=== PATIENT | male | born 1950 | race Caucasian/White ===

== ENCOUNTER 2017-01-21 14:45 | Emergency (ER) | payer MEDICARE, BC ==
[~2017-01-21] VITALS: Wt 81.0 kg
[~2017-01-21 14:45] MED LIST: ASPI81TA3 PO; ATOR80TA75 PO; CARV25TA79 PO; CINA60TA PO; CLON0.2T5 PO; DOCU-144 PO; DOCU-159 PO; DOXA1TAB PO; EZET10TA3 PO; FURO40TA4 PO; HYDR-3672 PO; INSU100C SC; LANT3I SC; LEVO125T75 PO; LISI-526 PO; METO5TAB2 PO; NEPH PO; NIFE90TA21 PO; PANT40TA3 PO; SEVE800T7 PO; TAMS0.4C2 PO; ZINC220T PO
--- NOTE | 2017-01-21 15:26 | ERD ---
ER Documentation Chief Complaint Date/Time DATE: 01/21/17 Chief Complaint Left shoulder pain HPI The patient is a 66-year-old male with a history of hypertension, diabetes mellitus, end stage renal disease on hemodialysis (Tuesdays, , Saturdays) who presents to the Emergency Department with complaint of left shoulder pain for the past week. The patient believes he may have strained or "twisted" his shoulder while lifting something heavy last week. He now notes an aching pain localized to the left shoulder joint, particularly the deltoid region and lateral arm, that is worsened with overhead activity. He notes that the pain most often occurs when lying on the left shoulder, and at night. He denies any numbness, paresthesias or weakness of the distal extremity. Denies any restricted range of motion. Denies recent erythema, warmth, or swelling to the joint or upper extremity. He rates his current pain as 7/10, but notes that he has not taken any medication for pain relief since early this morning. Denies chest pain, palpitations, shortness of breath, diaphoresis, back pain, fevers, sweats, chills, or any other complaints at this time. The patient does note, however, that he has experienced similar pains to this in the past, but the pain usually self-resolves within one week. As it has been a full week since his symptoms began, he decided to present to the ED for further evaluation. Denies any recent falls or trauma to the extremity. ROS All systems reviewed and are negative except as per history of present illness. Medications Home Meds Active Scripts Tramadol HCl (Tramadol HCl) 50 Mg Tablet, 50 MG PO Q6 Y for PAIN, #12 TAB Prov:JOHN SLOAN PA-C 01/21/17 Reported Medications Insulin Glargine* (Lantus*) 100 Unit/Ml Soln, 1 UNIT SC DAILY, #1 VIAL 01/15/16 Docusate Sodium* (Colace*) 100 Mg Capsule, 100 MG PO BID, #60 CAP 01/15/16 Aspirin* (Aspirin* Chew) 81 Mg Tab.chew, 81 MG PO DAILY, TAB.CHEW 01/15/16 Levothyroxine Sodium* (Levothyroxine Sodium*) 125 Mcg Tablet, 125 MCG PO BEFORE BREAKFAST, #30 TAB 08/19/15 Insulin Lispro (Humalog) 100 U/Ml Cartridge, 10 UNITS SC WITH BREAKFAST, EA 08/12/15 Zinc Sulfate* (Zinc Sulfate*) 220 Mg Tablet, 220 MG PO DAILY, TAB 08/12/15 Sevelamer Carbonate* (Renvela*) 800 Mg Tablet, 3200 MG PO WITH MEALS, TAB 08/12/15 Docusate Sodium* (Docusate Sodium*) 100 Mg Capsule, 100 MG PO DAILY, #30 CAP 08/12/15 Tamsulosin Hcl* (Tamsulosin Hcl*) 0.4 Mg Cap.er.24h, 0.4 MG PO HS, CAP 08/12/15 Multivit/Ca Carb/B Cmplx/Fa* (Kimmie-Tirso*) 1 Tab Tab, 1 TAB PO DAILY, TAB 08/12/15 Cinacalcet* (Sensipar*) 60 Mg Tablet, 60 MG PO DAILY, TAB 08/12/15 Nifedipine* (Adalat CC*) 90 Mg Tablet.sa, 90 MG PO QHS, #30 TAB.SA 08/12/15 Doxazosin Mesylate* (Doxazosin Mesylate*) 1 Mg Tablet, 1 MG PO HS, TAB 08/12/15 Ezetimibe* (Zetia*) 10 Mg Tablet, 10 MG PO HS, TAB 08/12/15 Atorvastatin* (Atorvastatin*) 80 Mg Tablet, 80 MG PO QHS, #30 TAB 08/12/15 Lisinopril* (Zestril*) 40 Mg Tablet, 40 MG PO BID, #30 TAB 08/12/15 Hydralazine Hcl* (Hydralazine Hcl*) 50 Mg Tablet, 50 MG PO BID, #90 TAB 08/12/15 Furosemide* (Furosemide*) 40 Mg Tablet, 40 MG PO BID, TAB 08/12/15 Carvedilol* (Carvedilol*) 25 Mg Tablet, 25 MG PO BID, TAB 08/12/15 Clonidine Hcl* (Clonidine Hcl*) 0.2 Mg Tablet, 0.2 MG PO BID, TAB 08/12/15 Metoclopramide Hcl (Reglan) 5 Mg Tab, 5 MG PO AC MEALS AND BEDTIME 01/18/13 Pantoprazole* (Protonix*) 40 Mg Tablet.dr, 40 MG PO DAILY 01/16/13 Allergies Allergies: Coded Allergies: Soap (Verified Allergy, Intermediate, LOCAL RASH, 08/12/15) povidone-iodine (Verified Allergy, Intermediate, LOCAL RASH, 08/12/15) PMhx/Soc History of Surgery: Yes (LEFT AV GRAFT, ERCP, 2 X PCI) Anesthesia Reaction: No Hx Neurological Disorder: No Hx Respiratory Disorders: No Hx Cardiac Disorders: Yes (HTN) Hx Psychiatric Problems: No Hx Miscellaneous Medical Probl: Yes (DM, DIALYSIS) Hx Alcohol Use: No Hx Substance Use: No Hx Tobacco Use: No Smoking Status: Never smoker Physical Exam Vitals Vital Signs Date Time Temp Pulse Resp B/P Pulse Ox O2 Delivery O2 Flow Rate FiO2 01/21/17 14:46 98.6 64 20 172/75 96 Physical Exam Const: Well-developed male in no acute distress. Head: Normocephalic. Atraumatic Eyes: Normal Conjunctiva ENT: Normal External Ears, Nose and Mouth. Neck: Supple. No midline cervical tenderness. Mild tenderness to palpation over the left trapezius muscle and near the AC joint. No crepitus. No step offs. Resp: Clear to auscultation bilaterally Cardio: Regular rate and rhythm Abd: Soft, non tender, non distended. Skin: No petechiae or rashes. No erythema, warmth, swelling. No skip or target lesions. No crepitus. Ext: Inspection of the left shoulder reveals no deformity and fairly developed musculature. Superficial abrasions (2) to posterior left shoulder. No sagging of the shoulder. No obvious deformity. Palpation of the shoulder reveals mild tenderness upon palpation of the bicipital groove and over the left deltoid region. Active range of motion shows moderate pain with range of motion that appears to be worse with extension and internal rotation against resistance. Passive range of motion shows mild pain. Positive Neer sign. Positive Hawkin's Dwayne test. Negative drop arm test. Examination of the biceps reveals no pain with resisted flexion or pronation. Negative Yergason sign. Negative anterior apprehension test. Negative sulcus sign. Axillary, radial, median and ulnar nerve distribution grossly intact, both motor and sensory. Normal skin perfusion. No joint effusion. Full range of motion of the upper and lower extremities. No focal swelling or erythema. No clubbing, cyanosis or edema. Dialysis fistula with positive thrill and bruit to left upper extremity. Compartments are soft. No crepitus. Neur: Awake and alert. Motor and sensation grossly intact. Psych: Cooperative. Results 24 hrs Current Medications Medications (Trade) Dose Ordered Sig/Binta Route PRN Reason Start Time Stop Time Status Last Admin Dose Admin Acetaminophen (Tylenol Tab) 650 mg ONCE ONCE PO 01/21/17 15:30 01/21/17 15:31 DC 01/21/17 15:56 Procedures/MDM DIAGNOSTIC TESTS AND INTERPRETATION: PROCEDURE: Left shoulder 3 views CLINICAL INDICATION: Left shoulder pain. TECHNIQUE: AP internal and external rotation and transscapular Y views of the left shoulder were obtained COMPARISON: None available FINDINGS: Osseous structures are intact. No destructive bony lesions are observed. Moderate narrowing of the glenohumeral joint is seen. Osteophytosis is noted along the inferior margins of the humeral head and glenoid. Small bone island is seen in the humeral head. Soft tissues are unremarkable. IMPRESSION: Moderate degenerative change of the glenohumeral joint. If further characterization is needed CT or MRI could be helpful. If there is high clinical suspicion for traumatic injury, further evaluation with CT should be considered. .Yovany Solis MD, MD Date Time Electronically viewed and signed by .Yovany Solis MD, MD on 01/21/2017 16:20 EKG Review and interpretation by: Dr. Gaitan EKG Interpretation: Normal sinus rhythm. 61 bpm. Prolonged QTc 509 ms. Normal axis. Nonspecific ST/T changes. T wave inversion II, III, avF, V5, V6. SLING APPLICATION: INDICATION: Left shoulder pain/impingment/internal derangement of the left shoulder. LOCATION: Left upper extremity, shoulder. NEUROVASCULAR EXAM: The patients extremity was neurovascularly intact prior to and status post renato wrap placement. MEDICAL DECISION MAKING: This is a 66-year-old male presenting to the emergency department with left shoulder pain for one week, that he believes may be secondary to lifting a heavy open. The patient had tenderness to palpation over the left deltoid region and bicipital groove, with a positive Neer sign and Hawkin's Dwayne tests. Otherwise, negative lift off test and drop arm test. The patient's vital signs were stable, and he showed no evidence of toxicity. The differential diagnosis includes, but is not limited to, contusion , sprain, rotator cuff injury, strain, humeral fracture, clavicle fracture, scapular fracture, acromion fracture, shoulder separation, shoulder dislocation , arthritis, necrotizing fasciitis, necrotizing myositis, pneumothorax, biceps tendinitis, subacromial bursitis, adhesive capsulitis, AC separation, rheumatoid arthritis, septic arthritis, avascular necrosis, polymyalgia rheumatica, thoracic outlet syndrome, brachial plexus neuropathy, neoplastic disease. There are no imaging findings to suggest fracture, dislocation or subluxation. Patient is breathing normally on room air with no shortness of breath, no tachypnea and a normal O2 saturation. I do not suspect pneumothorax. No pain out of proportion to examination, no fevers, no constitutional symptoms, no crepitus, no skip lesions or rash, no erythema or restricted range of motion to suggest necrotizing fasciitis/myositis, avascular necrosis, septic arthritis. Range of motion appears to be intact, though with a positive Neer and Saucedo-Dwayne sign, indicating possible impingement. However, patient will need further outpatient evaluation and follow up with possible MRI for confirmation. Distal extremity is neurovascularly intact. No evidence of neurovascular compromise. After rest and administration of Tylenol , the patient reports no new complaints and mildly decreased pain. Upon my review and interpretation of the patient's presentation and overall ER course, I believe that the patient's symptoms are most consistent with shoulder pain, internal derangement of the left shoulder and likely impingement syndrome. His symptoms may be due to an underlying rotator cuff injury, however he will need further work up and evaluation for confirmation of such a diagnosis. The patient is in stable condition and therefore can be discharged home with a prescription for Tramadol (if needed), and strict return precautions for signs of deteriorating or worsening condition. The importance of icing, elevating, resting and working on range of motion was discussed with the patient. His upper extremity was placed in a sling, for further comfort, at this time in the emergency department. The patient is instructed to follow up with his primary care provider within 1-2 days for reevaluation and further management or return to the ER sooner for any worsening symptoms. I shared all diagnostic imaging studies with the patient at length and in great detail and the patient verbally understands and agrees with the plan for further observation and care as an outpatient. At the time of discharge, all questions were answered. Departure Diagnosis: Primary Impression: Left shoulder pain Chronicity: acute Qualified Code: M25.512 - Acute pain of left shoulder Condition: Stable Patient Instructions: Shoulder Impingement Syndrome, Shoulder Pain (Uncertain Cause), What Is Impingement Syndrome? Additional Instructions: Follow up with your primary medical provider in 1-2 days for reevaluation and further management. If your symptoms persist, please discuss obtaining an outpatient MRI with your primary medical provider. Return to the ED sooner for any new or worsening symptoms. JOHN SLOAN PA-C Jan 21, 2017 15:26
[2017-01-21] MEDS ORDERED: ACETAMINOPHEN 325 MG TAB PO ONE (15:30)
--- NOTE | 2017-01-21 16:21 | RADRPT ---
PROCEDURE: Left shoulder 3 views CLINICAL INDICATION: Left shoulder pain. TECHNIQUE: AP internal and external rotation and transscapular Y views of the left shoulder were o btained COMPARISON: None available FINDINGS: Osseous structures are intact. No destructive bony lesions are observed. Moderate narrowing of the glenohumeral joint is seen. Osteophytosis is noted along the inferior margins of the humeral head and glenoid. Small bone island is seen in the humeral head. Soft tissues are unremarkable. IMPRESSION: Moderate degenerative change of the glenohumeral joint. If further characterization is needed CT or MRI could be helpful. If there is high clinical suspicion for traumatic injury, further evaluation with CT should be consi dered. RPTAT: AA .Yovany Solis MD, MD Date Time Electronically viewed and signed by .Yovany Solis MD, on 01/21/2017 16:20 .P/
[2017-01-21] MEDS ORDERED: TRAM50TA2 PO (16:22)
== END 2017-01-21 16:30 | disposition home or self-care (01) ==
LOC: FTE 14:45
DX: M25.512 Pain in left shoulder (principal); I12.0 Hypertensive chronic kidney disease with stage 5 chronic kidney disease or end stage renal disease; N18.6 End stage renal disease; E11.22 Type 2 diabetes mellitus with diabetic chronic kidney disease; Z79.4 Long term (current) use of insulin; Z79.82 Long term (current) use of aspirin; Z99.2 Dependence on renal dialysis
CPT/HCPCS: 73030; 93005

== ENCOUNTER 2017-01-28 22:31 | Inpatient (IN) | payer BC, MEDICARE ==
[~2017-01-28] VITALS: Ht 167.6 cm; Wt 83.4 kg
[~2017-01-28 22:31] MED LIST changes: +TRAM50TA2 PO
[2017-01-29] VITALS (23 sets, daily range): BP systolic 165–207; BP diastolic 63–90; PULSE 55–65; RESP 18–19; TEMP 98.4; Ht 167.6 cm; Wt 83.4 kg
--- NOTE | 2017-01-29 03:40 | RADRPT ---
PROCEDURE: XR Chest. CLINICAL INDICATION: Cough TECHNIQUE: Single frontal view of the chest was obtained COMPARISON: 01/15/2016 FINDINGS: There is hypoinflation of the lungs and bibasilar atelectasis/infiltrates and small right pleural ef fusion appearing since previous study. Enlargement of the cardiac silhouette is again seen. Calcifi cation in thoracic aorta. ECG leads are projected over the chest. Right lateral old rib fractures a gain seen. IMPRESSION: Enlargement of cardiac silhouette again seen. Hypoinflation of the lungs and bibasilar atelectasis/ infiltrates and small right pleural effusion appearing since previous study. Appearance of an appro ximate 1.7 cm rounded density projected over the right lower lung not seen on the previous study. A lung nodule is not excluded and follow-up is recommended. Please see above. RPTAT: HJES .Obey Patricia MD, Date Time Electronically viewed and signed by .Obey Patricia MD, on 01/29/2017 03:39 .S/
[2017-01-29 03:49] LABS: ADD SCAN DIFF NO
[2017-01-29 04:03] LABS: ABNORMAL IP MESSAGE 1; BASOPHILS % 0.4 % (0.0-2.0); EOSINOPHILS # 0.4 10^3/ul (0.0-0.5); HEMATOCRIT 31.7 % (42.0-52.0); HEMOGLOBIN 10.1 g/dl (14.0-18.0); LYMPHOCYTES # 0.8 10^3/ul (0.8-2.9); LYMPHOCYTES % 15.3 % (15.0-51.0); MEAN CORPUSCULAR HEMOGLOBIN 31.2 pg (29.0-33.0); MEAN CORPUSCULAR HGB CONC 31.9 g/dl (32.0-37.0); MEAN CORPUSCULAR VOLUME 97.8 fl (82.0-101.0); MEAN PLATELET VOLUME 11.1 fl (7.4-10.4); MONOCYTE # 0.5 10^3/ul (0.3-0.9); MONOCYTES % 9.9 % (0.0-11.0); NEUTROPHIL # 3.3 10^3/ul (1.6-7.5); NEUTROPHILS % 66.2 % (39.0-77.0); RED BLOOD COUNT 3.24 10^6/ul (4.70-6.10); RED CELL DISTRIBUTION WIDTH 18.2 % (11.5-14.5)
[2017-01-29 04:11] LABS: ALBUMIN 4.5 g/dl (3.3-4.9); ALBUMIN/GLOBULIN RATIO 1.55; CALCIUM 11.1 mg/dl (8.4-10.2); CREATININE 11.18 mg/dl (0.61-1.24); POTASSIUM 4.8 mmol/L (3.5-5.1); TOTAL PROTEIN 7.4 g/dl (6.1-8.1)
[2017-01-29 04:19] LABS: INR 1.18; PROTIME 15.1 Sec (12.2-14.2); PT RATIO 1.2
[2017-01-29 04:21] LABS: PARTIAL THROMBOPLASTIN TIME 49.2 Sec (25.0-35.0); TROPONIN-I 0.041 ng/ml (0.00-0.12)
[2017-01-29 04:37] LABS: PLATELET COUNT 44 10^3/UL (140-415); PLATELET ESTIMATE PLT APPEAR
[2017-01-29] MEDS ORDERED: ONDANSETRON 4 MG INJ IV PRN ×2 (05:30→10:30)
[2017-01-29] MEDS ORDERED: ASPIRIN 81 MG TAB PO ONE (05:30)
[2017-01-29] MEDS ORDERED: ACETAMINOPHEN 325 MG TAB PO PRN (05:30)
[2017-01-29] MEDS ORDERED: hydrALAzine 20 MG INJ IV ONE (06:00)
--- NOTE | 2017-01-29 06:39 | ERA ---
ER Documentation Chief Complaint Date/Time DATE: 01/29/17 TIME: 06:17 Chief Complaint vomit today, emesis x 5. Denies abd pain. +SOB +CP HPI 66-year-old male with a history of hypertension, diabetes, ESRD on hemodialysis presenting with multiple episodes of vomiting today. Emesis was nonbloody and nonbilious. He denies any associated abdominal pain but does endorse some chest pain and shortness of breath that have been worsening over the past few days. He denies any fevers, chills, cough, diarrhea or constipation. His last dialysis was yesterday. He knows his blood pressure was high today so he took a clonidine prior to coming to the ER. ROS All systems reviewed and are negative except as per history of present illness. Medications Home Meds Active Scripts Tramadol HCl (Tramadol HCl) 50 Mg Tablet, 50 MG PO Q6 Y for PAIN, #12 TAB Prov:JOHN SLOAN PA-C 01/21/17 Reported Medications Docusate Sodium* (Colace*) 100 Mg Capsule, 100 MG PO BID, #60 CAP 01/15/16 Aspirin* (Aspirin* Chew) 81 Mg Tab.chew, 81 MG PO DAILY, TAB.CHEW 01/15/16 Levothyroxine Sodium* (Levothyroxine Sodium*) 125 Mcg Tablet, 125 MCG PO BEFORE BREAKFAST, #30 TAB 08/19/15 Insulin Lispro (Humalog) 100 U/Ml Cartridge, 0 SC WITH BREAKFAST, EA SLIDING SCALE 08/12/15 Zinc Sulfate* (Zinc Sulfate*) 220 Mg Tablet, 220 MG PO DAILY, TAB 08/12/15 Sevelamer Carbonate* (Renvela*) 800 Mg Tablet, 3200 MG PO WITH MEALS, TAB 08/12/15 Docusate Sodium* (Docusate Sodium*) 100 Mg Capsule, 100 MG PO DAILY, #30 CAP 08/12/15 Tamsulosin Hcl* (Tamsulosin Hcl*) 0.4 Mg Cap.er.24h, 0.4 MG PO HS, CAP 08/12/15 Multivit/Ca Carb/B Cmplx/Fa* (Kimmie-Tirso*) 1 Tab Tab, 1 TAB PO DAILY, TAB 08/12/15 Cinacalcet* (Sensipar*) 60 Mg Tablet, 60 MG PO DAILY, TAB 08/12/15 Nifedipine* (Adalat CC*) 90 Mg Tablet.sa, 90 MG PO QHS, #30 TAB.SA 08/12/15 Doxazosin Mesylate* (Doxazosin Mesylate*) 1 Mg Tablet, 1 MG PO HS, TAB 08/12/15 Atorvastatin* (Atorvastatin*) 80 Mg Tablet, 80 MG PO QHS, #30 TAB 08/12/15 Lisinopril* (Zestril*) 40 Mg Tablet, 40 MG PO BID, #30 TAB 08/12/15 Hydralazine Hcl* (Hydralazine Hcl*) 50 Mg Tablet, 50 MG PO BID, #90 TAB 08/12/15 Carvedilol* (Carvedilol*) 25 Mg Tablet, 25 MG PO BID, TAB 08/12/15 Clonidine Hcl* (Clonidine Hcl*) 0.2 Mg Tablet, 0.2 MG PO BID, TAB 08/12/15 Metoclopramide Hcl (Reglan) 5 Mg Tab, 5 MG PO AC MEALS AND BEDTIME 01/18/13 Pantoprazole* (Protonix*) 40 Mg Tablet.dr, 40 MG PO DAILY 01/16/13 Discontinued Reported Medications Insulin Glargine* (Lantus*) 100 Unit/Ml Soln, 1 UNIT SC DAILY, #1 VIAL 01/15/16 Ezetimibe* (Zetia*) 10 Mg Tablet, 10 MG PO HS, TAB 08/12/15 Furosemide* (Furosemide*) 40 Mg Tablet, 40 MG PO BID, TAB 08/12/15 Allergies Allergies: Coded Allergies: Soap (Verified Allergy, Intermediate, LOCAL RASH, 08/12/15) povidone-iodine (Verified Allergy, Intermediate, LOCAL RASH, 08/12/15) PMhx/Soc History of Surgery: Yes (LEFT AV GRAFT, ERCP, 2 X PCI) Anesthesia Reaction: No Hx Neurological Disorder: No Hx Respiratory Disorders: No Hx Cardiac Disorders: Yes (HTN) Hx Psychiatric Problems: No Hx Miscellaneous Medical Probl: Yes (DM, DIALYSIS) Hx Alcohol Use: No Hx Substance Use: No Hx Tobacco Use: No Smoking Status: Unknown if ever smoked FmHx Family History: No diabetes Physical Exam Vitals Vital Signs Date Time Temp Pulse Resp B/P Pulse Ox O2 Delivery O2 Flow Rate FiO2 01/29/17 04:30 57 19 186/69 96 Nasal Cannula 2.0 7/6/17 04:00 Nasal Cannula 2 01/29/17 02:45 60 20 187/74 94 Room Air 01/28/17 22:55 98.3 65 18 200/84 97 Physical Exam Const: Well-appearing, no apparent distress Head: Atraumatic Eyes: Normal Conjunctiva ENT: Dry oral mucosa Neck: Full range of motion..~ No meningismus. Resp: Clear to auscultation bilaterally Cardio: Regular rate and rhythm, no murmurs Abd: Soft, non tender, non distended. Normal bowel sounds Skin: No petechiae or rashes Back: No midline or flank tenderness Ext: No cyanosis, or edema Neur: Awake and alert Psych: Normal Mood and Affect Result Diagram: 01/29/1731601/29/17316 Results 24 hrs Laboratory Tests Test 01/29/17 03:17 White Blood Count 5.010^3/ul Red Blood Count 3.2410^6/ul Hemoglobin 10.1g/dl Hematocrit 31.7% Mean Corpuscular Volume 97.8fl Mean Corpuscular Hemoglobin 31.2pg Mean Corpuscular Hemoglobin Concent 31.9g/dl Red Cell Distribution Width 18.2% Platelet Count 4410^3/UL Mean Platelet Volume 11.1fl Neutrophils % 66.2% Lymphocytes % 15.3% Monocytes % 9.9% Eosinophils % 8.0% Basophils % 0.4% Nucleated Red Blood Cells % 0.0/100WBC Neutrophils # 3.310^3/ul Lymphocytes # 0.810^3/ul Monocytes # 0.510^3/ul Eosinophils # 0.410^3/ul Basophils # 0.010^3/ul Nucleated Red Blood Cells # 0.010^3/ul Platelet Estimate PLT APPEAR Prothrombin Time 15.1Sec Prothrombin Time Ratio 1.2 INR International Normalized Ratio 1.18 Activated Partial Thromboplast Time 49.2Sec Sodium Level 138mmol/L Potassium Level 4.8mmol/L Chloride Level 90mmol/L Carbon Dioxide Level 29mmol/L Anion Gap 24 Blood Urea Nitrogen 75mg/dl Creatinine 11.18mg/dl Glucose Level 201mg/dl Calcium Level 11.1mg/dl Total Bilirubin 0.0mg/dl Direct Bilirubin 0.00mg/dl Indirect Bilirubin 0.0mg/dl Aspartate Amino Transf (AST/SGOT) 32IU/L Alanine Aminotransferase (ALT/SGPT) 37IU/L Alkaline Phosphatase 233IU/L Troponin I 0.041ng/ml Total Protein 7.4g/dl Albumin 4.5g/dl Globulin 2.90g/dl Albumin/Globulin Ratio 1.55 Lipase 99U/L Current Medications Medications (Trade) Dose Ordered Sig/Binta Route PRN Reason Start Time Stop Time Status Last Admin Dose Admin Aspirin (Aspirin) 162 mg ONCE ONCE PO 01/29/17 05:30 01/29/17 05:31 DC 01/29/17 05:21 Ondansetron HCl (Zofran Inj) 4 mg ER BRIDGE PRN IV NAUSEA AND/OR VOMITING 01/29/17 05:30 01/30/17 05:29 Acetaminophen (Tylenol Tab) 650 mg ER BRIDGE PRN PO MILD PAIN/FEVER 01/29/17 05:30 01/30/17 05:29 Hydralazine HCl (Apresoline) 10 mg ONCE ONCE IV 01/29/17 06:00 01/29/17 06:01 DC 01/29/17 05:47 Procedures/MDM EKG #1: Rate/Rhythm: Normal sinus rhythm QRS, ST, T-waves: ST depressions with T-wave inversions in inferolateral leads, QTC 492 Impression: Possible inferior lateral ischemia EKG #2: Rate/Rhythm: Normal sinus rhythm QRS, ST, T-waves: Persistent ST depressions with T-wave inversions in inferolateral leads Impression: Possible inferior lateral ischemia I compared these EKGs to the patient's prior EKG, and these are new changes. Chest x-ray: IMPRESSION: Enlargement of cardiac silhouette again seen. Hypoinflation of the lungs and bibasilar atelectasis/infiltrates and small right pleural effusion appearing since previous study. Appearance of an approximate 1.7 cm rounded density projected over the right lower lung not seen on the previous study. A lung nodule is not excluded and follow-up is recommended. Please see above. Labs CBC: Anemia, thrombocytopenia CMP: There is evidence of chronic kidney disease Troponin within normal limits MDM Aspirin was given. Patient did not want antiemetics as he took them prior to arrival. EKG showed signs of ischemia. Troponin was within normal limits. I do not suspect acute surgical abdomen or serious infection. Patient's symptoms are atypical but are concerning for cardiac cause, especially given his EKG changes, and will require inpatient workup and continuous monitoring. Further w /u for ischemia, arrhythmia, PE or dissection will be deferred to the inpatient team. While the patient was awaiting a telemetry bed, he stated that he did not want to stay. I explained to the patient why I wanted to admit him again. I told him that he may be having problems with his heart. He understands but he would like to leave. Patient has decision-making capacity based on my assessment. He signed an AMA form and was encouraged to return if any of his symptoms worsened. His primary care doctor was notified. Accepting Care Team: Current data and ongoing care discussed. Time: Time of admission Primary Provider: GERA NAVARRO Consulting: none Outstanding Data: none Departure Diagnosis: Primary Impression: Acute vomiting Additional Impression: Chest pain Qualified Code: R07.2 - Precordial pain Condition: Fair ANNABEL ALY MD Jan 29, 2017 06:39
[2017-01-29] MEDS ORDERED: NITROGLYCERIN (SL) 0.4 MG TAB SL PRN (09:00)
[2017-01-29] MEDS ORDERED: traMADol 50 MG TAB PO PRN (09:00)
[2017-01-29] MEDS ORDERED: DOCUSATE SODIUM 100 MG CAP PO SCH (09:30)
[2017-01-29] MEDS ORDERED: GLUCAGON 1 MG INJ IM PRN (09:30)
[2017-01-29] MEDS ORDERED: GLUCOSE GEL 15 GRAM TUBE BUCCAL PRN (09:30)
[2017-01-29] MEDS ORDERED: ZINC SULFATE 220 MG CAP PO SCH (09:30)
[2017-01-29] MEDS ORDERED: DEXTROSE 50% 50 ML SYRINGE IV PRN ×2 (09:30)
[2017-01-29] MEDS ORDERED: GLUCOSE GEL 15 GRAM TUBE PO PRN ×2 (09:30)
[2017-01-29] MEDS: MULTIVIT/CA CARB/B CMPLX/FA TAB PO SCH (09:37)
[2017-01-29] MEDS: DOCUSATE SODIUM 100 MG CAP PO SCH ×2 (09:37→20:31)
[2017-01-29] MEDS: ASPIRIN 81 MG TAB PO SCH (09:37)
[2017-01-29] MEDS: LISINOPRIL 20 MG TAB PO SCH ×2 (09:42→20:32)
[2017-01-29] MEDS: PANTOPRAZOLE (EC) 40 MG TAB PO SCH (09:43)
[2017-01-29] MEDS: LEVOTHYROXINE 125 MCG TAB PO SCH (10:45)
[2017-01-29] MEDS: CINACALCET 30 MG TAB PO SCH (10:45)
[2017-01-29] MEDS ORDERED: INSULIN ASPART [NOVOLOG] 3 ML PEN SC SCH (11:50)
[2017-01-29] MEDS: SEVELAMER CARBONATE 0.8 GM PKT PO SCH ×2 (11:58→17:33)
[2017-01-29] MEDS: METOCLOPRAMIDE 5 MG TAB PO SCH ×3 (12:00→22:25)
[2017-01-29] MEDS: INSULIN ASPART [NOVOLOG] 3 ML PEN SC SCH ×5 (12:57→21:00)
--- NOTE | 2017-01-29 13:23 | CONS ---
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 These include retinopathy nephropathy peripheral neuropathy and vascular disease. In addition to this he has a type I diabetic is somewhat insulin sensitive and prone to low sugar reactions. Please note he is does not have many low sugar reactions but he has an overwhelming fear of them. Because of this he has avoided tight control. Will try and work with him to get his sugars best we can under the present circumstances. These note he was a no-show in my office for October 08 and October 29 of this year. His last visit was July 09, 2016. (2) Hyperlipidemia Status: Chronic Comment: His home regimen for statin as well as atorvastatin 160 mg a day with Zetia 10 mg a day. We have issues of polypharmacy with this gentleman and his regimen needs to be fine-tuned while we have him. Qualifiers: Qualified Code: E78.00 - Pure hypercholesterolemia (3) Chest pain Status: Acute Comment: As per Dr. Navarro cardiology. Qualifiers: Qualified Code: R07.2 - Precordial pain (4) Tertiary hyperparathyroidism Status: Chronic Comment: He is presently on Sensipar for this. I am rechecking an ionized calcium is a serum calcium was 11.1. Please note the last date I had from his dialysis center had a calcium that was much lower than that. However this is more than 6 months old information (5) Choledocholithiasis Status: Acute Comment: This may need to be addressed in the near future as I suspect many of the symptoms that he is attributing to insulin and sugar issues are actually gallbladder issues. (6) BPH (benign prostatic hyperplasia) Status: Chronic Comment: The combination of tamsulosin with doxazosin in the setting is less effective. I am going to discontinue his tamsulosin. Qualifiers: Qualified Code: N40.0 - Benign prostatic hyperplasia without lower urinary tract symptoms, unspecified morphology (7) Hypertension Status: Chronic Comment: He is on full dose REBEKAH inhibitor along with blockade beta-blockade and nifedipine. The alpha blockade should be pushed up in the nifedipine should be decreased if possible. Qualifiers: Qualified Code: I10 - Essential hypertension Consultation Date/Type/Reason Admit Date/Time Jan 29, 2017 at 05:30 Date of Consultation: Jan 29, 2017 Type of Consultation: Endocrinology Reason for Consultation Diabetes mellitus type 1 with complications; end-stage renal disease on CHD twice weekly; hypertension; BPH; hyperlipidemia; hypothyroidism; polypharmacy Referring Provider: GERA NAVARRO MD Hx of Present Illness 66-year-old gentleman with a history of diabetes mellitus type 1 since the age of 4; he has complications of end-stage renal disease on hemodialysis; retinopathy; peripheral neuropathy;. In addition he has vascular disease including cardiovascular disease. He is admitted for gallbladder disease. Please note that this is been a known diagnosis for at least 13 months Constitutional: no complaints (Denies fevers chills or sweats) Eyes: no complaints (Last visit with Dr. Foster 6 weeks ago) ENT: no complaints Respiratory: shortness of breath Cardiovascular: other (Left arm pain that is positional and aggravated with motion.) Gastrointestinal: no complaints Genitourinary: other (And uric renal failure) Musculoskeletal: other (Left arm pain) Endocrine: other (Patient reports he gets a sensation of hunger which she attributes to low sugar reactions roughly 4 PM daily. He reports when he checks his sugars at that time before he is eaten sugars are in the 300 range. He eats anyway and is concerned that the long-acting insulin is not working well for him.) Past Medical History Diabetes mellitus type 1; end-stage renal disease on CHD twice weekly; diabetic retinopathy; diabetic peripheral neuropathy; hyperlipidemia; hypertension; BPH; history of renal stone; cholelithiasis; organic heart disease systolic CHF; diastolic dysfunction; hypothyroidism; umbilical hernia; diverticulosis coli; peripheral vascular disease; anemia. His home medication list is concerning for polypharmacy. Medical History: congestive heart failure, diabetes, gallstones, high cholesterol, hypertension, hypothyroid Past Surgical History Status post placement of dialysis catheter Family History Significant Family History: heart disease, diabetes, hypertension Social History Alcohol Use: none Smoking Status: Never smoker Drug Use: none Other Social History Born in [facility] and [facility]. He is (his is [employer] employee) lives with his and 2 children. Exam/Review of Systems Vital Signs Vitals Vital Signs Date Time Temp Pulse Resp B/P Pulse Ox O2 Delivery O2 Flow Rate FiO2 01/29/17 12:04 56 01/29/17 11:28 98.2 18 179/79 92 01/29/17 09:00 Room Air 2.0 Nasal Cannula Exam Constitutional: alert, oriented Neck: non-tender, supple Respiratory: clear to auscultation, normal air movement Cardiovascular: nl pulses, regular rate and rhythm Results Result Diagram: 01/29/177 01/29/17316 Results 24 hrs Laboratory Tests Test 01/29/17 03:17 01/29/17 09:00 01/29/17 10:44 01/29/17 12:54 White Blood Count 5.0 # Red Blood Count 3.24 L Hemoglobin 10.1 L Hematocrit 31.7 L Mean Corpuscular Volume 97.8 Mean Corpuscular Hemoglobin 31.2 Mean Corpuscular Hemoglobin Concent 31.9 L Red Cell Distribution Width 18.2 H Platelet Count 44 L Mean Platelet Volume 11.1 #H Neutrophils % 66.2 Lymphocytes % 15.3 Monocytes % 9.9 Eosinophils % 8.0 H Basophils % 0.4 Nucleated Red Blood Cells % 0.0 Neutrophils # 3.3 Lymphocytes # 0.8 Monocytes # 0.5 Eosinophils # 0.4 Basophils # 0.0 Nucleated Red Blood Cells # 0.0 Platelet Estimate PLT APPEAR Prothrombin Time 15.1 H Prothrombin Time Ratio 1.2 INR International Normalized Ratio 1.18 Activated Partial Thromboplast Time 49.2 H Sodium Level 138 Potassium Level 4.8 Chloride Level 90 L Carbon Dioxide Level 29 Anion Gap 24 H Blood Urea Nitrogen 75 H Creatinine 11.18 H Glucose Level 201 Calcium Level 11.1 H Total Bilirubin 0.0 L Direct Bilirubin 0.00 Indirect Bilirubin 0.0 Aspartate Amino Transf (AST/SGOT) 32 Alanine Aminotransferase (ALT/SGPT) 37 Alkaline Phosphatase 233 H Troponin I 0.041 Total Protein 7.4 Albumin 4.5 Globulin 2.90 Albumin/Globulin Ratio 1.55 Lipase 99 Thyroid Stimulating Hormone (TSH) 5.530 H Bedside Glucose 245 H 257 H 260 H Medications Medications Current Medications Aspirin (Aspirin) 81 mg DAILY PO Last administered on 01/29/17 09:37; Admin Dose 81 MG; Start 01/29/17 at 09:00 Atorvastatin Calcium (Lipitor) 80 mg QHS PO ; Start 01/29/17 at 21:00 Carvedilol (Coreg) 25 mg BID PO Last administered on 01/29/17 09:43; Admin Dose 25 MG; Start 01/29/17 at 09:30 Cinacalcet (Sensipar) 60 mg DAILY PO Last administered on 01/29/17 10:45; Admin Dose 60 MG; Start 01/29/17 at 10:30 Clonidine (Catapres) 0.2 mg BID PO Last administered on 01/29/17 09:42; Admin Dose 0.2 MG; Start 01/29/17 at 09:00 Docusate Sodium (Colace) 100 mg BID PO Last administered on 01/29/17 09:37; Admin Dose 100 MG; Start 01/29/17 at 09:30 Doxazosin Mesylate (Cardura) 1 mg HS PO ; Start 01/29/17 at 21:00 Hydralazine HCl (Apresoline) 50 mg BID PO Last administered on 01/29/17 09:41; Admin Dose 50 MG; Start 01/29/17 at 09:30 Lisinopril (Zestril) 40 mg BID PO Last administered on 01/29/17 09:42; Admin Dose 40 MG; Start 01/29/17 at 09:30 Multivit/Ca Carb/ B Cmplx/FA/Prenat (Kimmie-Tirso) 1 tab DAILY PO Last administered on 01/29/17 09:37; Admin Dose 1 TAB; Start 01/29/17 at 09:30 Nifedipine (Procardia Xl) 90 mg QHS PO ; Start 01/29/17 at 21:00 Pantoprazole (Protonix Tab) 40 mg DAILY@06 PO Last administered on 01/29/17 09: 43; Admin Dose 40 MG; Start 01/29/17 at 09:30 Tamsulosin HCl (Flomax) 0.4 mg HS PO ; Start 01/29/17 at 21:00 Tramadol HCl (Ultram) 50 mg Q6H PRN PO PAIN; Start 01/29/17 at 09:00 Nitroglycerin (Nitroglycerin (Sl Tab) 0.4 Mg) 1 tab Q5M PRN SL ANGINA; Start at 09:00 Clonidine (Catapres) 0.1 mg Q4H PRN NGT sbp >170 dbp>110; Start 01/29/17 at 09: 00 Miscellaneous Information 1 ea NOTE XX ; Start 01/29/17 at 09:30 Glucose (Glutose) 15 gm Q15M PRN PO DECREASED GLUCOSE; Start 01/29/17 at 09:30 Glucose (Glutose) 22.5 gm Q15M PRN PO DECREASED GLUCOSE; Start 01/29/17 at 09:30 Dextrose (D50w Syringe) 25 ml Q15M PRN IV DECREASED GLUCOSE; Start 01/29/17 at 09:30 Dextrose (D50w Syringe) 50 ml Q15M PRN IV DECREASED GLUCOSE; Start 01/29/17 at 09:30 Glucagon (Glucagen) 1 mg Q15M PRN IM DECREASED GLUCOSE; Start 01/29/17 at 09:30 Glucose (Glutose) 15 gm Q15M PRN BUCCAL DECREASED GLUCOSE; Start 01/29/17 at 09: 30 Ondansetron HCl (Zofran Inj) 4 mg Q4H PRN IV NAUSEA AND/OR VOMITING; Start 01/29 at 10:30 Insulin Glargine (Lantus) 12 unit DAILY@20 SC ; Start 01/29/17 at 20:00 Diagnostic Test (Pha) (Accu-Chek) 1 02 XX ; Start 01/30/17 at 02:00 LAWANDA KING MD Jan 29, 2017 13:16
[2017-01-29] MEDS: ACCU-CHEK XX SCH ×2 (13:50→23:30)
[2017-01-29] MEDS ORDERED: INSULIN GLARGINE [LANtus] 3 ML PEN SC SCH (20:00)
--- NOTE | 2017-01-29 20:27 | CONS ---
Date/Time of Note Date/Time of Note DATE: 01/29/17 TIME: 20:15 Assessment/Plan Assessment/Plan Chief Complaint/Hosp Course Impression: 1. End-stage renal disease on maintenance hemodialysis. He has end-stage renal disease due to diabetic nephropathy. The patient dialyzes Thursday and today , being , is due for dialysis . 2. Hypertension 3. Type 1 diabetes mellitus on insulin 4. Cardiomyopathy with ejection fraction of 35% Plan: 1. Will order hemodialysis treatment for today. 2. Resume routine medications 3. I will follow the patient along with you Problems: Consultation Date/Type/Reason Admit Date/Time Jan 29, 2017 at 05:30 Date of Consultation: Jan 29, 2017 Type of Consultation: Renal Reason for Consultation End Stage Renal Disease Referring Provider: GERA NAVARRO MD Hx of Present Illness I was asked to see this 66-year-old man because of end-stage renal disease. This patient is well known to me. He is on maintenance hemodialysis Thursday and is due for dialysis today. The patient was admitted through the emergency room today because of chest pain. The chest pain resolved and the patient is feeling well at this time. The patient has a history of type 1 diabetes mellitus and has diabetic nephropathy, neuropathy, retinopathy and vascular disease. Constitutional: no complaints Eyes: no complaints ENT: no complaints Respiratory: shortness of breath Cardiovascular: chest pain, other Gastrointestinal: no complaints Genitourinary: other Musculoskeletal: other Endocrine: other Past Medical History Medical History: congestive heart failure, diabetes, gallstones, high cholesterol, hypertension, hypothyroid Past Surgical History Past Surgical Hx: other Family History Significant Family History: no pertinent family hx Social History Alcohol Use: none Smoking Status: Never smoker Drug Use: none Exam/Review of Systems Vital Signs Vitals Vital Signs Date Time Temp Pulse Resp B/P Pulse Ox O2 Delivery O2 Flow Rate FiO2 01/29/17 18:22 165/70 01/29/17 17:20 60 18 01/29/17 15:21 98.7 97 01/29/17 09:00 Room Air 2.0 Nasal Cannula Exam Constitutional: alert, oriented, well developed Eyes: EOMI, nl conjunctiva ENMT: mucosa pink and moist Neck: non-tender, supple Respiratory: clear to auscultation, normal air movement Cardiovascular: edema, regular rate and rhythm Gastrointestinal: non-tender, soft Extremities: edema Results Result Diagram: 01/29/17 0317 01/29/17 0317 Results 24 hrs Laboratory Tests Test 01/29/17 03:17 01/29/17 09:00 01/29/17 10:44 01/29/17 12:54 White Blood Count 5.0 # Red Blood Count 3.24 L Hemoglobin 10.1 L Hematocrit 31.7 L Mean Corpuscular Volume 97.8 Mean Corpuscular Hemoglobin 31.2 Mean Corpuscular Hemoglobin Concent 31.9 L Red Cell Distribution Width 18.2 H Platelet Count 44 L Mean Platelet Volume 11.1 #H Neutrophils % 66.2 Lymphocytes % 15.3 Monocytes % 9.9 Eosinophils % 8.0 H Basophils % 0.4 Nucleated Red Blood Cells % 0.0 Neutrophils # 3.3 Lymphocytes # 0.8 Monocytes # 0.5 Eosinophils # 0.4 Basophils # 0.0 Nucleated Red Blood Cells # 0.0 Platelet Estimate PLT APPEAR Prothrombin Time 15.1 H Prothrombin Time Ratio 1.2 INR International Normalized Ratio 1.18 Activated Partial Thromboplast Time 49.2 H Sodium Level 138 Potassium Level 4.8 Chloride Level 90 L Carbon Dioxide Level 29 Anion Gap 24 H Blood Urea Nitrogen 75 H Creatinine 11.18 H Glucose Level 201 Calcium Level 11.1 H Total Bilirubin 0.0 L Direct Bilirubin 0.00 Indirect Bilirubin 0.0 Aspartate Amino Transf (AST/SGOT) 32 Alanine Aminotransferase (ALT/SGPT) 37 Alkaline Phosphatase 233 H Troponin I 0.041 Total Protein 7.4 Albumin 4.5 Globulin 2.90 Albumin/Globulin Ratio 1.55 Lipase 99 Thyroid Stimulating Hormone (TSH) 5.530 H Bedside Glucose 245 H 257 H 260 H Test 01/29/17 14:00 01/29/17 16:46 01/29/17 19:25 Ionized Calcium (Measured) 1.4 Troponin I 0.016 Bedside Glucose 129 60 L Medications Medications Current Medications Aspirin (Aspirin) 81 mg DAILY PO Last administered on 01/29/17 09:37; Admin Dose 81 MG; Start 01/29/17 at 09:00 Atorvastatin Calcium (Lipitor) 80 mg QHS PO ; Start 01/29/17 at 21:00 Carvedilol (Coreg) 25 mg BID PO Last administered on 01/29/17 09:43; Admin Dose 25 MG; Start 01/29/17 at 09:30 Cinacalcet (Sensipar) 60 mg DAILY PO Last administered on 01/29/17 10:45; Admin Dose 60 MG; Start 01/29/17 at 10:30 Clonidine (Catapres) 0.2 mg BID PO Last administered on 01/29/17 09:42; Admin Dose 0.2 MG; Start 01/29/17 at 09:00 Docusate Sodium (Colace) 100 mg BID PO Last administered on 01/29/17 09:37; Admin Dose 100 MG; Start 01/29/17 at 09:30 Lisinopril (Zestril) 40 mg BID PO Last administered on 01/29/17 09:42; Admin Dose 40 MG; Start 01/29/17 at 09:30 Multivit/Ca Carb/ B Cmplx/FA/Prenat (Kimmie-Tirso) 1 tab DAILY PO Last administered on 01/29/17 09:37; Admin Dose 1 TAB; Start 01/29/17 at 09:30 Nifedipine (Procardia Xl) 90 mg QHS PO ; Start 01/29/17 at 21:00 Pantoprazole (Protonix Tab) 40 mg DAILY@06 PO Last administered on 01/29/17 09: 43; Admin Dose 40 MG; Start 01/29/17 at 09:30 Tramadol HCl (Ultram) 50 mg Q6H PRN PO PAIN; Start 01/29/17 at 09:00 Nitroglycerin (Nitroglycerin (Sl Tab) 0.4 Mg) 1 tab Q5M PRN SL ANGINA; Start at 09:00 Clonidine (Catapres) 0.1 mg Q4H PRN NGT sbp >170 dbp>110; Start 01/29/17 at 09: 00 Miscellaneous Information 1 ea NOTE XX ; Start 01/29/17 at 09:30 Glucose (Glutose) 15 gm Q15M PRN PO DECREASED GLUCOSE; Start 01/29/17 at 09:30 Glucose (Glutose) 22.5 gm Q15M PRN PO DECREASED GLUCOSE; Start 01/29/17 at 09:30 Dextrose (D50w Syringe) 25 ml Q15M PRN IV DECREASED GLUCOSE Last administered on 01/29/17 19:36; Admin Dose 25 ML; Start 01/29/17 at 09:30 Dextrose (D50w Syringe) 50 ml Q15M PRN IV DECREASED GLUCOSE; Start 01/29/17 at 09:30 Glucagon (Glucagen) 1 mg Q15M PRN IM DECREASED GLUCOSE; Start 01/29/17 at 09:30 Glucose (Glutose) 15 gm Q15M PRN BUCCAL DECREASED GLUCOSE; Start 01/29/17 at 09: 30 Ondansetron HCl (Zofran Inj) 4 mg Q4H PRN IV NAUSEA AND/OR VOMITING; Start 01/29 at 10:30 Insulin Glargine (Lantus) 12 unit DAILY@20 SC ; Start 01/29/17 at 20:00 Diagnostic Test (Pha) (Accu-Chek) 1 ea 02 XX ; Start 01/30/17 at 02:00 Doxazosin Mesylate (Cardura) 4 mg HS PO ; Start 01/29/17 at 21:00 Hydralazine HCl (Apresoline) 100 mg BID PO ; Start 01/29/17 at 21:00 PAULY VILA MD Jan 29, 2017 20:26
[2017-01-29] MEDS: ATORVASTATIN 80 MG TAB PO SCH (20:34)
[2017-01-29] MEDS ORDERED: TAMSULOSIN (SR) 0.4 MG CAP PO SCH (21:00)
[2017-01-29] MEDS ORDERED: DOXAZOSIN 4 MG TAB PO SCH (21:00)
[2017-01-29] MEDS ORDERED: NIFEdipine (XL) 90 MG TAB PO SCH (21:00)
[2017-01-29] MEDS ORDERED: DOXAZOSIN 1 MG TAB PO SCH (21:00)
--- NOTE | 2017-01-29 21:31 | RADRPT ---
PROCEDURE: Nuclear medicine hepatobiliary scan CLINICAL INDICATION: History of biliary stent, nausea and vomiting rule out biliary obstruction TECHNIQUE: 8 Millicuries of technetium 99 mebrofenin was injected intravenously. Anterior images o f the abdomen were obtained up to 15 minutes post injection at which time the patient had low blood sugar and refused to continue with the examination and anterior, posterior, left anterior oblique, r ight posterior oblique and bilateral lateral images were performed 90 minutes post injection. COMPARISON: Report of ERCP of 01/15/2016 FINDINGS: There is prompt uptake of the radiopharmaceutical by the liver and excretion into bile ducts. Activ ity is seen in the gallbladder by 90 minutes postinjection consistent with patency of the cystic funmilayo t. Activity is seen in bowel by 90 minutes postinjection consistent with patency of the common bile duct. IMPRESSION: No evidence of biliary obstruction seen. Patent cystic and common bile ducts. Please see above. RPTAT: HJES .Obey Patricia MD, MD Date Time Electronically viewed and signed by .Obey Patricia MD, MD on 01/29/2017 21:31 .S/
--- NOTE | 2017-01-29 23:54 | CONS ---
Date/Time of Note Date/Time of Note DATE: 01/29/17 TIME: 23:31 Assessment/Plan Assessment/Plan Chief Complaint/Hosp Course Impression: - Acute on chronic systolic heart failure- progressive dyspnea and orthopnea, fluid mgmt per renal with iHD - NICM- unclear etiology. no obstructive cad on [facility] - HTN- uncontrolled - ? chest pain- pt denies, no sig trop leak. - CAD- mild to mod CAD, no sig trop elevation. cont statin/asa Recommendations: - obtain echo - fluid mgmt with iHD - cont carvedilol 25mg po bid - cont lisinopril - cont nifedipine/hydralazine - cont clonidine for bp control - cont statin/asa Problems: Consultation Date/Type/Reason Admit Date/Time Jan 29, 2017 at 05:30 Date of Consultation: Jan 29, 2017 Type of Consultation: Cardiology Reason for Consultation Dyspnea Referring Provider: GERA NAVARRO MD Hx of Present Illness Mr. Arvizu is a pleasant 66 y.o. man with a h/o of chronic systolic heart failure due to non-ischemic cardiomyopathy, DM2, ESRD on iHD, Hypertension, and non-obstructive CAD. Pt presented with n/v. He also reports progressive dyspnea x 1 week, worsening in last few days. states dyspnea occurs at rest and worse with laying down/sleeping. no edema. has been tolerating iHD sessions , bp running high he states. there was report of chest pain per chart, however pt currently denies any chest pain. states he did not have chest pain/pressure. also denies palpitations, dizziness, fainting. last LHC from 11/2014 with stable mild-mod CAD, no severe lesions. no recent echo available. last lvef 45%. Constitutional: no complaints Eyes: no complaints ENT: no complaints Respiratory: shortness of breath Cardiovascular: no complaints, other Gastrointestinal: no complaints Genitourinary: no complaints Musculoskeletal: no complaints Skin: no complaints Neurologic: no complaints Endocrine: other Psychological: no complaints Past Medical History ESRD on iHD Coronary atherosclerosis (414.00) (I25.10) Diabetes mellitus (250.00) (E11.9) Essential hypertension (401.9) (I10) Hyperlipidemia (272.4) (E78.5) Peripheral vascular disease (443.9) (I73.9) Acute on chronic systolic heartfailure NICM Past Surgical History L forearm fistula Family History Significant Family History: other (ather of [place] at age 65 and brother of [place] at age61) Social History Alcohol Use: none Smoking Status: Never smoker Drug Use: none Exam/Review of Systems Vital Signs Vitals Vital Signs Date Time Temp Pulse Resp B/P Pulse Ox O2 Delivery O2 Flow Rate FiO2 01/29/17 20:00 98.1 61 19 207/90 97 01/29/17 09:00 Room Air 2.0 Nasal Cannula Exam Constitutional: alert, oriented Psych: no complaints Head: normocephalic Eyes: nl conjunctiva, EOMI, PERRL ENMT: nl nasal mucosa & septum, mucosa pink and moist Neck: supple, non-tender, jvd Respiratory: other (crackles in bilateral base) Cardiovascular: other (RRR, nl s1s2, ii/vi systolic LLSB, no gr. ) Gastrointestinal: soft, other (slightly distended, no ttp) Musculoskeletal: nl extremities to inspection, L forearm fistula hooked up to dialyiss machine Extremities: normal pulses Neurological: ENGLISH [employer]JUN[employer]ACULTY II-XII intact Skin: nl turgor Results Result Diagram: 01/29/1731601/29/17316 Results 24 hrs Laboratory Tests Test 01/29/17 03:17 01/29/17 09:00 01/29/17 10:44 01/29/17 12:54 White Blood Count 5.0 # Red Blood Count 3.24 L Hemoglobin 10.1 L Hematocrit 31.7 L Mean Corpuscular Volume 97.8 Mean Corpuscular Hemoglobin 31.2 Mean Corpuscular Hemoglobin Concent 31.9 L Red Cell Distribution Width 18.2 H Platelet Count 44 L Mean Platelet Volume 11.1 #H Neutrophils % 66.2 Lymphocytes % 15.3 Monocytes % 9.9 Eosinophils % 8.0 H Basophils % 0.4 Nucleated Red Blood Cells % 0.0 Neutrophils # 3.3 Lymphocytes # 0.8 Monocytes # 0.5 Eosinophils # 0.4 Basophils # 0.0 Nucleated Red Blood Cells # 0.0 Platelet Estimate PLT APPEAR Prothrombin Time 15.1 H Prothrombin Time Ratio 1.2 INR International Normalized Ratio 1.18 Activated Partial Thromboplast Time 49.2 H Sodium Level 138 Potassium Level 4.8 Chloride Level 90 L Carbon Dioxide Level 29 Anion Gap 24 H Blood Urea Nitrogen 75 H Creatinine 11.18 H Glucose Level 201 Calcium Level 11.1 H Total Bilirubin 0.0 L Direct Bilirubin 0.00 Indirect Bilirubin 0.0 Aspartate Amino Transf (AST/SGOT) 32 Alanine Aminotransferase (ALT/SGPT) 37 Alkaline Phosphatase 233 H Troponin I 0.041 Total Protein 7.4 Albumin 4.5 Globulin 2.90 Albumin/Globulin Ratio 1.55 Lipase 99 Thyroid Stimulating Hormone (TSH) 5.530 H Bedside Glucose 245 H 257 H 260 H Test 01/29/17 14:00 01/29/17 16:46 01/29/17 19:25 01/29/17 19:52 Ionized Calcium (Measured) 1.4 Troponin I 0.016 Bedside Glucose 129 60 L 114 Test 01/29/17 20:08 01/29/17 20:36 Bedside Glucose 96 123 Medications Medications Current Medications Aspirin (Aspirin) 81 mg DAILY PO Last administered on 01/29/17 09:37; Admin Dose 81 MG; Start 01/29/17 at 09:00 Atorvastatin Calcium (Lipitor) 80 mg QHS PO Last administered on 01/29/17 20:34 ; Admin Dose 80 MG; Start 01/29/17 at 21:00 Carvedilol (Coreg) 25 mg BID PO Last administered on 01/29/17 20:34; Admin Dose 25 MG; Start 01/29/17 at 09:30 Cinacalcet (Sensipar) 60 mg DAILY PO Last administered on 01/29/17 10:45; Admin Dose 60 MG; Start 01/29/17 at 10:30 Clonidine (Catapres) 0.2 mg BID PO Last administered on 01/29/17 20:32; Admin Dose 0.2 MG; Start 01/29/17 at 09:00 Docusate Sodium (Colace) 100 mg BID PO Last administered on 01/29/17 20:31; Admin Dose 100 MG; Start 01/29/17 at 09:30 Lisinopril (Zestril) 40 mg BID PO Last administered on 01/29/17 20:32; Admin Dose 40 MG; Start 01/29/17 at 09:30 Multivit/Ca Carb/ B Cmplx/FA/Prenat (Kimmie-Tirso) 1 tab DAILY PO Last administered on 01/29/17 09:37; Admin Dose 1 TAB; Start 01/29/17 at 09:30 Nifedipine (Procardia Xl) 90 mg QHS PO Last administered on 01/29/17 22:25; Admin Dose 90 MG; Start 01/29/17 at 21:00 Pantoprazole (Protonix Tab) 40 mg DAILY@06 PO Last administered on 01/29/17 09: 43; Admin Dose 40 MG; Start 01/29/17 at 09:30 Tramadol HCl (Ultram) 50 mg Q6H PRN PO PAIN; Start 01/29/17 at 09:00 Nitroglycerin (Nitroglycerin (Sl Tab) 0.4 Mg) 1 tab Q5M PRN SL ANGINA; Start at 09:00 Clonidine (Catapres) 0.1 mg Q4H PRN NGT sbp >170 dbp>110; Start 01/29/17 at 09: 00 Miscellaneous Information 1 ea NOTE XX ; Start 01/29/17 at 09:30 Glucose (Glutose) 15 gm Q15M PRN PO DECREASED GLUCOSE; Start 01/29/17 at 09:30 Glucose (Glutose) 22.5 gm Q15M PRN PO DECREASED GLUCOSE; Start 01/29/17 at 09:30 Dextrose (D50w Syringe) 25 ml Q15M PRN IV DECREASED GLUCOSE Last administered on 01/29/17 19:36; Admin Dose 25 ML; Start 01/29/17 at 09:30 Dextrose (D50w Syringe) 50 ml Q15M PRN IV DECREASED GLUCOSE; Start 01/29/17 at 09:30 Glucagon (Glucagen) 1 mg Q15M PRN IM DECREASED GLUCOSE; Start 01/29/17 at 09:30 Glucose (Glutose) 15 gm Q15M PRN BUCCAL DECREASED GLUCOSE; Start 01/29/17 at 09: 30 Ondansetron HCl (Zofran Inj) 4 mg Q4H PRN IV NAUSEA AND/OR VOMITING; Start 01/29 at 10:30 Insulin Glargine (Lantus) 12 unit DAILY@20 SC ; Start 01/29/17 at 20:00 Diagnostic Test (Pha) (Accu-Chek) 1 ea 02 XX ; Start 01/30/17 at 02:00 Doxazosin Mesylate (Cardura) 4 mg HS PO Last administered on 01/29/17 20:31; Admin Dose 4 MG; Start 01/29/17 at 21:00 Hydralazine HCl (Apresoline) 100 mg BID PO Last administered on 01/29/17t 20:31 ; Admin Dose 100 MG; Start 01/29/17 at 21:00 Procedures Procedures EKG: NSR, lateral twi with LVH, unchanged cxr images reviewed: small bl effusions. JAMEY GUY Jan 29, 2017 23:42
[2017-01-30] VITALS (11 sets, daily range): BP systolic 124–174; BP diastolic 52–77; PULSE 52–58; RESP 17–20
[2017-01-30] MEDS ORDERED: ACCU-CHEK XX SCH ×4 (02:00)
[2017-01-30] MEDS: LEVOTHYROXINE 125 MCG TAB PO SCH (06:14)
[2017-01-30] MEDS: PANTOPRAZOLE (EC) 40 MG TAB PO SCH (06:14)
[2017-01-30 07:02] LABS: ADD SCAN DIFF NO
[2017-01-30 07:07] LABS: ABNORMAL IP MESSAGE 1; BASOPHILS % 0.2 % (0.0-2.0); EOSINOPHILS # 0.3 10^3/ul (0.0-0.5); EOSINOPHILS % 6.1 % (0.0-7.0); HEMATOCRIT 30.9 % (42.0-52.0); HEMOGLOBIN 9.8 g/dl (14.0-18.0); LYMPHOCYTES # 0.7 10^3/ul (0.8-2.9); LYMPHOCYTES % 13.8 % (15.0-51.0); MEAN CORPUSCULAR HGB CONC 31.7 g/dl (32.0-37.0); MEAN CORPUSCULAR VOLUME 97.8 fl (82.0-101.0); MEAN PLATELET VOLUME 12.4 fl (7.4-10.4); MONOCYTE # 0.5 10^3/ul (0.3-0.9); MONOCYTES % 9.8 % (0.0-11.0); NEUTROPHIL # 3.6 10^3/ul (1.6-7.5); NEUTROPHILS % 69.9 % (39.0-77.0); RED BLOOD COUNT 3.16 10^6/ul (4.70-6.10); RED CELL DISTRIBUTION WIDTH 18.3 % (11.5-14.5); WHITE BLOOD COUNT 5.1 10^3/ul (4.8-10.8)
[2017-01-30 07:09] LABS: PLATELET COUNT 60 10^3/UL (140-415)
[2017-01-30 07:20] LABS: ALBUMIN 4.1 g/dl (3.3-4.9); ALBUMIN/GLOBULIN RATIO 1.51; BILIRUBIN,INDIRECT 0.3 mg/dl (0-1.1); BILIRUBIN,TOTAL 0.3 mg/dl (0.2-1.3); CALCIUM 10.4 mg/dl (8.4-10.2); CREATININE 7.31 mg/dl (0.61-1.24); POTASSIUM 4.5 mmol/L (3.5-5.1); TOTAL PROTEIN 6.8 g/dl (6.1-8.1)
[2017-01-30 07:23] LABS: CHOL/HDL RATIO 2.6 RATIO
[2017-01-30] MEDS ORDERED: INSULIN GLARGINE [LANtus] 3 ML PEN SC ONE (07:30)
[2017-01-30 07:32] LABS: TROPONIN-I 0.067 ng/ml (0.00-0.12)
[2017-01-30 07:38] LABS: C-REACTIVE PROTEIN 1.4 mg/dl (0.0-0.9)
[2017-01-30] MEDS: INSULIN ASPART [NOVOLOG] 3 ML PEN SC SCH ×8 (07:55→21:00)
[2017-01-30] MEDS: MULTIVIT/CA CARB/B CMPLX/FA TAB PO SCH (08:19)
[2017-01-30] MEDS: ASPIRIN 81 MG TAB PO SCH (08:19)
[2017-01-30] MEDS: LISINOPRIL 20 MG TAB PO SCH ×2 (08:19→20:23)
[2017-01-30] MEDS: SEVELAMER CARBONATE 0.8 GM PKT PO SCH ×3 (08:19→17:35)
[2017-01-30] MEDS: CINACALCET 30 MG TAB PO SCH (08:19)
[2017-01-30] MEDS: METOCLOPRAMIDE 5 MG TAB PO SCH ×4 (08:20→21:50)
[2017-01-30] MEDS: DOCUSATE SODIUM 100 MG CAP PO SCH ×2 (08:20→20:22)
[2017-01-30] MEDS: ACCU-CHEK XX SCH ×3 (09:55→20:30)
--- NOTE | 2017-01-30 13:39 | CONS ---
Date/Time of Note Date/Time of Note DATE: 01/30/17 TIME: 13:37 Assessment/Plan Assessment/Plan Chief Complaint/Hosp Course Impression: 1. End-stage renal disease on maintenance hemodialysis. He has end-stage renal disease due to diabetic nephropathy. He had hemodialysis yesterday and is due for his routine hemodialysis tomorrow. 2. Hypertension, is better controlled today 3. Type 1 diabetes mellitus on insulin 4. Cardiomyopathy with ejection fraction of 35% Plan: 1. Will order hemodialysis treatment for tomorrow if he is still in the hospital. 2. Resume routine medications . I will start Epogen as his hemoglobin is less than 10. 3. I will follow the patient along with you Problems: Consultation Date/Type/Reason Admit Date/Time Jan 29, 2017 at 05:30 Initial Consult Date 01/29/17 Type of Consultation: renal Referring Provider: GERA NAVAROR MD 24 HR Interval Summary Free Text/Dictation He is feeling better today. He denies chest pain. Constitutional: improved, no complaints Exam/Review of Systems Vital Signs Vitals Vital Signs Date Time Temp Pulse Resp B/P Pulse Ox O2 Delivery O2 Flow Rate FiO2 01/30/17 12:07 52 01/30/17 11:09 98.1 17 124/60 97 01/29/17 09:00 Room Air 2.0 Nasal Cannula Intake and Output 01/29/17 01/29/17 01/30/17 15:00 23:00 07:00 Intake Total 900 ml Output Total 2900 ml Balance -2000 ml Exam Constitutional: alert, oriented, well developed Respiratory: clear to auscultation, normal air movement Cardiovascular: regular rate and rhythm Gastrointestinal: soft Musculoskeletal: nl extremities to inspection Results Result Diagram: 01/30/17 0631 01/30/17 0631 Results 24 hrs Laboratory Tests Test 01/29/17 14:00 01/29/17 16:46 01/29/17 19:25 01/29/17 19:52 Ionized Calcium (Measured) 1.4 Troponin I 0.016 Bedside Glucose 129 60 L 114 Test 01/29/17 20:08 01/29/17 20:36 01/29/17 23:16 01/30/17 01:33 Bedside Glucose 96 123 196 238 H Test 01/30/17 06:31 01/30/17 07:33 01/30/17 08:18 01/30/17 10:10 White Blood Count 5.1 Red Blood Count 3.16 L Hemoglobin 9.8 L Hematocrit 30.9 L Mean Corpuscular Volume 97.8 Mean Corpuscular Hemoglobin 31.0 Mean Corpuscular Hemoglobin Concent 31.7 L Red Cell Distribution Width 18.3 H Platelet Count 60 #L Mean Platelet Volume 12.4 H Neutrophils % 69.9 Lymphocytes % 13.8 L Monocytes % 9.8 Eosinophils % 6.1 Basophils % 0.2 Nucleated Red Blood Cells % 0.0 Neutrophils # 3.6 Lymphocytes # 0.7 L Monocytes # 0.5 Eosinophils # 0.3 Basophils # 0.0 Nucleated Red Blood Cells # 0.0 Sodium Level 137 Potassium Level 4.5 Chloride Level 89 L Carbon Dioxide Level 32 H Anion Gap 21 H Blood Urea Nitrogen 44 #H Creatinine 7.31 #H Glucose Level 218 Hemoglobin A1c 9.0 H Calcium Level 10.4 H Total Bilirubin 0.3 Direct Bilirubin 0.00 Indirect Bilirubin 0.3 Aspartate Amino Transf (AST/SGOT) 34 Alanine Aminotransferase (ALT/SGPT) 36 Alkaline Phosphatase 224 H Troponin I 0.067 C-Reactive Protein 1.4 H Total Protein 6.8 Albumin 4.1 Globulin 2.70 Albumin/Globulin Ratio 1.51 Triglycerides Level 87 Cholesterol Level 123 LDL Cholesterol, Calculated 59 HDL Cholesterol 47 Cholesterol/HDL Ratio 2.6 Bedside Glucose 229 H 222 H 212 Test 01/30/17 11:58 Bedside Glucose 161 Medications Medications Current Medications Aspirin (Aspirin) 81 mg DAILY PO Last administered on 01/30/17 08:19; Admin Dose 81 MG; Start 01/29/17 at 09:00 Atorvastatin Calcium (Lipitor) 80 mg QHS PO Last administered on 01/29/17 20:34 ; Admin Dose 80 MG; Start 01/29/17 at 21:00 Carvedilol (Coreg) 25 mg BID PO Last administered on 01/29/17 20:34; Admin Dose 25 MG; Start 01/29/17 at 09:30 Cinacalcet (Sensipar) 60 mg DAILY PO Last administered on 01/30/17 08:19; Admin Dose 60 MG; Start 01/29/17 at 10:30 Clonidine (Catapres) 0.2 mg BID PO Last administered on 01/30/17 08:20; Admin Dose 0.2 MG; Start 01/29/17 at 09:00 Docusate Sodium (Colace) 100 mg BID PO Last administered on 01/30/17 08:20; Admin Dose 100 MG; Start 01/29/17 at 09:30 Lisinopril (Zestril) 40 mg BID PO Last administered on 01/30/17 08:19; Admin Dose 40 MG; Start 01/29/17 at 09:30 Multivit/Ca Carb/ B Cmplx/FA/Prenat (Kimmie-Tirso) 1 tab DAILY PO Last administered on 01/30/17 08:19; Admin Dose 1 TAB; Start 01/29/17 at 09:30 Nifedipine (Procardia Xl) 90 mg QHS PO Last administered on 01/29/17 22:25; Admin Dose 90 MG; Start 01/29/17 at 21:00 Pantoprazole (Protonix Tab) 40 mg DAILY@06 PO Last administered on 01/30/17 06: 14; Admin Dose 40 MG; Start 01/29/17 at 09:30 Tramadol HCl (Ultram) 50 mg Q6H PRN PO PAIN; Start 01/29/17 at 09:00 Nitroglycerin (Nitroglycerin (Sl Tab) 0.4 Mg) 1 tab Q5M PRN SL ANGINA; Start at 09:00 Clonidine (Catapres) 0.1 mg Q4H PRN NGT sbp >170 dbp>110; Start 01/29/17 at 09: 00 Miscellaneous Information 1 ea NOTE XX ; Start 01/29/17 at 09:30 Glucose (Glutose) 15 gm Q15M PRN PO DECREASED GLUCOSE; Start 01/29/17 at 09:30 Glucose (Glutose) 22.5 gm Q15M PRN PO DECREASED GLUCOSE; Start 01/29/17 at 09:30 Dextrose (D50w Syringe) 25 ml Q15M PRN IV DECREASED GLUCOSE Last administered on 01/29/17 19:36; Admin Dose 25 ML; Start 01/29/17 at 09:30 Dextrose (D50w Syringe) 50 ml Q15M PRN IV DECREASED GLUCOSE; Start 01/29/17 at 09:30 Glucagon (Glucagen) 1 mg Q15M PRN IM DECREASED GLUCOSE; Start 7/6/17 at 09:30 Glucose (Glutose) 15 gm Q15M PRN BUCCAL DECREASED GLUCOSE; Start 01/29/17 at 09: 30 Ondansetron HCl (Zofran Inj) 4 mg Q4H PRN IV NAUSEA AND/OR VOMITING; Start 01/29 at 10:30 Insulin Glargine (Lantus) 12 unit DAILY@20 SC ; Start 01/29/17 at 20:00 Diagnostic Test (Pha) (Accu-Chek) 1 ea 02 XX ; Start 01/30/17 at 02:00 Doxazosin Mesylate (Cardura) 4 mg HS PO Last administered on 01/29/17 20:31; Admin Dose 4 MG; Start 01/29/17 at 21:00 Hydralazine HCl (Apresoline) 100 mg BID PO Last administered on 01/30/17 08:20 ; Admin Dose 100 MG; Start 01/29/17 at 21:00 PAULY VILA MD Jan 30, 2017 13:39
--- NOTE | 2017-01-30 16:54 | RADRPT ---
Echocardiogram Report Patient Name: SHERINE LAU Gender: Male Date: 1950 Study Date: 30-Jan-2017 Training And Development Specialist: Aneta Kumar [facility] Location: [id number] Ref. Physician: ERICKSON GUY Quality: Good Procedures: Transthoracic echocardiogram with complete 2D, M-Mode, and doppler examination. Indications: Cardiomyopathy. 2D/M Mode Doppler Measurement Value Normal Ranges Measurement Value Normal Ranges LVIDd 2D 5.8 3.5 - 5.6 cm AV Peak Palomo 1.6 m/sec LVIDs 2D 4.8 2.1 - 4.1 cm AV Peak PG 9.6 mmHg LVPWd 2D 1.4 0.6 - 1.1 cm AI Peak PG 45.1 mmHg IVSd 2D 1.4 0.6 - 1.1 cm AI Peak Palomo 3.4 m/sec AoR Diam 2D 2.6 2.0 - 3.7 cm AI PHT 514.6 msec EDV 2D 167.9 cm3 LVOT Peak Palomo 1.0 m/sec ESV 2D 108.6 cm3 LVOT Peak PG 4.4 mmHg LA Dimen 2D 4.5 2.3 - 4.0 cm MV E Peak Palomo 1.2 m/sec MV A Peak Palomo 0.5 m/sec MV E/A 2.6 MV Decel Time 255 msec MV Decel Robertson 5 MV E/A 2.6 TR Peak Palomo 2.3 m/sec TR Peak PG 21.1 mmHg RVSP 36.0 mmHg Findings Left Ventricle: Normal left ventricular cavity size. Moderate concentric left ventricular hypertrophy. Moderate global left ventricular systolic dysfunction. Ejection fraction is visually estimated at 3540 %. Tissue Doppler/Mitral Doppler indices are consistent with restrictive physiology with markedly elevated left atrial pressure (Stage IIIIV diastolic dysfunction). Right Ventricle: Normal right ventricular size. Normal right ventricular systolic function. Left Atrium: There is mild enlargement of left atrium. Right Atrium: The right atrium is normal in size. Mitral Valve: Mitral valve leaflets appear mildly thickened. Mild mitral annular calcification. Mild mitral valve regurgitation. Aortic Valve: No hemodynamically significant aortic stenosis by doppler. Aortic cusps appear mildly calcified. Trileaflet aortic valve. Trace to mild aortic valve regurgitation. Tricuspid Valve: Normal appearance of the tricuspid valve. Right ventricular systolic pressure is consistent with mild pulmonary hypertension. Estimated peak PA systolic pressure 36 mmHg. There is mild tricuspid regurgitation. Pulmonic Valve: There is mild pulmonic regurgitation. Pericardium: Normal pericardium with no significant pericardial effusion. Aorta: Normal aortic root. IVC: Dilated IVC without respiratory collapse consistent with elevated right atrial pressure. Conclusions Normal left ventricular cavity size. Moderate concentric left ventricular hypertrophy. Moderate global left ventricular systolic dysfunction. Ejection fraction is visually estimated at 35-40 %. Tissue Doppler/Mitral Doppler indices are consistent with restrictive physiology with markedly elevated left atrial pressure (Stage III-IV diastolic dysfunction). Normal right ventricular size. Normal right ventricular systolic function. There is mild enlargement of left atrium. No hemodynamically significant aortic stenosis by doppler. Aortic cusps appear mildly calcified. Trileaflet aortic valve. Trace to mild aortic valve regurgitation. Normal appearance of the tricuspid valve. Right ventricular systolic pressure is consistent with mild pulmonary hypertension. Estimated peak PA systolic pressure 36 mmHg. There is mild tricuspid regurgitation. Dilated IVC without respiratory collapse consistent with elevated right atrial pressure. No Vegetation, masses, or thrombi seen. Electronically Signed By: Erickson Guy 30-Jan-2017 16:52:53 -0700 Patient Name: SHERINE LAU Study Date: 30-Jan-2017 [id number]
--- NOTE | 2017-01-30 16:55 | RADRPT ---
Vent Rate: 57 bpm RR Interval: 0 msec [place] Interval: 190 msec QRS Duration: 108 msec QT Interval: 520 msec QTC Interval: 506 msec P-R-T [place]: 55 - 25 - 0 degrees Sinus bradycardia Marked ST abnormality, possible inferior subendocardial injury Prolonged QT Abnormal ECG Electronically Signed By: Erickson Huntley [id number]
[2017-01-30] MEDS ORDERED: EPOETIN 10000 UNITS/1 ML INJ (ESRD) SC SCH (17:00)
--- NOTE | 2017-01-30 17:13 | CONS ---
Date/Time of Note Date/Time of Note DATE: 01/30/17 TIME: 17:02 Assessment/Plan Assessment/Plan Chief Complaint/Hosp Course 66-year-old gentleman with a history of diabetes mellitus type 1 since the age of 4; he has complications of end-stage renal disease on hemodialysis; retinopathy; peripheral neuropathy;. In addition he has vascular disease including cardiovascular disease. He is admitted for gallbladder disease. Please note that this is been a known diagnosis for at least 13 months Problems: (1) Diabetes mellitus type 1 with complications Status: Chronic Comment: His blood sugar control is better in a controlled environment. Will adjust his regimen for this sliding scale i.e. the moderate will go down to mild. (2) End stage renal disease on dialysis Status: Acute Comment: As per Dr. Hinton. (3) Tertiary hyperparathyroidism Status: Chronic Comment: Noted and the patient is on cinacalcet (4) Choledocholithiasis Status: Acute Comment: I am still concerned this remains an active medical problem. Fortunately has a negative HIDA scan after the prior biliary stenting. He still needs ultrasound. (5) Hypertension Status: Chronic Comment: He has adequate blood pressure control. And then a push up on the dosage of the doxazosin and lower the dosage of nifedipine for fluid balance. Qualifiers: Hypertension type: essential hypertension Qualified Code: I10 - Essential hypertension Consultation Date/Type/Reason Admit Date/Time Jan 29, 2017 at 05:30 Initial Consult Date 01/29/17 Type of Consultation: Endocrinology Reason for Consultation Diabetes mellitus type 1 with complications of end-stage renal disease; retinopathy with decreased vision; patient also has cholelithiasis Referring Provider: GERA NAVARRO MD 24 HR Interval Summary Free Text/Dictation Patient reports that he is not having any further chest pain. Please note this was somewhat atypical history and the beginning Constitutional: no complaints Exam/Review of Systems Vital Signs Vitals Vital Signs Date Time Temp Pulse Resp B/P Pulse Ox O2 Delivery O2 Flow Rate FiO2 01/30/17 16:07 57 01/30/17 15:23 97.6 17 157/52 98 01/29/17 09:00 Room Air 2.0 Nasal Cannula Intake and Output 01/29/17 01/29/17 01/30/17 15:00 23:00 07:00 Intake Total 900 ml Output Total 2900 ml Balance -2000 ml Exam Constitutional: alert, oriented Neck: non-tender, supple Respiratory: clear to auscultation, normal air movement Results Result Diagram: 01/30/17 0631 01/30/17 0631 Results 24 hrs Laboratory Tests Test 01/29/17 19:25 01/29/17 19:52 01/29/17 20:08 01/29/17 20:36 Bedside Glucose 60 L 114 96 123 Test 01/29/17 23:16 01/30/17 01:33 01/30/17 06:31 01/30/17 07:33 Bedside Glucose 196 238 H 229 H White Blood Count 5.1 Red Blood Count 3.16 L Hemoglobin 9.8 L Hematocrit 30.9 L Mean Corpuscular Volume 97.8 Mean Corpuscular Hemoglobin 31.0 Mean Corpuscular Hemoglobin Concent 31.7 L Red Cell Distribution Width 18.3 H Platelet Count 60 #L Mean Platelet Volume 12.4 H Neutrophils % 69.9 Lymphocytes % 13.8 L Monocytes % 9.8 Eosinophils % 6.1 Basophils % 0.2 Nucleated Red Blood Cells % 0.0 Neutrophils # 3.6 Lymphocytes # 0.7 L Monocytes # 0.5 Eosinophils # 0.3 Basophils # 0.0 Nucleated Red Blood Cells # 0.0 Sodium Level 137 Potassium Level 4.5 Chloride Level 89 L Carbon Dioxide Level 32 H Anion Gap 21 H Blood Urea Nitrogen 44 #H Creatinine 7.31 #H Glucose Level 218 Hemoglobin A1c 9.0 H Calcium Level 10.4 H Total Bilirubin 0.3 Direct Bilirubin 0.00 Indirect Bilirubin 0.3 Aspartate Amino Transf (AST/SGOT) 34 Alanine Aminotransferase (ALT/SGPT) 36 Alkaline Phosphatase 224 H Troponin I 0.067 C-Reactive Protein 1.4 H Total Protein 6.8 Albumin 4.1 Globulin 2.70 Albumin/Globulin Ratio 1.51 Triglycerides Level 87 Cholesterol Level 123 LDL Cholesterol, Calculated 59 HDL Cholesterol 47 Cholesterol/HDL Ratio 2.6 Test 01/30/17 08:18 01/30/17 10:10 01/30/17 11:58 01/30/17 14:31 Bedside Glucose 222 H 212 161 133 Medications Medications Current Medications Aspirin (Aspirin) 81 mg DAILY PO Last administered on 01/30/17t 08:19; Admin Dose 81 MG; Start 01/29/17 at 09:00 Atorvastatin Calcium (Lipitor) 80 mg QHS PO Last administered on 01/29/17 20:34 ; Admin Dose 80 MG; Start 01/29/17 at 21:00 Carvedilol (Coreg) 25 mg BID PO Last administered on 01/29/17 20:34; Admin Dose 25 MG; Start 01/29/17 at 09:30 Cinacalcet (Sensipar) 60 mg DAILY PO Last administered on 01/30/17 08:19; Admin Dose 60 MG; Start 01/29/17 at 10:30 Clonidine (Catapres) 0.2 mg BID PO Last administered on 01/30/17 08:20; Admin Dose 0.2 MG; Start 01/29/17 at 09:00 Docusate Sodium (Colace) 100 mg BID PO Last administered on 01/30/17 08:20; Admin Dose 100 MG; Start 01/29/17 at 09:30 Lisinopril (Zestril) 40 mg BID PO Last administered on 01/30/17 08:19; Admin Dose 40 MG; Start 01/29/17 at 09:30 Multivit/Ca Carb/ B Cmplx/FA/Prenat (Kimmie-Tirso) 1 tab DAILY PO Last administered on 01/30/17 08:19; Admin Dose 1 TAB; Start 01/29/17 at 09:30 Nifedipine (Procardia Xl) 90 mg QHS PO Last administered on 01/29/17 22:25; Admin Dose 90 MG; Start 01/29/17 at 21:00 Pantoprazole (Protonix Tab) 40 mg DAILY@06 PO Last administered on 01/30/17 06: 14; Admin Dose 40 MG; Start 01/29/17 at 09:30 Tramadol HCl (Ultram) 50 mg Q6H PRN PO PAIN; Start 01/29/17 at 09:00 Nitroglycerin (Nitroglycerin (Sl Tab) 0.4 Mg) 1 tab Q5M PRN SL ANGINA; Start at 09:00 Clonidine (Catapres) 0.1 mg Q4H PRN NGT sbp >170 dbp>110; Start 01/29/17 at 09: 00 Miscellaneous Information 1 ea NOTE XX ; Start 01/29/17 at 09:30 Glucose (Glutose) 15 gm Q15M PRN PO DECREASED GLUCOSE; Start 01/29/17 at 09:30 Glucose (Glutose) 22.5 gm Q15M PRN PO DECREASED GLUCOSE; Start 01/29/17 at 09:30 Dextrose (D50w Syringe) 25 ml Q15M PRN IV DECREASED GLUCOSE Last administered on 01/29/17 19:36; Admin Dose 25 ML; Start 01/29/17 at 09:30 Dextrose (D50w Syringe) 50 ml Q15M PRN IV DECREASED GLUCOSE; Start 01/29/17 at 09:30 Glucagon (Glucagen) 1 mg Q15M PRN IM DECREASED GLUCOSE; Start 01/29/17 at 09:30 Glucose (Glutose) 15 gm Q15M PRN BUCCAL DECREASED GLUCOSE; Start 01/29/17 at 09: 30 Ondansetron HCl (Zofran Inj) 4 mg Q4H PRN IV NAUSEA AND/OR VOMITING; Start 01/29 at 10:30 Doxazosin Mesylate (Cardura) 4 mg HS PO Last administered on 01/29/17 20:31; Admin Dose 4 MG; Start 01/29/17 at 21:00 Hydralazine HCl (Apresoline) 100 mg BID PO Last administered on 01/30/17 08:20 ; Admin Dose 100 MG; Start 01/29/17 at 21:00 Epoetin Josué (Epogen (Esrd)) 10,000 units MoWeFr@17 SC ; Start 01/30/17 at 17:00 Insulin Glargine (Lantus) 12 unit DAILY@20 SC ; Start 01/30/17 at 20:00; Status UNV Miscellaneous Information (* Miscellaneous Pharmacy Order) HYPOGLYCEMIA PROTOCOL w... ONCE ONCE XX ; Start 01/30/17 at 17:00; Stop 01/30/17 at 17:01; Status UNV Miscellaneous Information (* Miscellaneous Pharmacy Order) Discontinue Glyburide , Glipizide,... ONCE ONCE XX ; Start 01/30/17 at 17:00; Stop 01/30/17 at 17:01; Status UNV Miscellaneous Information (* Miscellaneous Pharmacy Order) Discontinue all previ... ONCE ONCE XX ; Start 01/30/17 at 17:00; Stop 01/30/17 at 17:01; Status UNV Diagnostic Test (Pha) (Accu-Chek) 1 ea 02 XX ; Start 01/31/17 at 02:00; Status UNV LAWANDA KING MD Jan 30, 2017 17:13
[2017-01-30] MEDS ORDERED: INSULIN GLARGINE [LANtus] 3 ML PEN SC SCH (20:00)
[2017-01-30] MEDS: ATORVASTATIN 80 MG TAB PO SCH (20:22)
[2017-01-30] MEDS ORDERED: NIFEdipine (XL) 60 MG TAB PO SCH (21:00)
[2017-01-30] MEDS ORDERED: DOXAZOSIN 4 MG TAB PO SCH (21:00)
[2017-01-31] VITALS (18 sets, daily range): BP systolic 137–172; BP diastolic 63–84; PULSE 52–70; RESP 17–18
[2017-01-31] MEDS ORDERED: ACCU-CHEK XX SCH (02:00)
[2017-01-31] MEDS: PANTOPRAZOLE (EC) 40 MG TAB PO SCH (06:00)
[2017-01-31] MEDS: LEVOTHYROXINE 125 MCG TAB PO SCH (06:05)
[2017-01-31 06:08] LABS: ADD SCAN DIFF NO
[2017-01-31 06:17] LABS: ABNORMAL IP MESSAGE 1; BASOPHILS % 0.2 % (0.0-2.0); EOSINOPHILS # 0.4 10^3/ul (0.0-0.5); EOSINOPHILS % 7.8 % (0.0-7.0); HEMATOCRIT 31.5 % (42.0-52.0); HEMOGLOBIN 10.3 g/dl (14.0-18.0); LYMPHOCYTES # 0.6 10^3/ul (0.8-2.9); LYMPHOCYTES % 13.6 % (15.0-51.0); MEAN CORPUSCULAR HEMOGLOBIN 31.9 pg (29.0-33.0); MEAN CORPUSCULAR HGB CONC 32.7 g/dl (32.0-37.0); MEAN CORPUSCULAR VOLUME 97.5 fl (82.0-101.0); MEAN PLATELET VOLUME 12.5 fl (7.4-10.4); MONOCYTE # 0.6 10^3/ul (0.3-0.9); MONOCYTES % 11.7 % (0.0-11.0); NEUTROPHIL # 3.1 10^3/ul (1.6-7.5); NEUTROPHILS % 66.5 % (39.0-77.0); RED BLOOD COUNT 3.23 10^6/ul (4.70-6.10); RED CELL DISTRIBUTION WIDTH 17.9 % (11.5-14.5); WHITE BLOOD COUNT 4.7 10^3/ul (4.8-10.8)
[2017-01-31 06:42] LABS: PLATELET COUNT 68 10^3/UL (140-415)
[2017-01-31 06:43] LABS: CALCIUM 9.9 mg/dl (8.4-10.2); CREATININE 9.45 mg/dl (0.61-1.24); MAGNESIUM 2.3 mg/dl (1.7-2.5); POTASSIUM 4.9 mmol/L (3.5-5.1)
[2017-01-31] MEDS: INSULIN ASPART [NOVOLOG] 3 ML PEN SC SCH ×6 (07:55→17:52)
--- NOTE | 2017-01-31 08:25 | CONS ---
Date/Time of Note Date/Time of Note DATE: 01/31/17 TIME: 08:24 Assessment/Plan Assessment/Plan Chief Complaint/Hosp Course 66-year-old gentleman with a history of diabetes mellitus type 1 since the age of 4; he has complications of end-stage renal disease on hemodialysis; retinopathy; peripheral neuropathy;. In addition he has vascular disease including cardiovascular disease. He is admitted for gallbladder disease. Please note that this is been a known diagnosis for at least 13 months Problems: (1) Diabetes mellitus type 1 with complications Status: Chronic Comment: Patient remains stable his blood sugars are now in a controlled setting with a controlled regimen has good sugar control (2) End stage renal disease on dialysis Status: Acute Comment: As per nephrology continue on dialysis (3) Choledocholithiasis Status: Acute Comment: Ultrasound was completed just a few minutes ago results pending. Management as per Dr. Navarro Consultation Date/Type/Reason Admit Date/Time Jan 30, 2017 at 14:51 Initial Consult Date 01/29/17 Type of Consultation: Endocrinology Reason for Consultation Diabetes mellitus type 1 with complications Referring Provider: GERA NAVARRO MD 24 HR Interval Summary Free Text/Dictation Patient reports he is nervous about his sugar this morning however did not have hypoglycemia Constitutional: no complaints Detailed Summary Respiratory: no complaints Cardiovascular: no complaints Gastrointestinal: no complaints Exam/Review of Systems Vital Signs Vitals Vital Signs Date Time Temp Pulse Resp B/P Pulse Ox O2 Delivery O2 Flow Rate FiO2 01/31/17 08:17 56 01/31/17 06:49 98.4 18 137/63 98 01/29/17 09:00 Room Air 2.0 Nasal Cannula Intake and Output 01/30/17 01/30/17 01/31/17 15:00 23:00 07:00 Intake Total 890 ml 400 ml Balance 890 ml 400 ml Exam Constitutional: alert, oriented Respiratory: clear to auscultation, normal air movement Cardiovascular: nl pulses, regular rate and rhythm Results Result Diagram: 01/31/17 0554 01/31/17 0554 Results 24 hrs Laboratory Tests Test 01/30/17 10:10 01/30/17 11:58 01/30/17 14:31 01/30/17 17:31 Bedside Glucose 212 161 133 146 Test 01/30/17 19:57 01/31/17 05:54 01/31/17 06:49 Bedside Glucose 120 93 White Blood Count 4.7 L Red Blood Count 3.23 L Hemoglobin 10.3 L Hematocrit 31.5 L Mean Corpuscular Volume 97.5 Mean Corpuscular Hemoglobin 31.9 Mean Corpuscular Hemoglobin Concent 32.7 Red Cell Distribution Width 17.9 H Platelet Count 68 L Mean Platelet Volume 12.5 H Neutrophils % 66.5 Lymphocytes % 13.6 L Monocytes % 11.7 H Eosinophils % 7.8 H Basophils % 0.2 Nucleated Red Blood Cells % 0.0 Neutrophils # 3.1 Lymphocytes # 0.6 L Monocytes # 0.6 Eosinophils # 0.4 Basophils # 0.0 Nucleated Red Blood Cells # 0.0 Sodium Level 134 L Potassium Level 4.9 Chloride Level 91 L Carbon Dioxide Level 32 H Anion Gap 16 Blood Urea Nitrogen 59 H Creatinine 9.45 #H Glucose Level 101 # Calcium Level 9.9 Magnesium Level 2.3 Medications Medications Current Medications Aspirin (Aspirin) 81 mg DAILY PO Last administered on 01/30/17 08:19; Admin Dose 81 MG; Start 01/29/17 at 09:00 Atorvastatin Calcium (Lipitor) 80 mg QHS PO Last administered on 01/30/17 20:22 ; Admin Dose 80 MG; Start 01/29/17 at 21:00 Carvedilol (Coreg) 25 mg BID PO Last administered on 01/29/17 20:34; Admin Dose 25 MG; Start 01/29/17 at 09:30 Cinacalcet (Sensipar) 60 mg DAILY PO Last administered on 01/30/17 08:19; Admin Dose 60 MG; Start 01/29/17 at 10:30 Clonidine (Catapres) 0.2 mg BID PO Last administered on 01/30/17 21:50; Admin Dose 0.2 MG; Start 01/29/17 at 09:00 Docusate Sodium (Colace) 100 mg BID PO Last administered on 01/30/17 20:22; Admin Dose 100 MG; Start 01/29/17 at 09:30 Lisinopril (Zestril) 40 mg BID PO Last administered on 01/30/17 20:23; Admin Dose 40 MG; Start 01/29/17 at 09:30 Multivit/Ca Carb/ B Cmplx/FA/Prenat (Kimmie-Tirso) 1 tab DAILY PO Last administered on 01/30/17 08:19; Admin Dose 1 TAB; Start 01/29/17 at 09:30 Pantoprazole (Protonix Tab) 40 mg DAILY@06 PO Last administered on 01/30/17 06: 14; Admin Dose 40 MG; Start 01/29/17 at 09:30 Tramadol HCl (Ultram) 50 mg Q6H PRN PO PAIN; Start 01/29/17 at 09:00 Nitroglycerin (Nitroglycerin (Sl Tab) 0.4 Mg) 1 tab Q5M PRN SL ANGINA; Start at 09:00 Clonidine (Catapres) 0.1 mg Q4H PRN NGT sbp >170 dbp>110; Start 01/29/17 at 09: 00 Miscellaneous Information 1 ea NOTE XX ; Start 01/29/17 at 09:30 Glucose (Glutose) 15 gm Q15M PRN PO DECREASED GLUCOSE; Start 01/29/17 at 09:30 Glucose (Glutose) 22.5 gm Q15M PRN PO DECREASED GLUCOSE; Start 01/29/17 at 09:30 Dextrose (D50w Syringe) 25 ml Q15M PRN IV DECREASED GLUCOSE Last administered on 01/29/17 19:36; Admin Dose 25 ML; Start 01/29/17 at 09:30 Dextrose (D50w Syringe) 50 ml Q15M PRN IV DECREASED GLUCOSE; Start 01/29/17 at 09:30 Glucagon (Glucagen) 1 mg Q15M PRN IM DECREASED GLUCOSE; Start 01/29/17 at 09:30 Glucose (Glutose) 15 gm Q15M PRN BUCCAL DECREASED GLUCOSE; Start 01/29/17 at 09: 30 Ondansetron HCl (Zofran Inj) 4 mg Q4H PRN IV NAUSEA AND/OR VOMITING; Start 01/29 at 10:30 Hydralazine HCl (Apresoline) 100 mg BID PO Last administered on 01/30/17 20:22 ; Admin Dose 100 MG; Start 01/29/17 at 21:00 Epoetin Josué (Epogen (Esrd)) 10,000 units MoWeFr@17 SC Last administered on 01/30 17:35; Admin Dose 10,000 UNITS; Start 01/30/17 at 17:00 Insulin Glargine (Lantus) 12 unit DAILY@20 SC Last administered on 01/30/17 20: 30; Admin Dose 12 UNIT; Start 01/30/17 at 20:00 Diagnostic Test (Pha) (Accu-Chek) 1 ea 02 XX ; Start 01/31/17 at 02:00 Doxazosin Mesylate (Cardura) 8 mg HS PO Last administered on 01/30/17 20:22; Admin Dose 8 MG; Start 01/30/17 at 21:00 Nifedipine (Procardia Xl) 60 mg QHS PO Last administered on 01/30/17 21:51; Admin Dose 60 MG; Start 01/30/17 at 21:00 LAWANDA KING MD Jan 31, 2017 08:25
[2017-01-31] MEDS: ASPIRIN 81 MG TAB PO SCH (09:00)
[2017-01-31] MEDS: LISINOPRIL 20 MG TAB PO SCH (09:00)
[2017-01-31] MEDS: METOCLOPRAMIDE 5 MG TAB PO SCH ×3 (09:27→16:48)
[2017-01-31] MEDS: CINACALCET 30 MG TAB PO SCH (09:27)
[2017-01-31] MEDS: DOCUSATE SODIUM 100 MG CAP PO SCH (09:28)
[2017-01-31] MEDS: MULTIVIT/CA CARB/B CMPLX/FA TAB PO SCH (09:28)
[2017-01-31] MEDS: SEVELAMER CARBONATE 0.8 GM PKT PO SCH ×3 (09:30→16:48)
[2017-01-31] MEDS: ACCU-CHEK XX SCH ×2 (09:55→14:17)
--- NOTE | 2017-01-31 10:53 | CONS ---
Date/Time of Note Date/Time of Note DATE: 01/31/17 TIME: 10:49 Assessment/Plan Assessment/Plan Additional Assessment/Plan ckd 5- resolved chest pain Anemia in ckd diabetes mellitus Per Dr. Navarro Consultation Date/Type/Reason Admit Date/Time Jan 30, 2017 at 14:51 Initial Consult Date 01/29/17 Type of Consultation: Renal Referring Provider: GERA NAVARRO MD 24 HR Interval Summary Free Text/Dictation No chest pain and no sob. 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 intact Results Result Diagram: 01/31/17 0554 01/31/17 0554 Results 24 hrs Laboratory Tests Test 01/30/17 11:58 01/30/17 14:31 01/30/17 17:31 01/30/17 19:57 Bedside Glucose 161 133 146 120 Test 01/31/17 05:54 01/31/17 06:49 01/31/17 08:17 White Blood Count 4.7 L Red Blood Count 3.23 L Hemoglobin 10.3 L Hematocrit 31.5 L Mean Corpuscular Volume 97.5 Mean Corpuscular Hemoglobin 31.9 Mean Corpuscular Hemoglobin Concent 32.7 Red Cell Distribution Width 17.9 H Platelet Count 68 L Mean Platelet Volume 12.5 H Neutrophils % 66.5 Lymphocytes % 13.6 L Monocytes % 11.7 H Eosinophils % 7.8 H Basophils % 0.2 Nucleated Red Blood Cells % 0.0 Neutrophils # 3.1 Lymphocytes # 0.6 L Monocytes # 0.6 Eosinophils # 0.4 Basophils # 0.0 Nucleated Red Blood Cells # 0.0 Sodium Level 134 L Potassium Level 4.9 Chloride Level 91 L Carbon Dioxide Level 32 H Anion Gap 16 Blood Urea Nitrogen 59 H Creatinine 9.45 #H Glucose Level 101 # Calcium Level 9.9 Magnesium Level 2.3 Bedside Glucose 93 98 Medications Medications Current Medications Aspirin (Aspirin) 81 mg DAILY PO Last administered on 01/30/17 08:19; Admin Dose 81 MG; Start 01/29/17 at 09:00 Atorvastatin Calcium (Lipitor) 80 mg QHS PO Last administered on 01/30/17 20:22 ; Admin Dose 80 MG; Start 01/29/17 at 21:00 Carvedilol (Coreg) 25 mg BID PO Last administered on 01/29/17 20:34; Admin Dose 25 MG; Start 01/29/17 at 09:30 Cinacalcet (Sensipar) 60 mg DAILY PO Last administered on 01/30/17 08:19; Admin Dose 60 MG; Start 01/29/17 at 10:30 Clonidine (Catapres) 0.2 mg BID PO Last administered on 01/30/17 21:50; Admin Dose 0.2 MG; Start 01/29/17 at 09:00 Docusate Sodium (Colace) 100 mg BID PO Last administered on 01/30/17 20:22; Admin Dose 100 MG; Start 01/29/17 at 09:30 Lisinopril (Zestril) 40 mg BID PO Last administered on 01/30/17 20:23; Admin Dose 40 MG; Start 01/29/17 at 09:30 Multivit/Ca Carb/ B Cmplx/FA/Prenat (Kimmie-Tirso) 1 tab DAILY PO Last administered on 01/30/17 08:19; Admin Dose 1 TAB; Start 01/29/17 at 09:30 Pantoprazole (Protonix Tab) 40 mg DAILY@06 PO Last administered on 01/30/17 06: 14; Admin Dose 40 MG; Start 01/29/17 at 09:30 Tramadol HCl (Ultram) 50 mg Q6H PRN PO PAIN; Start 01/29/17 at 09:00 Nitroglycerin (Nitroglycerin (Sl Tab) 0.4 Mg) 1 tab Q5M PRN SL ANGINA; Start at 09:00 Clonidine (Catapres) 0.1 mg Q4H PRN NGT sbp >170 dbp>110; Start 01/29/17 at 09: 00 Miscellaneous Information 1 ea NOTE XX ; Start 01/29/17 at 09:30 Glucose (Glutose) 15 gm Q15M PRN PO DECREASED GLUCOSE; Start 01/29/17 at 09:30 Glucose (Glutose) 22.5 gm Q15M PRN PO DECREASED GLUCOSE; Start 01/29/17 at 09:30 Dextrose (D50w Syringe) 25 ml Q15M PRN IV DECREASED GLUCOSE Last administered on 01/29/17 19:36; Admin Dose 25 ML; Start 01/29/17 at 09:30 Dextrose (D50w Syringe) 50 ml Q15M PRN IV DECREASED GLUCOSE; Start 01/29/17 at 09:30 Glucagon (Glucagen) 1 mg Q15M PRN IM DECREASED GLUCOSE; Start 01/29/17 at 09:30 Glucose (Glutose) 15 gm Q15M PRN BUCCAL DECREASED GLUCOSE; Start 01/29/17 at 09: 30 Ondansetron HCl (Zofran Inj) 4 mg Q4H PRN IV NAUSEA AND/OR VOMITING; Start 01/29 at 10:30 Hydralazine HCl (Apresoline) 100 mg BID PO Last administered on 01/30/17 20:22 ; Admin Dose 100 MG; Start 01/29/17 at 21:00 Epoetin Josué (Epogen (Esrd)) 10,000 units MoWeFr@17 SC Last administered on 01/30 17:35; Admin Dose 10,000 UNITS; Start 01/30/17 at 17:00 Insulin Glargine (Lantus) 12 unit DAILY@20 SC Last administered on 01/30/17 20: 30; Admin Dose 12 UNIT; Start 01/30/17 at 20:00 Diagnostic Test (Pha) (Accu-Chek) 1 ea 02 XX ; Start 01/31/17 at 02:00 Doxazosin Mesylate (Cardura) 8 mg HS PO Last administered on 01/30/17 20:22; Admin Dose 8 MG; Start 01/30/17 at 21:00 Nifedipine (Procardia Xl) 60 mg QHS PO Last administered on 01/30/17 21:51; Admin Dose 60 MG; Start 01/30/17 at 21:00 SHERIE REICH MD Jan 31, 2017 10:53
--- NOTE | 2017-01-31 11:43 | RADRPT ---
PROCEDURE: US Abdomen (right upper quadrant). CLINICAL INDICATION: Right upper quadrant abdomen pain. History of common bile duct stones and rosanna nt placement. TECHNIQUE: Multiple real-time longitudinal and transverse images of the right upper quadrant of th e abdomen were acquired utilizing a curved array transducer. Images were reviewed on a high-resoluti on PACS workstation. COMPARISON: None FINDINGS: The liver is normal in size and normal in echogenicity. Color Doppler and pulsed Doppler sonography demonstrate normal antegrade flow in the portal vein. There is a benign 2 cm cyst in the liver adjacent to the gallbladder. There is no other focal hepat ic lesion. There are no gallstones in the gallbladder. There is gallbladder wall thickening measuring 7 mm. T here is no fluid around the gallbladder. The bile ducts are normal with the common bile duct measuring 7.1 mm in diameter. The visualized portions of the pancreas are unremarkable with obscuration of the tail of the pancrea s. No free fluid is present in the abdomen. There is a moderate right pleural effusion. The right kidney measures 10.7 cm. There is normal echogenicity of the right kidney. There are mu ltiple small benign right renal cysts measuring up to 1.8 cm. Right renal echogenicity is increased consistent with medical renal disease. IMPRESSION: 1. Benign 2 cm liver cyst. 2. Gallbladder wall thickening measuring 7 mm. No gallstones in the gallbladder. This is nonspeci fic. Clinical correlation is advised. 3. Moderate right pleural effusion. 4. Probable medical renal disease. RPTAT: QQ .Ronnie Javier MD, MD Date Time Electronically viewed and signed by .Ronnie Javier MD, on 01/31/2017 11:43 .R/
--- NOTE | 2017-01-31 14:12 | PN ---
Date/Time of Note Date/Time of Note DATE: 01/31/17 TIME: 14:06 SUBJECTIVE: Patient feeling well had dialysis this morning denies any chest pains dyspnea palpitations and anxious to go home. Chart, medications and laboratory studies reviewed. ROS: Patient denied any fevers, chills, weight loss, nausea, vomiting, diarrhea, constipation, cough, hemoptysis, dysuria, hematuria, nocturia, any neurologic symptoms, headache, any chest pains, dyspnea, PND, orthopnea, leg edema, or palpitations. All other review of systems were normal. OBJECTIVE: Vital signs please see chart. HEENT; no JVD, no HJR, carotids 2 over 4+ without bruits. Chest: Clear to auscultation and percussion, no rales, wheezes or rhonchi. Somewhat decreased breath sounds in right lower lobe. Cardiac: S4, S1, S2 with normal physiologic splitting, 1/6 systolic ejection murmur, no rub click or diastolic murmur noted. Abdominal: Bowel sounds positive, soft nontender, no abdominal bruit noted, no hepatosplenomegaly. Extremities: No cyanosis, clubbing, or edema. Negative Homans sign or palpable cords. Shunt in left forearm. Pulses: 2/4 pulses diffusely no bruits noted. LABORATORY STUDIES; Hemoglobin 10.3, hematocrit 31.5, platelets 68,000, white count 4.7, normal electrolytes, BUN 59, creatinine 9.45, magnesium 2.3. Telemetry sinus rhythm 50s-70s no ectopy per monitor check. ASSESSMENT: 1. Known nonischemic cardiomyopathy ejection fraction 35-40%. 2. Acute on chronic systolic heart failure. 3. Chronic renal failure on dialysis. 4. Type 2 diabetes. 5. Hypertension. 6. Hyperlipidemia. 7. Hypothyroidism. 8. Chronic anemia on Epogen. 9. Thrombocytopenia chronic unclear etiology. Patient stable from a cardiac standpoint with nonischemic cardiomyopathy. Fluid status per nephrology consider lower dry weight. Continue nifedipine, Lipitor, Epogen, hydralazine, carvedilol, and aspirin. I will be available as needed for any further cardiac issues. Patient told to follow-up with his regular lens generating machine tender Dr. Rivera in 3-4 weeks. PLAN: 1. Patient stable from a cardiac standpoint for discharge. May need extra dialysis tomorrow. Consider lower dry weight. 2. Continue aspirin, nifedipine, Lipitor, hydralazine, carvedilol. 3. Follow up with his regular lens generating machine tender, Dr. Rivera, in 3-4 weeks. 4. I will be available as needed for any further cardiac issues with fluid management per nephrology. TREVOR EDWARDS MD Jan 31, 2017 14:12
== END 2017-01-31 18:12 | disposition home or self-care (01) | DRG 291 ==
LOC: E/R 22:31 → TEL 01-29 05:30 → OBSVTOIN 01-30 14:51
PROVIDERS: ADMIT Internal Medicine; ATTEND Internal Medicine
PROC: 5A1D60Z (ICD-10-PCS; principal; 2017-01-30)
DX: I13.2 Hypertensive heart and chronic kidney disease with heart failure and with stage 5 chronic kidney disease, or end stage renal disease (principal); N18.6 End stage renal disease; E10.21 Type 1 diabetes mellitus with diabetic nephropathy; D69.6 Thrombocytopenia, unspecified; I42.9 Cardiomyopathy, unspecified; E10.22 Type 1 diabetes mellitus with diabetic chronic kidney disease; I50.23 Acute on chronic systolic (congestive) heart failure; E10.65 Type 1 diabetes mellitus with hyperglycemia; E10.42 Type 1 diabetes mellitus with diabetic polyneuropathy; E10.319 Type 1 diabetes mellitus with unspecified diabetic retinopathy without macular edema; E78.5 Hyperlipidemia, unspecified; E21.2 Other hyperparathyroidism; N40.0 Benign prostatic hyperplasia without lower urinary tract symptoms; K80.70 Calculus of gallbladder and bile duct without cholecystitis without obstruction; E03.9 Hypothyroidism, unspecified; I25.10 Atherosclerotic heart disease of native coronary artery without angina pectoris; D63.1 Anemia in chronic kidney disease; R07.89 Other chest pain; Z79.82 Long term (current) use of aspirin; Z79.4 Long term (current) use of insulin; Z99.2 Dependence on renal dialysis
CPT/HCPCS: 36415; 71010; 76705; 78226; 80048; 80053; 80061; 82330; 82962; 83036; 83690; 83735; 84443; 84484; 85025; 85610; 85730; 86140; 90935; 93005; 93306; 96374; G0378; A9537; J0360; J1815; Q4081

== ENCOUNTER 2017-03-29 17:03 | Emergency (ER) | payer MEDICARE, BC ==
[~2017-03-29] VITALS: Ht 167.6 cm; Wt 79.0 kg
[~2017-03-29 17:03] MED LIST changes: -EZET10TA3 PO; -FURO40TA4 PO; -LANT3I SC
[2017-03-29 17:07] VITALS: Ht 167.6 cm; Wt 79.0 kg
[2017-03-29] MEDS ORDERED: INSU200I4 SQ (18:08)
[2017-03-29 18:14] LABS: ABNORMAL IP MESSAGE 1; HEMATOCRIT 33.3 % (42.0-52.0); HEMOGLOBIN 10.6 g/dl (14.0-18.0); MEAN CORPUSCULAR HEMOGLOBIN 30.7 pg (29.0-33.0); MEAN CORPUSCULAR HGB CONC 31.8 g/dl (32.0-37.0); MEAN CORPUSCULAR VOLUME 96.5 fl (82.0-101.0); MEAN PLATELET VOLUME 11.4 fl (7.4-10.4); PLATELET COUNT 92 10^3/UL (140-415); POSITIVE DIFF @See below; RED BLOOD COUNT 3.45 10^6/ul (4.70-6.10); RED CELL DISTRIBUTION WIDTH 16.5 % (11.5-14.5); WHITE BLOOD COUNT 5.9 10^3/ul (4.8-10.8)
--- NOTE | 2017-03-29 18:26 | RADRPT ---
PROCEDURE: XR Chest. CLINICAL INDICATION: Chest pain TECHNIQUE: AP view of the chest was performed. COMPARISON: January 29, 2017, January 15, 2016 FINDINGS: Mild cardiomegaly and vascular congestion are present. No signs of pleural fluid or pneumothorax are seen. The osseous structures and soft tissues are unremarkable. IMPRESSION: Mild cardiomegaly and vascular congestion. Overall, no interval change. RPTAT: QQ .Karla Astudillo MD, MD Date Time Electronically viewed and signed by .Karla Astudillo MD, on 03/29/2017 18:25 .F/
[2017-03-29 18:38] LABS: ALBUMIN 3.7 g/dl (3.3-4.9); ALBUMIN/GLOBULIN RATIO 1.02; CALCIUM 9.9 mg/dl (8.4-10.2); CREATININE 6.37 mg/dl (0.61-1.24); POTASSIUM 4.6 mmol/L (3.5-5.1); TOTAL PROTEIN 7.3 g/dl (6.1-8.1)
[2017-03-29 18:49] LABS: TROPONIN-I 0.094 ng/ml (0.00-0.12)
[2017-03-29] MEDS ORDERED: SOD CHLORIDE 0.9% 1,000 ML IV STA (18:58)
[2017-03-29] MEDS ORDERED: PANTOPRAZOLE IV 80 MG in SOD CHLORIDE 0.9% 100 ML IV STA (18:58)
[2017-03-29] MEDS ORDERED: PANTOPRAZOLE IV 80 MG in SOD CHLORIDE 0.9% 100 ML IVPB STA (18:58)
[2017-03-29 19:02] LABS: EOSINOPHILS # 0.9 10^3/ul (0.0-0.5); EOSINOPHILS % (M) 16 % (0.0-7.0); LYMPHOCYTES # 0.5 10^3/ul (0.8-2.9); MONOCYTE # 0.1 10^3/ul (0.3-0.9); MONOCYTES % (M) 2 % (0-11)
[2017-03-29] MEDS ORDERED: INSULIN REGULAR, HUMAN 100 UNIT/1 ML 3ML VIAL SC ONE (19:30)
--- NOTE | 2017-03-29 20:00 | ERD ---
ER Documentation Chief Complaint Date/Time DATE: 03/29/17 TIME: 19:57 Chief Complaint BLEEDING FROM LT ARM AV FISTULA , FEELING WEAK HPI This is a 66-year-old male who had dialysis done earlier today and he has had some slight oozing from his left AV shunt fistula since that time. The is put a pressure dressing on it with minimal relief but is definitely decreased. She also wants him checked out because he says he has been feeling a bit weak. The patient has gone to an extra dialysis treatment each week for the past couple of weeks to try to remove some more fluid from him because his legs are swelling and he has a history of congestive heart failure and volume overload. Is not having any chest pain he is able to walk without any shortness of breath and will amount time. He has no orthopnea. ROS All systems reviewed and are negative except as per history of present illness. Medications Home Meds Active Scripts Tramadol HCl (Tramadol HCl) 50 Mg Tablet, 50 MG PO Q6 Y for PAIN, #12 TAB Prov:JOHN SLOAN PA-C 01/21/17 Reported Medications Insulin Degludec (Tresiba Flextouch U-200) 200 Unit/1 Ml Insuln.pen, 12 UNIT SQ QHS 03/29/17 Docusate Sodium* (Colace*) 100 Mg Capsule, 100 MG PO BID, #60 CAP 01/15/16 Aspirin* (Aspirin* Chew) 81 Mg Tab.chew, 81 MG PO DAILY, TAB.CHEW 01/15/16 Levothyroxine Sodium* (Levothyroxine Sodium*) 125 Mcg Tablet, 125 MCG PO BEFORE BREAKFAST, #30 TAB 08/19/15 Insulin Lispro (Humalog) 100 U/Ml Cartridge, 0 SC WITH BREAKFAST, EA SLIDING SCALE 08/12/15 Zinc Sulfate* (Zinc Sulfate*) 220 Mg Tablet, 220 MG PO DAILY, TAB 08/12/15 Sevelamer Carbonate* (Renvela*) 800 Mg Tablet, 3200 MG PO WITH MEALS, TAB 08/12/15 Docusate Sodium* (Docusate Sodium*) 100 Mg Capsule, 100 MG PO DAILY, #30 CAP 08/12/15 Tamsulosin Hcl* (Tamsulosin Hcl*) 0.4 Mg Cap.er.24h, 0.4 MG PO HS, CAP 08/12/15 Multivit/Ca Carb/B Cmplx/Fa* (Kimmie-Tirso*) 1 Tab Tab, 1 TAB PO DAILY, TAB 08/12/15 Cinacalcet* (Sensipar*) 60 Mg Tablet, 60 MG PO DAILY, TAB 08/12/15 Nifedipine* (Adalat CC*) 90 Mg Tablet.sa, 90 MG PO QHS, #30 TAB.SA 08/12/15 Doxazosin Mesylate* (Doxazosin Mesylate*) 1 Mg Tablet, 1 MG PO HS, TAB 08/12/15 Atorvastatin* (Atorvastatin*) 80 Mg Tablet, 80 MG PO QHS, #30 TAB 08/12/15 Lisinopril* (Zestril*) 40 Mg Tablet, 40 MG PO BID, #30 TAB 08/12/15 Hydralazine Hcl* (Hydralazine Hcl*) 50 Mg Tablet, 50 MG PO BID, #90 TAB 08/12/15 Carvedilol* (Carvedilol*) 25 Mg Tablet, 25 MG PO BID, TAB 08/12/15 Clonidine Hcl* (Clonidine Hcl*) 0.2 Mg Tablet, 0.2 MG PO BID, TAB 08/12/15 Metoclopramide Hcl (Reglan) 5 Mg Tab, 5 MG PO AC MEALS AND BEDTIME 01/18/13 Pantoprazole* (Protonix*) 40 Mg Tablet.dr, 40 MG PO DAILY 01/16/13 Allergies Allergies: Coded Allergies: povidone-iodine (Verified Allergy, Intermediate, LOCAL RASH, 03/29/17) soap (Verified Allergy, Intermediate, LOCAL RASH, 03/29/17) PMhx/Soc Anesthesia Reaction: No Hx Neurological Disorder: Yes (neurophaty) Hx Respiratory Disorders: No Hx Cardiac Disorders: Yes (htn) Hx Psychiatric Problems: No Hx Miscellaneous Medical Probl: No Hx Alcohol Use: No Hx Substance Use: No Hx Tobacco Use: No Smoking Status: Never smoker FmHx Family History: No coronary disease Physical Exam Vitals Vital Signs Date Time Temp Pulse Resp B/P Pulse Ox O2 Delivery O2 Flow Rate FiO2 03/29/17 19:05 Nasal Cannula 2 03/29/17 17:42 98.1 61 18 155/62 94 Nasal Cannula 2.0 03/29/17 17:07 98.1 66 18 183/76 98 Physical Exam Const: Well-developed, well-nourished Head: Atraumatic, normocephalic Eyes: Normal Conjunctiva, PERRLA, EOMI, normal sclera, no nystagmus ENT: Normal External Ears, Nose and Mouth, moist mucus membranes. Neck: Full range of motion. No meningismus, no lymphadenopathy. Resp: Clear to auscultation bilaterally, no wheezing, rhonchi, rales Cardio: Regular rate and rhythm, no murmurs, S1 S2 present Abd: Soft, non tender x 4, non distended. Normal bowel sounds, no guarding or rebound, no pulsitile abdominal masses or bruits Skin: No petechiae or rashes, no ecchymosis , no maculopapular rash Back: No midline or flank tenderness Ext: No cyanosis, +3 bilateral leg edema, FROM x 4, normal inspection , neurovascularly intact x 4, the left forearm has some slight oozing at the AV shunt site Neur: Awake and alert, STR 5/5 x 4, sensation intact x 4, no focal findings, cerebellum intact Psych: Normal Mood and Affect Result Diagram: 03/29/17180703/29/171807 Results 24 hrs Laboratory Tests Test 03/29/17 18:08 White Blood Count 5.910^3/ul Red Blood Count 3.4510^6/ul Hemoglobin 10.6g/dl Hematocrit 33.3% Mean Corpuscular Volume 96.5fl Mean Corpuscular Hemoglobin 30.7pg Mean Corpuscular Hemoglobin Concent 31.8g/dl Red Cell Distribution Width 16.5% Platelet Count 9210^3/UL Mean Platelet Volume 11.4fl Neutrophils % % Segmented Neutrophils % (Manual) 74% Lymphocytes % % Lymphocytes % (Manual) 8% Monocytes % % Monocytes % (Manual) 2% Eosinophils % % Eosinophils % (Manual) 16% Basophils % % Nucleated Red Blood Cells % 0.0/100WBC Neutrophils # (Manual) 10^3/ul Absolute Lymphocytes (Manual) 0.410^3/ul Lymphocytes # 0.510^3/ul Monocytes # 0.110^3/ul Absolute Monocytes (Manual) 0.110^3/ul Eosinophils # 0.910^3/ul Basophils # 10^3/ul Nucleated Red Blood Cells # 10^3/ul Sodium Level 134mmol/L Potassium Level 4.6mmol/L Chloride Level 93mmol/L Carbon Dioxide Level 29mmol/L Anion Gap 17 Blood Urea Nitrogen 83mg/dl Creatinine 6.37mg/dl Glucose Level 425mg/dl Calcium Level 9.9mg/dl Total Bilirubin 0.0mg/dl Direct Bilirubin 0.00mg/dl Indirect Bilirubin 0.0mg/dl Aspartate Amino Transf (AST/SGOT) 31IU/L Alanine Aminotransferase (ALT/SGPT) 36IU/L Alkaline Phosphatase 261IU/L Troponin I 0.094ng/ml Total Protein 7.3g/dl Albumin 3.7g/dl Globulin 3.60g/dl Albumin/Globulin Ratio 1.02 Current Medications Medications (Trade) Dose Ordered Sig/Binta Route PRN Reason Start Time Stop Time Status Last Admin Dose Admin Sodium Chloride 1,000 ml @ 1,000 mls/hr Q1H STAT IV 03/29/17 18:58 03/29/17 19:57 Cancel Pantoprazole 80 mg/Sodium Chloride 100 ml @ 400 mls/hr ONCE STAT IVPB 03/29/17 18:58 03/29/17 19:12 Cancel Pantoprazole/ Sodium Chloride (Protonix Iv/NS) 100 ml @ 10 mls/hr ONCE STAT IV 03/29/17 18:58 03/30/17 04:57 Cancel Insulin Human Regular (Humulin R) 10 unit ONCE ONCE SC 03/29/17 19:30 03/29/17 19:31 DC 03/29/17 19:23 Procedures/MDM Patient was given insulin subcu for his hyperglycemia. He was given some Surgicel and bandages were to stop the bleeding. Chest x-ray shows some chronic volume overload which is stable according to the radiologist. He will continue to get for dialysis treatments a week to try to remove more fluid. He knows the signs and symptoms for which to return at the volume overload gets to severe PROCEDURE: XR Chest. CLINICAL INDICATION: Chest pain TECHNIQUE: AP view of the chest was performed. COMPARISON: January 29, 2017, January 15, 2016 FINDINGS: Mild cardiomegaly and vascular congestion are present. No signs of pleural fluid or pneumothorax are seen. The osseous structures and soft tissues are unremarkable. IMPRESSION: Mild cardiomegaly and vascular congestion. Overall, no interval change. RPTAT: QQ .Karla Astudillo MD, Date Time Electronically viewed and signed by .Karla Astudillo MD, on 03/29/2017 18:25 .F/ CC: RUBI ABRAHAM DO Departure Diagnosis: Primary Impression: CHF (congestive heart failure) Congestive heart failure type: unspecified congestive heart failure type Congestive heart failure chronicity: unspecified congestive heart failure chronicity Qualified Code: I50.9 - Congestive heart failure, unspecified congestive heart failure chronicity, unspecified congestive heart failure type Additional Impression: Problem with dialysis access Encounter type: initial encounter Qualified Code: T82.898A - Problem with dialysis access, initial encounter Condition: Stable Patient Instructions: Dialysis Shunt (Fistula) Bleeding RUBI ABRAHAM DO Mar 29, 2017 20:00
[2017-03-29 20:15] LABS: INR 1.15; PROTIME 14.7 Sec (12.2-14.2); PT RATIO 1.1
[2017-03-29 20:18] VITALS: BP 168/72; PULSE 59; RESP 17; TEMP 98.7
== END 2017-03-29 20:29 | disposition home or self-care (01) ==
LOC: E/R 17:03
DX: I50.9 Heart failure, unspecified (principal); I10 Essential (primary) hypertension; E11.9 Type 2 diabetes mellitus without complications; Y82.8 Other medical devices associated with adverse incidents; Z79.4 Long term (current) use of insulin; Z79.82 Long term (current) use of aspirin
CPT/HCPCS: 36415; 71010; 80053; 80306; 84484; 85025; 85610; 85730; 93005; 96372; 99285; J1815; C9113; J7030

== ENCOUNTER → 2017-04-17 | Outpatient (CLI) | payer MEDICARE, BC ==
[~2017-04-17] MED LIST changes: +INSU200I4 SQ
[2017-04-17 21:36] LABS: ABNORMAL IP MESSAGE 1; BASOPHILS % 0.5 % (0.0-2.0); EOSINOPHILS # 0.7 10^3/ul (0.0-0.5); EOSINOPHILS % 11.5 % (0.0-7.0); HEMATOCRIT 37.1 % (42.0-52.0); HEMOGLOBIN 11.6 g/dl (14.0-18.0); LYMPHOCYTES # 0.6 10^3/ul (0.8-2.9); MEAN CORPUSCULAR HEMOGLOBIN 30.5 pg (29.0-33.0); MEAN CORPUSCULAR HGB CONC 31.3 g/dl (32.0-37.0); MEAN CORPUSCULAR VOLUME 97.6 fl (82.0-101.0); MONOCYTE # 0.6 10^3/ul (0.3-0.9); MONOCYTES % 9.6 % (0.0-11.0); NEUTROPHIL # 4.1 10^3/ul (1.6-7.5); NEUTROPHILS % 68.2 % (39.0-77.0); PLATELET COUNT 81 10^3/UL (140-415); POSITIVE DIFF @See below; RED CELL DISTRIBUTION WIDTH 16.4 % (11.5-14.5)
[2017-04-17 21:49] LABS: INR 1.24; PROTIME 15.7 Sec (12.2-14.2); PT RATIO 1.2
[2017-04-17 21:50] LABS: PARTIAL THROMBOPLASTIN TIME 50.5 Sec (25.0-35.0)
[2017-04-17 22:05] LABS: CALCIUM 9.5 mg/dl (8.4-10.2); CREATININE 8.03 mg/dl (0.61-1.24); POTASSIUM 4.7 mmol/L (3.5-5.1)
== END | disposition home or self-care (01) ==
LOC: LAB 21:04
PROVIDERS: ATTEND Internal Medicine Interventional Cardiology
DX: I25.10 Atherosclerotic heart disease of native coronary artery without angina pectoris (principal)
CPT/HCPCS: 80048; 85025; 85610; 85730

== ENCOUNTER 2017-04-22 06:00 | Day surgery (SDC) | payer MEDICARE, BC ==
[~2017-04-22 06:00] MED LIST changes: +DIAZEPAM 5 MG TAB PO ONE; +SOD CHLORIDE 0.9% 1,000 ML IV SCH
[2017-04-22 07:14] VITALS: BP 150/68; PULSE 62; RESP 16
[2017-04-22] MEDS ORDERED: LIDOCAINE 1% (MDV) 20 ML INJ ONE (07:28)
[2017-04-22] MEDS ORDERED: IODIXANOL LOCM 100 ML BTL ONE (07:28)
[2017-04-22] MEDS ORDERED: FENTAnyl 50 MCG/ML VIAL ONE (07:28)
[2017-04-22] MEDS ORDERED: HEPARIN 1000 UNITS/ML 10 ML INJ ONE (07:28)
[2017-04-22] MEDS ORDERED: MIDAZOLAM 1 MG/ML 2 ML INJ ONE (07:29)
[2017-04-22] MEDS ORDERED: NITROGLYCERIN (IC) 100 MCG/ML INJ ONE (07:29)
[2017-04-22] MEDS ORDERED: VERAPAMIL 5 MG INJ ONE (07:29)
[2017-04-22 07:37] LABS: ABNORMAL IP MESSAGE 1; HEMATOCRIT 33.4 % (42.0-52.0); HEMOGLOBIN 10.4 g/dl (14.0-18.0); MEAN CORPUSCULAR HEMOGLOBIN 29.8 pg (29.0-33.0); MEAN CORPUSCULAR HGB CONC 31.1 g/dl (32.0-37.0); MEAN CORPUSCULAR VOLUME 95.7 fl (82.0-101.0); MEAN PLATELET VOLUME 12.4 fl (7.4-10.4); RED BLOOD COUNT 3.49 10^6/ul (4.70-6.10); RED CELL DISTRIBUTION WIDTH 17.1 % (11.5-14.5); WHITE BLOOD COUNT 5.3 10^3/ul (4.8-10.8)
[2017-04-22 07:40] LABS: INR 1.32; PROTIME 16.5 Sec (12.2-14.2); PT RATIO 1.3
[2017-04-22 07:46] LABS: ALBUMIN 3.6 g/dl (3.3-4.9); ALBUMIN/GLOBULIN RATIO 1.02; BILIRUBIN,INDIRECT 0.2 mg/dl (0-1.1); BILIRUBIN,TOTAL 0.2 mg/dl (0.2-1.3); TOTAL PROTEIN 7.1 g/dl (6.1-8.1)
[2017-04-22 07:51] LABS: CALCIUM 9.9 mg/dl (8.4-10.2); CREATININE 7.12 mg/dl (0.61-1.24); POTASSIUM 4.4 mmol/L (3.5-5.1)
[2017-04-22 07:58] LABS: PARTIAL THROMBOPLASTIN TIME 48.3 Sec (25.0-35.0)
[2017-04-22 08:23] LABS: BASOPHILS % 0.6 % (0.0-2.0); EOSINOPHILS % 7.2 % (0.0-7.0); LYMPHOCYTES % 12.9 % (15.0-51.0); MONOCYTES % 11.4 % (0.0-11.0); NEUTROPHILS % 67.7 % (39.0-77.0)
[2017-04-22 08:24] LABS: PLATELET COUNT 38 10^3/UL (140-415)
[2017-04-22 08:25] LABS: HOLD TRANSMISSIONS 1
[2017-04-22 08:45] VITALS: BP 162/75; PULSE 61; RESP 18
== END 2017-04-22 09:55 | disposition home or self-care (01) ==
LOC: SDS 06:00
PROVIDERS: ATTEND Internal Medicine Interventional Cardiology
DX: I42.9 Cardiomyopathy, unspecified (principal); Z53.8 Procedure and treatment not carried out for other reasons; I25.10 Atherosclerotic heart disease of native coronary artery without angina pectoris; E78.5 Hyperlipidemia, unspecified; I73.9 Peripheral vascular disease, unspecified; I12.9 Hypertensive chronic kidney disease with stage 1 through stage 4 chronic kidney disease, or unspecified chronic kidney disease; N18.9 Chronic kidney disease, unspecified; Z79.82 Long term (current) use of aspirin
CPT/HCPCS: 80053; 82962; 85025; 85610; 85730; J1644; J2250; J3010; Q9967

== ENCOUNTER 2017-05-10 20:12 | Emergency (ER) | payer BC, MEDICARE | END 2017-05-10 20:20 | disposition left against medical advice (07) | LOC: E/R 20:12 | DX: Z53.21 Procedure and treatment not carried out due to patient leaving prior to being seen by health care provider (principal) ==

== ENCOUNTER → 2017-05-10 | Outpatient (CLI) | payer MEDICARE, BC ==
[~2017-05-10] MED LIST changes: -DIAZEPAM 5 MG TAB PO ONE; -SOD CHLORIDE 0.9% 1,000 ML IV SCH
[2017-05-10 21:09] LABS: ABNORMAL IP MESSAGE 1; HEMATOCRIT 35.1 % (42.0-52.0); HEMOGLOBIN 10.9 g/dl (14.0-18.0); MEAN CORPUSCULAR HEMOGLOBIN 30.2 pg (29.0-33.0); MEAN CORPUSCULAR HGB CONC 31.1 g/dl (32.0-37.0); MEAN CORPUSCULAR VOLUME 97.2 fl (82.0-101.0); MEAN PLATELET VOLUME 12.1 fl (7.4-10.4); PLATELET COUNT 47 10^3/UL (140-415); POSITIVE DIFF @See below; RED BLOOD COUNT 3.61 10^6/ul (4.70-6.10); WHITE BLOOD COUNT 4.4 10^3/ul (4.8-10.8)
[2017-05-10 21:26] LABS: CALCIUM 9.7 mg/dl (8.4-10.2); CREATININE 6.45 mg/dl (0.61-1.24); POTASSIUM 4.1 mmol/L (3.5-5.1)
[2017-05-10 21:57] LABS: ANISOCYTOSIS 1+ (0-0); BASOPHILS % (M) 2 % (0-2); EOSINOPHILS % (M) 12 % (0-7); MONOCYTES % (M) 13 % (0-11); POIKILOCYTOSIS 2+ (0-0); REACTIVE LYMPHOCYTES% (M) 2 % (0-0)
== END | disposition home or self-care (01) ==
LOC: LAB 20:33
DX: D69.6 Thrombocytopenia, unspecified (principal); N18.9 Chronic kidney disease, unspecified
CPT/HCPCS: 80048; 85025

== ENCOUNTER 2017-06-06 17:44 | Inpatient (IN) | payer MEDICARE, BC ==
[~2017-06-06] VITALS: Ht 172.7 cm; Wt 86.6 kg
[2017-06-06 17:49] VITALS: Ht 172.7 cm; Wt 86.6 kg
[2017-06-06 18:30] VITALS: TEMP 97.6
[2017-06-06 18:59] LABS: ABNORMAL IP MESSAGE 1; BASOPHILS % 0.4 % (0.0-2.0); EOSINOPHILS # 0.5 10^3/ul (0.0-0.5); EOSINOPHILS % 10.3 % (0.0-7.0); HEMATOCRIT 40.1 % (42.0-52.0); LYMPHOCYTES # 0.6 10^3/ul (0.8-2.9); LYMPHOCYTES % 12.9 % (15.0-51.0); MEAN CORPUSCULAR HEMOGLOBIN 29.1 pg (29.0-33.0); MEAN CORPUSCULAR HGB CONC 29.9 g/dl (32.0-37.0); MEAN CORPUSCULAR VOLUME 97.1 fl (82.0-101.0); MEAN PLATELET VOLUME 12.5 fl (7.4-10.4); MONOCYTE # 0.7 10^3/ul (0.3-0.9); MONOCYTES % 15.1 % (0.0-11.0); NEUTROPHIL # 2.8 10^3/ul (1.6-7.5); NEUTROPHILS % 61.1 % (39.0-77.0); PLATELET COUNT 64 10^3/UL (140-415); POSITIVE DIFF @See below; RED BLOOD COUNT 4.13 10^6/ul (4.70-6.10); RED CELL DISTRIBUTION WIDTH 18.7 % (11.5-14.5); WHITE BLOOD COUNT 4.6 10^3/ul (4.8-10.8)
--- NOTE | 2017-06-06 19:12 | RADRPT ---
PROCEDURE: XR Chest. CLINICAL INDICATION: Shortness of breath. TECHNIQUE: Single frontal view. COMPARISON: 03/29/2017. FINDINGS: There is moderate air space disease in the right mid and lower lung zones consistent with atelectasi s or pneumonia. The lungs are otherwise clear. The heart is enlarged. There is calcification in the aorta consistent with atherosclerosis. There is a moderate right pleural effusion and small left pleural effusion. There is no pneumothorax. IMPRESSION: 1. Right mid and lower lung zone atelectasis or pneumonia. 2. Cardiomegaly and atherosclerosis. 3. Moderate right pleural effusion and small left pleural effusion. 4. Otherwise unremarkable chest radiograph. RPTAT: QQ .Ronnie Javier MD, MD Date Time Electronically viewed and signed by .Ronnie Javier MD, MD on 06/06/2017 19:12 .R/
[2017-06-06 19:18] LABS: ALBUMIN 3.9 g/dl (3.3-4.9); ALBUMIN/GLOBULIN RATIO 1.02; BILIRUBIN,INDIRECT 0.2 mg/dl (0-1.1); BILIRUBIN,TOTAL 0.2 mg/dl (0.2-1.3); CALCIUM 10.1 mg/dl (8.4-10.2); CREATININE 7.85 mg/dl (0.61-1.24); POTASSIUM 4.3 mmol/L (3.5-5.1); TOTAL PROTEIN 7.7 g/dl (6.1-8.1)
[2017-06-06 19:33] LABS: TROPONIN-I 0.236 ng/ml (0.00-0.12)
--- NOTE | 2017-06-06 19:41 | RADRPT ---
PROCEDURE: Noncontrast CT Head. CLINICAL INDICATION: Pain. TECHNIQUE: Noncontrast CT of the head was obtained. The administered radiation dose was CTDI vol = 43 mGy, DLP = 720 mGy-cm. One or more of the following dose reduction techniques were used: automate d exposure control, adjustment of the mA and/or kV according to patient size and/or use of iterative reconstruction technique. COMPARISON: No pertinent prior examinations were submitted for comparison. FINDINGS: The ventricles and cortical sulci are mildly enlarged. There is mild decreased attenuation within t he periventricular and subcortical white matter compatible with chronic microvascular changes. There is no acute intracranial hemorrhage or extra-axial fluid collection. There is no mass effect . No midline shift is identified. There is no loss of price-white differentiation to suggest acute in farction. The orbits are within normal limits. The paranasal sinuses are well aerated. No destructive osseous lesion is identified. IMPRESSION: No acute findings. Mild diffuse parenchymal volume loss and chronic microvascular changes. RPTAT: HIKT .Rizwan Price MD, Date Time Electronically viewed and signed by .Rizwan Price MD, on 06/06/2017 19:41 .T/
[2017-06-06] MEDS ORDERED: ASPIRIN 81 MG TAB PO ONE (20:00)
--- NOTE | 2017-06-06 20:18 | ERD ---
ER Documentation Chief Complaint Chief Complaint Seizure activity at dialysis (witnessed) patient was not dialyzed. HPI 66-year-old man brought in by after having a tonic-clonic seizure activity and postictal agitation while at hemodialysis center. EMS initially transported him to [facility] in a postictal state the patient did not want to stay and so his drove him to [facility] emergency department for further evaluation. Patient only received about 10-15 minutes of hemodialysis today. states this is the third syncopal episode he has had during or after hemodialysis, and both prior episodes were associated with postictal agitation and confusion. He has no history of seizure activity and has had no recent CT scans of the brain. He had no loss of bowel or bladder control, no complaints of chest pain or shortness of breath, no vomiting or diarrhea ROS All systems reviewed and are negative except as per history of present illness. Medications Home Meds Active Scripts Tramadol HCl (Tramadol HCl) 50 Mg Tablet, 50 MG PO Q6 Y for PAIN, #12 TAB Prov:JOHN SLOAN PA-C 01/21/17 Reported Medications Insulin Degludec (Tresiba Flextouch U-200) 200 Unit/1 Ml Insuln.pen, 12 UNIT SQ QHS 03/29/17 Docusate Sodium* (Colace*) 100 Mg Capsule, 100 MG PO BID, #60 CAP 01/15/16 Aspirin* (Aspirin* Chew) 81 Mg Tab.chew, 81 MG PO DAILY, TAB.CHEW 01/15/16 Levothyroxine Sodium* (Levothyroxine Sodium*) 125 Mcg Tablet, 125 MCG PO BEFORE BREAKFAST, #30 TAB 08/19/15 Insulin Lispro (Humalog) 100 U/Ml Cartridge, 0 SC WITH BREAKFAST, EA SLIDING SCALE 08/12/15 Zinc Sulfate* (Zinc Sulfate*) 220 Mg Tablet, 220 MG PO DAILY, TAB 08/12/15 Sevelamer Carbonate* (Renvela*) 800 Mg Tablet, 3200 MG PO WITH MEALS, TAB 08/12/15 Docusate Sodium* (Docusate Sodium*) 100 Mg Capsule, 100 MG PO DAILY, #30 CAP 08/12/15 Tamsulosin Hcl* (Tamsulosin Hcl*) 0.4 Mg Cap.er.24h, 0.4 MG PO HS, CAP 08/12/15 Multivit/Ca Carb/B Cmplx/Fa* (Kimmie-Tirso*) 1 Tab Tab, 1 TAB PO DAILY, TAB 08/12/15 Cinacalcet* (Sensipar*) 60 Mg Tablet, 60 MG PO DAILY, TAB 08/12/15 Nifedipine* (Adalat CC*) 90 Mg Tablet.sa, 90 MG PO QHS, #30 TAB.SA 08/12/15 Doxazosin Mesylate* (Doxazosin Mesylate*) 1 Mg Tablet, 1 MG PO HS, TAB 08/12/15 Atorvastatin* (Atorvastatin*) 80 Mg Tablet, 80 MG PO QHS, #30 TAB 08/12/15 Lisinopril* (Zestril*) 40 Mg Tablet, 40 MG PO BID, #30 TAB 08/12/15 Hydralazine Hcl* (Hydralazine Hcl*) 50 Mg Tablet, 50 MG PO BID, #90 TAB 08/12/15 Carvedilol* (Carvedilol*) 25 Mg Tablet, 25 MG PO BID, TAB 08/12/15 Clonidine Hcl* (Clonidine Hcl*) 0.2 Mg Tablet, 0.2 MG PO BID, TAB 08/12/15 Metoclopramide Hcl (Reglan) 5 Mg Tab, 5 MG PO AC MEALS AND BEDTIME 01/18/13 Pantoprazole* (Protonix*) 40 Mg Tablet.dr, 40 MG PO DAILY 01/16/13 Allergies Allergies: Coded Allergies: povidone-iodine (Verified Allergy, Intermediate, LOCAL RASH, 03/29/17) soap (Verified Allergy, Intermediate, LOCAL RASH, 03/29/17) PMhx/Soc Type I diabetes mellitus, hypertension, hypothyroidism, BPH, end-stage kidney disease hemodialysis Thursday, , Saturdays, CAD, gastritis History of Surgery: Yes (RIGHT ARM SURGERY, LEFT ARM FISTULA) Anesthesia Reaction: No Hx Neurological Disorder: No Hx Respiratory Disorders: No Hx Cardiac Disorders: Yes (HTN, HLD) Hx Psychiatric Problems: No Hx Miscellaneous Medical Probl: Yes (RENAL FAILURE, DM) Hx Alcohol Use: No Hx Substance Use: No Hx Tobacco Use: No Smoking Status: Never smoker FmHx Family History: diabetes Physical Exam Vitals Vital Signs Date Time Temp Pulse Resp B/P Pulse Ox O2 Delivery O2 Flow Rate FiO2 06/06/17 18:30 97.6 61 20 153/72 100 Room Air 06/06/17 17:49 96.4 60 20 132/65 96 Physical Exam GENERAL: Well-developed, well-nourished, well-hydrated, in no apparent distress , looks nontoxic in appearance HEENT: Moist mucous membranes, pink conjunctiva, no cervical spine tenderness or step-off deformities, no goiter, no jaundice or icterus, extraocular movements intact without pain. No submandibular induration, and no pharyngeal erythema NEURO: Alert and oriented 3, cranial nerves II through XII intact bilaterally, pupils equal round reactive to light, no focal deficits or facial asymmetry, sensation intact distally Strength 5/5 in upper and lower extremities bilaterally CARDIAC: Regular rate and rhythm, no murmurs rubs or gallops LUNGS: Clear bilaterally no wheezing crackles or stridor ABDOMEN: Soft nontender, no guarding, no rigidity, no rebound, no psoas sign no obturator sign. Normoactive bowel sounds SKIN: Warm and dry to touch, no abrasions, contusions, or hematomas, no lacerations, no ecchymosis, no target lesions, and without ulcers EXTREMITIES: No clubbing cyanosis or edema, calves are bilaterally symmetrical, no Homans sign, no popliteal cord sign. Distal pulses equal and bilateral PSYCH: Normal affect without agitation or irritability Result Diagram: 06/06/17184306/06/17 184 Results 24 hrs Laboratory Tests Test 06/06/17 18:42 06/06/17 18:44 Bedside Glucose 175mg/dL White Blood Count 4.610^3/ul Red Blood Count 4.1310^6/ul Hemoglobin 12.0g/dl Hematocrit 40.1% Mean Corpuscular Volume 97.1fl Mean Corpuscular Hemoglobin 29.1pg Mean Corpuscular Hemoglobin Concent 29.9g/dl Red Cell Distribution Width 18.7% Platelet Count 6410^3/UL Mean Platelet Volume 12.5fl Neutrophils % 61.1% Lymphocytes % 12.9% Monocytes % 15.1% Eosinophils % 10.3% Basophils % 0.4% Nucleated Red Blood Cells % 0.0/100WBC Neutrophils # 2.810^3/ul Lymphocytes # 0.610^3/ul Monocytes # 0.710^3/ul Eosinophils # 0.510^3/ul Basophils # 0.010^3/ul Nucleated Red Blood Cells # 0.010^3/ul Sodium Level 145mmol/L Potassium Level 4.3mmol/L Chloride Level 98mmol/L Carbon Dioxide Level 31mmol/L Anion Gap 20 Blood Urea Nitrogen 66mg/dl Creatinine 7.85mg/dl Glucose Level 179mg/dl Calcium Level 10.1mg/dl Total Bilirubin 0.2mg/dl Direct Bilirubin 0.00mg/dl Indirect Bilirubin 0.2mg/dl Aspartate Amino Transf (AST/SGOT) 51IU/L Alanine Aminotransferase (ALT/SGPT) 56IU/L Alkaline Phosphatase 471IU/L Troponin I 0.236ng/ml Total Protein 7.7g/dl Albumin 3.9g/dl Globulin 3.80g/dl Albumin/Globulin Ratio 1.02 Lipase 56U/L Current Medications Medications (Trade) Dose Ordered Sig/Binta Route PRN Reason Start Time Stop Time Status Last Admin Dose Admin Aspirin (Aspirin) 324 mg ONCE ONCE PO 06/06/17 20:00 06/06/17 20:02 DC Procedures/MDM IV line was established patient was placed on rn cardiac rhythm strip revealed a sinus rhythm at about 60 bpm with upright P and T waves. Patient was afebrile EKG performed, read by me revealed a sinus bradycardia 60 bpm, normal axis, right ventricular conduction delay with incarceration of 110 ms, no concerning ST elevations or depressions noted. Prolonged QT syndrome near 500 ms. One view chest x-ray performed, read by me there is cardiomegaly and atelectatic changes bilaterally, elevation of the right hemidiaphragm, no acute infiltrates, no pneumothorax. CBC revealed thrombocytopenia 64,000, electrolytes revealed renal failure although potassium normal at 4.3, liver function tests normal, troponin positive at 0.24. Patient is without complaints of chest pain. CT scan of the brain was performed that was negative for acute bleed mass or shift. I administered aspirin 324 mg p.o. for cardioprotective measures. Patient experienced tonic-clonic seizure activity today followed by postictal episode, I suspect new onset seizure although other etiologies will be worked up during this admission. I treated the patient here with Keppra 500 mg IV 1. Patient admitted to his primary care physician Dr. Gastelum and I spoke to his bead flipper Dr. Schmitt to arrange for hemodialysis this evening. Departure Diagnosis: Primary Impression: End stage renal disease on dialysis Additional Impressions: Hypertension Hypertension type: essential hypertension Qualified Code: I10 - Essential hypertension Seizure disorder Non-STEMI (non-ST elevated myocardial infarction) Diabetes mellitus type 1 with complications Condition: Serious NICHOLE GUZMAN MD Jun 06, 2017 20:17
[2017-06-06] MEDS ORDERED: LEVETIRACETAM 500 MG (PMX) 100 ML IVPB ONE (20:30)
[2017-06-06 21:02] VITALS: PULSE 60
[2017-06-06 21:31] VITALS: BP 145/75; RESP 18
[2017-06-06] MEDS ORDERED: GLUCOSE GEL 15 GRAM TUBE PO PRN ×2 (22:30)
[2017-06-06] MEDS ORDERED: GLUCAGON 1 MG INJ IM PRN (22:30)
[2017-06-06] MEDS ORDERED: DEXTROSE 50% 50 ML SYRINGE IV PRN (22:30)
[2017-06-06] MEDS ORDERED: GLUCOSE GEL 15 GRAM TUBE BUCCAL PRN (22:30)
[2017-06-06 23:40] VITALS: BP 141/71; PULSE 61
[2017-06-06 23:55] VITALS: BP 135/63; PULSE 62
[2017-06-07] VITALS (27 sets, daily range): BP systolic 128–176; BP diastolic 60–82; PULSE 58–69; RESP 16–20
[2017-06-07] MEDS: ACCU-CHEK XX SCH (02:00)
[2017-06-07] MEDS ORDERED: ACCU-CHEK XX SCH (02:00)
[2017-06-07] MEDS ORDERED: ZOLPIDEM 5 MG TAB PO PRN (03:36)
[2017-06-07] MEDS: hydrOXYzine HCL 10 MG TAB PO PRN (03:57)
[2017-06-07 06:31] LABS: ABNORMAL IP MESSAGE 1; BASOPHILS % 0.4 % (0.0-2.0); EOSINOPHILS # 0.5 10^3/ul (0.0-0.5); HEMATOCRIT 35.8 % (42.0-52.0); HEMOGLOBIN 11.4 g/dl (14.0-18.0); LYMPHOCYTES # 0.7 10^3/ul (0.8-2.9); MEAN CORPUSCULAR HEMOGLOBIN 30.6 pg (29.0-33.0); MEAN CORPUSCULAR HGB CONC 31.8 g/dl (32.0-37.0); MEAN PLATELET VOLUME 12.2 fl (7.4-10.4); MONOCYTE # 0.5 10^3/ul (0.3-0.9); MONOCYTES % 10.4 % (0.0-11.0); NEUTROPHIL # 3.1 10^3/ul (1.6-7.5); PLATELET COUNT 48 10^3/UL (140-415); POSITIVE DIFF @See below; RED BLOOD COUNT 3.73 10^6/ul (4.70-6.10); RED CELL DISTRIBUTION WIDTH 18.4 % (11.5-14.5); WHITE BLOOD COUNT 4.7 10^3/ul (4.8-10.8)
[2017-06-07] MEDS: PANTOPRAZOLE (EC) 40 MG TAB PO SCH (06:41)
[2017-06-07 07:30] LABS: ALBUMIN 3.4 g/dl (3.3-4.9); ALBUMIN/GLOBULIN RATIO 0.97; BILIRUBIN,INDIRECT 0.2 mg/dl (0-1.1); BILIRUBIN,TOTAL 0.2 mg/dl (0.2-1.3); CREATININE 6.57 mg/dl (0.61-1.24); MAGNESIUM 2.1 mg/dl (1.7-2.5); TOTAL PROTEIN 6.9 g/dl (6.1-8.1)
[2017-06-07] MEDS ORDERED: LEVETIRACETAM 500 MG TAB PO SCH (09:00)
[2017-06-07] MEDS: NIFEdipine (XL) 60 MG TAB PO SCH (09:00)
[2017-06-07] MEDS ORDERED: CINACALCET 30 MG TAB PO SCH (09:00)
[2017-06-07] MEDS: LISINOPRIL 20 MG TAB PO SCH (09:00)
[2017-06-07] MEDS: ASPIRIN (EC) 81 MG TAB PO SCH (09:18)
[2017-06-07] MEDS: INSULIN ASPART [NOVOLOG] 3 ML PEN SC SCH ×4 (09:25→20:49)
--- NOTE | 2017-06-07 16:52 | CONS ---
DATE OF ADMISSION: 06/06/2017 DATE OF CONSULTATION: 06/07/2017 TYPE OF CONSULTATION: Neurology. Thank you, Dr. Navarro, for your kind referral for evaluation of seizures. HISTORY OF PRESENT ILLNESS: The patient is a 66-year-old gentleman with extensive past medical hist ory of end-stage renal disease, diabetes, hypertension, dyslipidemia, hypothyroidism, gastritis, arcenio ign prostatic hypertrophy, who presented from dialysis after a witnessed seizure. The patient had 2 episodes of "fainting" at dialysis unit about a month ago and 1 week ago, followed by severe confus ion and agitation. A similar episode was prior to admission this time, but it was accompanied or pr eceded by a witnessed seizure. ALLERGIES: TO IODINE. FAMILY HISTORY: Diabetes. SOCIAL HISTORY: No alcohol, tobacco, drug use. PHYSICAL EXAMINATION GENERAL: Not in acute distress, lying in bed. HEENT: Normocephalic, atraumatic head. NECK: No carotid bruits. No thyromegaly. LUNGS: Clear to auscultation bilaterally. CARDIAC: Normal cardiac rhythm and sounds. ABDOMEN: Soft. EXTREMITIES: No cyanosis, clubbing, or edema. Patient has an AV shunt in the left upper extremity. NEUROLOGIC: He is awake, alert, and oriented x2 with fluent speech. Cranial nerve examination show s intact visual franks to visual threat. Pupils reactive from 3 to 2 mm bilaterally. Extraocular m ovements intact without nystagmus. Symmetrical face. Preserved facial strength and sensation. Ton amol is in midline. Palate elevates symmetrically. Motor strength examination seems to be preserved in all extremities. Normal bulk, tone, and strength. Sensory examination grossly intact to light touch and pain. Diminished vibration in toes. Deep tendon reflexes 1+ upper extremities, absent in lower extremities. Downgoing toes bilaterally. Coordination preserved on [id number]-[id number] testing . No dysmetria or tremor. Gait was not assessed. Patient had CAT scan of the head in the emergency department, was read as no acute abnormality, diff use volume loss. and white matter disease. Chest x-ray: Atelectasis, cardiomegaly, pleural effusion. LABORATORY DATA: WBC 4.7, hemoglobin 11, hematocrit 35, platelets 48, BUN 53, creatinine 6.6, alkal ine phosphatase 440; rest of comprehensive metabolic panel within normal limits. Troponins were fabio vated at 0.23 on admission. CURRENT MEDICATIONS HERE: The patient was started on Keppra 500 mg twice daily. Also, he is on: 1. Procardia. 2. Lisinopril 3. Sensipar. 4. Coreg. 5. Aspirin. 6. Lantus 7. Cardura. 8. Lipitor. 9. Atarax. 10. Ambien. He received 500 mg of Keppra in the emergency room yesterday night. IMPRESSION: Seizure disorder. The patient was started on Keppra. Usually, 500 mg of Keppra per da y is sufficient with additional 500 mg after hemodialysis. We will obtain EEG and MRI of the brain. Continue current treatment. Thank you very much for this interesting consultation. According to patient's , he also has car diac problems with low ejection fraction and suggested to have a pacemaker, though patient did not w ant to do this. Thank you very much for this interesting consultation. Dictated By: SUYAPA ESTEVES MD YV/SEBASTIEN Conf#: [id number] DID#: [id number] CC: GERA NAVARRO MD;*EndCC*
--- NOTE | 2017-06-07 18:05 | CONS ---
DATE OF ADMISSION: 06/06/2017 DATE OF CONSULTATION: REASON FOR CONSULTATION: End-stage renal disease. Thank you, Dr. Navarro, for asking me to participate in the medical management of this patient. HISTORY OF PRESENT ILLNESS: This 66-year-old patient who is well known to me, was in his usual stat e of health until approximately 1 month ago when he had a syncopal episode while having his hemodial ysis treatment. This history was taken from his as the patient is a poor historian. The patie nt apparently became combative and agitated after having this syncopal episode. The says that he did not have any noticed seizure activity at the time. The patient at the time was taken to [facility] in [place]. He had a workup done which included an echocardiogram. The patient was told that this ejection fraction was 25%. The patient was bradycardic down to a rat e of 30 and was told that he needed a pacemaker. The patient refused a pacemaker. The patient was eventually discharged. Then, 1 week ago, the patient, while on dialysis, had another syncopal episo de. He became agitated and combative after this episode. Again, no witnessed seizure activity. [facility] patient was not hospitalized after that episode. Then, yesterday, the patient was having hemodial ysis and about 15 to 20 minutes into his run, he had a witnessed tonic-clonic seizure. He was again combative and agitated. He was taken to [facility] where he was seen in [facility] emergency room; however, he refused to be admitted and his drove him here to [facility] emergency room where he was seen and eventually admitted. The patient had a 2-hour hem odialysis treatment last night and again this morning. He had no episodes of altered mental status or seizure activity during those 2 treatments. The patient is now awake but a little lethargic and does not give much of a history. The patient has been on dialysis treatment for at least 8 years. He has diabetes mellitus and end-stage renal disease due to the diabetes. PAST MEDICAL HISTORY: Has the followin. Type 1 diabetes mellitus. 2. Diabetic nephropathy. 3. Diabetic neuropathy. 4. Diabetic retinopathy. 5. Vascular disease. 6. Congestive heart failure. 7. Gallstones. 8. Hyperlipidemia. 9. Hypertension. 10. Hypothyroidism. 11. Cardiomyopathy with ejection fraction of now 25%. PAST SURGICAL HISTORY: AV shunt left arm status post cardiac catheterization, status post ERCP, and sphincterotomy with removal of stones and stenting. CURRENT MEDICATIONS: Include the followin. Tamsulosin 0.4 mg a day. 2. Atorvastatin 80 mg a day. 3. Carvedilol 25 mg twice a day. 4. Clonidine 0.2 mg twice a day. 5. Doxazosin 1 mg at bedtime. 6. Hydralazine 50 mg twice a day. 7. Lisinopril 40 mg twice a day. 8. Nifedipine 90 mg a day. 9. Aspirin 81 mg a day. 10. Tramadol 50 mg a day. 11. Renvela 3200 mg with meals. 12. Zinc sulfate 220 mg a day. 13. Docusate sodium 100 mg twice a day. 14. Metoclopramide 5 mg with meals and at bedtime. 15. Pantoprazole 40 mg a day. 16. Cinacalcet 60 mg daily. 17. Insulin Tresiba 12 units at bedtime. 18. Lispro subQ with breakfast. 19. Levothyroxine 125 mcg a day. 20. Multivitamins 1 tablet daily. PHYSICAL EXAMINATION: GENERAL: At this time reveals a well-developed man who is lethargic, but does arouse to verbal stim tracey and follows simple commands. VITAL SIGNS: Temperature 98.2, pulse of 62, respirations 20, blood pressure 137/60, O2 saturation 9 6% on room air. HEENT: Head normocephalic. Eyes: Extraocular muscles intact. NOSE AND MOUTH: Normal. NECK: Supple. No neck vein distention. LUNGS: Clear to auscultation. HEART: Regular rhythm. No murmurs, gallops, or rubs. ABDOMEN: Soft, nontender, no masses or megaly. EXTREMITIES: 2+ extremities, +1 bilateral ankle edema. Left arm AV fistula. NEUROLOGIC: No obvious focal neurologic deficits. IMPRESSION: 1. End-stage renal disease on maintenance hemodialysis. 2. New onset seizures and syncopal episodes that have occurred while on dialysis. I am suspicious that possibly one of his medications is contributing to his problems. I would consider discontinuin g tamsulosin and doxazosin as they can cause syncope. 3. Ischemic cardiomyopathy with reduced ejection fraction. 4. History of bradycardia. PLAN: 1. The patient has had hemodialysis, two treatments since admission, one last night and one this mo rning. I think he is now up to date on his dialysis treatments. His next dialysis is due in 2 days , which I will order. 2. Neurologic workup is in progress. 3. I recommend discontinuing tamsulosin and doxazosin. 4. I will follow the patient along with you. I would also recommend ordering of orthostatic blood pressures as patient with diabetes can develop autonomic neuropathy and postural hypotension. Dictated By: PAULY VILA MD ND/NTS Conf#: [id number] DID#: [id number] CC: GERA NAVARRO MD;*End*
--- NOTE | 2017-06-07 18:09 | HP ---
DATE OF ADMISSION: 06/06/2017 CHIEF COMPLAINT AND HISTORY OF PRESENT ILLNESS: The patient is a 66-year-old gentleman brought in b y his to the emergency room after he had developed some tonic-clonic activity with some postict al agitation at the hemodialysis center and was transferred to [facility] Emergency Room, and the patient did not want to be admitted and the patient's brought him over to [facility] Room after I discussed with her and the patient was evaluated and was admitted to the [facility] floor. Apparently, this is his third syncopal episode during or after dialysis. The patient d enies any prior history of seizures. No history of recent head trauma. No history of any focal wea kness or numbness. The patient was admitted on 04/22/2017 for coronary angiogram which was canceled because of severe thrombocytopenia. The patient was advised to follow up with a verification specialist, and the patient has not been followed up as recommended. The patient has had a prior coronary angiogram in 02/2015 which showed a dilated cardiomyopathy with nonobstructive coronary artery disease. REVIEW OF SYSTEMS: HEAD: No history of headaches. No prior history of seizures. No history of head trauma. EYES: No history of blurry vision or glaucoma. ENT: No history of sinusitis, tonsillitis or hoarseness. CHEST: No history of cough. No history of bronchial asthma. No history of hemoptysis or TB. HEART: The patient does have intermittent shortness of breath with minimal exertion. Denies any ch est pain. GASTROINTESTINAL: Denies any abdominal discomfort. No history of peptic ulcer disease. Previous u ltrasound in January showed thickening of the gallbladder. No gallstones were noted. GENITOURINARY: No dysuria or hematuria. The patient does have diabetes mellitus type 1 with end-or latonya damage, including nephropathy, retinopathy and neuropathy, and he has chronic kidney disease on maintenance hemodialysis and a history of hypertension. MEDICATIONS: Include: 1. Tresiba 12 units subcutaneous at bedtime. 2. Docusate sodium 100 mg b.i.d. 3. Aspirin 81 mg daily. 4. Levothyroxine 125 mcg p.o. daily. 5. Humalog sliding scale. 6. Tamsulosin 0.4 mg q.24. 7. Nifedipine 90 mg at bedtime. 8. Doxazosin 1 mg at bedtime. 9. Pantoprazole 40 mg p.o. daily. 10. Carvedilol 25 mg b.i.d. PHYSICAL EXAMINATION: GENERAL: The patient is an average-built male who is presently in no acute distress, lethargic (the patient was given hydroxyzine last night for itching). VITAL SIGNS: Blood pressure 137/60, respiratory 20 per minute, temperature 98.2. HEENT: Head normocephalic. Mild pallor without cyanosis or icterus. Tongue is moist. NECK: Supple. No thyromegaly, bruits or lymphadenopathy. CHEST: Clinically clear. HEART: S1, S2. No murmurs, rubs or gallops. ABDOMEN: Soft, nontender, no hepatosplenomegaly. EXTREMITIES: Trace edema. Homans' is negative. NEUROLOGIC: No definite localizing or lateralizing signs. RECTAL: Deferred at the patient's request. LABORATORY DATA: Initial WBC count 4.6, hematocrit 40.1. BUN 66, creatinine 7.85, glucose 179. Tr oponin 0.236. IMPRESSION: 1. Near syncope with dialysis, with possible generalized seizure disorder. 2. Chronic kidney disease, end-stage, on hemodialysis. 3. Diabetes mellitus type 1 with end-organ damage, including nephropathy, neuropathy and retinopath y. 4. Hypertension. 5. Benign prostatic hypertrophy, on alpha blockers. 6. Coronary artery disease with severely compromised left ventricular function, ejection fraction 2 5. No evidence of congestive heart failure. 7. Thrombocytopenia. PLAN: Will discontinue the alpha blockers and also Sensipar which can aggravate seizure activity. Will request hematology consultation with Dr. Alcocer and cardiology consultation, Dr. Huntley. Ne phrology consultation will be requested with Dr. Hinton and will follow recommendations. Endocr ine consultation will be requested with Dr. Cheung as well. Case discussed with the patient's a t the bedside. Dictated By: GERA NAVARRO MD SR/NTS Conf#: [id number] DID#: [id number] CC: GERA NAVARRO MD;*EndCC*
--- NOTE | 2017-06-07 18:12 | HP ---
DATE OF ADMISSION: 06/06/2017 ADDENDUM The patient also had increased troponin of 0.236 on admission. A repeat troponin level will be obta ined along with EKG, following up with cardiology consultation with Dr. Huntley. Dictated By: GERA NAVARRO MD SR/NTS Conf#: [id number] DID#: [id number] CC: GERA NAVARRO MD; LATOYA REYES MD;*End*
--- NOTE | 2017-06-07 18:15 | RADRPT ---
PROCEDURE: MRI Brain without contrast. CLINICAL INDICATION: Seizure. TECHNIQUE: An MRI of the brain was performed utilizing the following sequences: Sagittal and axial T1 weighted, axial T2 weighted, axial diffusion weighted with ADC mapping, coronal GRE, coronal T1 FSPGR, coronal and axial FLAIR. COMPARISON: Brain CT 06/06/2017. FINDINGS: No diffusion weighted abnormalities are seen to suggest the presence of acute ischemia or recent inf arct. No hypointense signal abnormalities are seen on the GRE images to suggest the presence of blo od degradation products. There is no evidence of intracranial hemorrhage, mass effect, or midline s hift. No extra-axial fluid collections are seen. The ventricles and sulci are mildly enlarged indica tive of volume loss. Bilateral hippocampi are symmetric in size and signal intensity with associate d mild volume loss. There are mild scattered foci of T2 FLAIR hyperintensity in the periventricular, deep, and subcortic al white matter, which are nonspecific in etiology but likely reflect chronic small vessel ischemic changes. Small T2 hyperintense foci are noted in bilateral lentiform nuclei and thalami and left c audate head which likely represent dilated perivascular spaces versus old lacunar infarcts. Small old infarcts are noted in the superior right cerebellum and left ryan. No abnormal intracranial vascular flow void is noted. The visualized paranasal sinuses demonstrate m ild scattered mucosal thickening. IMPRESSION: 1. No acute intracranial hemorrhage, infarction or mass. 2. Mild chronic small vessel ischemic changes. 3. Small old lacunar infarcts versus dilated perivascular spaces in bilateral lentiform nuclei and thalami and left caudate head. 4. Small old infarcts in the superior right cerebellum and left ryan. 5. Mild generalized cerebral volume loss. RPTAT: QQ .Christiana Judd MD, MD Date Time Electronically viewed and signed by .Christiana Judd MD, MD on 06/07/2017 18:14 .N/
[2017-06-07] MEDS: ATORVASTATIN 80 MG TAB PO SCH (20:44)
[2017-06-07] MEDS ORDERED: INSULIN GLARGINE [LANtus] 3 ML PEN SC SCH (21:00)
[2017-06-07] MEDS ORDERED: DOXAZOSIN 4 MG TAB PO SCH (21:00)
[2017-06-07] MEDS ORDERED: INSULIN ASPART [NOVOLOG] 3 ML PEN SC ONE (21:30)
[2017-06-08] VITALS (11 sets, daily range): BP systolic 119–154; BP diastolic 45–70; PULSE 51–62; RESP 18–20
[2017-06-08] MEDS: hydrOXYzine HCL 10 MG TAB PO PRN (00:46)
[2017-06-08] MEDS: ACCU-CHEK XX SCH (02:01)
[2017-06-08] MEDS: PANTOPRAZOLE (EC) 40 MG TAB PO SCH (05:47)
[2017-06-08 07:02] LABS: ABNORMAL IP MESSAGE 1; BASOPHILS % 0.2 % (0.0-2.0); EOSINOPHILS # 0.6 10^3/ul (0.0-0.5); EOSINOPHILS % 12.8 % (0.0-7.0); HEMOGLOBIN 11.3 g/dl (14.0-18.0); LYMPHOCYTES # 0.7 10^3/ul (0.8-2.9); MEAN CORPUSCULAR HEMOGLOBIN 30.4 pg (29.0-33.0); MEAN CORPUSCULAR HGB CONC 31.4 g/dl (32.0-37.0); MEAN CORPUSCULAR VOLUME 96.8 fl (82.0-101.0); MEAN PLATELET VOLUME 11.7 fl (7.4-10.4); MONOCYTE # 0.6 10^3/ul (0.3-0.9); MONOCYTES % 12.4 % (0.0-11.0); NEUTROPHIL # 2.6 10^3/ul (1.6-7.5); NEUTROPHILS % 58.4 % (39.0-77.0); PLATELET COUNT 51 10^3/UL (140-415); POSITIVE DIFF @See below; RED BLOOD COUNT 3.72 10^6/ul (4.70-6.10); RED CELL DISTRIBUTION WIDTH 18.6 % (11.5-14.5); WHITE BLOOD COUNT 4.4 10^3/ul (4.8-10.8)
[2017-06-08 07:27] LABS: CALCIUM 10.1 mg/dl (8.4-10.2); CREATININE 6.78 mg/dl (0.61-1.24); POTASSIUM 4.3 mmol/L (3.5-5.1)
[2017-06-08] MEDS: INSULIN ASPART [NOVOLOG] 3 ML PEN SC SCH ×6 (07:55→21:00)
[2017-06-08] MEDS: ASPIRIN (EC) 81 MG TAB PO SCH ×2 (08:29→09:29)
[2017-06-08] MEDS: NIFEdipine (XL) 60 MG TAB PO SCH ×3 (08:29→09:28)
[2017-06-08] MEDS: LISINOPRIL 20 MG TAB PO SCH ×2 (08:29→09:29)
--- NOTE | 2017-06-08 08:47 | CONS ---
Date/Time of Note Date/Time of Note DATE: 06/08/17 TIME: 08:42 Assessment/Plan Assessment/Plan Chief Complaint/Hosp Course 1. End-stage renal disease on maintenance hemodialysis Thursday. I will order hemodialysis for tomorrow 2. Recent onset of seizure disorder, Cinacalcet was discontinued as one of the potential side effects of this drug is seizures 3. Hypertension 4. Diabetes mellitus 5. Cardiomyopathy 6. Anemia of chronic kidney disease. Problems: Consultation Date/Type/Reason Admit Date/Time Jun 06, 2017 at 19:25 Initial Consult Date Type of Consultation: Nephrology 24 HR Interval Summary Free Text/Dictation The patient is awake and alert today. There is no mention of any seizure activity. He complains of constipation. Exam/Review of Systems Vital Signs Vitals Vital Signs Date Time Temp Pulse Resp B/P Pulse Ox O2 Delivery O2 Flow Rate FiO2 06/08/17 08:33 52 06/08/17 07:49 98.1 18 126/65 95 06/07/17 08:00 Nasal Cannula 2.0 Intake and Output 06/07/17 06/07/17 06/08/17 15:00 23:00 07:00 Intake Total 500 ml 600 ml 500 ml Output Total 3000 ml Balance -2500 ml 600 ml 500 ml Exam Constitutional: alert, oriented, well developed Respiratory: clear to auscultation, normal air movement Cardiovascular: edema, nl pulses, regular rate and rhythm Gastrointestinal: non-tender, soft Extremities: edema Results Result Diagram: 06/08/17 0639 06/08/17 0639 Results 24 hrs Laboratory Tests Test 06/07/17 12:07 06/07/17 20:43 06/07/17 21:44 06/07/17 23:36 Bedside Glucose 223 H 484 *H 481 *H 258 H Test 06/08/17 01:34 06/08/17 06:39 06/08/17 08:17 Bedside Glucose 89 94 White Blood Count 4.4 L Red Blood Count 3.72 L Hemoglobin 11.3 L Hematocrit 36.0 L Mean Corpuscular Volume 96.8 Mean Corpuscular Hemoglobin 30.4 Mean Corpuscular Hemoglobin Concent 31.4 L Red Cell Distribution Width 18.6 H Platelet Count 51 L Mean Platelet Volume 11.7 H Neutrophils % 58.4 Lymphocytes % 16.0 Monocytes % 12.4 H Eosinophils % 12.8 H Basophils % 0.2 Nucleated Red Blood Cells % 0.0 Neutrophils # 2.6 Lymphocytes # 0.7 L Monocytes # 0.6 Eosinophils # 0.6 H Basophils # 0.0 Nucleated Red Blood Cells # 0.0 Sodium Level 141 Potassium Level 4.3 Chloride Level 100 Carbon Dioxide Level 29 Anion Gap 16 Blood Urea Nitrogen 49 H Creatinine 6.78 H Glucose Level 167 Calcium Level 10.1 Medications Medications Current Medications Atorvastatin Calcium (Lipitor) 80 mg HS PO Last administered on 06/07/17 20: 44; Admin Dose 80 MG; Start 06/07/17 at 21:00 Aspirin (Halfprin) 81 mg DAILY PO Last administered on 06/07/17 09:18; Admin Dose 81 MG; Start 06/07/17 at 09:00 Carvedilol (Coreg) 25 mg BID PO Last administered on 06/07/17 20:45; Admin Dose 25 MG; Start 06/07/17 at 09:00 Lisinopril (Zestril) 40 mg DAILY PO ; Start 06/07/17 at 09:00 Nifedipine (Procardia Xl) 60 mg DAILY PO ; Start 06/07/17 at 09:00 Pantoprazole (Protonix Tab) 40 mg DAILY@06 PO Last administered on 06/08/17 05:47; Admin Dose 40 MG; Start 06/07/17 at 06:00 Diagnostic Test (Pha) (Accu-Chek) 1 ea 02 XX Last administered on 06/08/17 02 :01; Admin Dose 1 EA; Start 06/07/17 at 02:00 Miscellaneous Information 1 ea NOTE XX ; Start 06/06/17 at 22:30 Glucose (Glutose) 15 gm Q15M PRN PO DECREASED GLUCOSE; Start 06/06/17 at 22:30 Glucose (Glutose) 22.5 gm Q15M PRN PO DECREASED GLUCOSE; Start 06/06/17 at 22: 30 Dextrose (D50w Syringe) 25 ml Q15M PRN IV DECREASED GLUCOSE; Start 06/06/17 at 22:30 Dextrose (D50w Syringe) 50 ml Q15M PRN IV DECREASED GLUCOSE; Start 06/06/17 at 22:30 Glucagon (Glucagen) 1 mg Q15M PRN IM DECREASED GLUCOSE; Start 11/11/17 at 22: 30 Glucose (Glutose) 15 gm Q15M PRN BUCCAL DECREASED GLUCOSE; Start 06/06/17 at 22:30 Hydroxyzine HCl (Atarax) 10 mg Q4 PRN PO ITCHING Last administered on 00:46; Admin Dose 10 MG; Start 06/07/17 at 03:36 Zolpidem Tartrate (Ambien) 5 mg HS PRN PO INSOMNIA; Start 06/07/17 at 03:36 Clonidine (Catapres) 0.1 mg Q4H PRN PO elevated BP Last administered on 06:41; Admin Dose 0.1 MG; Start 06/07/17 at 04:00 Levetiracetam (Keppra) 500 mg DAILY PO ; Start 06/08/17 at 09:00 Insulin Glargine (Lantus) 20 unit HS SC ; Start 06/08/17 at 21:00 PAULY VILA MD Jun 08, 2017 08:47
[2017-06-08] MEDS ORDERED: BISACODYL 10 MG SUPP PR PRN (09:00)
[2017-06-08] MEDS ORDERED: BISACODYL (EC) 5 MG TAB PO PRN (09:00)
[2017-06-08] MEDS: LEVETIRACETAM 500 MG TAB PO SCH (09:11)
[2017-06-08] MEDS: DOCUSATE SODIUM 100 MG CAP PO SCH ×2 (09:12→21:38)
--- NOTE | 2017-06-08 13:00 | CONS ---
Date/Time of Note Date/Time of Note DATE: 06/08/17 TIME: 12:47 Assessment/Plan Assessment/Plan Chief Complaint/Hosp Course - NSTEMI- low level trop leak, flat. unclear type and could be elevated if true seizures with + cardiomyopathy/ESRD. however given syncope, cardiomyopathy recommend LHC for further evaluation. pt does have h/o thromboytopenia which is chronic. recommend radial access if possible for improved control of bleeding site. - Chronic systolic heart failure fluid mgmt per renal with iHD - NICM- unclear etiology. no obstructive cad on LHC - HTN- controlled - Seizures- per neurology Recommendations: - obtain echo - fluid mgmt with iHD - cont carvedilol 25mg po bid - cont lisinopril - cont nifedipine - cont clonidine for bp control - cont statin/asa - recommend LHC with possible PCI, will need to d/w family as well. keep NPO at MI Problems: Consultation Date/Type/Reason Admit Date/Time Jun 06, 2017 at 19:25 Date of Consultation: Jun 08, 2017 Type of Consultation: Cardiology Reason for Consultation NSTEMI Referring Provider: GERA NAVARRO MD Hx of Present Illness Mr. Arvizu is a pleasant 66 y.o. man with a h/o of chronic systolic heart failure due to non-ischemic cardiomyopathy, Diabetes, ESRD on iHD, Hypertension , and non-obstructive CAD on previous cath 2014, thrombocytopenia. Pt had recent drop in LVEF as outpt to 25% per Dr. Rivera, he was referred for LHC in 03/2017, but had new drop in plt count and risk of bleeding felt to be too high for procedure. Pt now admitted to [facility] after seizure episode during dialysis. Pt is poor historian, per records/primary pt with syncope, tonic-clonic activity with some postictal agitation at hemodialysis center and was transferred to [facility], and the patient did not want to be admitted and the patient's brought him over to [facility] Room, pt with recurrent syncopal episode during or after dialysis. He denies any chest pain prior, during, after event. Pt with chronic chapman with 1 hallway, laying down. chronic ble edema. states also constipated which is new. no diaphoresis, n/v, palpitations with syncope/seizure events. Constitutional: no complaints Eyes: no complaints ENT: no complaints Respiratory: shortness of breath Cardiovascular: no complaints, other Gastrointestinal: + constipation Genitourinary: no complaints Musculoskeletal: no complaints Skin: no complaints Neurologic: + seizures Endocrine: other Psychological: no complaints Past Medical History Past Medical History ESRD on iHD Coronary atherosclerosis (414.00) (I25.10) Diabetes mellitus (250.00) (E11.9) Essential hypertension (401.9) (I10) Hyperlipidemia (272.4) (E78.5) Peripheral vascular disease (443.9) (I73.9) chronic systolic heartf ailure NICM Thrombocytopenia Past Surgical History L forearm fistula Family History Significant Family History: other (ather of [place] at age 65 and brother of [place] at age61) Social History Alcohol Use: none Smoking Status: Never smoker Drug Use: none Social History Smoking Status: Never smoker Exam/Review of Systems Vital Signs Vitals Vital Signs Date Time Temp Pulse Resp B/P Pulse Ox O2 Delivery O2 Flow Rate FiO2 06/08/17 12:13 52 06/08/17 11:43 97.4 18 125/60 100 06/07/17 08:00 Nasal Cannula 2.0 Intake and Output 06/07/17 06/07/17 06/08/17 15:00 23:00 07:00 Intake Total 500 ml 600 ml 500 ml Output Total 3000 ml Balance -2500 ml 600 ml 500 ml Exam Constitutional: alert, oriented Psych: no complaints Head: normocephalic Eyes: nl conjunctiva, EOMI, PERRL ENMT: nl nasal mucosa & septum, mucosa pink and moist Neck: supple, non-tender, jvd Respiratory: clear Cardiovascular: other (RRR, nl s1s2, ii/vi systolic LLSB, + s3 Gastrointestinal: soft, other (slightly distended, no ttp) Musculoskeletal: nl extremities to inspection, L forearm fistula hooked up to dialyiss machine Extremities: normal pulses Neurological: SEO ASSISTANT II-XII intact Skin: nl turgor Results Result Diagram: 06/08/17 0639 06/08/17 0639 Results 24 hrs Laboratory Tests Test 06/07/17 20:43 06/07/17 21:44 06/07/17 23:36 06/08/17 01:34 Bedside Glucose 484 *H 481 *H 258 H 89 Test 06/08/17 06:39 06/08/17 08:17 06/08/17 12:06 White Blood Count 4.4 L Red Blood Count 3.72 L Hemoglobin 11.3 L Hematocrit 36.0 L Mean Corpuscular Volume 96.8 Mean Corpuscular Hemoglobin 30.4 Mean Corpuscular Hemoglobin Concent 31.4 L Red Cell Distribution Width 18.6 H Platelet Count 51 L Mean Platelet Volume 11.7 H Neutrophils % 58.4 Lymphocytes % 16.0 Monocytes % 12.4 H Eosinophils % 12.8 H Basophils % 0.2 Nucleated Red Blood Cells % 0.0 Neutrophils # 2.6 Lymphocytes # 0.7 L Monocytes # 0.6 Eosinophils # 0.6 H Basophils # 0.0 Nucleated Red Blood Cells # 0.0 Sodium Level 141 Potassium Level 4.3 Chloride Level 100 Carbon Dioxide Level 29 Anion Gap 16 Blood Urea Nitrogen 49 H Creatinine 6.78 H Glucose Level 167 Calcium Level 10.1 Bedside Glucose 94 123 Medications Medications Current Medications Atorvastatin Calcium (Lipitor) 80 mg HS PO Last administered on 06/07/17 20: 44; Admin Dose 80 MG; Start 06/07/17 at 21:00 Aspirin (Halfprin) 81 mg DAILY PO Last administered on 06/08/17 09:29; Admin Dose 81 MG; Start 06/07/17 at 09:00 Carvedilol (Coreg) 25 mg BID PO Last administered on 06/08/17 09:29; Admin Dose 25 MG; Start 06/07/17 at 09:00 Lisinopril (Zestril) 40 mg DAILY PO Last administered on 06/08/17 09:29; Admin Dose 40 MG; Start 06/07/17 at 09:00 Nifedipine (Procardia Xl) 60 mg DAILY PO ; Start 06/07/17 at 09:00 Pantoprazole (Protonix Tab) 40 mg DAILY@06 PO Last administered on 06/08/17 05:47; Admin Dose 40 MG; Start 06/07/17 at 06:00 Diagnostic Test (Pha) (Accu-Chek) 1 ea 02 XX Last administered on 06/08/17 02 :01; Admin Dose 1 EA; Start 06/07/17 at 02:00 Miscellaneous Information 1 ea NOTE XX ; Start 06/06/17 at 22:30 Glucose (Glutose) 15 gm Q15M PRN PO DECREASED GLUCOSE; Start 06/06/17 at 22:30 Glucose (Glutose) 22.5 gm Q15M PRN PO DECREASED GLUCOSE; Start 06/06/17 at 22: 30 Dextrose (D50w Syringe) 25 ml Q15M PRN IV DECREASED GLUCOSE; Start 06/06/17 at 22:30 Dextrose (D50w Syringe) 50 ml Q15M PRN IV DECREASED GLUCOSE; Start 06/06/17 at 22:30 Glucagon (Glucagen) 1 mg Q15M PRN IM DECREASED GLUCOSE; Start 06/06/17 at 22: 30 Glucose (Glutose) 15 gm Q15M PRN BUCCAL DECREASED GLUCOSE; Start 06/06/17 at 22:30 Hydroxyzine HCl (Atarax) 10 mg Q4 PRN PO ITCHING Last administered on 00:46; Admin Dose 10 MG; Start 06/07/17 at 03:36 Zolpidem Tartrate (Ambien) 5 mg HS PRN PO INSOMNIA; Start 06/07/17 at 03:36 Clonidine (Catapres) 0.1 mg Q4H PRN PO elevated BP Last administered on 06:41; Admin Dose 0.1 MG; Start 06/07/17 at 04:00 Levetiracetam (Keppra) 500 mg DAILY PO Last administered on 06/08/17 09:11; Admin Dose 500 MG; Start 06/08/17 at 09:00 Insulin Glargine (Lantus) 20 unit HS SC ; Start 06/08/17 at 21:00 Docusate Sodium (Colace) 100 mg BID PO Last administered on 06/08/17 09:12; Admin Dose 100 MG; Start 06/08/17 at 09:00 Bisacodyl (Dulcolax) 10 mg DAILY PRN PO CONSTIPATION; Start 06/08/17 at 09:00 Bisacodyl (Dulcolax Supp) 10 mg DAILY PRN [place] CONSTIPATION; Start 06/08/17 at 09:00 Procedures Procedures CXR report reviewed 1. Right mid and lower lung zone atelectasis or pneumonia. 2. Cardiomegaly and atherosclerosis. 3. Moderate right pleural effusion and small left pleural effusion. 4. Otherwise unremarkable chest radiograph. MRI brain report- old lacunar infarcts EKG images reviewed: sinus [place] hr 55 bpm, in/laterl st depression, downslping iwth twi, these are unchanged from previous ekg JAMEY GUY. Jun 08, 2017 12:57
[2017-06-08 15:22] LABS: PARTIAL THROMBOPLASTIN TIME 46.8 Sec (25.0-35.0)
[2017-06-08 16:04] LABS: INR 1.25; PROTIME 15.8 Sec (12.2-14.2); PT RATIO 1.2
--- NOTE | 2017-06-08 17:07 | RADRPT ---
Echocardiogram Report Patient Name: SHERINE LAU Gender: Male Date: 1950 Study Date: 08-Jun-2017 Acute Care Physician: Aneta Kumar [facility] Location: [id number] Ref. Physician: ERICKSON GUY Quality: Good Procedures: Transthoracic echocardiogram with complete 2D, M-Mode, and doppler examination. Indications: NSTEMI. 2D/M Mode Doppler Measurement Value Normal Ranges Measurement Value Normal Ranges LVIDd 2D 6.0 3.5 - 5.6 cm AV Peak Palomo 0.9 m/sec LVIDs 2D 5.2 2.1 - 4.1 cm AV Peak PG 3.1 mmHg LVPWd 2D 1.3 0.6 - 1.1 cm LVOT Peak Palomo 0.7 m/sec IVSd 2D 1.1 0.6 - 1.1 cm LVOT Peak PG 2.1 mmHg AoR Diam 2D 2.8 2.0 - 3.7 cm MV E Peak Palomo 0.9 m/sec EDV 2D 178.0 cm3 MV A Peak Palomo 0.2 m/sec ESV 2D 139.1 cm3 MV E/A 4.1 LA Dimen 2D 4.6 2.3 - 4.0 cm MV Decel Time 178 msec MV Decel [place] 5 MV E/A 4.1 TR Peak Palomo 3.1 m/sec TR Peak PG 37.4 mmHg RVSP 52.0 mmHg Findings Left Ventricle: Mild concentric left ventricular hypertrophy. Mild enlargement of left ventricle cavity. Severe global left ventricular systolic dysfunction. Ejection fraction is visually estimated at 25 %. Tissue Doppler/Mitral Doppler indices are consistent with restrictive physiology with markedly elevated left atrial pressure (Stage IIIIV diastolic dysfunction). Right Ventricle: Normal right ventricular size. Moderate right ventricular systolic dysfunction. Left Atrium: There is mild enlargement of left atrium. Right Atrium: There is mild enlargement of right atrium. Mitral Valve: Mitral valve leaflets appear moderately thickened. Mild mitral annular calcification. Mild mitral valve regurgitation. Aortic Valve: No hemodynamically significant aortic stenosis by doppler. Aortic cusps appear mildly calcified. Trileaflet aortic valve. Trace aortic valve regurgitation. Tricuspid Valve: Normal appearance of the tricuspid valve. Right ventricular systolic pressure is consistent with moderate pulmonary hypertension. Estimated peak PA systolic pressure 52 mmHg. There is mild to moderate tricuspid regurgitation. Pulmonic Valve: Normal pulmonic valve appearance. There is mild pulmonic regurgitation. Pericardium: Normal pericardium with no significant pericardial effusion. Aorta: Normal aortic root. IVC: Dilated IVC without respiratory collapse consistent with elevated right atrial pressure. Conclusions 1.Mild concentric left ventricular hypertrophy. Mild enlargement of left ventricle cavity. Severe global left ventricular systolic dysfunction. Ejection fraction is visually estimated at 25 %. Tissue Doppler/Mitral Doppler indices are consistent with restrictive physiology with markedly elevated left atrial pressure (Stage III-IV diastolic dysfunction). 2.Normal right ventricular size. Moderate right ventricular systolic dysfunction. 3.There is mild enlargement of left atrium. 4.Mitral valve leaflets appear moderately thickened. Mild mitral annular calcification. Mild mitral valve regurgitation. 5.No hemodynamically significant aortic stenosis by doppler. Aortic cusps appear mildly calcified. Trileaflet aortic valve. Trace aortic valve regurgitation. 6.Normal appearance of the tricuspid valve. Right ventricular systolic pressure is consistent with moderate pulmonary hypertension. Estimated peak PA systolic pressure 52 mmHg. There is mild to moderate tricuspid regurgitation. 7.Normal pericardium with no significant pericardial effusion. 8.Dilated IVC without respiratory collapse consistent with elevated right atrial pressure. 9.No Vegetation, masses, or thrombi seen. Electronically Signed By: Erickson Guy 08-Jun-2017 17:06:54 -0800 Patient Name: SHERINE LAU Study Date: 08-Jun-2017 [id number]
--- NOTE | 2017-06-08 19:52 | CONS ---
DATE OF ADMISSION: 06/06/2017 DATE OF CONSULTATION: 06/08/2017 TYPE OF CONSULTATION: Hematology. PHYSICIAN REQUESTING CONSULTATION: Dr. Sunny Gastelum. REASON FOR CONSULTATION: Thrombocytopenia. Dear Dr. Gastelum: Thank you very much for asking me to see this very interesting and pleasant gentleman in hematologic consultation. As you know, Mr. Arvizu is a 66-year-old male with a history of type 1 diabetes ochoa litus. The patient states he was originally diagnosed at 6 years of age. As a result of the patient's diabetes, he suffers from diabetic retinopathy as well as diabetic neur opathy. He has chronic renal failure and has been on hemodialysis for at least 5 years. The patient admitted to [facility] at this time after having an episode following hemodialysis in which he apparently was witnessed to have some tonic and clonic movements consistent with a seizure. The patient, in the past, has had recent syncopal episodes following his hemodialy sis treatment. Apparently, this started approximately 1 month ago. There was no obvious seizure ac tivity at this time. The patient was originally taken to [facility] Emergency Room following this episode on but was then transported to [facility] for admission. On admission on 06/06, the patient's white count was 4600 with an absolute neutrophil count of 2800, an absolute lymphocyte count of 600. Red blood cells were 4.13 million; hemoglobin 12.0; hematocri t 40; MCV 97.1; MCH 29.1; MCHC 29.9; RDW 18.7; platelet count 64,000 and MPV was 12.5. Today, the p atient's white count was 4400; hemoglobin 11.3; hematocrit 36 and platelet count 51,000. Red cell i ndices and MPV were unchanged. During this hospitalization, the patient has had a pro time of 15.8 seconds, INR of 1.25, PTT was 46 .8 seconds and fibrinogen was 341. On admission, the patient's sodium was 145, BUN 66, creatinine 7 .83, calcium 10.1, total protein 7.7, albumin 3.9, globulin 3.80, total bilirubin 0.2, direct biliru bin 0, AST 51, ALT 56, alkaline phosphatase 471. The patient apparently has been noted to have thrombocytopenia in the past. He has not actually had any hemorrhagic complications, although he states that he has had some increased bleeding at the ti me of dialysis. He denies any other bleeding such as epistaxis or gingival bleeding. He denies ochoa lukas or hematochezia. Review of the patient's previous records at [facility] demonstrates that in , the patient had a platelet count of 200,000. In December of 2015, the patient was admitted to [facility] with evidence of biliary obstruction due to a biliary colic. The patient did undergo an ERCP and sphincterotomy. He has not had any recurrent biliary problems. At the time of that admission, the patient had a white count of 7100; hemoglobin 12.1; hematocrit 37.5 with an RDW of 19.4 and platelet count was 69,000. Since that hospitalization of 01/14, the patient has had multiple hospitalizations and each time his platelet count has been in the range of 50,000 to 60,000. The patient states that he otherwise has been feeling well except for some decrease in appetite. Th is has not been associated with nausea or vomiting. The patient states he did have some weight loss but more recently his appetite has improved. PAST MEDICAL HISTORY: Does include the history of type 1 diabetes mellitus as noted. He has had th e complications of diabetes including diabetic nephropathy, diabetic retinopathy as well as neuropat hy. The patient has had the previously mentioned impacted gallstone. He also has had hypertension, hyperlipidemia, hypothyroidism. The patient was also noted to have cardiomyopathy with left ventri cular ejection fraction of only 25%. PAST SURGICAL HISTORY: Prior surgeries include the above-mentioned ERCP and sphincterotomy. The aramis padgett has had a biliary stent placed. He has also had an AV fistula formed in the left arm for dial ysis. He has never required revision. He has also had a coronary angiography. MEDICATIONS: At this time have included: 1. Tamsulosin 0.4 mg per day. 2. Carvedilol 25 mg twice a day. 3. Doxazosin 1 mg at bedtime. 4. Hydralazine 50 mg twice a day. 5. Lisinopril 40 mg twice a day. 6. Nifedipine 90 mg daily. 7. Clonidine 0.2 mg twice a day. 8. Atorvastatin 80 mg daily. 9. Tramadol 50 mg every 8 hours p.r.n. 10. Metoclopramide 5 mg 4 times a day a.c. and hour of sleep. 11. Pantoprazole 40 mg a day. 12. Cinacalcet 60 mg daily (this has now been discontinued). 13. Insulin. 14. Levothyroxine 125 mcg per day. ALLERGIES: THE PATIENT STATES HE HAS NO KNOWN ALLERGIES. SOCIAL HISTORY: The patient is . He is presently disabled. 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 He enma es cigarettes or use of any tobacco products. Denies alcohol use. FAMILY HISTORY: Remarkable in that there is a very strong history of diabetes. PHYSICAL EXAMINATION GENERAL: At this time reveals a well-developed, well-nourished male who is in no acute distress. VITAL SIGNS: Temperature 97.4, pulse 54 per minute and regular, respirations 18, blood pressure 130 /66, pulse oximetry is 97% on room air. SKIN: There are some scattered ecchymoses. No petechiae. No rashes. There are some stasis change s in both pretibial areas with some excoriation. HEENT: Normocephalic. No evidence of trauma. The pupils are equal, round, reactive to light and a ccommodation, although the pupils are somewhat constricted. There is no scleral icterus. Oral muco sa is moist without lesions. Tongue is well papillated. There is no gingival hyperplasia, no hyper trophy of Waldeyer ring, no mucosal telangiectasias. NECK: Supple. There is some mild jugular venous distention. No carotid bruits. The thyroid is no t palpable. CHEST: Clear to auscultation and percussion. No rhonchi, wheezes, rales or rubs. NODES: No palpable lymphadenopathy in any lymph node bearing area. BREASTS: No gynecomastia. HEART: Sinus bradycardia. No S3, S4 or murmurs. No rubs. ABDOMEN: Soft. There are no masses or ascites. Bowel sounds are active. EXTREMITIES: Good range of motion. No clubbing or cyanosis. There is 1 to 2+ bilateral pretibial and pedal edema with no palpable cords or Homans' sign. There is an AV fistula in the left forearm with a palpable bruit. NEUROLOGIC: No focal neurologic abnormalities. No asterixis. DISCUSSION: This patient has thrombocytopenia which was first noted in 12/2015 when the patient was admitted with biliary colic. An earlier CBC is available from 08/2015 in which the patient had a p latelet count of 200,000. Since this 12/2015 determination of thrombocytopenia, the patient's platelet count has remained rela tively stable at approximately 50,000 to 60,000. He has not had any bleeding complications. It should be noted that the patient's mean platelet volume has also increased as compared to prior t o development of thrombocytopenia. This suggests a population of young platelets. This suggests pl atelet production with peripheral platelet destruction. At the same time the patient has developed thrombocytopenia, the remainder of his CBC has remained n ormal. The only other changes that have accompanied the thrombocytopenia is the fact that the patie nt's RDW has also increased significantly. Review of the peripheral smear demonstrates a moderate anisopoikilocytosis. There is a population o f oval macrocytes. There is no polychromasia. There are no fragmented red blood cells, but there a re crenated RBCs present. White blood cells appear normal. The only abnormality in white cell diff erential is the fact that lymphocytes appear somewhat decreased. There are no atypical or reactive lymphocytes seen. As noted, the patient does have some population of macrocytes but there are no hy persegmented polys noted. Platelets are moderately decreased with large platelet forms seen. As mentioned, this patient's thrombocytopenia suggests that there is peripheral destruction of plate lets. The patient does not have splenomegaly that can be detected on physical examination. At the same time, the patient's white count is not decreased. One would expect both mild thrombocytopenia and neutropenia if there was splenic sequestration. There is no evidence at this time of a consumptive coagulopathy such as DIC, TTP or hemolytic uremic syndrome. The most likely etiology for this patient's thrombocytopenia I believe is immune in origin. This co uld include an idiopathic immune thrombocytopenia. Other immune thrombocytopenias may be associated with underlying collagen vascular or other immunologic disorders such as chronic lymphocytic leukem ia or a lymphoma. It is unclear whether this patient is receiving heparin with his dialysis. The possibility of hepar in-induced thrombocytopenia should be explored as well. Of interest is the finding of the population of macrocytic red blood cells. Although there are no h ypersegmented polys, one must consider the possibility of a megaloblastic process developing includi ng a B12 or folic acid deficiency. At this time, I have taken the liberty of requesting several studies. These include an SERENITY as well as a serum protein electrophoresis and immunofixation as well as quantitative immunoglobulins. Will include a platelet antibody panel as well as heparin-induced platelet antibodies. Will also reques t a B12 and folic acid level. Although I feel it is unlikely that this patient's thrombocytopenia is on the basis of splenomegaly, I will also request an ultrasound of the abdomen to determine the exact spleen size. Once again, thank you very much for the opportunity of participating in the medical care of this erickson y interesting and pleasant patient. I will be happy to follow this patient with you and assist in h is hematologic evaluation and followup as necessary. Dictated By: BRYSON REZA MD SR/NTS Conf#: [id number] DID#: [id number] CC: SUNNY GASTELUM MD;*EndCC*
[2017-06-08] MEDS ORDERED: INSULIN GLARGINE [LANtus] 3 ML PEN SC SCH (21:00)
[2017-06-08] MEDS: INSULIN GLARGINE [LANtus] 3 ML PEN SC SCH (21:00)
[2017-06-08] MEDS: ATORVASTATIN 80 MG TAB PO SCH (21:38)
[2017-06-09] VITALS (34 sets, daily range): BP systolic 83–155; BP diastolic 40–78; PULSE 54–68; RESP 13–20
[2017-06-09] MEDS: ACCU-CHEK XX SCH (02:00)
--- NOTE | 2017-06-09 02:00 | SP ---
DATE OF PROCEDURE: PROCEDURE: Electroencephalogram. INDICATION: A 66-year-old with recent onset of seizures, currently on Keppra. DESCRIPTION OF PROCEDURE: Routine EEG was recorded digitally. Hrkcf-uh-cviye and vsvsu-kj-jrk lee ages were recorded and reviewed. All impedances were measured and recorded. Cap electrodes were pl aced in accordance with International 10-20 system of electrode placement. FINDINGS: Symmetrically distributed background activity of bdw-ss-yagkcn amplitude ranging in frequ ency in the awake state between 8 to 10 cycles per second. Eye opening attenuates the background. Photic stimulation produces no definite driving. When patient gets drowsy and falls asleep, backgro und rhythm gets less organized, partially replaced or intermixes with slower waves, 2 to 4 cycles pe r second. Occasional vertex waves were seen. No definite epileptiform transients were observed. N o signs of ongoing electrographic seizures or lateralized slowing. IMPRESSION: Essentially normal study. Please correlate clinically. Dictated By: SUYAPA COVINGTON/SEBASTIEN Conf#: [id number] DID#: [id number] CC: GERA NAVARRO MD;*EndCC*
--- NOTE | 2017-06-09 05:55 | PN ---
DATE: 06/08/2017 SUBJECTIVE: The patient overall feels well, has a poor appetite. Denies any chest pain or shortnes s of breath. Denies any cough. He has not had any seizures. Complains of constipation. PHYSICAL EXAMINATION GENERAL: The patient is awake, alert, in no acute distress. VITAL SIGNS: Temperature 97.4, blood pressure 125/60, O2 sats 100% on room air. I and O 1600 in a nd 500 mL out. HEENT: Mild pallor without cyanosis. JVD is not increased. CHEST: Decreased breath sounds at bases. HEART: S1, S2 heard with no definite gallops. ABDOMEN: Soft, nontender, no hepatosplenomegaly, 1+ edema of the lower extremities. Homans negativ e. LABORATORY DATA: WBC count 4.4, hematocrit 36, platelet count 51,000 today. Sodium 145, potassium 4.3, BUN 66, creatinine 7.85, glucose 179. Repeat troponin 0. WBC count 4.4, hematocrit 36, platel et count 51,000. Sodium 141, potassium 4.3, BUN 14, creatinine 6.78. Second troponin 0.226. The patient was hyperglycemic last night. Lantus dose was increased along with a dose of NovoLog. IMPRESSION: 1. Status post syncope, possible seizure disorder. 2. Increased troponin level, query of non-ST elevation NM. The patient asymptomatic. 3. End-stage renal failure on hemodialysis. 4. Diabetes mellitus type 1, labile with instant end organ damage including neuropathy, nephropathy , and retinopathy. 5. Hypertension. PLAN: Patient also has thrombocytopenia for which we will request Hematology consultation with Dr. Alcocer and Dr. Huntley from cardiology consultation recommendations greatly appreciated. We will also request Dr. Cheung for endocrinology standpoint. No further cardiac workup after hematologicall y stable as inpatient, continue neuro monitoring per await further neuro studies. Dictated By: GERA NAVARRO MD SR/NTS Conf#: [id number] DID#: [id number] CC: GERA NAVARRO MD;*EndCC*
--- NOTE | 2017-06-09 05:56 | PN ---
DATE: 06/08/2017 ADDENDUM As workup for thrombocytopenia, will initiate the workup with checking for SERENITY, fibrinogen levels, P T, PT, heparin-induced platelet antibodies, platelet antibodies and serum protein electrophoresis an d follow recommendations per Dr. Alcocer. Dictated By: GERA NAVARRO MD SR/NTS Conf#: [id number] DID#: [id number] CC: GERA NAVARRO MD;*EndCC*
[2017-06-09] MEDS: PANTOPRAZOLE (EC) 40 MG TAB PO SCH (06:00)
[2017-06-09 06:37] LABS: PROTEIN, TOTAL 6.3 g/dL (6.1-8.1)
[2017-06-09] MEDS ORDERED: HEPARIN 1000 UNITS/ML 10 ML INJ ONE (07:14)
[2017-06-09] MEDS ORDERED: LIDOCAINE 1% (MDV) 20 ML INJ ONE (07:14)
[2017-06-09] MEDS ORDERED: IODIXANOL LOCM 100 ML BTL ONE ×2 (07:14→07:16)
[2017-06-09] MEDS ORDERED: FENTAnyl 50 MCG/ML VIAL ONE (07:14)
[2017-06-09] MEDS ORDERED: NITROGLYCERIN (IC) 100 MCG/ML INJ ONE (07:14)
[2017-06-09] MEDS ORDERED: VERAPAMIL 5 MG INJ ONE (07:14)
[2017-06-09] MEDS ORDERED: MIDAZOLAM 1 MG/ML 2 ML INJ ONE (07:14)
[2017-06-09] MEDS ORDERED: HEPARIN 1000 UNITS/NS (A-LINE) 1,000 ML ONE (07:14)
[2017-06-09] MEDS: INSULIN ASPART [NOVOLOG] 3 ML PEN SC SCH ×9 (07:55→21:01)
--- NOTE | 2017-06-09 08:23 | OPR ---
Date/Time of Note Date/Time of Note DATE: 06/09/17 TIME: 08:05 Operative Report Preoperative Diagnosis 1. End-stage renal disease on intermittent hemodialysis. 2. Severe Dilated Cardiomyopathy 3. Coronary artery disease. 4. NSTEMI Postoperative Diagnosis 1. Obstructive CAD of Ostial LCx, mid LCx 2. Mild to moderate CAD of LAD, RCA 3. Moderately elevated LV filling pressures Surgeon see signature line All Terrain Vehicle Technician n/a Anesthesia Type: moderate sedation (odd job laborer nurse monitored the patients respiratory and hemodynamic status while I administred moderate sedation.) Estimated Blood Loss: 10 - 50 ml's Transfusion none Specimen none Grafts/Implants none Complications none Procedure Description DATE OF OPERATION: 06/09/2017 PROCEDURE PERFORMED: 1) Left heart catheterization. 2) Administration of moderate sedation. BOOM MASTER: Erickson Guy MD REFERRING PHYSICIANS: Ivonne Gastelum MD DESCRIPTION OF PROCEDURE: After informed consent was obtained, the patient was brought to the catheterization lab. Right radial Armaan's test was checked and confirmed to be suitable for procedure. Right wrist was prepped and draped in the usual sterile fashion and anesthetized with Xylocaine 1% solution. A 6-Divehi Terumo Slender sheath was then placed in the right radial artery without difficulty. A 5-Divehi TIG 4.0 diagnostic catheter was advanced over 0.035 inch J-tip guidewire to the ascending aorta. Intra-arterial nitroglycerin and verapamil were given as well as 2000 units of IV heparin. Selective angiography was then obtained using the 5-Divehi TIG 4.0 diagnostic catheter to selectively engage the left and right coronary arteries. TIG catheter was advanced over guidewire into the left ventricle without difficulty and pressures were obtained. Catheter was then removed and all wires removed. Procedure was concluded at this time. Hemostasis was obtained with a TR band with removal of the slender sheath. The patient tolerated the procedure well without complication. There were no specimens obtained. ESTIMATED BLOOD LOSS: Less than 20 mL. RESULTS: HEMODYNAMICS: 1. Left ventricular end diastolic pressure is 21 mmHg. There is no significant gradient on LV to AO pullback. CORONARY ANATOMY: 1. Left main: large artery, 4.5 to 5.0 mm. There is mild calcification throughout with proximal 20% stenosis. The distal LM tapers with eccentric 50% stenosis involving the ostial LCx. 2. LAD is an intermediate sized 2.5 to 3.0 mm vessel. There is mild 20% to 30 % stenosis in the proximal portion, which is calcified. There mild diffuse calicfic disease throughout the LAD from proximal to distal with calcification. It gives rise to small diagonal 1, intermediate size diagonal 2 which are without significant disease. 3. Left circumflex: A large codominant artery approximately 3.5 mm proximally. There is severe ostial LCx disease 99% with IDA 3 flow. There is a high OM1/Ramus artery which is small 2.0mm but long. The mid LCx has diffuse mild calcific disease, the distal portion of the mid LCx 99% with IDA 3 flow. The OM2 is a small long 2.0 mm vessel. THe distal LCx has a 90% lesion after the OM2 lesion with IDA 3 flow. The OM3 branch is an intermediated sized branch without significant disease. There is a large OM4 branch/left posterolateral branch without significant disease. This also has an inferior branch without significant disease. 3. Right coronary artery: Large sized codominant artery. Proximally is 3.0 mm in diameter. There is mild diffuse disease in the mid vessel of 40%. The distal RCA bifurcates into a small right posterolateral branch without significant disease. There is also a large sized right posterior descending artery which has a mid to distal 40% lesion. SUMMARY OF FINDINGS: 1. Severe obstructive CAD with eccentric LM lesion involving ostial LCx, mid/ distal LCx lesions which have progressed from previous angiogram 2. Mildly elevated LV filling pressures. 3. 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 Consideration for viability study to determine if viable myocardium in LCx distribution. 2. Discussion with family for high risk PCI given LM/LCx disease, severe LV systolic dysfunction, comorbidities The patient's family as well as referring physicians aware of above findings and agreement with treatment plan. ERICKSON GUY. Jun 09, 2017 08:21
[2017-06-09] MEDS ORDERED: AL HYDROX/MG HYDROX/SIMETH 30 ML CUP PO PRN (08:30)
[2017-06-09] MEDS ORDERED: ONDANSETRON 4 MG INJ IV PRN (08:30)
--- NOTE | 2017-06-09 08:50 | CONS ---
Date/Time of Note Date/Time of Note DATE: 06/09/17 TIME: 08:47 Assessment/Plan Assessment/Plan Chief Complaint/Hosp Course - NSTEMI- low level trop leak, flat. Severe cardiomyopathy global, has distal LM eccentric involving ostial LCx, LAD/RCA are without significant disease. - given high risk nature of intervention in this patient, recommend viability study as unclear if will benefit from revascularization enough to outweight risks. - will discuss with hematology as well given possible ITP and need for lifelong DAPT should he require LM/LCx stenting. also would need Impella supported PCI which requires large bore access and would increase his risk of bleeding - cont other medications for now. consider adding plavix if ok with hematology. Problems: Consultation Date/Type/Reason Admit Date/Time Jun 06, 2017 at 19:25 Initial Consult Date 06/08/17 Type of Consultation: Cardiology Referring Provider: GERA NAVARRO MD Exam/Review of Systems Vital Signs Vitals Vital Signs Date Time Temp Pulse Resp B/P Pulse Ox O2 Delivery O2 Flow Rate FiO2 06/09/17 08:37 54 15 109/45 100 Nasal Cannula 2.0 06/09/17 08:29 97.5 Intake and Output 06/08/17 06/08/17 06/09/17 15:00 23:00 07:00 Intake Total 800 ml 550 ml Balance 800 ml 550 ml Results Result Diagram: 06/08/17 0639 06/08/17 0639 Results 24 hrs Laboratory Tests Test 06/08/17 12:06 06/08/17 14:39 06/08/17 14:40 06/08/17 14:41 Bedside Glucose 123 Activated Partial Thromboplast Time 46.8 H Fibrinogen 341.0 Total Protein (PEP) 6.3 Albumin (PEP) Pending Wavgn-[id number]-Kqoomsbtd Pending Ldzmo-8-Tzuczhroq Pending Beta Globulins Pending Gamma Globulins Pending Protein Electrophoresis Interpret Pending Serum Immunofixation Pending Anti-Nuclear Antibody Screen Pending Heparin Platelet Ab Optical Density Pending Heparin-Induced Platelet Ab (Lexi) Pending Prothrombin Time 15.8 H Prothrombin Time Ratio 1.2 INR International Normalized Ratio 1.25 Test 06/08/17 16:50 06/08/17 21:37 06/09/17 01:40 06/09/17 07:23 Bedside Glucose 135 153 267 H 261 H Medications Medications Current Medications Atorvastatin Calcium (Lipitor) 80 mg HS PO Last administered on 06/08/17 21: 38; Admin Dose 80 MG; Start 06/07/17 at 21:00 Aspirin (Halfprin) 81 mg DAILY PO Last administered on 06/08/17 09:29; Admin Dose 81 MG; Start 06/07/17 at 09:00 Carvedilol (Coreg) 25 mg BID PO Last administered on 06/08/17 09:29; Admin Dose 25 MG; Start 06/07/17 at 09:00 Lisinopril (Zestril) 40 mg DAILY PO Last administered on 06/08/17 09:29; Admin Dose 40 MG; Start 06/07/17 at 09:00 Nifedipine (Procardia Xl) 60 mg DAILY PO ; Start 06/07/17 at 09:00 Pantoprazole (Protonix Tab) 40 mg DAILY@06 PO Last administered on 06/08/17 05:47; Admin Dose 40 MG; Start 06/07/17 at 06:00 Diagnostic Test (Pha) (Accu-Chek) 1 ea 02 XX Last administered on 06/08/17 02 :01; Admin Dose 1 EA; Start 06/07/17 at 02:00 Miscellaneous Information 1 ea NOTE XX ; Start 06/06/17 at 22:30 Glucose (Glutose) 15 gm Q15M PRN PO DECREASED GLUCOSE; Start 06/06/17 at 22:30 Glucose (Glutose) 22.5 gm Q15M PRN PO DECREASED GLUCOSE; Start 06/06/17 at 22: 30 Dextrose (D50w Syringe) 25 ml Q15M PRN IV DECREASED GLUCOSE; Start 06/06/17 at 22:30 Dextrose (D50w Syringe) 50 ml Q15M PRN IV DECREASED GLUCOSE; Start 06/06/17 at 22:30 Glucagon (Glucagen) 1 mg Q15M PRN IM DECREASED GLUCOSE; Start 06/06/17 at 22: 30 Glucose (Glutose) 15 gm Q15M PRN BUCCAL DECREASED GLUCOSE; Start 06/06/17 at 22:30 Hydroxyzine HCl (Atarax) 10 mg Q4 PRN PO ITCHING Last administered on 00:46; Admin Dose 10 MG; Start 06/07/17 at 03:36 Zolpidem Tartrate (Ambien) 5 mg HS PRN PO INSOMNIA; Start 06/07/17 at 03:36 Clonidine (Catapres) 0.1 mg Q4H PRN PO elevated BP Last administered on 06:41; Admin Dose 0.1 MG; Start 06/07/17 at 04:00 Levetiracetam (Keppra) 500 mg DAILY PO Last administered on 06/08/17 09:11; Admin Dose 500 MG; Start 06/08/17 at 09:00 Docusate Sodium (Colace) 100 mg BID PO Last administered on 06/08/17 21:38; Admin Dose 100 MG; Start 06/08/17 at 09:00 Bisacodyl (Dulcolax) 10 mg DAILY PRN PO CONSTIPATION; Start 06/08/17 at 09:00 Bisacodyl (Dulcolax Supp) 10 mg DAILY PRN MA CONSTIPATION; Start 06/08/17 at 09:00 Insulin Glargine (Lantus) 15 unit HS SC ; Start 06/08/17 at 21:00 Al Hydrox/Mg Hydrox/Simethicone (Mag-Al Plus) 30 ml Q4H PRN PO GASTROINTESTINAL UPSET; Start 06/09/17 at 08:30 Ondansetron HCl (Zofran Inj) 4 mg Q4H PRN IV NAUSEA AND/OR VOMITING; Start at 08:30 JAMEY GUY Jun 09, 2017 08:50
[2017-06-09] MEDS: NIFEdipine (XL) 60 MG TAB PO SCH (09:00)
[2017-06-09] MEDS: LISINOPRIL 20 MG TAB PO SCH (09:00)
[2017-06-09] MEDS: DOCUSATE SODIUM 100 MG CAP PO SCH ×2 (09:00→20:57)
[2017-06-09] MEDS: ASPIRIN (EC) 81 MG TAB PO SCH (09:00)
[2017-06-09] MEDS: LEVETIRACETAM 500 MG TAB PO SCH (09:00)
--- NOTE | 2017-06-09 12:20 | RADRPT ---
PROCEDURE: US Abdomen. CLINICAL INDICATION: Abdominal pain TECHNIQUE: Multiple real-time images were acquired of the patient's abdomen and retroperitoneum ut ilizing a high resolution transducer. COMPARISON: Ultrasound dated January 31, 2017 FINDINGS: The pancreas appears to within limits. The aorta and IVC are within normal limits. Hepatic morphology is within limits. There is a 2.0 x 1.5 cm cyst within the right lobe liver near t he gallbladder fossa. There is normal homogeneous echotexture of the liver. The liver measures 16.5 cm in length. There is normal hepatic pedal flow of the portal vein. The gallbladder is visualized. No evidence of gallstones. However there is nonspecific thickening of the gallbladder wall. The common bile duct is with normal limits measuring 3.7 mm. The right kidney measures 10.4 cm. The cortex is thickened and there is increased echotexture as wel l as indistinct cortical medullary junction. No evidence of obstruction hydronephrosis. The left kid reji measures 10.1 cm. The cortex is then and there is increase echotexture as well as indistinct cor tical medullary junction. No evidence of obstruction or hydronephrosis. Multiple bilateral renal cys ts are noted. The spleen is within normal limits measuring 11.2 cm. IMPRESSION: 1. Bilateral renal parenchymal disease with multiple cysts and indistinct cortical medullary junctio ns. No definitive evidence of hydronephrosis. 2. No evidence of gallstones. There is nonspecific thickening of the gallbladder wall. Acalculous ch olecystitis is not excluded. Correlate clinically. Consider follow-up HIDA scan, if clinically indic ated. 3. Small hepatic cyst, unchanged since prior exam. RPTAT: AAPP Physician Matthew Date Time Electronically viewed and signed by Physician Matthew on 06/09/2017 12:20 [facility]/
[2017-06-09 13:17] LABS: ANA SCREEN NEGATIVE (NEGATIVE)
--- NOTE | 2017-06-09 13:56 | CONS ---
Date/Time of Note Date/Time of Note DATE: 06/09/17 TIME: 13:53 Assessment/Plan Assessment/Plan Chief Complaint/Hosp Course 1. End-stage renal disease on maintenance hemodialysis Thursday. He has hemodialysis ordered for today. I have discussed his case with Dr. Navarro and Dr. Alfred. We decided to hold off on the cardiac nuclear scan for today and reorder for tomorrow. The patient can now have lunch and then have his hemodialysis treatment. The patient is asymptomatic at this time without any chest pain or shortness of breath. 2. Recent onset of seizure disorder, Cinacalcet was discontinued as one of the potential side effects of this drug is seizures . The patient has not had any seizures since his admission. 3. Hypertension 4. Diabetes mellitus 5. Cardiomyopathy 6. Anemia of chronic kidney disease. Problems: Consultation Date/Type/Reason Admit Date/Time Jun 06, 2017 at 19:25 Type of Consultation: nephrology Referring Provider: GERA NAVARRO MD 24 HR Interval Summary Free Text/Dictation Patient is now postop a cardiac catheterization and coronary angiogram. The coronary angiogram shows severe diffuse coronary artery disease. The patient has been n.p.o. all morning and into the afternoon. Constitutional: no complaints Exam/Review of Systems Vital Signs Vitals Vital Signs Date Time Temp Pulse Resp B/P Pulse Ox O2 Delivery O2 Flow Rate FiO2 06/09/17 12:20 57 06/09/17 11:51 97.9 18 103/59 94 06/09/17 09:47 Nasal Cannula 2.0 Intake and Output 06/08/17 06/08/17 06/09/17 15:00 23:00 07:00 Intake Total 800 ml 550 ml Balance 800 ml 550 ml Exam Constitutional: alert, oriented, well developed Neck: supple Respiratory: clear to auscultation, normal air movement Cardiovascular: edema, regular rate and rhythm Gastrointestinal: non-tender, soft Extremities: edema Results Result Diagram: 06/08/17 0639 06/08/17 0639 Results 24 hrs Laboratory Tests Test 06/08/17 14:39 06/08/17 14:40 06/08/17 14:41 06/08/17 16:50 Activated Partial Thromboplast Time 46.8 H Fibrinogen 341.0 Total Protein (PEP) 6.3 Albumin (PEP) Pending Iyvoh-[id number]-Biusqtzub Pending [id number] Pending Beta Globulins Pending Gamma Globulins Pending Protein Electrophoresis Interpret Pending Serum Immunofixation Pending Anti-Nuclear Antibody Screen NEGATIVE Heparin Platelet Ab Optical Density Pending Heparin-Induced Platelet Ab (Lexi) Pending Prothrombin Time 15.8 H Prothrombin Time Ratio 1.2 INR International Normalized Ratio 1.25 Bedside Glucose 135 Test 06/08/17 21:37 06/09/17 01:40 06/09/17 07:23 06/09/17 12:09 Bedside Glucose 153 267 H 261 H 237 H Medications Medications Current Medications Atorvastatin Calcium (Lipitor) 80 mg HS PO Last administered on 06/08/17 21: 38; Admin Dose 80 MG; Start 06/07/17 at 21:00 Aspirin (Halfprin) 81 mg DAILY PO Last administered on 06/08/17 09:29; Admin Dose 81 MG; Start 06/07/17 at 09:00 Carvedilol (Coreg) 25 mg BID PO Last administered on 06/08/17 09:29; Admin Dose 25 MG; Start 06/07/17 at 09:00 Lisinopril (Zestril) 40 mg DAILY PO Last administered on 06/08/17 09:29; Admin Dose 40 MG; Start 06/07/17 at 09:00 Nifedipine (Procardia Xl) 60 mg DAILY PO ; Start 06/07/17 at 09:00 Pantoprazole (Protonix Tab) 40 mg DAILY@06 PO Last administered on 06/08/17 05:47; Admin Dose 40 MG; Start 06/07/17 at 06:00 Diagnostic Test (Pha) (Accu-Chek) 1 ea 02 XX Last administered on 06/08/17 02 :01; Admin Dose 1 EA; Start 06/07/17 at 02:00 Miscellaneous Information 1 ea NOTE XX ; Start 06/06/17 at 22:30 Glucose (Glutose) 15 gm Q15M PRN PO DECREASED GLUCOSE; Start 06/06/17 at 22:30 Glucose (Glutose) 22.5 gm Q15M PRN PO DECREASED GLUCOSE; Start 06/06/17 at 22: 30 Dextrose (D50w Syringe) 25 ml Q15M PRN IV DECREASED GLUCOSE; Start 06/06/17 at 22:30 Dextrose (D50w Syringe) 50 ml Q15M PRN IV DECREASED GLUCOSE; Start 06/06/17 at 22:30 Glucagon (Glucagen) 1 mg Q15M PRN IM DECREASED GLUCOSE; Start 06/06/17 at 22: 30 Glucose (Glutose) 15 gm Q15M PRN BUCCAL DECREASED GLUCOSE; Start 06/06/17 at 22:30 Hydroxyzine HCl (Atarax) 10 mg Q4 PRN PO ITCHING Last administered on 00:46; Admin Dose 10 MG; Start 06/07/17 at 03:36 Zolpidem Tartrate (Ambien) 5 mg HS PRN PO INSOMNIA; Start 06/07/17 at 03:36 Clonidine (Catapres) 0.1 mg Q4H PRN PO elevated BP Last administered on 06:41; Admin Dose 0.1 MG; Start 06/07/17 at 04:00 Levetiracetam (Keppra) 500 mg DAILY PO Last administered on 06/08/17 09:11; Admin Dose 500 MG; Start 06/08/17 at 09:00 Docusate Sodium (Colace) 100 mg BID PO Last administered on 06/08/17 21:38; Admin Dose 100 MG; Start 06/08/17 at 09:00 Bisacodyl (Dulcolax) 10 mg DAILY PRN PO CONSTIPATION; Start 06/08/17 at 09:00 Bisacodyl (Dulcolax Supp) 10 mg DAILY PRN [place] CONSTIPATION; Start 06/08/17 at 09:00 Insulin Glargine (Lantus) 15 unit HS SC ; Start 06/08/17 at 21:00 Al Hydrox/Mg Hydrox/Simethicone (Mag-Al Plus) 30 ml Q4H PRN PO GASTROINTESTINAL UPSET; Start 06/09/17 at 08:30 Ondansetron HCl (Zofran Inj) 4 mg Q4H PRN IV NAUSEA AND/OR VOMITING; Start at 08:30 PAULY VILA MD Jun 09, 2017 13:56
[2017-06-09 14:58] LABS: ABNORMAL IP MESSAGE 1; BASOPHILS % 0.2 % (0.0-2.0); EOSINOPHILS # 0.7 10^3/ul (0.0-0.5); EOSINOPHILS % 13.8 % (0.0-7.0); HEMATOCRIT 39.2 % (42.0-52.0); HEMOGLOBIN 12.1 g/dl (14.0-18.0); LYMPHOCYTES # 0.6 10^3/ul (0.8-2.9); LYMPHOCYTES % 12.7 % (15.0-51.0); MEAN CORPUSCULAR HEMOGLOBIN 29.9 pg (29.0-33.0); MEAN CORPUSCULAR HGB CONC 30.9 g/dl (32.0-37.0); MEAN CORPUSCULAR VOLUME 96.8 fl (82.0-101.0); MONOCYTE # 0.4 10^3/ul (0.3-0.9); MONOCYTES % 8.3 % (0.0-11.0); NEUTROPHIL # 3.1 10^3/ul (1.6-7.5); NEUTROPHILS % 64.8 % (39.0-77.0); PLATELET COUNT 70 10^3/UL (140-415); POSITIVE DIFF @See below; RED BLOOD COUNT 4.05 10^6/ul (4.70-6.10); RED CELL DISTRIBUTION WIDTH 18.7 % (11.5-14.5); WHITE BLOOD COUNT 4.8 10^3/ul (4.8-10.8)
[2017-06-09 15:23] LABS: CALCIUM 10.5 mg/dl (8.4-10.2); CREATININE 8.86 mg/dl (0.61-1.24); POTASSIUM 4.6 mmol/L (3.5-5.1)
[2017-06-09 16:57] LABS: IMMUNOGLOBULIN A 490 mg/dl (70-400); IMMUNOGLOBULIN G 1541 mg/dl (700-1600); IMMUNOGLOBULIN M 109 mg/dl (40-230)
[2017-06-09 18:22] LABS: FOLATE > 20.0 ng/ml (2.8-20.0)
[2017-06-09] MEDS: ATORVASTATIN 80 MG TAB PO SCH (20:57)
[2017-06-09] MEDS: INSULIN GLARGINE [LANtus] 3 ML PEN SC SCH (21:00)
[2017-06-09 21:16] LABS: HEPARIN INDUCED PLATELET AB WEAK POSITIVE (NEGATIVE)
--- NOTE | 2017-06-09 21:43 | PN ---
DATE: 06/09/2017 SUBJECTIVE: The patient seems to be feeling well. He did undergo a coronary angiogram today which he tolerated well. There were no hemorrhagic complications. OBJECTIVE: GENERAL: The patient is a well-developed, well-nourished male in no acute distress. VITAL SIGNS: Temperature 98.3, pulse 65 per minute and regular, respirations 18, blood pressure 155 /72 and pulse oximetry is 97% on room air. SKIN: No ecchymosis, no petechiae or rashes. HEENT: No mucosal lesions. No scleral icterus. NECK: Supple, no jugular venous distention or thyroid enlargement. CHEST: Clear to auscultation and percussion. No rhonchi, wheezes, rales or rubs. NODES: No palpable adenopathy. HEART: Regular sinus rhythm, no S3, S4 or murmurs. No rubs. ABDOMEN: Soft, no masses, no ascites. EXTREMITIES: Good range of motion. No clubbing, no edema or cyanosis. No palpable cords or Homans ' sign. There is an AV fistula palpable in the left arm. There is a palpable thrill. Evidence of the recent coronary angiography in the right radial artery. NEUROLOGIC: No focal neurologic abnormalities. LABORATORY: White count 4800, hemoglobin 12.1, hematocrit 39.2 and platelet count 70,000 with an MP V of 13. The SERENITY is negative. Immunofixation is pending. Quantitative immunoglobulins are relativ charlie normal. B12 level is 972, and folic acid level is 20. Ultrasound of the abdomen has been performed which shows that the spleen is within normal limits, me asuring 11.2 cm. IMPRESSION: 1. Diabetes mellitus. 2. End-stage renal disease, on dialysis. 3. Thrombocytopenia, etiology is unknown. 4. Cardiomyopathy and coronary artery disease. DISCUSSION: This patient does have significant comorbidities including the presence of his cardiomy opathy as well as thrombocytopenia, diabetes, etc. It is unclear as to whether the patient is a can didate for any type of revascularization procedures. The patient's platelet count today is 70,000. I feel the patient can be started on antiplatelet age nt such as Plavix. Still attempting to determine the etiology for the patient's thrombocytopenia. The patient's MPV co ntinues to be elevated, suggesting a young platelet population and peripheral destruction of platele ts. Will follow with you and await results of antibody testing including heparin-induced thrombocytopeni a and other causes for thrombocytopenia. Dictated By: BRYSON REZA MD SR/NTS Conf#: [id number] DID#: [id number] CC: GERA NAVARRO MD;*EndCC*
--- NOTE | 2017-06-09 21:44 | RADRPT ---
Vent Rate: 55 bpm RR Interval: 0 msec UT Interval: 186 msec QRS Duration: 110 msec QT Interval: 524 msec QTC Interval: 501 msec P-R-T [place]: 62 - 74 - 0 degrees Sinus bradycardia Marked ST abnormality, possible inferior subendocardial injury Prolonged QT Abnormal ECG Electronically Signed By: Domenic Pritchard [id number]
--- NOTE | 2017-06-09 22:59 | CONS ---
Date/Time of Note Date/Time of Note DATE: 06/09/17 TIME: 22:57 Consult Date/Type/Reason Admit Date/Time Jun 06, 2017 at 19:25 Initial Consult Date 06/08/17 Type of Consultation: neurology Ordering Provider: GERA NAVARRO MD Subjective No seizures since admission, cardiac work-up under way Objective Vital Signs Date Time Temp Pulse Resp B/P Pulse Ox O2 Delivery O2 Flow Rate FiO2 06/09/17 20:11 65 06/09/17 19:50 98.3 19 155/72 97 06/09/17 09:47 Nasal Cannula 2.0 Intake and Output 06/08/17 06/08/17 06/09/17 15:00 23:00 07:00 Intake Total 800 ml 550 ml Balance 800 ml 550 ml Results/Medications Result Diagram: 06/09/17 1439 06/09/17 1442 Results 24 hrs Laboratory Tests Test 06/09/17 01:40 06/09/17 07:23 06/09/17 12:09 06/09/17 14:39 Bedside Glucose 267 H 261 H 237 H White Blood Count 4.8 Red Blood Count 4.05 L Hemoglobin 12.1 L Hematocrit 39.2 L Mean Corpuscular Volume 96.8 Mean Corpuscular Hemoglobin 29.9 Mean Corpuscular Hemoglobin Concent 30.9 L Red Cell Distribution Width 18.7 H Platelet Count 70 #L Mean Platelet Volume 13.0 H Neutrophils % 64.8 Lymphocytes % 12.7 L Monocytes % 8.3 Eosinophils % 13.8 H Basophils % 0.2 Nucleated Red Blood Cells % 0.0 Neutrophils # 3.1 Lymphocytes # 0.6 L Monocytes # 0.4 Eosinophils # 0.7 H Basophils # 0.0 Nucleated Red Blood Cells # 0.0 Test 06/09/17 14:41 06/09/17 14:42 06/09/17 17:26 06/09/17 20:42 Vitamin B12 Level 972 H Folate > 20.0 H Immunoglobulin A 490 H Immunoglobulin G 1541 Immunoglobulin M 109 Sodium Level 141 Potassium Level 4.6 Chloride Level 95 L Carbon Dioxide Level 29 Anion Gap 22 H Blood Urea Nitrogen 63 H Creatinine 8.86 #H Glucose Level 229 H Calcium Level 10.5 H Bedside Glucose 172 186 Medications Current Medications Atorvastatin Calcium (Lipitor) 80 mg HS PO Last administered on 06/09/17 20: 57; Admin Dose 80 MG; Start 06/07/17 at 21:00 Aspirin (Halfprin) 81 mg DAILY PO Last administered on 06/08/17 09:29; Admin Dose 81 MG; Start 06/07/17 at 09:00 Carvedilol (Coreg) 25 mg BID PO Last administered on 06/09/17 20:58; Admin Dose 25 MG; Start 06/07/17 at 09:00 Lisinopril (Zestril) 40 mg DAILY PO Last administered on 06/08/17 09:29; Admin Dose 40 MG; Start 06/07/17 at 09:00 Nifedipine (Procardia Xl) 60 mg DAILY PO ; Start 06/07/17 at 09:00 Pantoprazole (Protonix Tab) 40 mg DAILY@06 PO Last administered on 06/08/17 05:47; Admin Dose 40 MG; Start 06/07/17 at 06:00 Diagnostic Test (Pha) (Accu-Chek) 1 ea 02 XX Last administered on 06/08/17 02 :01; Admin Dose 1 EA; Start 06/07/17 at 02:00 Miscellaneous Information 1 ea NOTE XX ; Start 06/06/17 at 22:30 Glucose (Glutose) 15 gm Q15M PRN PO DECREASED GLUCOSE; Start 06/06/17 at 22:30 Glucose (Glutose) 22.5 gm Q15M PRN PO DECREASED GLUCOSE; Start 06/06/17 at 22: 30 Dextrose (D50w Syringe) 25 ml Q15M PRN IV DECREASED GLUCOSE; Start 06/06/17 at 22:30 Dextrose (D50w Syringe) 50 ml Q15M PRN IV DECREASED GLUCOSE; Start 06/06/17 at 22:30 Glucagon (Glucagen) 1 mg Q15M PRN IM DECREASED GLUCOSE; Start 06/06/17 at 22: 30 Glucose (Glutose) 15 gm Q15M PRN BUCCAL DECREASED GLUCOSE; Start 06/06/17 at 22:30 Hydroxyzine HCl (Atarax) 10 mg Q4 PRN PO ITCHING Last administered on 00:46; Admin Dose 10 MG; Start 06/07/17 at 03:36 Zolpidem Tartrate (Ambien) 5 mg HS PRN PO INSOMNIA; Start 06/07/17 at 03:36 Clonidine (Catapres) 0.1 mg Q4H PRN PO elevated BP Last administered on 06:41; Admin Dose 0.1 MG; Start 06/07/17 at 04:00 Levetiracetam (Keppra) 500 mg DAILY PO Last administered on 06/08/17 09:11; Admin Dose 500 MG; Start 06/08/17 at 09:00 Docusate Sodium (Colace) 100 mg BID PO Last administered on 06/09/17 20:57; Admin Dose 100 MG; Start 06/08/17 at 09:00 Bisacodyl (Dulcolax) 10 mg DAILY PRN PO CONSTIPATION; Start 06/08/17 at 09:00 Bisacodyl (Dulcolax Supp) 10 mg DAILY PRN [place] CONSTIPATION; Start 06/08/17 at 09:00 Insulin Glargine (Lantus) 15 unit HS SC Last administered on 06/09/17 21:00; Admin Dose 15 UNIT; Start 06/08/17 at 21:00 Al Hydrox/Mg Hydrox/Simethicone (Mag-Al Plus) 30 ml Q4H PRN PO GASTROINTESTINAL UPSET; Start 06/09/17 at 08:30 Ondansetron HCl (Zofran Inj) 4 mg Q4H PRN IV NAUSEA AND/OR VOMITING; Start at 08:30 Assessment/Plan Chief Complaint/Hosp Course NEUROLOGIC: He is awake, alert, and oriented x2 with fluent speech. Cranial nerve examination shows intact visual franks to visual threat. Pupils reactive from 3 to 2 mm bilaterally. Extraocular movements intact without nystagmus. Symmetrical face. Preserved facial strength and sensation. Tongue is in midline. Palate elevates symmetrically. Motor strength examination seems to be preserved in all extremities. Normal bulk, tone, and strength. Sensory examination grossly intact to light touch and pain. Diminished vibration in toes. Deep tendon reflexes 1+ upper extremities, absent in lower extremities. Downgoing toes bilaterally. Coordination preserved on dvumey-fl-vvrtbe testing. No dysmetria or tremor. Gait was not assessed. IMPRESSION: Seizure disorder. The patient was started on Keppra. Usually, 500 mg of Keppra per day is sufficient with additional 500 mg after hemodialysis. Continue current treatment. Problems: SUYAPA ESTEVES MD Jun 09, 2017 22:59
[2017-06-09 23:34] LABS: ALBUMIN 3.4 g/dL (3.8-4.8)
[2017-06-10] VITALS (12 sets, daily range): BP systolic 139–177; BP diastolic 67–84; PULSE 58–69; RESP 17–20
[2017-06-10] MEDS: ACCU-CHEK XX SCH (02:00)
[2017-06-10] MEDS: hydrOXYzine HCL 10 MG TAB PO PRN (02:11)
[2017-06-10 04:22] LABS: PROTEIN, TOTAL 7.2 g/dL (6.1-8.1)
[2017-06-10] MEDS: PANTOPRAZOLE (EC) 40 MG TAB PO SCH (06:00)
--- NOTE | 2017-06-10 06:35 | PN ---
DATE: 06/09/2017 SUBJECTIVE: The patient overall feels well. Denies any chest pain or shortness of breath. Status post coronary angiogram this morning which showed obstructive CAD of ostial circumflex and also mild to moderate disease of the LAD and RCA with moderately elevated LV ____ pressures. Dr. Ramsey's consultation and recommendations are greatly appreciated. Viability study has been ordered to see t he patient has viable myocardium in the left circumflex distribution. PHYSICAL EXAMINATION: GENERAL: Patient awake, alert. VITAL SIGNS: Temperature 97.9, blood pressure 103/59, respiratory rate 20 per minute. HEENT: Normocephalic. NECK: JVD is not increased. CHEST: Decreased breath sounds at bases. HEART: S1, S2 heard with no definite gallops. ABDOMEN: Soft, nontender, no hepatosplenomegaly. EXTREMITIES: 1+ edema. Homans sign is negative. NEUROLOGIC: No localizing or lateralizing signs. LABORATORY DATA: WBC count 4.4, hematocrit 36.0, platelet count 51,000 from yesterday, blood glucos e 267, 261, and 237 today. ____ level at 341, PTT 46.8. SERENITY screen is negative. Heparin dependent platelet antibodies and heparin-induced platelet antibody YAYA pending. Dr. Alcocer's hematology consultation greatly appreciated. IMPRESSION: 1. End-stage renal failure on hemodialysis maintenance. 2. Diabetes mellitus type 1, labile, with end-organ disease including retinopathy, neuropathy and n ephropathy. 3. Thrombocytopenia, workup in progress. 4. Low level troponin leak with severe cardiomyopathy, global, with obstructive coronary artery dis ease involving of the ostial left circumflex and mid circumflex and mild to moderate coronary artery disease of the left anterior descending and right coronary artery. PLAN: Viability study per Dr. Huntley. Await further workup of thrombocytopenia before considerin g adding Plavix. Continue with nephrology recommendations per Dr. Hinton and endocrinology raudel mmendations per Dr. Cheung. Dictated By: GERA NAVARRO MD SR/NTS Conf#: [id number] DID#: [id number]
[2017-06-10 07:05] LABS: ABNORMAL IP MESSAGE 1; BASOPHILS % 0.8 % (0.0-2.0); EOSINOPHILS # 0.7 10^3/ul (0.0-0.5); EOSINOPHILS % 13.1 % (0.0-7.0); HEMATOCRIT 37.6 % (42.0-52.0); HEMOGLOBIN 11.6 g/dl (14.0-18.0); LYMPHOCYTES # 0.6 10^3/ul (0.8-2.9); LYMPHOCYTES % 11.7 % (15.0-51.0); MEAN CORPUSCULAR HEMOGLOBIN 29.7 pg (29.0-33.0); MEAN CORPUSCULAR HGB CONC 30.9 g/dl (32.0-37.0); MEAN CORPUSCULAR VOLUME 96.4 fl (82.0-101.0); MEAN PLATELET VOLUME 12.9 fl (7.4-10.4); MONOCYTE # 0.6 10^3/ul (0.3-0.9); MONOCYTES % 11.1 % (0.0-11.0); NEUTROPHIL # 3.2 10^3/ul (1.6-7.5); NEUTROPHILS % 63.1 % (39.0-77.0); PLATELET COUNT 66 10^3/UL (140-415); POSITIVE DIFF @See below; RED CELL DISTRIBUTION WIDTH 18.6 % (11.5-14.5); WHITE BLOOD COUNT 5.1 10^3/ul (4.8-10.8)
[2017-06-10 07:18] LABS: CALCIUM 10.3 mg/dl (8.4-10.2); CREATININE 7.11 mg/dl (0.61-1.24); POTASSIUM 4.6 mmol/L (3.5-5.1)
[2017-06-10] MEDS: INSULIN ASPART [NOVOLOG] 3 ML PEN SC SCH ×7 (07:37→21:00)
[2017-06-10] MEDS: DEXTROSE 50% 50 ML SYRINGE IV PRN (07:42)
[2017-06-10] MEDS: ASPIRIN (EC) 81 MG TAB PO SCH (09:00)
[2017-06-10] MEDS: LEVETIRACETAM 500 MG TAB PO SCH (09:00)
[2017-06-10] MEDS: LISINOPRIL 20 MG TAB PO SCH (09:00)
[2017-06-10] MEDS: DOCUSATE SODIUM 100 MG CAP PO SCH ×2 (09:00→20:52)
[2017-06-10] MEDS: NIFEdipine (XL) 60 MG TAB PO SCH (09:00)
--- NOTE | 2017-06-10 09:02 | CONS ---
Date/Time of Note Date/Time of Note DATE: 06/10/17 TIME: 08:54 Assessment/Plan Assessment/Plan Chief Complaint/Hosp Course 1. End-stage renal disease on maintenance hemodialysis Thursday. He has hemodialysis ordered for tomorrow. I have discussed his case with Dr. Navarro and Dr. Alfred. The patient is going to have a cardiac nuclear stress test today. The patient is asymptomatic at this time without any chest pain or shortness of breath. 2. Recent onset of seizure disorder, Cinacalcet was discontinued as one of the potential side effects of this drug is seizures . The patient has not had any seizures since his admission. 3. Hypertension 4. Diabetes mellitus 5. Cardiomyopathy 6. Anemia of chronic kidney disease. 7. Coronary artery disease. The patient underwent a coronary angiogram yesterday and was found to have severe and diffuse coronary artery disease. The disease has progressed since his last coronary angiogram 2014. Problems: Consultation Date/Type/Reason Admit Date/Time Jun 06, 2017 at 19:25 Type of Consultation: Nephrology Referring Provider: GERA NAVARRO MD 24 HR Interval Summary Free Text/Dictation Patient is awake and alert this morning. He is awaiting a nuclear cardiac stress test. He denies chest pain. He has not had any recent seizures. Constitutional: improved, no complaints Exam/Review of Systems Vital Signs Vitals Vital Signs Date Time Temp Pulse Resp B/P Pulse Ox O2 Delivery O2 Flow Rate FiO2 06/10/17 08:44 58 06/10/17 07:58 97.4 17 162/75 95 06/09/17 09:47 Nasal Cannula 2.0 Intake and Output 06/09/17 06/09/17 06/10/17 15:00 23:00 07:00 Intake Total 50 ml 1140 ml 700 ml Output Total 3500 ml Balance 50 ml -2360 ml 700 ml Exam Constitutional: alert, oriented, well developed Respiratory: clear to auscultation, normal air movement Cardiovascular: regular rate and rhythm Gastrointestinal: soft Musculoskeletal: nl extremities to inspection Results Result Diagram: 06/10/17 0607 06/10/17 0607 Results 24 hrs Laboratory Tests Test 06/09/17 12:09 06/09/17 14:23 06/09/17 14:39 06/09/17 14:41 Bedside Glucose 237 H Total Protein (PEP) 7.2 Albumin (PEP) Pending Nizts-0-Mwnignsgs Pending Rmwtt-1-Qlferyarq Pending Beta Globulins Pending Gamma Globulins Pending Protein Electrophoresis Interpret Pending Serum Immunofixation Pending Anti-Nuclear Antibody Screen Pending Platelet IgG Antibody Pending Platelet IgA Antibody Pending Platelet IgM Antibody Pending Heparin Platelet Ab Optical Density Pending Heparin-Induced Platelet Ab (Lexi) Pending White Blood Count 4.8 Red Blood Count 4.05 L Hemoglobin 12.1 L Hematocrit 39.2 L Mean Corpuscular Volume 96.8 Mean Corpuscular Hemoglobin 29.9 Mean Corpuscular Hemoglobin Concent 30.9 L Red Cell Distribution Width 18.7 H Platelet Count 70 #L Mean Platelet Volume 13.0 H Neutrophils % 64.8 Lymphocytes % 12.7 L Monocytes % 8.3 Eosinophils % 13.8 H Basophils % 0.2 Nucleated Red Blood Cells % 0.0 Neutrophils # 3.1 Lymphocytes # 0.6 L Monocytes # 0.4 Eosinophils # 0.7 H Basophils # 0.0 Nucleated Red Blood Cells # 0.0 Vitamin B12 Level 972 H Folate > 20.0 H Immunoglobulin A 490 H Immunoglobulin G 1541 Immunoglobulin M 109 Test 06/09/17 14:42 06/09/17 17:26 06/09/17 20:42 06/10/17 01:11 Sodium Level 141 Potassium Level 4.6 Chloride Level 95 L Carbon Dioxide Level 29 Anion Gap 22 H Blood Urea Nitrogen 63 H Creatinine 8.86 #H Glucose Level 229 H Calcium Level 10.5 H Bedside Glucose 172 186 175 Test 06/10/17 06:07 06/10/17 07:35 06/10/17 08:07 White Blood Count 5.1 Red Blood Count 3.90 L Hemoglobin 11.6 L Hematocrit 37.6 L Mean Corpuscular Volume 96.4 Mean Corpuscular Hemoglobin 29.7 Mean Corpuscular Hemoglobin Concent 30.9 L Red Cell Distribution Width 18.6 H Platelet Count 66 L Mean Platelet Volume 12.9 H Neutrophils % 63.1 Lymphocytes % 11.7 L Monocytes % 11.1 H Eosinophils % 13.1 H Basophils % 0.8 Nucleated Red Blood Cells % 0.0 Neutrophils # 3.2 Lymphocytes # 0.6 L Monocytes # 0.6 Eosinophils # 0.7 H Basophils # 0.0 Nucleated Red Blood Cells # 0.0 Sodium Level 145 H Potassium Level 4.6 Chloride Level 104 Carbon Dioxide Level 27 Anion Gap 19 H Blood Urea Nitrogen 46 #H Creatinine 7.11 H Glucose Level 71 # Calcium Level 10.3 H Bedside Glucose 59 L 127 Medications Medications Current Medications Atorvastatin Calcium (Lipitor) 80 mg HS PO Last administered on 06/09/17 20: 57; Admin Dose 80 MG; Start 06/07/17 at 21:00 Aspirin (Halfprin) 81 mg DAILY PO Last administered on 06/08/17 09:29; Admin Dose 81 MG; Start 06/07/17 at 09:00 Carvedilol (Coreg) 25 mg BID PO Last administered on 06/09/17 20:58; Admin Dose 25 MG; Start 06/07/17 at 09:00 Lisinopril (Zestril) 40 mg DAILY PO Last administered on 06/08/17 09:29; Admin Dose 40 MG; Start 06/07/17 at 09:00 Nifedipine (Procardia Xl) 60 mg DAILY PO ; Start 06/07/17 at 09:00 Pantoprazole (Protonix Tab) 40 mg DAILY@06 PO Last administered on 06/08/17 05:47; Admin Dose 40 MG; Start 06/07/17 at 06:00 Diagnostic Test (Pha) (Accu-Chek) 1 ea 02 XX Last administered on 06/08/17 02 :01; Admin Dose 1 EA; Start 06/07/17 at 02:00 Miscellaneous Information 1 ea NOTE XX ; Start 06/06/17 at 22:30 Glucose (Glutose) 15 gm Q15M PRN PO DECREASED GLUCOSE; Start 06/06/17 at 22:30 Glucose (Glutose) 22.5 gm Q15M PRN PO DECREASED GLUCOSE; Start 06/06/17 at 22: 30 Dextrose (D50w Syringe) 25 ml Q15M PRN IV DECREASED GLUCOSE Last administered on 06/10/17 07:42; Admin Dose 25 ML; Start 06/06/17 at 22:30 Dextrose (D50w Syringe) 50 ml Q15M PRN IV DECREASED GLUCOSE; Start 06/06/17 at 22:30 Glucagon (Glucagen) 1 mg Q15M PRN IM DECREASED GLUCOSE; Start 06/06/17 at 22: 30 Glucose (Glutose) 15 gm Q15M PRN BUCCAL DECREASED GLUCOSE; Start 06/06/17 at 22:30 Hydroxyzine HCl (Atarax) 10 mg Q4 PRN PO ITCHING Last administered on 02:11; Admin Dose 10 MG; Start 06/07/17 at 03:36 Zolpidem Tartrate (Ambien) 5 mg HS PRN PO INSOMNIA; Start 06/07/17 at 03:36 Clonidine (Catapres) 0.1 mg Q4H PRN PO elevated BP Last administered on 06:41; Admin Dose 0.1 MG; Start 06/07/17 at 04:00 Levetiracetam (Keppra) 500 mg DAILY PO Last administered on 06/08/17 09:11; Admin Dose 500 MG; Start 06/08/17 at 09:00 Docusate Sodium (Colace) 100 mg BID PO Last administered on 06/09/17 20:57; Admin Dose 100 MG; Start 06/08/17 at 09:00 Bisacodyl (Dulcolax) 10 mg DAILY PRN PO CONSTIPATION; Start 06/08/17 at 09:00 Bisacodyl (Dulcolax Supp) 10 mg DAILY PRN IN CONSTIPATION; Start 06/08/17 at 09:00 Insulin Glargine (Lantus) 15 unit HS SC Last administered on 06/09/17 21:00; Admin Dose 15 UNIT; Start 06/08/17 at 21:00 Al Hydrox/Mg Hydrox/Simethicone (Mag-Al Plus) 30 ml Q4H PRN PO GASTROINTESTINAL UPSET; Start 06/09/17 at 08:30 Ondansetron HCl (Zofran Inj) 4 mg Q4H PRN IV NAUSEA AND/OR VOMITING; Start at 08:30 PAULY VILA MD Jun 10, 2017 09:02
--- NOTE | 2017-06-10 09:21 | CONS ---
Date/Time of Note Date/Time of Note DATE: 06/10/17 TIME: 09:15 Assessment/Plan Assessment/Plan Chief Complaint/Hosp Course - NSTEMI- low level trop leak, flat. Severe cardiomyopathy global, has distal LM eccentric involving ostial LCx, LAD/RCA are without significant disease. will need viability study and discussion with family re: high risk intervention. pt with elevated STS risk score, would not recommend cardiac surgery but will discuss options with family. - Chronic systolic heart failure fluid mgmt per renal with iHD - NICM- unclear etiology. no obstructive cad on [facility]. will need to consider icd placement given low lvef and syncope, however await discussion of revascularization options. in addition pt declined in past. - HTN- controlled - Syncope/seizures-neurology consulting - ESRD- on iHD, per nephrology - Thrombocytopenia- d/w Dr. Alcocer, peripheral destruction. 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 heparin ab pending. Recommendations: - cont statin/asa - cont carvedilol 25mg po bid - cont lisinopril - cont nifedipine - cont clonidine for bp control fluid mgmt with iHD - given high risk nature of intervention in this patient, recommend viability study as unclear if will benefit from revascularization enough to outweigh risks. - if decision is made for PCI, will likely need for lifelong DAPT as he will likely require LM/LCx stenting. also would need Impella supported PCI which requires large bore access and would increase his risk of bleeding. this would require transfer to a different institution, family is aware. - family meeting to be held today at 3:00pm, pt aware and in agreement. Problems: Consultation Date/Type/Reason Admit Date/Time Jun 06, 2017 at 19:25 Initial Consult Date 06/08/17 Type of Consultation: cardiology Referring Provider: GERA NAVARRO MD 24 HR Interval Summary Free Text/Dictation no acute events. pt denies any chest pain, sob currently. tolerated dialysis yesterday. no n/v, sweating. no bleeding from cath site. tele reviewed: no events Constitutional: other (itching) Detailed Summary ENT: no complaints Respiratory: no complaints Cardiovascular: no complaints Gastrointestinal: no complaints Exam/Review of Systems Vital Signs Vitals Vital Signs Date Time Temp Pulse Resp B/P Pulse Ox O2 Delivery O2 Flow Rate FiO2 06/10/17 08:44 58 06/10/17 07:58 97.4 17 162/75 95 11/14/17 09:47 Nasal Cannula 2.0 Intake and Output 06/09/17 06/09/17 06/10/17 15:00 23:00 07:00 Intake Total 50 ml 1140 ml 700 ml Output Total 3500 ml Balance 50 ml -2360 ml 700 ml Exam Constitutional: alert, oriented Psych: no complaints Head: normocephalic Eyes: nl conjunctiva, EOMI, PERRL ENMT: nl nasal mucosa & septum, mucosa pink and moist Neck: supple, non-tender, jvd Respiratory: clear Cardiovascular: other (RRR, nl s1s2, ii/vi systolic LLSB, + s3 Gastrointestinal: soft, other (slightly distended, no ttp) Musculoskeletal: nl extremities to inspection, L forearm fistula + thrill Extremities: normal pulses, no bleeding 2+ R radial pulse Neurological: [employer] II-XII intact Skin: nl turgor Results Result Diagram: 06/10/17 0607 06/10/17 0607 Results 24 hrs Laboratory Tests Test 06/09/17 12:09 06/09/17 14:23 06/09/17 14:39 06/09/17 14:41 Bedside Glucose 237 H Total Protein (PEP) 7.2 Albumin (PEP) Pending Tsvte-5-Rhnfezalk Pending Mzcae-6-Niffxnlhs Pending Beta Globulins Pending Gamma Globulins Pending Protein Electrophoresis Interpret Pending Serum Immunofixation Pending Anti-Nuclear Antibody Screen Pending Platelet IgG Antibody Pending Platelet IgA Antibody Pending Platelet IgM Antibody Pending Heparin Platelet Ab Optical Density Pending Heparin-Induced Platelet Ab (Lexi) Pending White Blood Count 4.8 Red Blood Count 4.05 L Hemoglobin 12.1 L Hematocrit 39.2 L Mean Corpuscular Volume 96.8 Mean Corpuscular Hemoglobin 29.9 Mean Corpuscular Hemoglobin Concent 30.9 L Red Cell Distribution Width 18.7 H Platelet Count 70 #L Mean Platelet Volume 13.0 H Neutrophils % 64.8 Lymphocytes % 12.7 L Monocytes % 8.3 Eosinophils % 13.8 H Basophils % 0.2 Nucleated Red Blood Cells % 0.0 Neutrophils # 3.1 Lymphocytes # 0.6 L Monocytes # 0.4 Eosinophils # 0.7 H Basophils # 0.0 Nucleated Red Blood Cells # 0.0 Vitamin B12 Level 972 H Folate > 20.0 H Immunoglobulin A 490 H Immunoglobulin G 1541 Immunoglobulin M 109 Test 06/09/17 14:42 06/09/17 17:26 06/09/17 20:42 06/10/17 01:11 Sodium Level 141 Potassium Level 4.6 Chloride Level 95 L Carbon Dioxide Level 29 Anion Gap 22 H Blood Urea Nitrogen 63 H Creatinine 8.86 #H Glucose Level 229 H Calcium Level 10.5 H Bedside Glucose 172 186 175 Test 06/10/17 06:07 06/10/17 07:35 06/10/17 08:07 White Blood Count 5.1 Red Blood Count 3.90 L Hemoglobin 11.6 L Hematocrit 37.6 L Mean Corpuscular Volume 96.4 Mean Corpuscular Hemoglobin 29.7 Mean Corpuscular Hemoglobin Concent 30.9 L Red Cell Distribution Width 18.6 H Platelet Count 66 L Mean Platelet Volume 12.9 H Neutrophils % 63.1 Lymphocytes % 11.7 L Monocytes % 11.1 H Eosinophils % 13.1 H Basophils % 0.8 Nucleated Red Blood Cells % 0.0 Neutrophils # 3.2 Lymphocytes # 0.6 L Monocytes # 0.6 Eosinophils # 0.7 H Basophils # 0.0 Nucleated Red Blood Cells # 0.0 Sodium Level 145 H Potassium Level 4.6 Chloride Level 104 Carbon Dioxide Level 27 Anion Gap 19 H Blood Urea Nitrogen 46 #H Creatinine 7.11 H Glucose Level 71 # Calcium Level 10.3 H Bedside Glucose 59 L 127 Medications Medications Current Medications Atorvastatin Calcium (Lipitor) 80 mg HS PO Last administered on 06/09/17 20: 57; Admin Dose 80 MG; Start 06/07/17 at 21:00 Aspirin (Halfprin) 81 mg DAILY PO Last administered on 06/08/17 09:29; Admin Dose 81 MG; Start 06/07/17 at 09:00 Carvedilol (Coreg) 25 mg BID PO Last administered on 06/09/17 20:58; Admin Dose 25 MG; Start 06/07/17 at 09:00 Lisinopril (Zestril) 40 mg DAILY PO Last administered on 06/08/17 09:29; Admin Dose 40 MG; Start 06/07/17 at 09:00 Nifedipine (Procardia Xl) 60 mg DAILY PO ; Start 06/07/17 at 09:00 Pantoprazole (Protonix Tab) 40 mg DAILY@06 PO Last administered on 06/08/17 05:47; Admin Dose 40 MG; Start 06/07/17 at 06:00 Diagnostic Test (Pha) (Accu-Chek) 1 ea 02 XX Last administered on 06/08/17 02 :01; Admin Dose 1 EA; Start 06/07/17 at 02:00 Miscellaneous Information 1 ea NOTE XX ; Start 06/06/17 at 22:30 Glucose (Glutose) 15 gm Q15M PRN PO DECREASED GLUCOSE; Start 06/06/17 at 22:30 Glucose (Glutose) 22.5 gm Q15M PRN PO DECREASED GLUCOSE; Start 06/06/17 at 22: 30 Dextrose (D50w Syringe) 25 ml Q15M PRN IV DECREASED GLUCOSE Last administered on 06/10/17 07:42; Admin Dose 25 ML; Start 06/06/17 at 22:30 Dextrose (D50w Syringe) 50 ml Q15M PRN IV DECREASED GLUCOSE; Start 06/06/17 at 22:30 Glucagon (Glucagen) 1 mg Q15M PRN IM DECREASED GLUCOSE; Start 06/06/17 at 22: 30 Glucose (Glutose) 15 gm Q15M PRN BUCCAL DECREASED GLUCOSE; Start 06/06/17 at 22:30 Hydroxyzine HCl (Atarax) 10 mg Q4 PRN PO ITCHING Last administered on 02:11; Admin Dose 10 MG; Start 06/07/17 at 03:36 Zolpidem Tartrate (Ambien) 5 mg HS PRN PO INSOMNIA; Start 06/07/17 at 03:36 Clonidine (Catapres) 0.1 mg Q4H PRN PO elevated BP Last administered on 06:41; Admin Dose 0.1 MG; Start 06/07/17 at 04:00 Levetiracetam (Keppra) 500 mg DAILY PO Last administered on 06/08/17 09:11; Admin Dose 500 MG; Start 06/08/17 at 09:00 Docusate Sodium (Colace) 100 mg BID PO Last administered on 06/09/17 20:57; Admin Dose 100 MG; Start 06/08/17 at 09:00 Bisacodyl (Dulcolax) 10 mg DAILY PRN PO CONSTIPATION; Start 06/08/17 at 09:00 Bisacodyl (Dulcolax Supp) 10 mg DAILY PRN [place] CONSTIPATION; Start 06/08/17 at 09:00 Insulin Glargine (Lantus) 15 unit HS SC Last administered on 06/09/17t 21:00; Admin Dose 15 UNIT; Start 06/08/17 at 21:00 Al Hydrox/Mg Hydrox/Simethicone (Mag-Al Plus) 30 ml Q4H PRN PO GASTROINTESTINAL UPSET; Start 06/09/17 at 08:30 Ondansetron HCl 4 mg 4 mg Q4H PRN IV NAUSEA AND/OR VOMITING; Start 06/09/17 at 08:30 Dextrose/Sodium Chloride (D5-1/2ns) 1,000 ml @ 50 mls/hr Q20H IV ; Start 06/10 at 09:30; Status UNV Procedures Procedures abd us reviewed in JAMEY Morrell Jun 10, 2017 09:21
[2017-06-10] MEDS: DEXTROSE 5%-0.45% NACL 1,000 ML IV SCH (10:26)
[2017-06-10 14:46] LABS: ANA SCREEN NEGATIVE (NEGATIVE)
--- NOTE | 2017-06-10 16:38 | PN ---
DATE: 06/10/2017 SUBJECTIVE: Mr. Arvizu feels well. He has no specific complaints at this time. There has been no unusual bruising or bleeding. OBJECTIVE: GENERAL: The patient is a well-developed, well-nourished male in no acute distress. VITAL SIGNS: Temperature 97.6, pulse 60 per minute and regular, respirations 18, blood pressure 177 /84 and pulse oximetry is 97%. SKIN: No ecchymosis, petechiae or rashes. HEENT: Normocephalic. No evidence of trauma. Pupils equal, round, react to light and accommodatio n. Sclerae are nonicteric. Oral mucosa is moist without lesions. NECK: Supple, no jugular venous distention or thyroid enlargement. CHEST: Clear to auscultation and percussion. No rhonchi, wheezes, rales or rubs. NODES: No palpable adenopathy. HEART: Regular sinus rhythm, no S3, S4 or murmurs. ABDOMEN: Soft, no masses, no ascites. EXTREMITIES: Good range of motion. No clubbing, no edema or cyanosis. No palpable cords or Homans ' sign. There is an AV fistula palpable in the left arm with a palpable thrill. NEUROLOGIC: No focal neurologic abnormalities. LABORATORY DATA: White count 5700, hemoglobin 11.6, hematocrit 37.6 and platelet count 66,000 with an MPV of 12.9. Sodium 145, potassium 4.6, BUN 46, creatinine 7.11. Platelet antibodies are still pending, but the heparin-induced antibody is weakly positive. The hep agata platelet optical density is weakly positive. ASSESSMENT: 1. Diabetes mellitus. 2. End-stage renal disease, on dialysis. 3. 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 4. Cardiomyopathy with coronary artery disease. PLAN: I have discussed the situation with the patient's business analyst project manager. I feel the patient can be tr eated with antiplatelet agents including aspirin and Plavix as the patient does have large platelets which are probably very hemostatically active. The question of the use of heparin has also been raised. I am not clear whether the findings are ac tually consistent with heparin-induced thrombocytopenia. Will obtain a serotonin release assay in o [facility] to determine if the patient actually does have heparin-induced thrombocytopenia. Dictated By: BRYSON REZA MD SR/NTS Conf#: [id number] DID#: [id number] CC: GERA NAVARRO MD;*[facility]*
--- NOTE | 2017-06-10 16:51 | PN ---
DATE: 06/10/2017 SUBJECTIVE: Patient denies any chest pain or palpitations. The patient also denies any nausea, vom iting. No diaphoresis. Had hemodialysis yesterday without any events. No seizure activity noted. PHYSICAL EXAMINATION GENERAL: The patient is awake, alert, no acute distress. VITAL SIGNS: Temperature 97.6, blood pressure 177/84, O2 sats 97%, heart rate 68 per minute, regula r. HEENT: Head normocephalic. Mild pallor without cyanosis. Tongue is moist. NECK: Supple. No thyromegaly, bruits or lymphadenopathy. LUNGS: Clinically clear. HEART: S1, S2 heard with no definite gallops. EXTREMITIES: Trace edema. Homans negative. LABORATORY DATA: WBC count 5.1, hematocrit 37.6, platelet count is 66,000. Sodium 140, potassium 4 .6, BUN of 46, creatinine 7.1, and calcium 10.3. Glucose this morning was 127 and 135. IMPRESSION: 1. Coronary artery disease with ischemic cardiomyopathy, viability study in progress. 2. Hypertension. 3. End-stage renal disease on hemodialysis. 4. Status post syncope, query seizures. 5. Thrombocytopenia. PLAN: We will await the results of the viability studies and follow recommendations per Dr. Munir markham and Dr. Hinton and Dr. Fam Stephens and Dr. Alcocer. The patient's diabetes mellitus i s well controlled at the present time. Dictated By: GERA NAVARRO MD, SR/SEBASTIEN Conf#: [id number] DID#: [id number]
--- NOTE | 2017-06-10 17:18 | RADRPT ---
PROCEDURE: Thallium myocardial viability study CLINICAL INDICATION: 66-year-old patient with coronary artery disease, cardiomyopathy, complaining of chest pain. TECHNIQUE: Following the intravenous injection of 4.1 mCi of thallium 201, resting myocardial perf usion images were obtained immediately and 4 hours post injection. COMPARISON: No prior studies. FINDINGS: Resting myocardial perfusion images obtained immediately post injection demonstrate a moderate size moderate to severe in degree perfusion defect in the inferior and inferolateral puentes. There is no evidence of redistribution of activity between the immediate and delayed 4 hours post in jection images. IMPRESSION: Thallium myocardial viability study demonstrating a moderate size perfusion defect involving the inf erior and inferolateral puentes, with no scintigraphic evidence to suggest the presence of viable myoc ardium. RPTAT: HH .Melody Goodson MD, Date Time Electronically viewed and signed by .Melody Goodson MD, on 06/10/2017 17:17 .L/
[2017-06-10] MEDS: ATORVASTATIN 80 MG TAB PO SCH (20:52)
[2017-06-10] MEDS: INSULIN GLARGINE [LANtus] 3 ML PEN SC SCH (20:59)
[2017-06-10] MEDS ORDERED: VITAMIN A & D 5 GM OINT PACKET TOP ONE (21:02)
[2017-06-10 23:32] LABS: ALBUMIN 3.7 g/dL (3.8-4.8)
[2017-06-11] VITALS (19 sets, daily range): BP systolic 119–160; BP diastolic 59–80; PULSE 56–71; RESP 16–20
[2017-06-11] MEDS: ACCU-CHEK XX SCH (01:26)
[2017-06-11] MEDS: DEXTROSE 5%-0.45% NACL 1,000 ML IV SCH (05:29)
[2017-06-11] MEDS: PANTOPRAZOLE (EC) 40 MG TAB PO SCH (05:29)
[2017-06-11 06:28] LABS: ABNORMAL IP MESSAGE 1; BASOPHILS % 0.4 % (0.0-2.0); EOSINOPHILS # 0.6 10^3/ul (0.0-0.5); EOSINOPHILS % 12.1 % (0.0-7.0); HEMATOCRIT 34.8 % (42.0-52.0); HEMOGLOBIN 11.1 g/dl (14.0-18.0); LYMPHOCYTES # 0.7 10^3/ul (0.8-2.9); LYMPHOCYTES % 15.5 % (15.0-51.0); MEAN CORPUSCULAR HEMOGLOBIN 30.5 pg (29.0-33.0); MEAN CORPUSCULAR HGB CONC 31.9 g/dl (32.0-37.0); MEAN CORPUSCULAR VOLUME 95.6 fl (82.0-101.0); MEAN PLATELET VOLUME 13.5 fl (7.4-10.4); MONOCYTE # 0.5 10^3/ul (0.3-0.9); NEUTROPHIL # 2.8 10^3/ul (1.6-7.5); NEUTROPHILS % 60.8 % (39.0-77.0); PLATELET COUNT 60 10^3/UL (140-415); POSITIVE DIFF @See below; RED BLOOD COUNT 3.64 10^6/ul (4.70-6.10); RED CELL DISTRIBUTION WIDTH 18.6 % (11.5-14.5); WHITE BLOOD COUNT 4.5 10^3/ul (4.8-10.8)
[2017-06-11] MEDS: INSULIN ASPART [NOVOLOG] 3 ML PEN SC SCH ×7 (06:37→21:27)
[2017-06-11 07:00] LABS: CALCIUM 10.6 mg/dl (8.4-10.2); CREATININE 8.59 mg/dl (0.61-1.24); POTASSIUM 5.1 mmol/L (3.5-5.1)
[2017-06-11] MEDS: DOCUSATE SODIUM 100 MG CAP PO SCH ×2 (08:26→21:19)
[2017-06-11] MEDS: LEVETIRACETAM 500 MG TAB PO SCH (08:26)
[2017-06-11] MEDS: NIFEdipine (XL) 60 MG TAB PO SCH (08:26)
[2017-06-11] MEDS: ASPIRIN (EC) 81 MG TAB PO SCH (08:27)
[2017-06-11] MEDS: LISINOPRIL 20 MG TAB PO SCH (08:30)
--- NOTE | 2017-06-11 09:06 | CONS ---
Date/Time of Note Date/Time of Note DATE: 06/11/17 TIME: 09:02 Assessment/Plan Assessment/Plan Chief Complaint/Hosp Course 1. End-stage renal disease on maintenance hemodialysis Thursday. He has hemodialysis ordered for today. I have discussed his case with Dr. Navarro and Dr. Alfred. The patient had a cardiac nuclear stress test yesterday and may need another test today.. The patient is asymptomatic at this time without any chest pain or shortness of breath. 2. Recent onset of seizure disorder, Cinacalcet was discontinued as one of the potential side effects of this drug is seizures . The patient has not had any seizures since his admission. 3. Hypertension 4. Diabetes mellitus 5. Cardiomyopathy 6. Anemia of chronic kidney disease. 7. Coronary artery disease. The patient underwent a coronary angiogram 2 days ago and was found to have severe and diffuse coronary artery disease. The disease has progressed since his last coronary angiogram 2014. A cardiac nuclear medicine study was done yesterday and showed lack of viability of an area of his heart. He may have another scan today. Problems: Consultation Date/Type/Reason Admit Date/Time Jun 06, 2017 at 19:25 Type of Consultation: cardiology Referring Provider: GERA NAVARRO MD 24 HR Interval Summary Free Text/Dictation He is awake and alert this morning. He has no new problems. He denies chest pain or any recent seizure activity. Constitutional: improved, no complaints Exam/Review of Systems Vital Signs Vitals Vital Signs Date Time Temp Pulse Resp B/P Pulse Ox O2 Delivery O2 Flow Rate FiO2 06/11/17 08:26 62 06/11/17 07:07 98.9 20 160/74 96 06/09/17 09:47 Nasal Cannula 2.0 Intake and Output 06/10/17 06/10/17 06/11/17 15:00 23:00 07:00 Intake Total 300 ml 520 ml Balance 300 ml 520 ml Exam Constitutional: alert, oriented Neck: non-tender, supple Respiratory: clear to auscultation, normal air movement Cardiovascular: edema, regular rate and rhythm Gastrointestinal: soft Extremities: edema Results Result Diagram: 06/11/17 0540 06/11/17 0540 Results 24 hrs Laboratory Tests Test 06/10/17 11:44 06/10/17 17:33 06/10/17 20:59 06/11/17 05:40 Bedside Glucose 135 180 280 H White Blood Count 4.5 L Red Blood Count 3.64 L Hemoglobin 11.1 L Hematocrit 34.8 L Mean Corpuscular Volume 95.6 Mean Corpuscular Hemoglobin 30.5 Mean Corpuscular Hemoglobin Concent 31.9 L Red Cell Distribution Width 18.6 H Platelet Count 60 L Mean Platelet Volume 13.5 H Neutrophils % 60.8 Lymphocytes % 15.5 Monocytes % 11.0 Eosinophils % 12.1 H Basophils % 0.4 Nucleated Red Blood Cells % 0.0 Neutrophils # 2.8 Lymphocytes # 0.7 L Monocytes # 0.5 Eosinophils # 0.6 H Basophils # 0.0 Nucleated Red Blood Cells # 0.0 Sodium Level 141 Potassium Level 5.1 Chloride Level 101 Carbon Dioxide Level 28 Anion Gap 17 H Blood Urea Nitrogen 66 H Creatinine 8.59 H Glucose Level 300 #H Calcium Level 10.6 H Test 06/11/17 06:30 06/11/17 08:39 Bedside Glucose 291 H 207 Medications Medications Current Medications Atorvastatin Calcium (Lipitor) 80 mg HS PO Last administered on 06/10/17 20: 52; Admin Dose 80 MG; Start 06/07/17 at 21:00 Aspirin (Halfprin) 81 mg DAILY PO Last administered on 06/11/17 08:27; Admin Dose 81 MG; Start 06/07/17 at 09:00 Carvedilol (Coreg) 25 mg BID PO Last administered on 06/11/17 08:26; Admin Dose 25 MG; Start 06/07/17 at 09:00 Lisinopril (Zestril) 40 mg DAILY PO Last administered on 06/08/17 09:29; Admin Dose 40 MG; Start 06/07/17 at 09:00 Nifedipine (Procardia Xl) 60 mg DAILY PO Last administered on 06/11/17 08:26 ; Admin Dose 60 MG; Start 06/07/17 at 09:00 Pantoprazole (Protonix Tab) 40 mg DAILY@06 PO Last administered on 06/08/17 05:47; Admin Dose 40 MG; Start 06/07/17 at 06:00 Diagnostic Test (Pha) (Accu-Chek) 1 ea 02 XX Last administered on 06/08/17 02 :01; Admin Dose 1 EA; Start 06/07/17 at 02:00 Miscellaneous Information 1 ea NOTE XX ; Start 06/06/17 at 22:30 Glucose (Glutose) 15 gm Q15M PRN PO DECREASED GLUCOSE; Start 06/06/17 at 22:30 Glucose (Glutose) 22.5 gm Q15M PRN PO DECREASED GLUCOSE; Start 06/06/17 at 22: 30 Dextrose (D50w Syringe) 25 ml Q15M PRN IV DECREASED GLUCOSE Last administered on 06/10/17 07:42; Admin Dose 25 ML; Start 06/06/17 at 22:30 Dextrose (D50w Syringe) 50 ml Q15M PRN IV DECREASED GLUCOSE; Start 06/06/17 at 22:30 Glucagon (Glucagen) 1 mg Q15M PRN IM DECREASED GLUCOSE; Start 06/06/17 at 22: 30 Glucose (Glutose) 15 gm Q15M PRN BUCCAL DECREASED GLUCOSE; Start 06/06/17 at 22:30 Hydroxyzine HCl (Atarax) 10 mg Q4 PRN PO ITCHING Last administered on 02:11; Admin Dose 10 MG; Start 06/07/17 at 03:36 Zolpidem Tartrate (Ambien) 5 mg HS PRN PO INSOMNIA; Start 06/07/17 at 03:36 Clonidine (Catapres) 0.1 mg Q4H PRN PO elevated BP Last administered on 06:41; Admin Dose 0.1 MG; Start 06/07/17 at 04:00 Levetiracetam (Keppra) 500 mg DAILY PO Last administered on 06/11/17 08:26; Admin Dose 500 MG; Start 06/08/17 at 09:00 Docusate Sodium (Colace) 100 mg BID PO Last administered on 06/11/17 08:26; Admin Dose 100 MG; Start 06/08/17 at 09:00 Bisacodyl (Dulcolax) 10 mg DAILY PRN PO CONSTIPATION; Start 06/08/17 at 09:00 Bisacodyl (Dulcolax Supp) 10 mg DAILY PRN [place] CONSTIPATION; Start 06/08/17 at 09:00 Insulin Glargine (Lantus) 15 unit HS SC Last administered on 06/09/17 21:00; Admin Dose 15 UNIT; Start 06/08/17 at 21:00 Al Hydrox/Mg Hydrox/Simethicone (Mag-Al Plus) 30 ml Q4H PRN PO GASTROINTESTINAL UPSET; Start 06/09/17 at 08:30 Ondansetron HCl 4 mg 4 mg Q4H PRN IV NAUSEA AND/OR VOMITING; Start 06/09/17 at 08:30 Dextrose/Sodium Chloride (D5-1/2ns) 1,000 ml @ 50 mls/hr Q20H IV Last administered on 06/11/17t 05:29; Admin Dose 50 MLS/HR; Start 06/10/17 at 09:30 PAULY VILA MD Jun 11, 2017 09:06
--- NOTE | 2017-06-11 13:27 | CONS ---
Date/Time of Note Date/Time of Note DATE: 06/11/17 TIME: 13:19 Assessment/Plan Assessment/Plan Chief Complaint/Hosp Course - NSTEMI- low level trop leak, flat. Severe cardiomyopathy global, has distal LM eccentric involving ostial LCx, LAD/RCA are without significant disease. family discussion held, they are aware of areas of non-viable and viable portions of LCx distribution. pt with elevated STS risk score 4.6% for mortality and 29% M+M this does not take into account low plt levels and bleeding risk, pt/family decline further evaluation of surgical intervention. - Chronic systolic heart failure fluid mgmt per renal with iHD - NICM- unclear etiology. no obstructive cad on [facility]. will need to consider icd placement given low lvef and syncope, however await discussion of revascularization options. in addition pt declined in past. - HTN- controlled - Syncope/seizures-neurology consulting - ESRD- on iHD, per nephrology - Thrombocytopenia- d/w Dr. Alcocer, peripheral destruction. 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 heparin ab weak positive, [place] pending Recommendations: - cont statin/asa - cont carvedilol 25mg po bid - cont lisinopril - cont nifedipine - cont clonidine for bp control - fluid mgmt with iHD - if decision is made for PCI, will likely need for lifelong DAPT as he will likely require LM/LCx stenting. also would need Impella supported PCI which requires large bore access and would increase his risk of bleeding. this would require transfer to a different institution, family is aware. Problems: Consultation Date/Type/Reason Admit Date/Time Jun 06, 2017 at 19:25 Initial Consult Date 06/08/17 Type of Consultation: cardiology Referring Provider: GERA NAVARRO MD 24 HR Interval Summary Free Text/Dictation extensive family discussion held between myself, felix, and patients immediate family with therapeutic case manager present as well. patients full cardiac history reviewed including current status and angiogram results. pt family aware of all risks benefits/alternatives for revascularization including percutaneous and surgical options including RI, stroke, , bleeding, vessel damage. patient is now aware of viability study results which showed inferior/inferolateral fixed defect, there is wall motion and viability of lateral and antlateral puentes which would benefit from revascularization. Pt states he will think it over with family in regards to pursuing high risk PCI. otherwise pt denies any current chest pain, dizziness, sob, palpitations. tele reviewed, no events. Detailed Summary Eyes: no complaints ENT: no complaints Respiratory: no complaints Cardiovascular: edema, No chest pain Gastrointestinal: no complaints Exam/Review of Systems Vital Signs Vitals Vital Signs Date Time Temp Pulse Resp B/P Pulse Ox O2 Delivery O2 Flow Rate FiO2 06/11/17 12:21 62 06/11/17 11:45 98.5 20 151/73 97 06/09/17 09:47 Nasal Cannula 2.0 Intake and Output 06/10/17 06/10/17 06/11/17 14:59 22:59 06:59 Intake Total 300 ml 520 ml Balance 300 ml 520 ml Exam Constitutional: alert, oriented Psych: no complaints Head: normocephalic Eyes: nl conjunctiva, EOMI, PERRL ENMT: nl nasal mucosa & septum, mucosa pink and moist Neck: supple, non-tender, jvd Respiratory: clear Cardiovascular: other (RRR, nl s1s2, ii/vi systolic LLSB, + s3 Gastrointestinal: soft, other (slightly distended, no ttp) Musculoskeletal: nl extremities to inspection, L forearm fistula + thrill Extremities: normal pulses, no bleeding 2+ R radial pulse Neurological: SENIOR ARCHITECT II-XII intact Skin: nl turgor Results Result Diagram: 06/11/17 0540 06/11/17 0540 Results 24 hrs Laboratory Tests Test 06/10/17 17:33 06/10/17 20:59 06/11/17 05:40 06/11/17 06:30 Bedside Glucose 180 280 H 291 H White Blood Count 4.5 L Red Blood Count 3.64 L Hemoglobin 11.1 L Hematocrit 34.8 L Mean Corpuscular Volume 95.6 Mean Corpuscular Hemoglobin 30.5 Mean Corpuscular Hemoglobin Concent 31.9 L Red Cell Distribution Width 18.6 H Platelet Count 60 L Mean Platelet Volume 13.5 H Neutrophils % 60.8 Lymphocytes % 15.5 Monocytes % 11.0 Eosinophils % 12.1 H Basophils % 0.4 Nucleated Red Blood Cells % 0.0 Neutrophils # 2.8 Lymphocytes # 0.7 L Monocytes # 0.5 Eosinophils # 0.6 H Basophils # 0.0 Nucleated Red Blood Cells # 0.0 Sodium Level 141 Potassium Level 5.1 Chloride Level 101 Carbon Dioxide Level 28 Anion Gap 17 H Blood Urea Nitrogen 66 H Creatinine 8.59 H Glucose Level 300 #H Calcium Level 10.6 H Test 06/11/17 08:39 06/11/17 11:26 Bedside Glucose 207 131 Medications Medications Current Medications Atorvastatin Calcium (Lipitor) 80 mg HS PO Last administered on 06/10/17 20: 52; Admin Dose 80 MG; Start 06/07/17 at 21:00 Aspirin (Halfprin) 81 mg DAILY PO Last administered on 06/11/17 08:27; Admin Dose 81 MG; Start 06/07/17 at 09:00 Carvedilol (Coreg) 25 mg BID PO Last administered on 06/11/17 08:26; Admin Dose 25 MG; Start 06/07/17 at 09:00 Lisinopril (Zestril) 40 mg DAILY PO Last administered on 06/08/17 09:29; Admin Dose 40 MG; Start 06/07/17 at 09:00 Nifedipine (Procardia Xl) 60 mg DAILY PO Last administered on 06/11/17 08:26 ; Admin Dose 60 MG; Start 06/07/17 at 09:00 Pantoprazole (Protonix Tab) 40 mg DAILY@06 PO Last administered on 06/08/17 05:47; Admin Dose 40 MG; Start 06/07/17 at 06:00 Diagnostic Test (Pha) (Accu-Chek) 1 ea 02 XX Last administered on 06/08/17 02 :01; Admin Dose 1 EA; Start 06/07/17 at 02:00 Miscellaneous Information 1 ea NOTE XX ; Start 06/06/17 at 22:30 Glucose (Glutose) 15 gm Q15M PRN PO DECREASED GLUCOSE; Start 06/06/17 at 22:30 Glucose (Glutose) 22.5 gm Q15M PRN PO DECREASED GLUCOSE; Start 06/06/17 at 22: 30 Dextrose (D50w Syringe) 25 ml Q15M PRN IV DECREASED GLUCOSE Last administered on 06/10/17 07:42; Admin Dose 25 ML; Start 06/06/17 at 22:30 Dextrose (D50w Syringe) 50 ml Q15M PRN IV DECREASED GLUCOSE; Start 06/06/17 at 22:30 Glucagon (Glucagen) 1 mg Q15M PRN IM DECREASED GLUCOSE; Start 06/06/17 at 22: 30 Glucose (Glutose) 15 gm Q15M PRN BUCCAL DECREASED GLUCOSE; Start 06/06/17 at 22:30 Hydroxyzine HCl (Atarax) 10 mg Q4 PRN PO ITCHING Last administered on 02:11; Admin Dose 10 MG; Start 06/07/17 at 03:36 Zolpidem Tartrate (Ambien) 5 mg HS PRN PO INSOMNIA; Start 06/07/17 at 03:36 Clonidine (Catapres) 0.1 mg Q4H PRN PO elevated BP Last administered on 06:41; Admin Dose 0.1 MG; Start 06/07/17 at 04:00 Levetiracetam (Keppra) 500 mg DAILY PO Last administered on 06/11/17 08:26; Admin Dose 500 MG; Start 06/08/17 at 09:00 Docusate Sodium (Colace) 100 mg BID PO Last administered on 06/11/17 08:26; Admin Dose 100 MG; Start 06/08/17 at 09:00 Bisacodyl (Dulcolax) 10 mg DAILY PRN PO CONSTIPATION; Start 06/08/17 at 09:00 Bisacodyl (Dulcolax Supp) 10 mg DAILY PRN OR CONSTIPATION; Start 06/08/17 at 09:00 Insulin Glargine (Lantus) 15 unit HS SC Last administered on 06/09/17 21:00; Admin Dose 15 UNIT; Start 06/08/17 at 21:00 Al Hydrox/Mg Hydrox/Simethicone (Mag-Al Plus) 30 ml Q4H PRN PO GASTROINTESTINAL UPSET; Start 06/09/17 at 08:30 Ondansetron HCl 4 mg 4 mg Q4H PRN IV NAUSEA AND/OR VOMITING; Start 06/09/17 at 08:30 Dextrose/Sodium Chloride (D5-1/2ns) 1,000 ml @ 50 mls/hr Q20H IV Last administered on 06/11/17 05:29; Admin Dose 50 MLS/HR; Start 06/10/17 at 09:30 Procedures Procedures nuclear scan reviewed PROCEDURE: Thallium myocardial viability study CLINICAL INDICATION: 66-year-old patient with coronary artery disease, cardiomyopathy, complaining of chest pain. TECHNIQUE: Following the intravenous injection of 4.1 mCi of thallium 201, resting myocardial perfusion images were obtained immediately and 4 hours post injection. COMPARISON: No prior studies. FINDINGS: Resting myocardial perfusion images obtained immediately post injection demonstrate a moderate size moderate to severe in degree perfusion defect in the inferior and inferolateral puentes. There is no evidence of redistribution of activity between the immediate and delayed 4 hours post injection images. IMPRESSION: Thallium myocardial viability study demonstrating a moderate size perfusion defect involving the inferior and inferolateral puentes, with no scintigraphic evidence to suggest the presence of viable myocardium. JAMEY GUY. Jun 11, 2017 13:27
--- NOTE | 2017-06-11 13:53 | PN ---
Date/Time of Note Date/Time of Note DATE: 06/11/17 TIME: 13:50 Assessment/Plan VTE Prophylaxis VTE Prophylaxis Intervention: other (aspirin) Lines/Catheters IV [facility] Type [facility]from [facility] Urinary Cath still in place: No Assessment/Plan Assessment/Plan Serotonin release assay is pending (Re: heparin associated antiplatelet antibodies?). Clinically he appear stable. No bleeding or bruising issues now. Continue current plans. Subjective 24 Hr Interval Summary Free Text/Dictation Pt denies chest pain or dyspnea Exam/Review of Systems Vital Signs Vitals Vital Signs Date Time Temp Pulse Resp B/P Pulse Ox O2 Delivery O2 Flow Rate FiO2 06/11/17 12:21 62 06/11/17 11:45 98.5 20 151/73 97 06/09/17 09:47 Nasal Cannula 2.0 Intake and Output 06/10/17 06/10/17 06/11/17 14:59 22:59 06:59 Intake Total 300 ml 520 ml Balance 300 ml 520 ml Exam Constitutional: alert, oriented Head: normocephalic Eyes: nl conjunctiva ENMT: nl external ears & nose Neck: supple Respiratory: clear to auscultation Cardiovascular: regular rate and rhythm Gastrointestinal: non-tender, soft Results Result Diagram: 06/11/17 0540 06/11/17 0540 Results 24 hrs Laboratory Tests Test 06/10/17 17:33 06/10/17 20:59 06/11/17 05:40 06/11/17 06:30 Bedside Glucose 180 280 H 291 H White Blood Count 4.5 L Red Blood Count 3.64 L Hemoglobin 11.1 L Hematocrit 34.8 L Mean Corpuscular Volume 95.6 Mean Corpuscular Hemoglobin 30.5 Mean Corpuscular Hemoglobin Concent 31.9 L Red Cell Distribution Width 18.6 H Platelet Count 60 L Mean Platelet Volume 13.5 H Neutrophils % 60.8 Lymphocytes % 15.5 Monocytes % 11.0 Eosinophils % 12.1 H Basophils % 0.4 Nucleated Red Blood Cells % 0.0 Neutrophils # 2.8 Lymphocytes # 0.7 L Monocytes # 0.5 Eosinophils # 0.6 H Basophils # 0.0 Nucleated Red Blood Cells # 0.0 Sodium Level 141 Potassium Level 5.1 Chloride Level 101 Carbon Dioxide Level 28 Anion Gap 17 H Blood Urea Nitrogen 66 H Creatinine 8.59 H Glucose Level 300 #H Calcium Level 10.6 H Test 06/11/17 08:39 06/11/17 11:26 Bedside Glucose 207 131 Medications Medications Current Medications Atorvastatin Calcium (Lipitor) 80 mg HS PO Last administered on 06/10/17 20: 52; Admin Dose 80 MG; Start 06/07/17 at 21:00 Aspirin (Halfprin) 81 mg DAILY PO Last administered on 06/11/17 08:27; Admin Dose 81 MG; Start 06/07/17 at 09:00 Carvedilol (Coreg) 25 mg BID PO Last administered on 06/11/17 08:26; Admin Dose 25 MG; Start 06/07/17 at 09:00 Lisinopril (Zestril) 40 mg DAILY PO Last administered on 06/08/17 09:29; Admin Dose 40 MG; Start 06/07/17 at 09:00 Nifedipine (Procardia Xl) 60 mg DAILY PO Last administered on 06/11/17 08:26 ; Admin Dose 60 MG; Start 06/07/17 at 09:00 Pantoprazole (Protonix Tab) 40 mg DAILY@06 PO Last administered on 06/08/17 05:47; Admin Dose 40 MG; Start 06/07/17 at 06:00 Diagnostic Test (Pha) (Accu-Chek) 1 ea 02 XX Last administered on 06/08/17 02 :01; Admin Dose 1 EA; Start 06/07/17 at 02:00 Miscellaneous Information 1 ea NOTE XX ; Start 06/06/17 at 22:30 Glucose (Glutose) 15 gm Q15M PRN PO DECREASED GLUCOSE; Start 06/06/17 at 22:30 Glucose (Glutose) 22.5 gm Q15M PRN PO DECREASED GLUCOSE; Start 06/06/17 at 22: 30 Dextrose (D50w Syringe) 25 ml Q15M PRN IV DECREASED GLUCOSE Last administered on 06/10/17 07:42; Admin Dose 25 ML; Start 06/06/17 at 22:30 Dextrose (D50w Syringe) 50 ml Q15M PRN IV DECREASED GLUCOSE; Start 06/06/17 at 22:30 Glucagon (Glucagen) 1 mg Q15M PRN IM DECREASED GLUCOSE; Start 06/06/17 at 22: 30 Glucose (Glutose) 15 gm Q15M PRN BUCCAL DECREASED GLUCOSE; Start 06/06/17 at 22:30 Hydroxyzine HCl (Atarax) 10 mg Q4 PRN PO ITCHING Last administered on 02:11; Admin Dose 10 MG; Start 06/07/17 at 03:36 Zolpidem Tartrate (Ambien) 5 mg HS PRN PO INSOMNIA; Start 06/07/17 at 03:36 Clonidine (Catapres) 0.1 mg Q4H PRN PO elevated BP Last administered on 06:41; Admin Dose 0.1 MG; Start 06/07/17 at 04:00 Levetiracetam (Keppra) 500 mg DAILY PO Last administered on 06/11/17 08:26; Admin Dose 500 MG; Start 06/08/17 at 09:00 Docusate Sodium (Colace) 100 mg BID PO Last administered on 06/11/17 08:26; Admin Dose 100 MG; Start 06/08/17 at 09:00 Bisacodyl (Dulcolax) 10 mg DAILY PRN PO CONSTIPATION; Start 06/08/17 at 09:00 Bisacodyl (Dulcolax Supp) 10 mg DAILY PRN [place] CONSTIPATION; Start 06/08/17 at 09:00 Insulin Glargine (Lantus) 15 unit HS SC Last administered on 06/09/17 21:00; Admin Dose 15 UNIT; Start 06/08/17 at 21:00 Al Hydrox/Mg Hydrox/Simethicone (Mag-Al Plus) 30 ml Q4H PRN PO GASTROINTESTINAL UPSET; Start 06/09/17 at 08:30 Ondansetron HCl 4 mg 4 mg Q4H PRN IV NAUSEA AND/OR VOMITING; Start 06/09/17 at 08:30 Dextrose/Sodium Chloride (D5-1/2ns) 1,000 ml @ 50 mls/hr Q20H IV Last administered on 06/11/17 05:29; Admin Dose 50 MLS/HR; Start 06/10/17 at 09:30 DAVID CONCEPCION MD Jun 11, 2017 13:53
[2017-06-11 14:13] LABS: HEPARIN INDUCED PLATELET AB WEAK POSITIVE (NEGATIVE)
--- NOTE | 2017-06-11 15:41 | RADRPT ---
PROCEDURE: US bilateral lower extremity arteries. CLINICAL INDICATION: Bilateral leg pain. Claudication that interferes significantly with the lor ent's lifestyle. TECHNIQUE: Multiple longitudinal and transverse images of the bilateral lower extremity arteries w ere obtained with price scale, pulsed Doppler, and color Doppler imaging. COMPARISON: No prior studies are available for comparison. FINDINGS: Right BASEBALL SEWER HAND:98 cm/sec PSFA:35 cm/sec MSFA:16 cm/sec DSFA:Occluded POP:47 cm/sec MARKET PRESIDENT:Minimal flow or occlusion. DPA:6 cm/sec Left BASEBALL SEWER HAND:78 cm/sec PSFA:32 cm/sec MSFA:27 cm/sec DSFA:Occluded POP:47 cm/sec MARKET PRESIDENT:Minimal flow or occlusion. DPA:39 cm/sec The right ankle-brachial index is 0.69 and the left ankle-brachial index is 0.84. On the right side, the distal superficial femoral artery is completely occluded with monophasic flow distal to the occlusion. The right posterior tibial artery is also probably occluded. On the left side, the distal superficial femoral artery is completely occluded with monophasic flow distal to the occlusion. The left posterior tibial artery may also be occluded. IMPRESSION: 1. Bilateral superficial femoral artery occlusion. 2. Minimal flow or occlusion bilaterally in the posterior tibial arteries. 3. Diminished ankle-brachial indices as indicated above. RPTAT: QQ .Ronnie Javier MD, Date Time Electronically viewed and signed by .Ronnie Javier MD, on 06/11/2017 15:40 .R/
[2017-06-11 20:03] LABS: PLATELET ANTIBODY - IGA POSITIVE (NEGATIVE); PLATELET ANTIBODY - IGG NEGATIVE (NEGATIVE); PLATELET ANTIBODY - IGM NEGATIVE (NEGATIVE)
[2017-06-11 20:03] LABS: PLATELET ANTIBODY - IGA POSITIVE (NEGATIVE); PLATELET ANTIBODY - IGG NEGATIVE (NEGATIVE); PLATELET ANTIBODY - IGM NEGATIVE (NEGATIVE)
[2017-06-11] MEDS: ATORVASTATIN 80 MG TAB PO SCH (21:18)
[2017-06-11] MEDS: INSULIN GLARGINE [LANtus] 3 ML PEN SC SCH (21:30)
[2017-06-12] VITALS (10 sets, daily range): BP systolic 120–159; BP diastolic 57–74; PULSE 57–71; RESP 16–18
[2017-06-12] MEDS: ACCU-CHEK XX SCH (01:51)
--- NOTE | 2017-06-12 06:00 | PN ---
DATE: 06/11/2017 SUBJECTIVE: The patient denies any chest pain or shortness of breath. PHYSICAL EXAMINATION: GENERAL: Patient awake, alert. VITAL SIGNS: Temperature 98.5, blood pressure 115/73, heart rate 60 per minute, regular, pulse ox 9 7% on room air. HEENT: Head normocephalic. Mild pallor without cyanosis. Tongue is moist. NECK: Supple. JVD is not increased. CHEST: Clinically clear, no wheezing or rhonchi. HEART: S1, S2 with no definite gallops. ABDOMEN: Soft, nontender, no hepatosplenomegaly. EXTREMITIES: 1+ edema. Homans negative. LABORATORY DATA: WBC count 4.5, hematocrit 34.8, platelet count 60,000. Sodium 141, potassium 5.1, BUN 66, creatinine 8.59, glucose 300, morning. IgG 1541, IgA 490, IgM 109. Heparin induced platel et antibodies, YAYA weakly positive. Dr. Alcocer's recommendations noted regarding antiplatelet agents as patient may have heparin-induce d thrombocytopenia. Serotonin release assay is pending to see if he does have heparin-induced throm bocytopenia. Abdominal ultrasound shows nonspecific thickening of the gallbladder wall. SPECT scan shows a moderate-sized perfusion defect involving the inferior and inferolateral puentes with no scin tigraphic evidence to suggest viable myocardium. IMPRESSION: 1. Coronary artery disease with ischemic cardiomyopathy. The patient a likely candidate for ponce ry artery bypass surgery. We will defer further management per Dr. Srivastava. Continue medical manag ement. 2. Hypertension. 3. Endstage renal disease on hemodialysis. 4. Diabetes mellitus type 1, labile. 5. Status post syncope, query seizures. 6. Thrombocytopenia, likely induced by heparin. PLAN: Continue nephrology recommendations per Dr. Hinton. We will discuss with Dr. Atif galindo further cardiac care. Dictated By: GERA NAVARRO MD SR/NTS Conf#: [id number] DID#: [id number]
[2017-06-12] MEDS: PANTOPRAZOLE (EC) 40 MG TAB PO SCH (06:04)
[2017-06-12 06:16] LABS: ABNORMAL IP MESSAGE 1; BASOPHILS % 0.7 % (0.0-2.0); EOSINOPHILS # 0.6 10^3/ul (0.0-0.5); EOSINOPHILS % 13.4 % (0.0-7.0); HEMATOCRIT 36.1 % (42.0-52.0); HEMOGLOBIN 11.6 g/dl (14.0-18.0); LYMPHOCYTES # 0.5 10^3/ul (0.8-2.9); LYMPHOCYTES % 11.4 % (15.0-51.0); MEAN CORPUSCULAR HEMOGLOBIN 30.5 pg (29.0-33.0); MEAN CORPUSCULAR HGB CONC 32.1 g/dl (32.0-37.0); MEAN PLATELET VOLUME 11.8 fl (7.4-10.4); MONOCYTE # 0.5 10^3/ul (0.3-0.9); MONOCYTES % 10.5 % (0.0-11.0); NEUTROPHIL # 2.9 10^3/ul (1.6-7.5); NEUTROPHILS % 63.8 % (39.0-77.0); PLATELET COUNT 52 10^3/UL (140-415); POSITIVE DIFF @See below; RED CELL DISTRIBUTION WIDTH 18.4 % (11.5-14.5); WHITE BLOOD COUNT 4.5 10^3/ul (4.8-10.8)
[2017-06-12 06:52] LABS: CALCIUM 10.8 mg/dl (8.4-10.2); CREATININE 7.22 mg/dl (0.61-1.24); POTASSIUM 4.4 mmol/L (3.5-5.1)
--- NOTE | 2017-06-12 07:46 | CONS ---
Date/Time of Note Date/Time of Note DATE: 06/12/17 TIME: 07:45 Assessment/Plan Assessment/Plan Chief Complaint/Hosp Course - NSTEMI- low level trop leak, flat. Severe cardiomyopathy global, has distal LM eccentric involving ostial LCx, LAD/RCA are without significant disease. family discussion held, they are aware of areas of non-viable and viable portions of LCx distribution. pt with elevated STS risk score 4.6% for mortality and 29% M+M this does not take into account low plt levels and bleeding risk, pt/family decline further evaluation of surgical intervention. - Chronic systolic heart failure fluid mgmt per renal with iHD - NICM- unclear etiology. no obstructive cad on [facility]. will need to consider icd placement given low lvef and syncope, however await discussion of revascularization options. in addition pt declined in past. - HTN- controlled - Syncope/seizures-neurology consulting - ESRD- on iHD, per nephrology - Thrombocytopenia- d/w Dr. Alcocer, peripheral destruction. 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 heparin ab weak positive, [place] pending Recommendations: - cont statin/asa - cont carvedilol 25mg po bid - cont lisinopril - cont nifedipine - cont clonidine for bp control - fluid mgmt with iHD - d/w patient who would like to pursue PCI, will confirm with family and arrange transfer for high risk PCI with Impella support (this is not available at [facility]). Problems: Consultation Date/Type/Reason Admit Date/Time Jun 06, 2017 at 19:25 Initial Consult Date 06/08/17 Type of Consultation: cardiology Referring Provider: GERA NAVARRO MD Exam/Review of Systems Vital Signs Vitals Vital Signs Date Time Temp Pulse Resp B/P Pulse Ox O2 Delivery O2 Flow Rate FiO2 06/12/17 04:00 57 06/12/17 03:16 98.4 16 148/65 95 06/09/17 09:47 Nasal Cannula 2.0 Intake and Output 06/11/17 06/11/17 06/12/17 15:00 23:00 07:00 Intake Total 850 ml 360 ml Output Total 3500 ml 0 ml Balance -2650 ml 360 ml Results Result Diagram: 06/12/17 0551 06/12/17 0551 Results 24 hrs Laboratory Tests Test 06/11/17 08:39 06/11/17 11:26 06/11/17 17:04 06/11/17 18:11 Bedside Glucose 207 131 206 165 Test 06/11/17 21:23 06/12/17 01:49 06/12/17 05:51 Bedside Glucose 278 H 164 White Blood Count 4.5 L Red Blood Count 3.80 L Hemoglobin 11.6 L Hematocrit 36.1 L Mean Corpuscular Volume 95.0 Mean Corpuscular Hemoglobin 30.5 Mean Corpuscular Hemoglobin Concent 32.1 Red Cell Distribution Width 18.4 H Platelet Count 52 L Mean Platelet Volume 11.8 H Neutrophils % 63.8 Lymphocytes % 11.4 L Monocytes % 10.5 Eosinophils % 13.4 H Basophils % 0.7 Nucleated Red Blood Cells % 0.0 Neutrophils # 2.9 Lymphocytes # 0.5 L Monocytes # 0.5 Eosinophils # 0.6 H Basophils # 0.0 Nucleated Red Blood Cells # 0.0 Sodium Level 143 Potassium Level 4.4 Chloride Level 100 Carbon Dioxide Level 27 Anion Gap 20 H Blood Urea Nitrogen 47 #H Creatinine 7.22 H Glucose Level 158 # Calcium Level 10.8 H Medications Medications Current Medications Atorvastatin Calcium (Lipitor) 80 mg HS PO Last administered on 06/11/17 21: 18; Admin Dose 80 MG; Start 06/07/17 at 21:00 Aspirin (Halfprin) 81 mg DAILY PO Last administered on 06/11/17 08:27; Admin Dose 81 MG; Start 06/07/17 at 09:00 Carvedilol (Coreg) 25 mg BID PO Last administered on 06/11/17 21:19; Admin Dose 25 MG; Start 06/07/17 at 09:00 Lisinopril (Zestril) 40 mg DAILY PO Last administered on 06/08/17 09:29; Admin Dose 40 MG; Start 06/07/17 at 09:00 Nifedipine (Procardia Xl) 60 mg DAILY PO Last administered on 06/11/17 08:26 ; Admin Dose 60 MG; Start 06/07/17 at 09:00 Pantoprazole (Protonix Tab) 40 mg DAILY@06 PO Last administered on 06/12/17 06:04; Admin Dose 40 MG; Start 06/07/17 at 06:00 Diagnostic Test (Pha) (Accu-Chek) 1 ea 02 XX Last administered on 06/12/17 01 :51; Admin Dose 1 EA; Start 06/07/17 at 02:00 Miscellaneous Information 1 ea NOTE XX ; Start 06/06/17 at 22:30 Glucose (Glutose) 15 gm Q15M PRN PO DECREASED GLUCOSE; Start 06/06/17 at 22:30 Glucose (Glutose) 22.5 gm Q15M PRN PO DECREASED GLUCOSE; Start 06/06/17 at 22: 30 Dextrose (D50w Syringe) 25 ml Q15M PRN IV DECREASED GLUCOSE Last administered on 06/10/17 07:42; Admin Dose 25 ML; Start 06/06/17 at 22:30 Dextrose (D50w Syringe) 50 ml Q15M PRN IV DECREASED GLUCOSE; Start 06/06/17 at 22:30 Glucagon (Glucagen) 1 mg Q15M PRN IM DECREASED GLUCOSE; Start 06/06/17 at 22: 30 Glucose (Glutose) 15 gm Q15M PRN BUCCAL DECREASED GLUCOSE; Start 06/06/17 at 22:30 Hydroxyzine HCl (Atarax) 10 mg Q4 PRN PO ITCHING Last administered on 02:11; Admin Dose 10 MG; Start 06/07/17 at 03:36 Zolpidem Tartrate (Ambien) 5 mg HS PRN PO INSOMNIA; Start 06/07/17 at 03:36 Clonidine (Catapres) 0.1 mg Q4H PRN PO elevated BP Last administered on 06:41; Admin Dose 0.1 MG; Start 06/07/17 at 04:00 Levetiracetam (Keppra) 500 mg DAILY PO Last administered on 06/11/17 08:26; Admin Dose 500 MG; Start 06/08/17 at 09:00 Docusate Sodium (Colace) 100 mg BID PO Last administered on 06/11/17 21:19; Admin Dose 100 MG; Start 06/08/17 at 09:00 Bisacodyl (Dulcolax) 10 mg DAILY PRN PO CONSTIPATION; Start 06/08/17 at 09:00 Bisacodyl (Dulcolax Supp) 10 mg DAILY PRN [place] CONSTIPATION; Start 06/08/17 at 09:00 Insulin Glargine (Lantus) 15 unit HS SC Last administered on 11/16/17at 21:30; Admin Dose 15 UNIT; Start 06/08/17 at 21:00 Al Hydrox/Mg Hydrox/Simethicone (Mag-Al Plus) 30 ml Q4H PRN PO GASTROINTESTINAL UPSET; Start 06/09/17 at 08:30 Ondansetron HCl (Zofran Inj) 4 mg Q4H PRN IV NAUSEA AND/OR VOMITING; Start at 08:30 JAMEY GUY Jun 12, 2017 07:46
[2017-06-12] MEDS: INSULIN ASPART [NOVOLOG] 3 ML PEN SC SCH ×6 (07:55→18:16)
[2017-06-12] MEDS: DOCUSATE SODIUM 100 MG CAP PO SCH (08:15)
[2017-06-12] MEDS: LEVETIRACETAM 500 MG TAB PO SCH (08:15)
[2017-06-12] MEDS: ASPIRIN (EC) 81 MG TAB PO SCH (08:16)
[2017-06-12] MEDS: NIFEdipine (XL) 60 MG TAB PO SCH (08:17)
[2017-06-12] MEDS: LISINOPRIL 20 MG TAB PO SCH (08:24)
--- NOTE | 2017-06-12 09:45 | CONS ---
Date/Time of Note Date/Time of Note DATE: 06/12/17 TIME: 09:39 Assessment/Plan Assessment/Plan Chief Complaint/Hosp Course 1. End-stage renal disease on maintenance hemodialysis Thursday. He has hemodialysis ordered for tomorrow. Patient says that he is going to be transferred to [facility] next week for a advanced PCI. 2. Recent onset of seizure disorder, Cinacalcet was discontinued as one of the potential side effects of this drug is seizures . The patient has not had any seizures since his admission. 3. Hypertension 4. Diabetes mellitus 5. Cardiomyopathy 6. Anemia of chronic kidney disease. 7. Coronary artery disease. The patient underwent a coronary angiogram and was found to have severe and diffuse coronary artery disease. The disease has progressed since his last coronary angiogram 2014. The patient has agreed to an advanced type of PCI which will need to be done at another hospital. Patient will be transferred next week. He will have a hemodialysis treatment here tomorrow. Problems: Consultation Date/Type/Reason Admit Date/Time Jun 06, 2017 at 19:25 Type of Consultation: nephrology Referring Provider: GERA NAVARRO MD 24 HR Interval Summary Free Text/Dictation Patient is awake and alert. He denies chest pain or shortness of breath. Constitutional: no complaints Exam/Review of Systems Vital Signs Vitals Vital Signs Date Time Temp Pulse Resp B/P Pulse Ox O2 Delivery O2 Flow Rate FiO2 06/12/17 08:00 57 06/12/17 07:57 98.0 18 149/69 98 06/09/17 09:47 Nasal Cannula 2.0 Intake and Output 06/11/17 06/11/17 06/12/17 15:00 23:00 07:00 Intake Total 850 ml 360 ml Output Total 3500 ml 0 ml Balance -2650 ml 360 ml Exam Constitutional: alert, oriented, well developed Respiratory: clear to auscultation, normal air movement Cardiovascular: edema, regular rate and rhythm Gastrointestinal: soft Extremities: edema Results Result Diagram: 06/12/17 0551 06/12/17 0551 Results 24 hrs Laboratory Tests Test 06/11/17 11:26 06/11/17 17:04 06/11/17 18:11 06/11/17 21:23 Bedside Glucose 131 206 165 278 H Test 06/12/17 01:49 06/12/17 05:51 06/12/17 08:13 Bedside Glucose 164 140 White Blood Count 4.5 L Red Blood Count 3.80 L Hemoglobin 11.6 L Hematocrit 36.1 L Mean Corpuscular Volume 95.0 Mean Corpuscular Hemoglobin 30.5 Mean Corpuscular Hemoglobin Concent 32.1 Red Cell Distribution Width 18.4 H Platelet Count 52 L Mean Platelet Volume 11.8 H Neutrophils % 63.8 Lymphocytes % 11.4 L Monocytes % 10.5 Eosinophils % 13.4 H Basophils % 0.7 Nucleated Red Blood Cells % 0.0 Neutrophils # 2.9 Lymphocytes # 0.5 L Monocytes # 0.5 Eosinophils # 0.6 H Basophils # 0.0 Nucleated Red Blood Cells # 0.0 Sodium Level 143 Potassium Level 4.4 Chloride Level 100 Carbon Dioxide Level 27 Anion Gap 20 H Blood Urea Nitrogen 47 #H Creatinine 7.22 H Glucose Level 158 # Calcium Level 10.8 H Medications Medications Current Medications Atorvastatin Calcium (Lipitor) 80 mg HS PO Last administered on 06/11/17 21: 18; Admin Dose 80 MG; Start 06/07/17 at 21:00 Aspirin (Halfprin) 81 mg DAILY PO Last administered on 06/12/17 08:16; Admin Dose 81 MG; Start 06/07/17 at 09:00 Carvedilol (Coreg) 25 mg BID PO Last administered on 06/11/17 21:19; Admin Dose 25 MG; Start 06/07/17 at 09:00 Lisinopril (Zestril) 40 mg DAILY PO Last administered on 06/08/17 09:29; Admin Dose 40 MG; Start 06/07/17 at 09:00 Nifedipine (Procardia Xl) 60 mg DAILY PO Last administered on 06/12/17 08:17 ; Admin Dose 60 MG; Start 06/07/17 at 09:00 Pantoprazole (Protonix Tab) 40 mg DAILY@06 PO Last administered on 06/12/17 06:04; Admin Dose 40 MG; Start 06/07/17 at 06:00 Diagnostic Test (Pha) (Accu-Chek) 1 ea 02 XX Last administered on 06/12/17 01 :51; Admin Dose 1 EA; Start 06/07/17 at 02:00 Miscellaneous Information 1 ea NOTE XX ; Start 06/06/17 at 22:30 Glucose (Glutose) 15 gm Q15M PRN PO DECREASED GLUCOSE; Start 06/06/17 at 22:30 Glucose (Glutose) 22.5 gm Q15M PRN PO DECREASED GLUCOSE; Start 06/06/17 at 22: 30 Dextrose (D50w Syringe) 25 ml Q15M PRN IV DECREASED GLUCOSE Last administered on 06/10/17 07:42; Admin Dose 25 ML; Start 06/06/17 at 22:30 Dextrose (D50w Syringe) 50 ml Q15M PRN IV DECREASED GLUCOSE; Start 06/06/17 at 22:30 Glucagon (Glucagen) 1 mg Q15M PRN IM DECREASED GLUCOSE; Start 06/06/17 at 22: 30 Glucose (Glutose) 15 gm Q15M PRN BUCCAL DECREASED GLUCOSE; Start 06/06/17 at 22:30 Hydroxyzine HCl (Atarax) 10 mg Q4 PRN PO ITCHING Last administered on 02:11; Admin Dose 10 MG; Start 06/07/17 at 03:36 Zolpidem Tartrate (Ambien) 5 mg HS PRN PO INSOMNIA; Start 06/07/17 at 03:36 Clonidine (Catapres) 0.1 mg Q4H PRN PO elevated BP Last administered on 06:41; Admin Dose 0.1 MG; Start 06/07/17 at 04:00 Levetiracetam (Keppra) 500 mg DAILY PO Last administered on 06/12/17 08:15; Admin Dose 500 MG; Start 06/08/17 at 09:00 Docusate Sodium (Colace) 100 mg BID PO Last administered on 06/12/17 08:15; Admin Dose 100 MG; Start 06/08/17 at 09:00 Bisacodyl (Dulcolax) 10 mg DAILY PRN PO CONSTIPATION; Start 06/08/17 at 09:00 Bisacodyl (Dulcolax Supp) 10 mg DAILY PRN HI CONSTIPATION; Start 06/08/17 at 09:00 Insulin Glargine (Lantus) 15 unit HS SC Last administered on 06/11/17 21:30; Admin Dose 15 UNIT; Start 06/08/17 at 21:00 Al Hydrox/Mg Hydrox/Simethicone (Mag-Al Plus) 30 ml Q4H PRN PO GASTROINTESTINAL UPSET; Start 06/09/17 at 08:30 Ondansetron HCl (Zofran Inj) 4 mg Q4H PRN IV NAUSEA AND/OR VOMITING; Start at 08:30 PAULY VILA MD Jun 12, 2017 09:45
[2017-06-12] MEDS: DEXTROSE 50% 50 ML SYRINGE IV PRN (11:54)
--- NOTE | 2017-06-12 14:57 | PN ---
DATE: 06/12/2017 SUBJECTIVE: The patient became hypoglycemic this morning. Blood sugar dropped to 46. Denies any c hest pain or shortness of breath. Patient had been recommended revascularization options and placem ent of ICD per Dr. Huntley. Has been recommended to transfer to [facility] for further tr eatment. PHYSICAL EXAMINATION: On physical exam, patient is awake, alert. VITAL SIGNS: Temperature 98.1, blood pressure 115/74, O2 saturation 96% on room air. HEENT: JVD is not increased. CHEST: Clinically clear. HEART: S1, S2 heard with no definite gallops. ABDOMEN: Soft, nontender, no hepatosplenomegaly. EXTREMITIES: Trace edema. Homans negative. LABORATORY DATA: WBC count 4.5, hematocrit 36.1, platelet count 52,000. Blood glucose 46 at 11:48. Presently stabilized at 118. Doppler lower extremity arterial bilateral superficial femoral arter y occlusion. Minimal occlusion bilaterally of the posterior tibial arteries, diminished ankle brach ial indices. IMPRESSION: 1. End-stage renal failure, on hemodialysis. 2. Obstructive coronary artery disease with ischemic cardiomyopathy for placement of an advanced PC I at [facility]. 3. Seizure disorder. 4. Hypertension. 5. Diabetes mellitus type 1, poorly controlled. PLAN: We will request endocrine followup with Dr. Cheung. Follow with further recommendations per Laura Hinton, and cardiac recommendations per Dr. Srivastava. Dictated By: GERA NAVARRO MD SR/NTS Conf#: [id number] DID#: [id number]
--- NOTE | 2017-06-12 15:09 | CONS ---
Date/Time of Note Date/Time of Note DATE: 06/12/17 TIME: 15:05 Assessment/Plan Assessment/Plan Problems: (1) Diabetes mellitus type 1 with complications Status: Chronic Comment: He is generally done relatively well with this always had some hypoglycemia here. I have advised the staff and the patient follow the orders. The pre-meal insulin is not exactly pre-meal and can actually be given during the meal or at the end of the meal. The dosage would be adjusted based on the amount of food he had taken in which is already in the details on the order. (2) End stage renal disease on dialysis Status: Acute Comment: As per Dr. Hinton. Continue hemodialysis he may not tolerate the treatment with Sensipar and we may need to use other modes of therapeutics here (3) Tertiary hyperparathyroidism Status: Chronic Comment: As above he is not tolerating the Sensipar possibly which might have caused the seizure activity. (4) Hypertension Status: Chronic Comment: Adequate control Qualifiers: Qualified Code: I10 - Essential hypertension (5) Non-STEMI (non-ST elevated myocardial infarction) Status: Acute Comment: Cardiac intervention as outlined by the our cardiology colleagues. Consultation Date/Type/Reason Admit Date/Time Jun 06, 2017 at 19:25 Date of Consultation: Jun 12, 2017 Type of Consultation: Endocrinology Reason for Consultation Diabetes mellitus type 1 with end-stage renal disease; peripheral vascular disease; possible cardiac vascular disease Referring Provider: GERA NAVARRO MD Hx of Present Illness [place] 66-year-old gentleman with a long history of diabetes mellitus type 1 complicated by end-stage renal disease on dialysis Thursday; retinopathy; peripheral vascular disease; and possible coronary disease; he was admitted after outpatient seizure activity. Please note he had recently been placed on cinacalcet also known as Sensipar. He did not appear to have significant hypocalcemia at the time of the seizure activity the best available information Constitutional: no complaints Eyes: no complaints ENT: no complaints Respiratory: no complaints Cardiovascular: edema, No chest pain Gastrointestinal: no complaints Endocrine: other (Hypoglycemic reactions as an inpatient) Past Medical History Medical History: coronary artery disease, diabetes, renal disease Past Surgical History Past Surgical Hx: noncontributory Family History Significant Family History: no pertinent family hx Social History Alcohol Use: none Smoking Status: Never smoker Drug Use: none Exam/Review of Systems Vital Signs Vitals Vital Signs Date Time Temp Pulse Resp B/P Pulse Ox O2 Delivery O2 Flow Rate FiO2 06/12/17 12:00 71 06/12/17 12:00 98.1 18 159/74 96 Room Air 06/09/17 09:47 2.0 Intake and Output 06/11/17 06/11/17 06/12/17 15:00 23:00 07:00 Intake Total 850 ml 360 ml Output Total 3500 ml 0 ml Balance -2650 ml 360 ml Exam Older gentleman lying in bed easily awakened Constitutional: alert, oriented Head: atraumatic, normocephalic Neck: non-tender, supple Respiratory: clear to auscultation, normal air movement Cardiovascular: nl pulses, regular rate and rhythm Results Result Diagram: 06/12/17 0551 06/12/17 0551 Results 24 hrs Laboratory Tests Test 06/11/17 17:04 06/11/17 18:11 06/11/17 21:23 06/12/17 01:49 Bedside Glucose 206 165 278 H 164 Test 06/12/17 05:51 06/12/17 08:13 06/12/17 11:48 06/12/17 12:00 White Blood Count 4.5 L Red Blood Count 3.80 L Hemoglobin 11.6 L Hematocrit 36.1 L Mean Corpuscular Volume 95.0 Mean Corpuscular Hemoglobin 30.5 Mean Corpuscular Hemoglobin Concent 32.1 Red Cell Distribution Width 18.4 H Platelet Count 52 L Mean Platelet Volume 11.8 H Neutrophils % 63.8 Lymphocytes % 11.4 L Monocytes % 10.5 Eosinophils % 13.4 H Basophils % 0.7 Nucleated Red Blood Cells % 0.0 Neutrophils # 2.9 Lymphocytes # 0.5 L Monocytes # 0.5 Eosinophils # 0.6 H Basophils # 0.0 Nucleated Red Blood Cells # 0.0 Sodium Level 143 Potassium Level 4.4 Chloride Level 100 Carbon Dioxide Level 27 Anion Gap 20 H Blood Urea Nitrogen 47 #H Creatinine 7.22 H Glucose Level 158 # Calcium Level 10.8 H Bedside Glucose 140 46 *L 136 Test 06/12/17 12:17 06/12/17 13:41 Bedside Glucose 137 118 Medications Medications Current Medications Atorvastatin Calcium (Lipitor) 80 mg HS PO Last administered on 06/11/17t 21: 18; Admin Dose 80 MG; Start 06/07/17 at 21:00 Aspirin (Halfprin) 81 mg DAILY PO Last administered on 06/12/17 08:16; Admin Dose 81 MG; Start 06/07/17 at 09:00 Carvedilol (Coreg) 25 mg BID PO Last administered on 06/11/17 21:19; Admin Dose 25 MG; Start 06/07/17 at 09:00 Lisinopril (Zestril) 40 mg DAILY PO Last administered on 06/08/17 09:29; Admin Dose 40 MG; Start 06/07/17 at 09:00 Nifedipine (Procardia Xl) 60 mg DAILY PO Last administered on 06/12/17 08:17 ; Admin Dose 60 MG; Start 06/07/17 at 09:00 Pantoprazole (Protonix Tab) 40 mg DAILY@06 PO Last administered on 06/12/17 06:04; Admin Dose 40 MG; Start 06/07/17 at 06:00 Diagnostic Test (Pha) (Accu-Chek) 1 ea 02 XX Last administered on 06/12/17 01 :51; Admin Dose 1 EA; Start 06/07/17 at 02:00 Miscellaneous Information 1 ea NOTE XX ; Start 06/06/17 at 22:30 Glucose (Glutose) 15 gm Q15M PRN PO DECREASED GLUCOSE; Start 06/06/17 at 22:30 Glucose (Glutose) 22.5 gm Q15M PRN PO DECREASED GLUCOSE; Start 06/06/17 at 22: 30 Dextrose (D50w Syringe) 25 ml Q15M PRN IV DECREASED GLUCOSE Last administered on 06/12/17 11:54; Admin Dose 25 ML; Start 06/06/17 at 22:30 Dextrose (D50w Syringe) 50 ml Q15M PRN IV DECREASED GLUCOSE; Start 06/06/17 at 22:30 Glucagon (Glucagen) 1 mg Q15M PRN IM DECREASED GLUCOSE; Start 06/06/17 at 22: 30 Glucose (Glutose) 15 gm Q15M PRN BUCCAL DECREASED GLUCOSE; Start 06/06/17 at 22:30 Hydroxyzine HCl (Atarax) 10 mg Q4 PRN PO ITCHING Last administered on 02:11; Admin Dose 10 MG; Start 06/07/17 at 03:36 Zolpidem Tartrate (Ambien) 5 mg HS PRN PO INSOMNIA; Start 06/07/17 at 03:36 Clonidine (Catapres) 0.1 mg Q4H PRN PO elevated BP Last administered on 06:41; Admin Dose 0.1 MG; Start 06/07/17 at 04:00 Levetiracetam (Keppra) 500 mg DAILY PO Last administered on 06/12/17 08:15; Admin Dose 500 MG; Start 06/08/17 at 09:00 Docusate Sodium (Colace) 100 mg BID PO Last administered on 06/12/17 08:15; Admin Dose 100 MG; Start 06/08/17 at 09:00 Bisacodyl (Dulcolax) 10 mg DAILY PRN PO CONSTIPATION; Start 06/08/17 at 09:00 Bisacodyl (Dulcolax Supp) 10 mg DAILY PRN OR CONSTIPATION; Start 06/08/17 at 09:00 Insulin Glargine (Lantus) 15 unit HS SC Last administered on 06/11/17 21:30; Admin Dose 15 UNIT; Start 06/08/17 at 21:00 Al Hydrox/Mg Hydrox/Simethicone (Mag-Al Plus) 30 ml Q4H PRN PO GASTROINTESTINAL UPSET; Start 06/09/17 at 08:30 Ondansetron HCl (Zofran Inj) 4 mg Q4H PRN IV NAUSEA AND/OR VOMITING; Start at 08:30 LAWANDA KING MD Jun 12, 2017 15:09
--- NOTE | 2017-06-12 15:12 | QN ---
Documentation Comment Pt is resting comfortably. Advance PCI procedure is planned for Thursday at [facility]. Dialysis to be done tomorrow. Note that serotonin release assay is still pending but antiplatelet antibody study was positive. This may be chronic ITP. The serotonin release assay will help us decide if this is a heparin associated antibody. DAVID CONCEPCION MD Jun 12, 2017 15:12
--- NOTE | 2017-06-12 16:36 | RADRPT ---
PROCEDURE: US Carotids. CLINICAL INDICATION: bruit , syncope TECHNIQUE: Multiple sonographic of the carotid bifurcation region and vertebral arteries were obta ined utilizing price scale, duplex and color-flow imaging. The images were reviewed on a PACS worksta tion. COMPARISON: No prior studies are available for comparison. FINDINGS: Evaluation of the right carotid bifurcation region reveals moderate calcific atherosclerotic disease . There is a 60% stenosis in the right carotid bulb region. Evaluation of the left carotid bifurcation region reveals moderate calcific atherosclerotic disease. There is a 44% stenosis in the left common carotid artery and bulb region. There is antegrade flow within the vertebral arteries bilaterally. RIGHT CAROTID MEASUREMENTS: Common Carotid Lfoljb31.3 (cm/sec) Internal Carotid Artery - ytkylwod63.9 (cm/sec) Internal Carotid Artery - mid37.4 (cm/sec) Internal Carotid Artery - .4 (cm/sec) Internal Carotid/Common Carotid0.6 LEFT CAROTID MEASUREMENTS: Common Carotid Jblucc44.6 (cm/sec) Internal Carotid Artery - jwrvuavu94.1 (cm/sec) Internal Carotid Artery - mid24.1 (cm/sec) Internal Carotid Artery - .5 (cm/sec) Internal Carotid/Common Carotid0.48 RPTAT: AA IMPRESSION: No evidence for hemodynamically significant stenosis in the bilateral internal carotid arteries - va lidated velocity measurements with angiographic measurements, velocity criteria are extrapolated fro m diameter data as defined by the Society of Radiologists in Ultrasound Consensus Conference Radiolo gy 2003; 229;340-346. This study does indirectly reference the measurement of the distal ICA diamet er as the denominator for stenosis measurement. Normal antegrade flow in the vertebral arteries bilaterally. Moderate calcific plaque bilaterally. 60% stenosis in the right carotid bulb region. Further evaluation with a CT angiogram is recommended. .Solis Quintero MD, MD Date Time Electronically viewed and signed by .Solis Quintero MD, MD on 06/12/2017 16:35 .S/
--- NOTE | 2017-06-13 04:56 | PN ---
DATE: 06/12/2017 ADDENDUM The patient also has evidence of peripheral arterial disease with bilateral superficial femoral peggy rial occlusion and occlusion of the posterior tibial arteries. We will also have a followup vascula r consultation. In addition, will also order carotid Doppler study to assess carotid stenosis. Dictated By: GERA NAVARRO MD SR/SEBASTIEN Conf#: [id number] DID#: [id number]
== END 2017-06-12 19:54 | disposition short-term general hospital (02) | DRG 280 ==
LOC: E/R 17:44 → TEL 19:25
PROVIDERS: ADMIT Internal Medicine; ATTEND Internal Medicine
PROC: 5A1D70Z Performance of Urinary Filtration, Intermittent, Less than 6 Hours Per Day (ICD-10-PCS; principal; 2017-06-06)
PROC: 4A023N7 Measurement of Cardiac Sampling and Pressure, Left Heart, Percutaneous Approach (ICD-10-PCS; 2017-06-09)
PROC: B211YZZ Fluoroscopy of Multiple Coronary Arteries using Other Contrast (ICD-10-PCS; 2017-06-09)
DX: I21.4 Non-ST elevation (NSTEMI) myocardial infarction (principal); N18.6 End stage renal disease; I13.2 Hypertensive heart and chronic kidney disease with heart failure and with stage 5 chronic kidney disease, or end stage renal disease; E10.21 Type 1 diabetes mellitus with diabetic nephropathy; D75.82 Heparin induced thrombocytopenia (HIT); I50.22 Chronic systolic (congestive) heart failure; E10.42 Type 1 diabetes mellitus with diabetic polyneuropathy; E10.22 Type 1 diabetes mellitus with diabetic chronic kidney disease; E10.65 Type 1 diabetes mellitus with hyperglycemia; G40.909 Epilepsy, unspecified, not intractable, without status epilepticus; E03.9 Hypothyroidism, unspecified; N40.0 Benign prostatic hyperplasia without lower urinary tract symptoms; I25.10 Atherosclerotic heart disease of native coronary artery without angina pectoris; K29.70 Gastritis, unspecified, without bleeding; E78.5 Hyperlipidemia, unspecified; E10.319 Type 1 diabetes mellitus with unspecified diabetic retinopathy without macular edema; D63.1 Anemia in chronic kidney disease; E21.2 Other hyperparathyroidism; T45.515A Adverse effect of anticoagulants, initial encounter; I25.5 Ischemic cardiomyopathy; Z99.2 Dependence on renal dialysis; Z79.4 Long term (current) use of insulin; Z79.02 Long term (current) use of antithrombotics/antiplatelets; Z79.82 Long term (current) use of aspirin; Y92.531 Health care provider office as the place of occurrence of the external cause
CPT/HCPCS: 36415; 70450; 70551; 71010; 76700; 78452; 80048; 80053; 82607; 82746; 82784; 82962; 83690; 83735; 84155; 84165; 84260; 84484; 85025; 85384; 85610; 85730; 86022; 86038; 86320; 87081; 90935; 93005; 93306; 93458; 93880; 93922; 95819; 96374; A9505; C1887; J1644; J1815; J1953; J2250; J3010; J7042; Q9967

== ENCOUNTER 2017-06-23 08:12 | Inpatient (IN) | payer MEDICARE, BC ==
[~2017-06-23] VITALS: Ht 167.6 cm; Wt 80.4 kg
[2017-06-23] VITALS (12 sets, daily range): BP systolic 124–167; BP diastolic 47–74; PULSE 62–69; RESP 20; Ht 167.6 cm; Wt 80.4 kg
[2017-06-23 09:17] LABS: BASOPHILS % 0.4 % (0.0-2.0); EOSINOPHILS # 0.5 10^3/ul (0.0-0.5); EOSINOPHILS % 6.6 % (0.0-7.0); HEMATOCRIT 32.5 % (42.0-52.0); HEMOGLOBIN 10.7 g/dl (14.0-18.0); LYMPHOCYTES # 0.6 10^3/ul (0.8-2.9); LYMPHOCYTES % 8.3 % (15.0-51.0); MEAN CORPUSCULAR HEMOGLOBIN 30.4 pg (29.0-33.0); MEAN CORPUSCULAR HGB CONC 32.9 g/dl (32.0-37.0); MEAN CORPUSCULAR VOLUME 92.3 fl (82.0-101.0); MEAN PLATELET VOLUME 10.7 fl (7.4-10.4); MONOCYTE # 0.7 10^3/ul (0.3-0.9); MONOCYTES % 8.6 % (0.0-11.0); NEUTROPHIL # 5.9 10^3/ul (1.6-7.5); PLATELET COUNT 179 10^3/UL (140-415); RED BLOOD COUNT 3.52 10^6/ul (4.70-6.10); RED CELL DISTRIBUTION WIDTH 17.3 % (11.5-14.5); WHITE BLOOD COUNT 7.8 10^3/ul (4.8-10.8)
[2017-06-23 09:35] LABS: CALCIUM 10.4 mg/dl (8.4-10.2); CREATININE 8.88 mg/dl (0.61-1.24); POTASSIUM 4.4 mmol/L (3.5-5.1)
--- NOTE | 2017-06-23 09:36 | RADRPT ---
AMENDMENT: 06/23/2017 9:38:08 AM Ana Willis M.d Addendum: A call report was made to Patient's ER Nurse, Elza, at 06/23/2017 9:37:43 AM following the completion of the examination by the undersigned. RPTAT: [facility] PROCEDURE: CT abdomen and pelvis without contrast. CLINICAL INDICATION: Right lower abdominal pain status post femoral percutaneous access. TECHNIQUE: CT scan of the abdomen and pelvis without contrast was performed on a RoboCV CT scanner utilizing axial imaging from the lung bases through the pubis symphysis. The patient was sc anned without intravenous contrast. Sagittal and coronal reformatted images were made. The CTDIvol is mGy and the DLP is 1045.15 mGycm. DICOM images are available. One of the following 3 dose reduction techniques were used during this CT examination: 1) Automated exposure control 2) Adjustment of the mA +/- kV according to patient size or 3) Use of iterative reconstruction technique COMPARISON: 08/12/2015 CT abdomen and pelvis and chest x-ray 06/06/2017. Prior ultrasound 06/09/20 17 FINDINGS: The lung bases are remarkable for right greater than left bibasilar atelectasis or consolidation and a moderate right and small left pleural effusion. Moderate cardiomegaly is present with a 6 mm tarik cardial effusion. Vascular calcifications are present of the aorta and the coronary arteries. The visualized liver demonstrates a punctate focus of air within the right and left hepatic biliary triads. Vascular calcifications extend into the right and left lobes of the liver. The gallbladder d emonstrates a thickened wall with debris present and mild pericholecystic fluid. No definite evidenc e for gallstones are visualized. No definite evidence for intrahepatic biliary ductal dilatation is noted. The common bile duct in the head of the pancreas measures 8 mm and is mildly dilated. The visualized spleen, stomach, pancreas, and bilateral adrenal glands are normal. The bilateral kidneys demonstrate numerous bilateral renal cortical cysts which are incompletely brock luated on this noncontrast CT. No evidence for hydroureteronephrosis or nephroureterolithiasis is pr esent. Extensive vascular calcifications are noted of the aorta and the mesenteric arteries as well as the bilateral renal arteries and their lobar or segmental branches. Nonpathologic sub centimeter retroperitoneal lymphadenopathy is noted. No evidence for aneurysmal di latation is present. Anasarca is present. Mild soft tissue infiltration is noted in the right femoral subcutaneous tissue s however no evidence for hematoma is present status post right femoral procedure. The visualized bowel is nonobstructive. Marked diverticulosis is present of the colon without eviden ce for acute diverticulitis or appendicitis. Contrast is noted within the colon. The visualized pelvis demonstrates incompletely distended urinary bladder with a mildly thickened wa lls. Moderate prostatic enlargement is noted. No evidence for ascites or pneumoperitoneum is present . The imaged osseous structures demonstrate generalized osteopenia. Degenerative changes are noted of the imaged spine healed fracture of the left posterior eighth rib is noted. IMPRESSION: 1. No evidence for retroperitoneal hematoma is a right femoral hematomas with mild anasarca and inf iltration of the soft tissues of the right groin 2. Right greater than left bibasilar consolidation or atelectasis and moderate right greater than le ft pleural effusions. 3. Moderate cardiomegaly and 6 mm pericardial effusion with extensive atherosclerotic vascular disea se. 4. Bilateral renal cortical cysts incompletely evaluated on this noncontrast CT. 5. Punctate foci of air within the right and left hepatic biliary trees and follow-up as clinically indicated as of uncertain clinical significance. 6. Appearance of acalculus cholecystitis and correlate with a HIDA Scan as previously recommended on prior ultrasound dated 06/09/2017 7. Marked diverticulosis without evidence for acute diverticulitis or appendicitis. 8. Degenerative changes of the imaged spine as described above RPTAT: HDC .Ana Willis MD, Date Time Electronically viewed and signed by .Ana Willis MD, MD on 06/23/2017 09:38 .C/
[2017-06-23 09:37] LABS: INR 1.16; PROTIME 14.9 Sec (12.2-14.2); PT RATIO 1.2
[2017-06-23 09:47] LABS: TROPONIN-I 2.02 ng/ml (0.00-0.12)
--- NOTE | 2017-06-23 09:48 | RADRPT ---
PROCEDURE: XR Chest. CLINICAL INDICATION: Chest pain. TECHNIQUE: Single frontal view. COMPARISON: 06/06/2017. FINDINGS: There is interstitial disease bilaterally consistent with mild pulmonary edema. Right pleural effusi on and right basilar atelectasis or improved. The heart is enlarged. There is calcification in the aorta consistent with atherosclerosis. There is no left pleural effusion. There is no pneumothorax. IMPRESSION: 1. Smaller right pleural effusion and improved appearance of the right lung. 2. Cardiomegaly and atherosclerosis. 3. Mild pulmonary edema. 4. Otherwise unremarkable chest radiograph. RPTAT: QQ .Ronnie Javier MD, MD Date Time Electronically viewed and signed by .Ronnie Javier MD, on 06/23/2017 09:48 .R/
--- NOTE | 2017-06-23 10:50 | ERD ---
ER Documentation Chief Complaint Chief Complaint HAD SURGERY LAST THURSDAY FOR CARDIAC STENT NOW HAVING URINE RETENTION HPI This is a 66-year-old male who presents to the emergency room for evaluation of generalized weakness, mild shortness of breath, and lower abdominal pain. This patient states that he was in the hospital last week where he had "a heart test ". He states that he was then transferred to [facility] [place] and had another test but he does not know what it was. He states that they went through an artery in the right lower extremity. He does not know the name of any of his physicians, denies any relieving factors for his symptoms and came to the ER for evaluation. ROS All systems reviewed and are negative except as per history of present illness. Medications Home Meds Active Scripts Tramadol HCl (Tramadol HCl) 50 Mg Tablet, 50 MG PO Q6 Y for PAIN, #12 TAB Prov:JOHN SLOAN PA-C 01/21/17 Reported Medications Insulin Degludec (Tresiba Flextouch U-200) 200 Unit/1 Ml Insuln.pen, 12 UNIT SQ QHS 03/29/17 Docusate Sodium* (Colace*) 100 Mg Capsule, 100 MG PO BID, #60 CAP 01/15/16 Aspirin* (Aspirin* Chew) 81 Mg Tab.chew, 81 MG PO DAILY, TAB.CHEW 01/15/16 Levothyroxine Sodium* (Levothyroxine Sodium*) 125 Mcg Tablet, 125 MCG PO BEFORE BREAKFAST, #30 TAB 08/19/15 Insulin Lispro (Humalog) 100 U/Ml Cartridge, 0 SC WITH BREAKFAST, EA SLIDING SCALE 08/12/15 Zinc Sulfate* (Zinc Sulfate*) 220 Mg Tablet, 220 MG PO DAILY, TAB 08/12/15 Sevelamer Carbonate* (Renvela*) 800 Mg Tablet, 3200 MG PO WITH MEALS, TAB 08/12/15 Docusate Sodium* (Docusate Sodium*) 100 Mg Capsule, 100 MG PO DAILY, #30 CAP 08/12/15 Tamsulosin Hcl* (Tamsulosin Hcl*) 0.4 Mg Cap.er.24h, 0.4 MG PO HS, CAP 08/12/15 Multivit/Ca Carb/B Cmplx/Fa* (Kimmie-Tirso*) 1 Tab Tab, 1 TAB PO DAILY, TAB 08/12/15 Cinacalcet* (Sensipar*) 60 Mg Tablet, 60 MG PO DAILY, TAB 08/12/15 Nifedipine* (Adalat CC*) 90 Mg Tablet.sa, 90 MG PO QHS, #30 TAB.SA 08/12/15 Doxazosin Mesylate* (Doxazosin Mesylate*) 1 Mg Tablet, 1 MG PO HS, TAB 08/12/15 Atorvastatin* (Atorvastatin*) 80 Mg Tablet, 80 MG PO QHS, #30 TAB 08/12/15 Lisinopril* (Zestril*) 40 Mg Tablet, 40 MG PO BID, #30 TAB 08/12/15 Hydralazine Hcl* (Hydralazine Hcl*) 50 Mg Tablet, 50 MG PO BID, #90 TAB 08/12/15 Carvedilol* (Carvedilol*) 25 Mg Tablet, 25 MG PO BID, TAB 08/12/15 Clonidine Hcl* (Clonidine Hcl*) 0.2 Mg Tablet, 0.2 MG PO BID, TAB 08/12/15 Metoclopramide Hcl (Reglan) 5 Mg Tab, 5 MG PO AC MEALS AND BEDTIME 01/18/13 Pantoprazole* (Protonix*) 40 Mg Tablet.dr, 40 MG PO DAILY 01/16/13 Allergies Allergies: Coded Allergies: povidone-iodine (Verified Allergy, Intermediate, LOCAL RASH, 03/29/17) soap (Verified Allergy, Intermediate, LOCAL RASH, 03/29/17) PMhx/Soc History of Surgery: Yes (fistula) Anesthesia Reaction: No Hx Neurological Disorder: Yes Hx Respiratory Disorders: No Hx Cardiac Disorders: Yes (HTN) Hx Psychiatric Problems: No Hx Miscellaneous Medical Probl: Yes (DM) Hx Alcohol Use: No Hx Substance Use: No Hx Tobacco Use: No Smoking Status: Never smoker Physical Exam Vitals Vital Signs Date Time Temp Pulse Resp B/P Pulse Ox O2 Delivery O2 Flow Rate FiO2 06/23/17 08:45 68 20 153/68 98 Room Air 06/23/17 08:14 97.5 88 16 145/65 100 Physical Exam INITIAL VITAL SIGNS: Reviewed by me GENERAL: The patient is well developed and appropriate for usual state of health in no apparent distress HEENT: Pupils equal, round, and reactive to light. EOMI. There is no scleral icterus. NECK: C-spine is soft and supple, there is no meningismus. There is no cervical lymphadenopathy. LUNGS: Clear to auscultation bilaterally. There are no rales, wheezes or rhonchi. HEART: Regular rate and rhythm, no murmurs, clicks, rubs or gallops. ABDOMEN: Soft, non-tender, non-distended. There are bowel sounds in all four quadrants. No rebound or guarding. EXTREMITIES: There is no peripheral cyanosis or edema. No focal swelling or erythema. NEUROLOGICAL: The patient moves all four extremities with 5/5 strength. Cranial nerves II - XII are intact. Normal gait. Alert and oriented SKIN: Ecchymosis noted over the right inguinal region, healing incision scar, dialysis catheter placed, there is no apparent rash or petechiae. HEME/LYMPHATIC: There is no evidence of excessive bruising or lymphedema. PSYCHIATRIC: The patient does not appear anxious or depressed. Result Diagram: 06/23/17 0851 06/23/17 0851 Results 24 hrs Laboratory Tests Test 06/23/17 08:51 White Blood Count 7.810^3/ul Red Blood Count 3.5210^6/ul Hemoglobin 10.7g/dl Hematocrit 32.5% Mean Corpuscular Volume 92.3fl Mean Corpuscular Hemoglobin 30.4pg Mean Corpuscular Hemoglobin Concent 32.9g/dl Red Cell Distribution Width 17.3% Platelet Count 90294^3/UL Mean Platelet Volume 10.7fl Neutrophils % 76.0% Lymphocytes % 8.3% Monocytes % 8.6% Eosinophils % 6.6% Basophils % 0.4% Nucleated Red Blood Cells % 0.0/100WBC Neutrophils # 5.910^3/ul Lymphocytes # 0.610^3/ul Monocytes # 0.710^3/ul Eosinophils # 0.510^3/ul Basophils # 0.010^3/ul Nucleated Red Blood Cells # 0.010^3/ul Prothrombin Time 14.9Sec Prothrombin Time Ratio 1.2 INR International Normalized Ratio 1.16 Activated Partial Thromboplast Time 50.0Sec Sodium Level 136mmol/L Potassium Level 4.4mmol/L Chloride Level 94mmol/L Carbon Dioxide Level 30mmol/L Anion Gap 16 Blood Urea Nitrogen 41mg/dl Creatinine 8.88mg/dl Glucose Level 324mg/dl Calcium Level 10.4mg/dl Troponin I 2.020ng/ml Current Medications Medications (Trade) Dose Ordered Sig/Binta Route PRN Reason Start Time Stop Time Status Last Admin Dose Admin Ondansetron HCl (Zofran Inj) 4 mg ER BRIDGE PRN IV NAUSEA AND/OR VOMITING 06/23/17 11:00 06/24/17 10:59 Acetaminophen (Tylenol Tab) 650 mg ER BRIDGE PRN PO MILD PAIN/FEVER 06/23/17 11:00 06/24/17 10:59 Procedures/MDM EKG: Rate/Rhythm: Sinus tachycardia QRS, ST, T-waves: [No changes consistent w/ acute ischemia] Impression: [No evidence of ischemia or arrhythmia] CT abdomen pelvis without: 1. No evidence for retroperitoneal hematoma is a right femoral hematomas with mild anasarca and infiltration of the soft tissues of the right groin 2. Right greater than left bibasilar consolidation or atelectasis and moderate right greater than left pleural effusions. 3. Moderate cardiomegaly and 6 mm pericardial effusion with extensive atherosclerotic vascular disease. 4. Bilateral renal cortical cysts incompletely evaluated on this noncontrast CT. 5. Punctate foci of air within the right and left hepatic biliary trees and follow-up as clinically indicated as of uncertain clinical significance. 6. Appearance of acalculus cholecystitis and correlate with a HIDA Scan as previously recommended on prior ultrasound dated 06/09/2017 7. Marked diverticulosis without evidence for acute diverticulitis or appendicitis. 8. Degenerative changes of the imaged spine as described above Chest X-ray 1V Interpreted by me: Soft Tissue: No acute abnormalities Bones: No acute abnormalities Mediastinum/Cardiac Silhouette/Lungs: [No acute abnormalities] This 66-year-old male presents to the ER for evaluation of multiple complaints. This patient appears to have undergone a intervention for arterial occlusion of the femoral artery. He also appears to have some possible cardiac catheterization. This patient has multiple risk factors including hypertension , CAD, CT of the abdomen and pelvis was obtained which does demonstrate a calculus cholecystitis. This patient has had this in the past, and a HIDA scan does not demonstrate any sign of obstruction from earlier this year. He has no pain in the right upper quadrant and does have some minor tenderness in the right lower quadrant with an area of ecchymosis. Given this patient's age, multiple risk factors, multiple complaints and elevation in his troponin this patient will be placed in for admission. I have contacted his primary care physician and have spoken to Dr. Up who is covering Dr. Gastelum. 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 Alfred who will evaluate this patient on the floor. Critical Care: Excluding all billable procedures Time: 35 minutes Treatments/Evaluations: Close monitoring and treatment of unstable vital signs, cardiorespiratory, and neurologic status, while maintaining tight balance of fluid, respiratory, and cardiac interventions. Departure Diagnosis: Primary Impression: Elevated troponin Additional Impressions: Hypertension End stage renal disease Condition: Fair JESS HODGES DO Jun 23, 2017 10:50
[2017-06-23] MEDS ORDERED: ACETAMINOPHEN 325 MG TAB PO PRN (11:00)
[2017-06-23] MEDS ORDERED: ONDANSETRON 4 MG INJ IV PRN (11:00)
[2017-06-23] MEDS ORDERED: ASPIRIN 81 MG TAB PO ONE (11:00)
[2017-06-23] MEDS ORDERED: NACL 0.9% 3 ML SYG IV SCH (14:30)
[2017-06-23] MEDS ORDERED: GLUCOSE GEL 15 GRAM TUBE BUCCAL PRN (14:30)
[2017-06-23] MEDS ORDERED: DEXTROSE 50% 50 ML SYRINGE IV PRN ×2 (14:30)
[2017-06-23] MEDS ORDERED: GLUCAGON 1 MG INJ IM PRN (14:30)
[2017-06-23] MEDS ORDERED: NITROGLYCERIN (SL) 0.4 MG TAB SL PRN (14:30)
[2017-06-23] MEDS ORDERED: GLUCOSE GEL 15 GRAM TUBE PO PRN ×2 (14:30)
[2017-06-23 15:33] LABS: TROPONIN-I 1.93 ng/ml (0.00-0.12)
[2017-06-23 15:34] LABS: CK-MB 4.96 ng/ml (0.0-2.4)
--- NOTE | 2017-06-23 15:44 | RADRPT ---
PROCEDURE: Ultrasound lower extremity arterial duplex CLINICAL INDICATION: Right groin pseudoaneurysm TECHNIQUE: Multiple sonographic images of the lower extremity arterial system was obtained utilizi ng price scale, duplex, and color flow imaging. Images reviewed on PACS workstation COMPARISON: FINDINGS: Directed ultrasound examination was performed of the right groin. The common femoral artery and supe rficial femoral artery are patent and demonstrate normal color flow and wave form. No pseudoaneurysm formation is seen. A 1.8 x 1.5 x 0.6 cm subcutaneous hematoma is noted likely related to recent cat heterization. IMPRESSION: 1. Directed ultrasound examination of the right groin demonstrates no evidence of pseudoaneurysm. 2. There is a small subcutaneous hematoma. 3. Normal color flow and wave form in the common femoral artery RPTAT: HH .Chaz Mistry MD, Date Time Electronically viewed and signed by .Chaz Mistry MD, on 06/23/2017 15:44 .W/
[2017-06-23] MEDS: INSULIN ASPART [NOVOLOG] 3 ML PEN SC SCH ×2 (17:22→21:00)
[2017-06-23] MEDS ORDERED: INSULIN ASPART [NOVOLOG] 3 ML PEN SC SCH (18:05)
[2017-06-23] MEDS: traMADol 50 MG TAB PO PRN (18:26)
[2017-06-23] MEDS: DOXAZOSIN 1 MG TAB PO SCH (21:00)
[2017-06-23] MEDS ORDERED: INSULIN DEGLUDEC 12 UNIT XX SCH (21:00)
[2017-06-23] MEDS ORDERED: TAMSULOSIN (SR) 0.4 MG CAP PO SCH (21:00)
[2017-06-23] MEDS: NIFEdipine (XL) 90 MG TAB PO SCH (21:00)
[2017-06-23 21:20] LABS: TROPONIN-I 1.95 ng/ml (0.00-0.12)
--- NOTE | 2017-06-23 21:20 | HP ---
DATE OF ADMISSION: 06/23/2017 CHIEF COMPLAINT: Pain in the left groin. HISTORY OF PRESENT ILLNESS: The patient is a 66-year-old male who complains of a 2-day history of pain in the left groin and discomfort in central pelvis. Patient is a relatively poor historian. Hx also obtained from daughter who is present. The patient recently had an angioplasty with stent done last week at a different facility. Went home last Thursday. Was doing well but 2 days ago developed pain in the right groin. Pain is worse with movement. No swelling, no redness. Pain is constant. The patient denies any chest pain, shortness of breath, fever, chills or night sweats. Discomfort in pelvis, like needs to urinate, some diarrhea with small amt of urination. Leg strength is normal. No change in swelling in the legs. The patient presented to the ER. Scan showed no evidence of a pseudoaneurysm, but labs did show evidence of elevated troponin. The patient is asymptomatic and was admitted for further management. PAST MEDICAL HISTORY: 1. Diabetes with neuropathy, retinopathy and nephropathy. 2. End-stage renal disease secondary to diabetes. 3. Hypertension. 4. Hypothyroidism. 5. Hyperlipidemia. 6. Dilated cardiomyopathy. 7. Coronary artery disease, history of non-STEMI, recent angioplasty with stent. 8. Seizure. 9. Congestive heart failure. 10. Gallstone. OPERATIONS: PTCA with stent, AV shunt, ERCP, sphincterotomy. MEDICATIONS: 1. Flomax 0.4 mg daily. 2. Atorvastatin 80 mg daily. 3. Carvedilol 25 mg b.i.d. 4. Clonidine 0.2 mg b.i.d. 5. Doxazosin 1 mg at bedtime. 6. Hydralazine 50 mg b.i.d. 7. Lisinopril 40 mg b.i.d. 8. Nifedipine 90 mg daily. 9. Aspirin 81 mg daily. 10. Tramadol 50 mg p.r.n. 11. Renvela 800 mg with meals. 12. Zinc daily. 13. Reglan with meals and at bedtime. 14. Pantoprazole 40 mg daily. 15. Sensipar 60 mg daily. 16. Lantus 10 units daily. 17. Lispo insulin sliding scale. 18. Synthroid 125 mcg daily. 19. Kimmie-Tirso 1 daily. 20. Keppra 500mg daily. ALLERGIES: IODINE. SOCIAL HISTORY: The patient denies tobacco or alcohol use. , former [employer] driver. FAMILY HISTORY: Noncontributory. REVIEW OF SYSTEMS: GENERAL: The patient denies any fever, chills, night sweats, change in appetite , weight changes. HEENT: The patient denies any headache, congestion, rhinorrhea, sore throat or other HEENT complaints. RESPIRATORY: The patient denies any cough, wheeze, shortness of breath or other respiratory complaints. CARDIOVASCULAR: The patient denies any chest pains, palpitations, dizziness or other cardiovascular symptoms. GASTROINTESTINAL: The patient reports some soft to watery stool but no abdominal pain. No nausea, vomiting, bright red blood per rectum, melena or other GI symptoms. GENITOURINARY: The patient sensation of need to urinate but little urine passed , denies any dysuria, frequency or other symptoms. NEUROLOGIC: The patient denies any numbness, tingling, weakness or other focal neurologic symptoms. PHYSICAL EXAMINATION: VITAL SIGNS: Temperature 97.9, pulse 69, blood pressure 167/74, pulse ox 96%. GENERAL APPEARANCE: The patient currently receiving dialysis. He is in no acute distress. He appears nontoxic. HEENT: Normocephalic, atraumatic. Sclerae anicteric. Oropharynx is clear. NECK: Supple, no adenopathy. LUNGS: Clear to auscultation. CARDIAC: Regular rate and rhythm. ABDOMEN: Bowel sounds are present. Abdomen is soft, nontender, nondistended. Ecchymosis in right groin extending to base of penis. EXTREMITIES: Bilateral pitting edema. NEUROLOGIC: The patient is alert and oriented x3 with no focal neurologic findings. DATA: White count 7.8, hemoglobin 10.7, hematocrit 32.5, platelets 179. Sodium 136, potassium 4.4, chloride 94, bicarb 30, BUN 45, creatinine 8.88, glucose 324, calcium 10.4. Troponin 2.02. INR 1.16. Ultrasound of the right groin: No pseudoaneurysm, small hematoma. Chest x-ray: Mild pulmonary edema, small right pleural effusion. IMPRESSION: 1. Elevated troponin. 2. Diabetes with neuropathy, retinopathy and nephropathy. 3. End-stage renal disease. 4. Hypertension. 5. Hyperlipidemia. 6. Coronary artery disease, recent percutaneous transluminal coronary angioplasty with stent. 7. Groin pain with hematoma 8. Diarrhea 9. Pelvic discomfort with urinary urgency PLAN: Admit to telemetry. Cardiology eval. Renal consult appreciated by Dr. Hinton. Continue dialysis as per renal. Stool for wbc. Urine studies. Continue medications. Monitor labs. Dictated By: KIMBERLI LOPEZ MD [place]/NTS Conf#: [id number] DID#: [id number] CC: KIMBERLI LOPEZ MD;*EndCC* MTDD
[2017-06-23 21:21] LABS: CK-MB 5.71 ng/ml (0.0-2.4)
[2017-06-23] MEDS: ATORVASTATIN 80 MG TAB PO SCH (21:38)
[2017-06-23] MEDS: LISINOPRIL 20 MG TAB PO SCH (21:41)
[2017-06-23] MEDS: TICAGRELOR 90 MG TABLET PO SCH (21:47)
--- NOTE | 2017-06-23 23:54 | CONS ---
DATE OF ADMISSION: 06/23/2017 DATE OF CONSULTATION: Thank you, Dr. Lopez, for asking me to participate in the medical management of this patient. REASON FOR CONSULTATION: End-stage renal disease. HISTORY OF PRESENT ILLNESS: This 66-year-old man was admitted through the emergency room after he p resented with several days of diarrhea and pelvic pain with a feeling that he had to urinate. The p atient does not make urine. He has end-stage renal disease and has not urinated in years. The lor ent did undergo a coronary angiogram with stent placement last week at [facility]. This wa s done on 06/17/2017. The patient was discharged from the hospital on 06/19/2017. The patient appa rently had some positive blood cultures for gram-positive cocci. He was given vancomycin and Bactri m. Over the last 3 days, he has had diarrhea with urinary frequency and urgency. The patient denie s chest pain or shortness of breath. The patient was placed on Bactrim at the time of discharge. T he patient was admitted here on 06/06/2017 and at that time was admitted because of seizures and syn cope. Apparently, the patient had several episodes of being unconscious while on dialysis. The pat iekimberly has been in end-stage renal disease for at least 8 years and has been on dialysis during that p eriod of time. He has a history of diabetes mellitus and end-stage renal disease due to diabetes me llitus. During the patient's last hospitalization, he underwent a cardiac workup and was found to h ave significant coronary artery disease. He was transferred to [facility] l week and underwent a coronary angioplasty, stent placement and an Impella device was used in the right groin. PAST MEDICAL HISTORY: Remarkable for: 1. Type 1 diabetes mellitus. 2. Diabetic nephropathy. 3. Diabetic neuropathy. 4. Diabetic retinopathy. 5. Peripheral vascular disease. 6. Congestive heart failure. 7. Gallstones. 8. Dyslipidemia. 9. Hypertension. 10. Hypothyroidism. 11. Cardiomyopathy with an ejection fraction of 25%. 12. History of seizure disorder, possibly due to cinacalcet which was discontinued at his last admi ssion. PAST SURGICAL HISTORY: AV shunt of left forearm, status post cardiac catheterization, status post [employer] and sphincterotomy with removal of stones and stenting. CURRENT MEDICATIONS: Include the followin. Tamsulosin 0.4 mg a day. 2. Atorvastatin 80 mg a day. 3. Carvedilol 25 mg twice a day. 4. Clonidine 0.2 mg twice a day. 5. Doxazosin 1 mg at bedtime. 6. Hydralazine 50 mg twice a day. 7. Lisinopril 40 mg a day. 8. Nifedipine 90 mg a day. 9. Aspirin 81 mg a day. 10. Tramadol 50 mg p.r.n. pain. 11. Renvela 3200 mg with meals. 12. Zinc sulfate 220 mg a day. 13. Doxazosin 100 mg twice a day. 14. Metoclopramide 5 mg with meals and at bedtime. 15. Pantoprazole 40 mg a day. 16. Insulin Tresiba 12 units at bedtime. 17. Lispro subcutaneous with breakfast. 18. Levothyroxine 125 a day. 19. Multivitamins 1 tablet daily. 20. Brilinta 90 mg twice a day. 21. Bactrim-DS 1 p.o. twice a day. 22. Keppra 500 mg a day. PHYSICAL EXAMINATION: GENERAL: At this time reveals a well-developed man in no apparent distress. VITAL SIGNS: Temperature 97.9, pulse of 68, respirations 20, blood pressure 167/74, O2 sat 96% on r oom air. HEAD: Normocephalic. EYES: Extraocular muscles intact. NOSE AND MOUTH: Normal. NECK: Supple. No neck vein distention. LUNGS: Clear to auscultation. HEART: Regular rhythm. No murmurs, gallops or rubs. ABDOMEN: Soft, nontender. He is slightly tender over the suprapubic area and feels the urge to uri manpreet when I press there. He does have some ecchymoses and a right groin hematoma. LOWER EXTREMITIES: Trace to +1 ankle edema. NEUROLOGIC: Grossly intact. No obvious neurologic deficits. IMPRESSION: 1. End-stage renal disease, on maintenance hemodialysis. 2. Coronary artery disease, status post recent angioplasty, stent placement, Impella device used. 3. Right groin hematoma and ecchymoses. I suspect that the hematoma is pressing on his bladder and giving him the sensation that he needs to urinate. 4. History of seizure disorder, on anticonvulsant medication. 5. Type 1 diabetes mellitus. 6. Multiple sequelae of diabetes mellitus. 7. Diarrhea, probably due to Bactrim. The medication has been discontinued and a stool for Clostri dium difficile toxin has been ordered. 8. Elevated troponin. PLAN: 1. Order hemodialysis for today. 2. Adjust the patient's medication. 3. Order Keppra 500 mg a day. 4. Cardiology consultation called. Dictated By: PAULY VILA MD ND/NTS Conf#: [id number] DID#: [id number] CC: KIMBERLI LOPEZ MD;*EndCC*
[2017-06-24] VITALS (13 sets, daily range): BP systolic 105–144; BP diastolic 51–65; PULSE 57–64; RESP 17–20
--- NOTE | 2017-06-24 00:01 | CONS ---
Date/Time of Note Date/Time of Note DATE: 06/23/17 TIME: 23:58 Assessment/Plan Assessment/Plan Chief Complaint/Hosp Course 1) abd pain - unclear etiology, negative ct scan. no current pain. reports diarrhea ? cdiff vs. abx related, also with urgency but does not make urine could still have a UTI - abx per primary team/nephrology - no e/o RP bleed or sig hematoma on imaging 2) NSTEMI- likely post procedure, slow decrease. no acute ekg changes - cont asa/ticagelor - cont statin - cont bb 3) Hematoma- small r sided from impella, cont to limit heavy lifting. - no pseudoaneurysm/rp bleed on imgaing Problems: Consultation Date/Type/Reason Admit Date/Time Jun 23, 2017 at 10:43 Past Surgical History Past Surgical Hx: noncontributory Social History Smoking Status: Never smoker Exam/Review of Systems Vital Signs Vitals Vital Signs Date Time Temp Pulse Resp B/P Pulse Ox O2 Delivery O2 Flow Rate FiO2 06/23/17 21:00 62 17 06/23/17 16:03 97.9 167/74 96 06/23/17 12:56 Room Air Results Result Diagram: 06/23/17 0851 06/23/17 0851 Results 24 hrs Laboratory Tests Test 06/23/17 08:51 06/23/17 14:38 06/23/17 15:45 06/23/17 17:11 White Blood Count 7.8 # Red Blood Count 3.52 L Hemoglobin 10.7 L Hematocrit 32.5 L Mean Corpuscular Volume 92.3 Mean Corpuscular Hemoglobin 30.4 Mean Corpuscular Hemoglobin Concent 32.9 Red Cell Distribution Width 17.3 H Platelet Count 179 # Mean Platelet Volume 10.7 H Neutrophils % 76.0 Lymphocytes % 8.3 L Monocytes % 8.6 Eosinophils % 6.6 Basophils % 0.4 Nucleated Red Blood Cells % 0.0 Neutrophils # 5.9 Lymphocytes # 0.6 L Monocytes # 0.7 Eosinophils # 0.5 Basophils # 0.0 Nucleated Red Blood Cells # 0.0 Prothrombin Time 14.9 H Prothrombin Time Ratio 1.2 INR International Normalized Ratio 1.16 Activated Partial Thromboplast Time 50.0 H Sodium Level 136 Potassium Level 4.4 Chloride Level 94 L Carbon Dioxide Level 30 Anion Gap 16 Blood Urea Nitrogen 41 H Creatinine 8.88 H Glucose Level 324 H Calcium Level 10.4 H Troponin I 2.020 *H 1.930 *H Creatine Kinase 81 Creatine Kinase Index 6.1 Creatinine Kinase MB (Mass) 4.96 H Bedside Glucose 328 H 342 H Test 06/23/17 20:38 06/23/17 21:37 Creatine Kinase 98 Creatine Kinase Index 5.8 Creatinine Kinase MB (Mass) 5.71 H Troponin I 1.950 *H Bedside Glucose 160 Medications Medications Current Medications Aspirin (Aspirin) 81 mg DAILY PO ; Start 06/24/17 at 09:00 Atorvastatin Calcium (Lipitor) 80 mg QHS PO Last administered on 06/23/17 21: 38; Admin Dose 80 MG; Start 06/23/17 at 21:00 Carvedilol (Coreg) 25 mg BID PO Last administered on 06/23/17 21:40; Admin Dose 25 MG; Start 06/23/17 at 21:00 Clonidine (Catapres) 0.2 mg BID PO ; Start 06/23/17 at 21:00 Doxazosin Mesylate (Cardura) 1 mg HS PO ; Start 06/23/17 at 21:00 Hydralazine HCl (Apresoline) 50 mg BID PO ; Start 06/23/17 at 21:00 Lisinopril (Zestril) 40 mg BID PO Last administered on 06/23/17 21:41; Admin Dose 40 MG; Start 06/23/17 at 21:00 Multivit/Ca Carb/ B Cmplx/FA/Prenat (Kimmie-Tirso) 1 tab DAILY PO ; Start at 09:00 Nifedipine (Procardia Xl) 90 mg QHS PO ; Start 06/23/17 at 21:00 Pantoprazole (Protonix Tab) 40 mg DAILY PO ; Start 06/24/17 at 09:00 Tramadol HCl (Ultram) 50 mg Q6 PRN PO PAIN Last administered on 06/23/17 18: 26; Admin Dose 50 MG; Start 06/23/17 at 14:00 Miscellaneous Information 12 unit QHS SQ ; Start 06/23/17 at 21:00; Status UNV Ticagrelor (Brilinta) 90 mg BID PO Last administered on 06/23/17 21:47; Admin Dose 90 MG; Start 06/23/17 at 21:00 Nitroglycerin (Nitroglycerin (Sl Tab) 0.4 Mg) 1 tab Q5M PRN SL CHEST PAIN; Start 06/23/17 at 14:30 Acetaminophen (Tylenol Tab) 650 mg Q6H PRN PO PAIN LEVEL 1-3 OR FEVER; Start 06/23/17 at 14:30 Miscellaneous Information 1 ea NOTE XX ; Start 06/23/17 at 14:30 Glucose (Glutose) 15 gm Q15M PRN PO DECREASED GLUCOSE; Start 06/23/17 at 14:30 Glucose (Glutose) 22.5 gm Q15M PRN PO DECREASED GLUCOSE; Start 06/23/17 at 14: 30 Dextrose (D50w Syringe) 25 ml Q15M PRN IV DECREASED GLUCOSE; Start 06/23/17 at 14:30 Dextrose (D50w Syringe) 50 ml Q15M PRN IV DECREASED GLUCOSE; Start 06/23/17 at 14:30 Glucagon (Glucagen) 1 mg Q15M PRN IM DECREASED GLUCOSE; Start 06/23/17 at 14: 30 Glucose (Glutose) 15 gm Q15M PRN BUCCAL DECREASED GLUCOSE; Start 06/23/17 at 14:30 Diagnostic Test (Pha) (Accu-Chek) 1 ea 02 XX ; Start 06/24/17 at 02:00 Levetiracetam (Keppra) 500 mg DAILY PO ; Start 06/24/17 at 09:00 JAMEY GUY Jun 24, 2017 00:01
[2017-06-24] MEDS: ACCU-CHEK XX SCH (02:00)
[2017-06-24] MEDS ORDERED: ACCU-CHEK XX SCH (02:00)
[2017-06-24] MEDS: LEVOTHYROXINE 125 MCG TAB PO SCH (06:28)
[2017-06-24 07:12] LABS: ABNORMAL IP MESSAGE 1; BASOPHILS % 0.2 % (0.0-2.0); EOSINOPHILS # 0.7 10^3/ul (0.0-0.5); EOSINOPHILS % 8.5 % (0.0-7.0); HEMATOCRIT 31.1 % (42.0-52.0); HEMOGLOBIN 10.2 g/dl (14.0-18.0); LYMPHOCYTES # 0.6 10^3/ul (0.8-2.9); LYMPHOCYTES % 7.3 % (15.0-51.0); MEAN CORPUSCULAR HEMOGLOBIN 30.6 pg (29.0-33.0); MEAN CORPUSCULAR HGB CONC 32.8 g/dl (32.0-37.0); MEAN CORPUSCULAR VOLUME 93.4 fl (82.0-101.0); MEAN PLATELET VOLUME 10.8 fl (7.4-10.4); MONOCYTE # 0.8 10^3/ul (0.3-0.9); MONOCYTES % 9.5 % (0.0-11.0); NEUTROPHILS % 74.1 % (39.0-77.0); PLATELET COUNT 164 10^3/UL (140-415); POSITIVE DIFF @See below; RED BLOOD COUNT 3.33 10^6/ul (4.70-6.10); RED CELL DISTRIBUTION WIDTH 17.5 % (11.5-14.5); WHITE BLOOD COUNT 8.1 10^3/ul (4.8-10.8)
[2017-06-24 07:35] LABS: ALBUMIN 2.9 g/dl (3.3-4.9); ALBUMIN/GLOBULIN RATIO 0.87; BILIRUBIN,INDIRECT 0.2 mg/dl (0-1.1); BILIRUBIN,TOTAL 0.2 mg/dl (0.2-1.3); CALCIUM 9.8 mg/dl (8.4-10.2); CREATININE 7.14 mg/dl (0.61-1.24); POTASSIUM 4.3 mmol/L (3.5-5.1); TOTAL PROTEIN 6.2 g/dl (6.1-8.1)
[2017-06-24] MEDS: [UNRECOGNIZED DRUG - REMARK] XX SCH ×3 (09:00→20:23)
[2017-06-24] MEDS: ASPIRIN 81 MG TAB PO SCH (09:29)
[2017-06-24] MEDS: MULTIVIT/CA CARB/B CMPLX/FA TAB PO SCH (09:29)
[2017-06-24] MEDS: PANTOPRAZOLE (EC) 40 MG TAB PO SCH (09:30)
[2017-06-24] MEDS: LISINOPRIL 20 MG TAB PO SCH ×2 (09:31→20:17)
[2017-06-24] MEDS: LEVETIRACETAM 500 MG TAB PO SCH (09:31)
[2017-06-24] MEDS: TICAGRELOR 90 MG TABLET PO SCH ×2 (09:36→20:18)
[2017-06-24] MEDS: INSULIN ASPART [NOVOLOG] 3 ML PEN SC SCH ×4 (09:36→20:21)
--- NOTE | 2017-06-24 10:00 | CONS ---
Date/Time of Note Date/Time of Note DATE: 06/24/17 TIME: 09:53 Assessment/Plan Assessment/Plan Chief Complaint/Hosp Course 1) abd pain - unclear etiology, negative ct scan. no current pain. reports diarrhea consider cdiff vs. abx related however no bm as inpt, also with urgency but does not make urine could still have a UTI? - no e/o RP bleed or sig hematoma on imaging. do not suspect abd pain/urgency is related to cardiac condition. - workup/tx per primary/nephrology 2) NSTEMI- likely post procedure in setting of ESRD on iHD, slow decrease. no acute ekg changes. pt without symptoms. did have thrombotic lesion at time of cath. cont DAPT - cont asa/ticagelor - cont statin - cont bb - obtain limited echo 3) Hematoma- small r sided from impella, cont to limit heavy lifting for additional week - no pseudoaneurysm/rp bleed on imaging 4) ESRD on iHD - per nephro 5) Chronic systolic heart failure euvolemic on exam, cont bb. acei. no on aldosterone mark given ESRD. 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 avoid heparin products. Problems: Consultation Date/Type/Reason Admit Date/Time Jun 23, 2017 at 10:43 Initial Consult Date 06/23/2017 Type of Consultation: Cardiology Reason for Consultation Elevated Troponin Referring Provider: PAULY VILA MD 24 HR Interval Summary Free Text/Dictation no acute events. pt reports cont urgency frequent but no UOP. no bm/diarrhea. no cp/sob. no pain at previous cath sites. pt tolerating po no n/v tele reviewed: nsr, no events Detailed Summary ENT: no complaints Respiratory: no complaints Cardiovascular: no complaints Gastrointestinal: other (urgency) Exam/Review of Systems Vital Signs Vitals Vital Signs Date Time Temp Pulse Resp B/P Pulse Ox O2 Delivery O2 Flow Rate FiO2 06/24/17 08:08 98.3 63 17 144/65 95 06/23/17 12:56 Room Air Intake and Output 06/23/17 06/23/17 06/24/17 14:59 22:59 06:59 Intake Total 740 ml 240 ml Output Total 4000 ml 150 ml Balance -3260 ml 90 ml Exam Constitutional: alert, oriented Psych: nl mood/affect, no complaints Head: normocephalic Eyes: nl conjunctiva ENMT: other (poor denititon) Neck: non-tender, supple, No jvd Respiratory: clear to auscultation, normal air movement Cardiovascular: nl pulses, regular rate and rhythm, systolic murmur, No S3, No S4, No bruits, No diastolic murmur, No edema Gastrointestinal: non-tender, soft Musculoskeletal: nl extremities to inspection, nl gait and stance Extremities: normal pulses, other (R groin small hematoma, no bruit, no ttp) Neurological: [employer] II-XII intact, nl mental status, nl speech Skin: nl turgor Results Result Diagram: 06/24/17 0653 06/24/17 0653 Results 24 hrs Laboratory Tests Test 06/23/17 14:38 06/23/17 15:45 06/23/17 17:11 06/23/17 20:38 Creatine Kinase 81 98 Creatine Kinase Index 6.1 5.8 Creatinine Kinase MB (Mass) 4.96 H 5.71 H Troponin I 1.930 *H 1.950 *H Bedside Glucose 328 H 342 H Test 06/23/17 21:37 06/24/17 06:53 06/24/17 08:45 Bedside Glucose 160 313 H White Blood Count 8.1 Red Blood Count 3.33 L Hemoglobin 10.2 L Hematocrit 31.1 L Mean Corpuscular Volume 93.4 Mean Corpuscular Hemoglobin 30.6 Mean Corpuscular Hemoglobin Concent 32.8 Red Cell Distribution Width 17.5 H Platelet Count 164 Mean Platelet Volume 10.8 H Neutrophils % 74.1 Lymphocytes % 7.3 L Monocytes % 9.5 Eosinophils % 8.5 H Basophils % 0.2 Nucleated Red Blood Cells % 0.0 Neutrophils # 6.0 Lymphocytes # 0.6 L Monocytes # 0.8 Eosinophils # 0.7 H Basophils # 0.0 Nucleated Red Blood Cells # 0.0 Sodium Level 137 Potassium Level 4.3 Chloride Level 95 L Carbon Dioxide Level 31 Anion Gap 15 Blood Urea Nitrogen 28 #H Creatinine 7.14 H Glucose Level 274 H Calcium Level 9.8 Total Bilirubin 0.2 Direct Bilirubin 0.00 Indirect Bilirubin 0.2 Aspartate Amino Transf (AST/SGOT) 35 Alanine Aminotransferase (ALT/SGPT) 42 Alkaline Phosphatase 363 H Total Protein 6.2 Albumin 2.9 L Globulin 3.30 H Albumin/Globulin Ratio 0.87 Medications Medications Current Medications Aspirin (Aspirin) 81 mg DAILY PO Last administered on 06/24/17 09:29; Admin Dose 81 MG; Start 06/24/17 at 09:00 Atorvastatin Calcium (Lipitor) 80 mg QHS PO Last administered on 06/23/17 21: 38; Admin Dose 80 MG; Start 06/23/17 at 21:00 Carvedilol (Coreg) 25 mg BID PO Last administered on 06/24/17 09:31; Admin Dose 25 MG; Start 06/23/17 at 21:00 Clonidine (Catapres) 0.2 mg BID PO Last administered on 06/24/17 09:30; Admin Dose 0.2 MG; Start 06/23/17 at 21:00 Doxazosin Mesylate (Cardura) 1 mg HS PO ; Start 06/23/17 at 21:00 Hydralazine HCl (Apresoline) 50 mg BID PO Last administered on 06/24/17 09:30 ; Admin Dose 50 MG; Start 06/23/17 at 21:00 Lisinopril (Zestril) 40 mg BID PO Last administered on 06/24/17 09:31; Admin Dose 40 MG; Start 06/23/17 at 21:00 Multivit/Ca Carb/ B Cmplx/FA/Prenat (Kimmie-Tirso) 1 tab DAILY PO Last administered on 06/24/17 09:29; Admin Dose 1 TAB; Start 06/24/17 at 09:00 Nifedipine (Procardia Xl) 90 mg QHS PO ; Start 06/23/17 at 21:00 Pantoprazole (Protonix Tab) 40 mg DAILY PO Last administered on 06/24/17 09: 30; Admin Dose 40 MG; Start 06/24/17 at 09:00 Tramadol HCl (Ultram) 50 mg Q6 PRN PO PAIN Last administered on 06/23/17 18: 26; Admin Dose 50 MG; Start 06/23/17 at 14:00 Miscellaneous Information 12 unit QHS XX ; Start 06/23/17 at 21:00; Status UNV Ticagrelor (Brilinta) 90 mg BID PO Last administered on 06/24/17 09:36; Admin Dose 90 MG; Start 06/23/17 at 21:00 Nitroglycerin (Nitroglycerin (Sl Tab) 0.4 Mg) 1 tab Q5M PRN SL CHEST PAIN; Start 06/23/17 at 14:30 Acetaminophen (Tylenol Tab) 650 mg Q6H PRN PO PAIN LEVEL 1-3 OR FEVER; Start 06/23/17 at 14:30 Miscellaneous Information 1 ea NOTE XX ; Start 06/23/17 at 14:30 Glucose (Glutose) 15 gm Q15M PRN PO DECREASED GLUCOSE; Start 06/23/17 at 14:30 Glucose (Glutose) 22.5 gm Q15M PRN PO DECREASED GLUCOSE; Start 06/23/17 at 14: 30 Dextrose (D50w Syringe) 25 ml Q15M PRN IV DECREASED GLUCOSE; Start 06/23/17 at 14:30 Dextrose (D50w Syringe) 50 ml Q15M PRN IV DECREASED GLUCOSE; Start 06/23/17 at 14:30 Glucagon (Glucagen) 1 mg Q15M PRN IM DECREASED GLUCOSE; Start 06/23/17 at 14: 30 Glucose (Glutose) 15 gm Q15M PRN BUCCAL DECREASED GLUCOSE; Start 06/23/17 at 14:30 Diagnostic Test (Pha) (Accu-Chek) 1 ea 02 XX ; Start 06/24/17 at 02:00 Levetiracetam (Keppra) 500 mg DAILY PO Last administered on 06/24/17t 09:31; Admin Dose 500 MG; Start 06/24/17 at 09:00 Insulin Glargine (Lantus) 10 unit DAILY@21 SC ; Start 06/24/17 at 21:00 Miscellaneous Information (*Order Clarification Bulletin) MEDICATION REQUIRES CLARIFICATION: Q8H XX ; Start 06/24/17 at 09:[address] abd and le arterial duplex reports reviewed in emr JAMEY GUY Jun 24, 2017 10:00
[2017-06-24] MEDS ORDERED: INSULIN GLARGINE [LANtus] 3 ML PEN SC SCH ×2 (12:00→21:00)
--- NOTE | 2017-06-24 18:48 | CONS ---
Date/Time of Note Date/Time of Note DATE: 06/24/17 TIME: 18:44 Assessment/Plan Assessment/Plan Chief Complaint/Hosp Course 1. End-stage renal disease on maintenance hemodialysis. Patient is regularly dialyzed Thursday and is due for dialysis tomorrow. 2 coronary artery disease. Status post recent coronary angiogram and stent placement at [facility]. 3. Type 2 diabetes mellitus 4. Hypertension 5. History of gallstones now with elevated alkaline phosphatase 6. Anemia of chronic kidney disease. 7. Recent history of new onset seizure disorder. Now on antiseizure medication. 8 sensation of urinary urgency possibly due to right groin hematoma. Problems: Consultation Date/Type/Reason Admit Date/Time Jun 23, 2017 at 10:43 Initial Consult Date Type of Consultation: Cardiology Referring Provider: PAULY VILA MD 24 HR Interval Summary Free Text/Dictation He is awake and alert this morning. He has no new complaints. He denies chest pain or shortness of breath. He does complain of some urinary urgency which she has had. Constitutional: no complaints Exam/Review of Systems Vital Signs Vitals Vital Signs Date Time Temp Pulse Resp B/P Pulse Ox O2 Delivery O2 Flow Rate FiO2 06/24/17 17:02 98.4 67 17 120/60 95 06/23/17 12:56 Room Air Intake and Output 06/23/17 06/23/17 06/24/17 15:00 23:00 07:00 Intake Total 740 ml 240 ml Output Total 4000 ml 150 ml Balance -3260 ml 90 ml Exam He has a right groin hematoma and ecchymoses from a prior cardiac catheterization last week. Constitutional: alert, frail, oriented Neck: non-tender, supple Respiratory: clear to auscultation Cardiovascular: edema, regular rate and rhythm Gastrointestinal: soft Extremities: edema Results Result Diagram: 06/24/17 0653 06/24/17 0653 Results 24 hrs Laboratory Tests Test 06/23/17 20:38 06/23/17 21:37 06/24/17 06:53 06/24/17 08:45 Creatine Kinase 98 Creatine Kinase Index 5.8 Creatinine Kinase MB (Mass) 5.71 H Troponin I 1.950 *H Bedside Glucose 160 313 H White Blood Count 8.1 Red Blood Count 3.33 L Hemoglobin 10.2 L Hematocrit 31.1 L Mean Corpuscular Volume 93.4 Mean Corpuscular Hemoglobin 30.6 Mean Corpuscular Hemoglobin Concent 32.8 Red Cell Distribution Width 17.5 H Platelet Count 164 Mean Platelet Volume 10.8 H Neutrophils % 74.1 Lymphocytes % 7.3 L Monocytes % 9.5 Eosinophils % 8.5 H Basophils % 0.2 Nucleated Red Blood Cells % 0.0 Neutrophils # 6.0 Lymphocytes # 0.6 L Monocytes # 0.8 Eosinophils # 0.7 H Basophils # 0.0 Nucleated Red Blood Cells # 0.0 Sodium Level 137 Potassium Level 4.3 Chloride Level 95 L Carbon Dioxide Level 31 Anion Gap 15 Blood Urea Nitrogen 28 #H Creatinine 7.14 H Glucose Level 274 H Calcium Level 9.8 Total Bilirubin 0.2 Direct Bilirubin 0.00 Indirect Bilirubin 0.2 Aspartate Amino Transf (AST/SGOT) 35 Alanine Aminotransferase (ALT/SGPT) 42 Alkaline Phosphatase 363 H Total Protein 6.2 Albumin 2.9 L Globulin 3.30 H Albumin/Globulin Ratio 0.87 Test 06/24/17 11:55 06/24/17 16:59 Bedside Glucose 251 H 104 Medications Medications Current Medications Aspirin (Aspirin) 81 mg DAILY PO Last administered on 06/24/17 09:29; Admin Dose 81 MG; Start 06/24/17 at 09:00 Atorvastatin Calcium (Lipitor) 80 mg QHS PO Last administered on 06/23/17 21: 38; Admin Dose 80 MG; Start 06/23/17 at 21:00 Carvedilol (Coreg) 25 mg BID PO Last administered on 06/24/17 09:31; Admin Dose 25 MG; Start 06/23/17 at 21:00 Clonidine (Catapres) 0.2 mg BID PO Last administered on 06/24/17 09:30; Admin Dose 0.2 MG; Start 06/23/17 at 21:00 Doxazosin Mesylate (Cardura) 1 mg HS PO ; Start 06/23/17 at 21:00 Hydralazine HCl (Apresoline) 50 mg BID PO Last administered on 06/24/17 09:30 ; Admin Dose 50 MG; Start 06/23/17 at 21:00 Lisinopril (Zestril) 40 mg BID PO Last administered on 06/24/17 09:31; Admin Dose 40 MG; Start 06/23/17 at 21:00 Multivit/Ca Carb/ B Cmplx/FA/Prenat (Kimmie-Tirso) 1 tab DAILY PO Last administered on 06/24/17 09:29; Admin Dose 1 TAB; Start 06/24/17 at 09:00 Nifedipine (Procardia Xl) 90 mg QHS PO ; Start 06/23/17 at 21:00 Pantoprazole (Protonix Tab) 40 mg DAILY PO Last administered on 06/24/17 09: 30; Admin Dose 40 MG; Start 06/24/17 at 09:00 Tramadol HCl (Ultram) 50 mg Q6 PRN PO PAIN Last administered on 06/23/17 18: 26; Admin Dose 50 MG; Start 06/23/17 at 14:00 Miscellaneous Information 12 unit QHS XX ; Start 06/23/17 at 21:00; Status UNV Ticagrelor (Brilinta) 90 mg BID PO Last administered on 06/24/17 09:36; Admin Dose 90 MG; Start 06/23/17 at 21:00 Nitroglycerin (Nitroglycerin (Sl Tab) 0.4 Mg) 1 tab Q5M PRN SL CHEST PAIN; Start 06/23/17 at 14:30 Acetaminophen (Tylenol Tab) 650 mg Q6H PRN PO PAIN LEVEL 1-3 OR FEVER; Start 06/23/17 at 14:30 Miscellaneous Information 1 ea NOTE XX ; Start 06/23/17 at 14:30 Glucose (Glutose) 15 gm Q15M PRN PO DECREASED GLUCOSE; Start 06/23/17 at 14:30 Glucose (Glutose) 22.5 gm Q15M PRN PO DECREASED GLUCOSE; Start 06/23/17 at 14: 30 Dextrose (D50w Syringe) 25 ml Q15M PRN IV DECREASED GLUCOSE; Start 06/23/17 at 14:30 Dextrose (D50w Syringe) 50 ml Q15M PRN IV DECREASED GLUCOSE; Start 06/23/17 at 14:30 Glucagon (Glucagen) 1 mg Q15M PRN IM DECREASED GLUCOSE; Start 06/23/17 at 14: 30 Glucose (Glutose) 15 gm Q15M PRN BUCCAL DECREASED GLUCOSE; Start 06/23/17 at 14:30 Diagnostic Test (Pha) (Accu-Chek) 1 ea 02 XX ; Start 06/24/17 at 02:00 Levetiracetam (Keppra) 500 mg DAILY PO Last administered on 06/24/17t 09:31; Admin Dose 500 MG; Start 06/24/17 at 09:00 Miscellaneous Information (*Order Clarification Bulletin) MEDICATION REQUIRES CLARIFICATION: Q8H XX ; Start 06/24/17 at 09:00 Insulin Glargine (Lantus) 10 unit QAM SC ; Start 06/25/17 at 09:00 PAULY VILA MD Jun 24, 2017 18:48
--- NOTE | 2017-06-24 19:55 | PN ---
Date/Time of Note Date/Time of Note DATE: 06/24/17 TIME: 19:49 Assessment/Plan VTE Prophylaxis VTE Prophylaxis Intervention: other Lines/Catheters IV Catheter Type (from Nrs): Saline Lock Urinary Cath still in place: No Assessment/Plan Assessment/Plan A: elevated troponin rt groin pain/hematoma diarrhea ESRD CAD DM P: stool wbc, c diff cont current rx dialysis per renal monitor labs Subjective 24 Hr Interval Summary Free Text/Dictation Cardiology consult appreciated. Pt still with pain in rt groin/penis. No abd pain. Last bm watery last night, none today. No cp, sob. Exam/Review of Systems Vital Signs Vitals Vital Signs Date Time Temp Pulse Resp B/P Pulse Ox O2 Delivery O2 Flow Rate FiO2 06/24/17 19:31 98.1 60 19 114/58 96 06/23/17 12:56 Room Air Intake and Output 06/23/17 06/23/17 06/24/17 15:00 23:00 07:00 Intake Total 740 ml 240 ml Output Total 4000 ml 150 ml Balance -3260 ml 90 ml Exam gen- nad, nontoxic lungs- CTA heart- RRR abd- +BS, soft, nontender, ecchymosis rt groin unchanged ext- bilat edema unchanged. Results Result Diagram: 06/24/17 0653 06/24/17 0653 Results 24 hrs Laboratory Tests Test 06/23/17 20:38 06/23/17 21:37 06/24/17 06:53 06/24/17 08:45 Creatine Kinase 98 Creatine Kinase Index 5.8 Creatinine Kinase MB (Mass) 5.71 H Troponin I 1.950 *H Bedside Glucose 160 313 H White Blood Count 8.1 Red Blood Count 3.33 L Hemoglobin 10.2 L Hematocrit 31.1 L Mean Corpuscular Volume 93.4 Mean Corpuscular Hemoglobin 30.6 Mean Corpuscular Hemoglobin Concent 32.8 Red Cell Distribution Width 17.5 H Platelet Count 164 Mean Platelet Volume 10.8 H Neutrophils % 74.1 Lymphocytes % 7.3 L Monocytes % 9.5 Eosinophils % 8.5 H Basophils % 0.2 Nucleated Red Blood Cells % 0.0 Neutrophils # 6.0 Lymphocytes # 0.6 L Monocytes # 0.8 Eosinophils # 0.7 H Basophils # 0.0 Nucleated Red Blood Cells # 0.0 Sodium Level 137 Potassium Level 4.3 Chloride Level 95 L Carbon Dioxide Level 31 Anion Gap 15 Blood Urea Nitrogen 28 #H Creatinine 7.14 H Glucose Level 274 H Calcium Level 9.8 Total Bilirubin 0.2 Direct Bilirubin 0.00 Indirect Bilirubin 0.2 Aspartate Amino Transf (AST/SGOT) 35 Alanine Aminotransferase (ALT/SGPT) 42 Alkaline Phosphatase 363 H Total Protein 6.2 Albumin 2.9 L Globulin 3.30 H Albumin/Globulin Ratio 0.87 Test 06/24/17 11:55 06/24/17 16:59 Bedside Glucose 251 H 104 Medications Medications Current Medications Aspirin (Aspirin) 81 mg DAILY PO Last administered on 06/24/17 09:29; Admin Dose 81 MG; Start 06/24/17 at 09:00 Atorvastatin Calcium (Lipitor) 80 mg QHS PO Last administered on 06/23/17 21: 38; Admin Dose 80 MG; Start 06/23/17 at 21:00 Carvedilol (Coreg) 25 mg BID PO Last administered on 06/24/17 09:31; Admin Dose 25 MG; Start 06/23/17 at 21:00 Clonidine (Catapres) 0.2 mg BID PO Last administered on 06/24/17 09:30; Admin Dose 0.2 MG; Start 06/23/17 at 21:00 Doxazosin Mesylate (Cardura) 1 mg HS PO ; Start 06/23/17 at 21:00 Hydralazine HCl (Apresoline) 50 mg BID PO Last administered on 06/24/17 09:30 ; Admin Dose 50 MG; Start 06/23/17 at 21:00 Lisinopril (Zestril) 40 mg BID PO Last administered on 06/24/17 09:31; Admin Dose 40 MG; Start 06/23/17 at 21:00 Multivit/Ca Carb/ B Cmplx/FA/Prenat (Kimmie-Tirso) 1 tab DAILY PO Last administered on 06/24/17 09:29; Admin Dose 1 TAB; Start 06/24/17 at 09:00 Nifedipine (Procardia Xl) 90 mg QHS PO ; Start 06/23/17 at 21:00 Pantoprazole (Protonix Tab) 40 mg DAILY PO Last administered on 06/24/17 09: 30; Admin Dose 40 MG; Start 06/24/17 at 09:00 Tramadol HCl (Ultram) 50 mg Q6 PRN PO PAIN Last administered on 06/23/17 18: 26; Admin Dose 50 MG; Start 06/23/17 at 14:00 Miscellaneous Information 12 unit QHS XX ; Start 06/23/17 at 21:00; Status UNV Ticagrelor (Brilinta) 90 mg BID PO Last administered on 06/24/17 09:36; Admin Dose 90 MG; Start 06/23/17 at 21:00 Nitroglycerin (Nitroglycerin (Sl Tab) 0.4 Mg) 1 tab Q5M PRN SL CHEST PAIN; Start 06/23/17 at 14:30 Acetaminophen (Tylenol Tab) 650 mg Q6H PRN PO PAIN LEVEL 1-3 OR FEVER; Start 06/23/17 at 14:30 Miscellaneous Information 1 ea NOTE XX ; Start 06/23/17 at 14:30 Glucose (Glutose) 15 gm Q15M PRN PO DECREASED GLUCOSE; Start 06/23/17 at 14:30 Glucose (Glutose) 22.5 gm Q15M PRN PO DECREASED GLUCOSE; Start 06/23/17 at 14: 30 Dextrose (D50w Syringe) 25 ml Q15M PRN IV DECREASED GLUCOSE; Start 06/23/17 at 14:30 Dextrose (D50w Syringe) 50 ml Q15M PRN IV DECREASED GLUCOSE; Start 06/23/17 at 14:30 Glucagon (Glucagen) 1 mg Q15M PRN IM DECREASED GLUCOSE; Start 06/23/17 at 14: 30 Glucose (Glutose) 15 gm Q15M PRN BUCCAL DECREASED GLUCOSE; Start 06/23/17 at 14:30 Diagnostic Test (Pha) (Accu-Chek) 1 ea 02 XX ; Start 06/24/17 at 02:00 Levetiracetam (Keppra) 500 mg DAILY PO Last administered on 06/24/17 09:31; Admin Dose 500 MG; Start 06/24/17 at 09:00 Miscellaneous Information (*Order Clarification Bulletin) MEDICATION REQUIRES CLARIFICATION: Q8H XX ; Start 06/24/17 at 09:00 Insulin Glargine (Lantus) 10 unit QAM SC ; Start 06/25/17 at 09:00 KIMBERLI LOPEZ MD Jun 24, 2017 19:54
[2017-06-24] MEDS: ATORVASTATIN 80 MG TAB PO SCH (20:13)
[2017-06-24] MEDS: NIFEdipine (XL) 90 MG TAB PO SCH (20:14)
[2017-06-24] MEDS: DOXAZOSIN 1 MG TAB PO SCH (20:15)
[2017-06-25] VITALS (14 sets, daily range): BP systolic 89–121; BP diastolic 44–62; PULSE 51–65; RESP 16–20
[2017-06-25] MEDS: ACCU-CHEK XX SCH (01:48)
[2017-06-25] MEDS ORDERED: INSULIN ASPART [NOVOLOG] 3 ML PEN SC ONE ×2 (05:00→06:30)
[2017-06-25] MEDS: LEVOTHYROXINE 125 MCG TAB PO SCH (06:45)
[2017-06-25] MEDS: INSULIN ASPART [NOVOLOG] 3 ML PEN SC SCH ×6 (08:00→21:00)
[2017-06-25] MEDS: MULTIVIT/CA CARB/B CMPLX/FA TAB PO SCH (08:44)
[2017-06-25] MEDS: ASPIRIN 81 MG TAB PO SCH (08:44)
[2017-06-25] MEDS: PANTOPRAZOLE (EC) 40 MG TAB PO SCH (08:44)
[2017-06-25] MEDS: LEVETIRACETAM 500 MG TAB PO SCH (08:44)
[2017-06-25] MEDS: TICAGRELOR 90 MG TABLET PO SCH ×2 (08:46→21:26)
[2017-06-25] MEDS: LISINOPRIL 20 MG TAB PO SCH (08:47)
[2017-06-25] MEDS: [UNRECOGNIZED DRUG - REMARK] XX SCH (08:47)
[2017-06-25] MEDS ORDERED: INSULIN GLARGINE [LANtus] 3 ML PEN SC SCH (09:00)
[2017-06-25 09:37] LABS: BASOPHILS % 0.4 % (0.0-2.0); EOSINOPHILS # 0.7 10^3/ul (0.0-0.5); EOSINOPHILS % 8.3 % (0.0-7.0); HEMATOCRIT 31.3 % (42.0-52.0); HEMOGLOBIN 10.1 g/dl (14.0-18.0); LYMPHOCYTES # 0.7 10^3/ul (0.8-2.9); LYMPHOCYTES % 8.3 % (15.0-51.0); MEAN CORPUSCULAR HEMOGLOBIN 30.6 pg (29.0-33.0); MEAN CORPUSCULAR HGB CONC 32.3 g/dl (32.0-37.0); MEAN CORPUSCULAR VOLUME 94.8 fl (82.0-101.0); MEAN PLATELET VOLUME 11.3 fl (7.4-10.4); MONOCYTE # 0.7 10^3/ul (0.3-0.9); MONOCYTES % 7.6 % (0.0-11.0); NEUTROPHIL # 6.4 10^3/ul (1.6-7.5); PLATELET COUNT 183 10^3/UL (140-415); RED CELL DISTRIBUTION WIDTH 17.3 % (11.5-14.5); WHITE BLOOD COUNT 8.5 10^3/ul (4.8-10.8)
[2017-06-25 10:05] LABS: CALCIUM 10.2 mg/dl (8.4-10.2); CREATININE 8.88 mg/dl (0.61-1.24); POTASSIUM 4.5 mmol/L (3.5-5.1)
[2017-06-25] MEDS ORDERED: INSULIN ASPART [NOVOLOG] 3 ML PEN SC SCH (12:00)
--- NOTE | 2017-06-25 12:44 | CONS ---
Date/Time of Note Date/Time of Note DATE: 06/25/17 TIME: 10:06 Assessment/Plan Assessment/Plan Chief Complaint/Hosp Course 1. End-stage renal disease on maintenance hemodialysis. Patient is regularly dialyzed Thursday and is due for dialysis today ; however, he refuses dialysis today. He says that his blood pressure has been low and he does not want dialysis today he will have it tomorrow. 2 coronary artery disease. Status post recent coronary angiogram and stent placement at [facility]. 3. Type 2 diabetes mellitus . His blood sugars have been very erratic. 4. Hypertension , he has had episodes of low blood pressure therefore I have adjusted his blood pressure medicine. 5. History of gallstones now with elevated alkaline phosphatase 6. Anemia of chronic kidney disease. 7. Recent history of new onset seizure disorder. Now on antiseizure medication. 8 sensation of urinary urgency possibly due to right groin hematoma. He says that he has had some blood coming out of his penis and feels like he has to have a bowel movement which does resolve his pain.. His bladder on CAT scan is not empty . I will order a in and out straight cath and send urine for U/A and C & S . Problems: Consultation Date/Type/Reason Admit Date/Time Jun 23, 2017 at 10:43 Type of Consultation: Cardiology Referring Provider: PAULY VILA MD 24 HR Interval Summary Free Text/Dictation He has been upset because his blood pressure was low during the night and he said that his blood sugar was low. He refused to have hemodialysis today and wants to have it tomorrow. He continues to complain of some urinary urgency and dysuria. He says that blood comes out of his penis and then he feels like he needs to move his bowels and then the pain resolves. Exam/Review of Systems Vital Signs Vitals Vital Signs Date Time Temp Pulse Resp B/P Pulse Ox O2 Delivery O2 Flow Rate FiO2 06/25/17 08:13 56 06/25/17 07:55 98.0 16 117/56 97 06/23/17 12:56 Room Air Intake and Output 06/24/17 06/24/17 06/25/17 15:00 23:00 07:00 Intake Total 700 ml 650 ml Balance 700 ml 650 ml Exam Constitutional: alert, frail, oriented Psych: anxiety Respiratory: clear to auscultation, normal air movement Cardiovascular: edema, regular rate and rhythm Gastrointestinal: soft Extremities: edema Results Result Diagram: 06/25/17 0901 06/24/17 0653 Results 24 hrs Laboratory Tests Test 06/24/17 11:55 06/24/17 16:59 06/24/17 20:21 06/25/17 04:15 Bedside Glucose 251 H 104 138 446 *H Test 06/25/17 06:14 06/25/17 08:13 06/25/17 09:01 Bedside Glucose 438 *H 338 H White Blood Count 8.5 Red Blood Count 3.30 L Hemoglobin 10.1 L Hematocrit 31.3 L Mean Corpuscular Volume 94.8 Mean Corpuscular Hemoglobin 30.6 Mean Corpuscular Hemoglobin Concent 32.3 Red Cell Distribution Width 17.3 H Platelet Count 183 Mean Platelet Volume 11.3 H Neutrophils % 75.0 Lymphocytes % 8.3 L Monocytes % 7.6 Eosinophils % 8.3 H Basophils % 0.4 Nucleated Red Blood Cells % 0.0 Neutrophils # 6.4 Lymphocytes # 0.7 L Monocytes # 0.7 Eosinophils # 0.7 H Basophils # 0.0 Nucleated Red Blood Cells # 0.0 Medications Medications Current Medications Aspirin (Aspirin) 81 mg DAILY PO Last administered on 06/25/17 08:44; Admin Dose 81 MG; Start 06/24/17 at 09:00 Atorvastatin Calcium (Lipitor) 80 mg QHS PO Last administered on 06/24/17 20: 13; Admin Dose 80 MG; Start 06/23/17 at 21:00 Carvedilol (Coreg) 25 mg BID PO Last administered on 06/24/17 20:15; Admin Dose 25 MG; Start 06/23/17 at 21:00 Clonidine (Catapres) 0.2 mg BID PO Last administered on 06/24/17 20:16; Admin Dose 0.2 MG; Start 06/23/17 at 21:00 Doxazosin Mesylate (Cardura) 1 mg HS PO Last administered on 06/24/17 20:15; Admin Dose 1 MG; Start 06/23/17 at 21:00 Hydralazine HCl (Apresoline) 50 mg BID PO Last administered on 06/24/17 20:14 ; Admin Dose 50 MG; Start 06/23/17 at 21:00 Lisinopril (Zestril) 40 mg BID PO Last administered on 06/24/17 20:17; Admin Dose 40 MG; Start 06/23/17 at 21:00 Multivit/Ca Carb/ B Cmplx/FA/Prenat (Kimmie-Tirso) 1 tab DAILY PO Last administered on 06/25/17 08:44; Admin Dose 1 TAB; Start 06/24/17 at 09:00 Nifedipine (Procardia Xl) 90 mg QHS PO Last administered on 06/24/17 20:14; Admin Dose 90 MG; Start 06/23/17 at 21:00 Pantoprazole (Protonix Tab) 40 mg DAILY PO Last administered on 06/25/17 08: 44; Admin Dose 40 MG; Start 06/24/17 at 09:00 Tramadol HCl (Ultram) 50 mg Q6 PRN PO PAIN Last administered on 06/23/17 18: 26; Admin Dose 50 MG; Start 06/23/17 at 14:00 Miscellaneous Information 12 unit QHS XX ; Start 06/23/17 at 21:00; Status UNV Ticagrelor (Brilinta) 90 mg BID PO Last administered on 06/25/17 08:46; Admin Dose 90 MG; Start 06/23/17 at 21:00 Nitroglycerin (Nitroglycerin (Sl Tab) 0.4 Mg) 1 tab Q5M PRN SL CHEST PAIN; Start 06/23/17 at 14:30 Acetaminophen (Tylenol Tab) 650 mg Q6H PRN PO PAIN LEVEL 1-3 OR FEVER; Start 06/23/17 at 14:30 Miscellaneous Information 1 ea NOTE XX ; Start 06/23/17 at 14:30 Glucose (Glutose) 15 gm Q15M PRN PO DECREASED GLUCOSE; Start 06/23/17 at 14:30 Glucose (Glutose) 22.5 gm Q15M PRN PO DECREASED GLUCOSE; Start 06/23/17 at 14: 30 Dextrose (D50w Syringe) 25 ml Q15M PRN IV DECREASED GLUCOSE; Start 06/23/17 at 14:30 Dextrose (D50w Syringe) 50 ml Q15M PRN IV DECREASED GLUCOSE; Start 06/23/17 at 14:30 Glucagon (Glucagen) 1 mg Q15M PRN IM DECREASED GLUCOSE; Start 06/23/17 at 14: 30 Glucose (Glutose) 15 gm Q15M PRN BUCCAL DECREASED GLUCOSE; Start 06/23/17 at 14:30 Levetiracetam (Keppra) 500 mg DAILY PO Last administered on 06/25/17t 08:44; Admin Dose 500 MG; Start 06/24/17 at 09:00 Miscellaneous Information (*Order Clarification Bulletin) MEDICATION REQUIRES CLARIFICATION: Q8H XX ; Start 06/24/17 at 09:00 Diagnostic Test (Pha) (Accu-Chek) 1 ea 02 XX ; Start 06/26/17 at 02:00 Insulin Glargine (Lantus) 10 unit 08 SC ; Start 06/26/17 at 08:00 PAULY VILA MD Jun 25, 2017 12:44
--- NOTE | 2017-06-25 13:41 | CONS ---
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 We will adjust his regimen to mirror his home protocol as closely as possible. This means that the Lantus will be moved to bedtime dosing. To bridge him over since he did receive the Lantus dose this morning I will give him a smaller Lantus dose tonight at bedtime and he will go to his normal normative schedule as of tomorrow. His sugars will drift down slowly (2) Hypertension Status: Chronic Comment: This is reasonably well controlled on there using medications for systolic heart failure for this. Qualifiers: Qualified Code: I10 - Essential hypertension (3) End stage renal disease Status: Acute Comment: As per nephrology-Dr. Hinton (4) Elevated troponin Status: Acute Comment: As per cardiology Consultation Date/Type/Reason Admit Date/Time Jun 23, 2017 at 10:43 Date of Consultation: Jun 25, 2017 Type of Consultation: Endocrinology Reason for Consultation Diabetes mellitus type 1 with multiple complications including retinopathy end- stage renal disease peripheral neuropathy cardiovascular disease peripheral vascular disease Referring Provider: KIMBERLI LOPEZ MD Hx of Present Illness 66-year-old gentleman recently admitted at this hospital for cardiac issues. He was transferred to [facility] where he had angioplasty after an non-STEMI. He has been readmitted here for some GI tract illness. At the patient's family request I am consulted to assist with adjusting his insulin regimen for his sugars. Constitutional: no complaints (Denies fevers chills or sweats) Eyes: no complaints Respiratory: no complaints Cardiovascular: no complaints (Denies chest pain palpitations orthopnea) Gastrointestinal: no complaints Musculoskeletal: no complaints Past Medical History Medical History: congestive heart failure (Systolic), coronary artery disease, diabetes, hypothyroid Past Surgical History Past Surgical Hx: noncontributory Family History Significant Family History: no pertinent family hx Social History Alcohol Use: none Smoking Status: Never smoker Drug Use: none Exam/Review of Systems Vital Signs Vitals Vital Signs Date Time Temp Pulse Resp B/P Pulse Ox O2 Delivery O2 Flow Rate FiO2 06/25/17 12:15 56 06/25/17 11:39 98.1 17 119/58 98 06/23/17 12:56 Room Air Intake and Output 06/24/17 06/24/17 06/25/17 15:00 23:00 07:00 Intake Total 700 ml 650 ml Balance 700 ml 650 ml Exam Constitutional: alert, oriented ENMT: mucosa pink and moist, nl external ears & nose, nl lips & teeth, nl nasal mucosa & septum Neck: non-tender, supple Respiratory: clear to auscultation, normal air movement Cardiovascular: murmurs/extra sounds (S4 gallop), nl pulses, regular rate and rhythm Gastrointestinal: nl liver, spleen, non-tender, soft Results Result Diagram: 06/25/1790006/25/17 09 Results 24 hrs Laboratory Tests Test 06/24/17 16:59 06/24/17 20:21 06/25/17 04:15 06/25/17 06:14 Bedside Glucose 104 138 446 *H 438 *H Test 06/25/17 08:13 06/25/17 09:01 06/25/17 11:37 Bedside Glucose 338 H 297 H White Blood Count 8.5 Red Blood Count 3.30 L Hemoglobin 10.1 L Hematocrit 31.3 L Mean Corpuscular Volume 94.8 Mean Corpuscular Hemoglobin 30.6 Mean Corpuscular Hemoglobin Concent 32.3 Red Cell Distribution Width 17.3 H Platelet Count 183 Mean Platelet Volume 11.3 H Neutrophils % 75.0 Lymphocytes % 8.3 L Monocytes % 7.6 Eosinophils % 8.3 H Basophils % 0.4 Nucleated Red Blood Cells % 0.0 Neutrophils # 6.4 Lymphocytes # 0.7 L Monocytes # 0.7 Eosinophils # 0.7 H Basophils # 0.0 Nucleated Red Blood Cells # 0.0 Sodium Level 135 Potassium Level 4.5 Chloride Level 94 L Carbon Dioxide Level 29 Anion Gap 17 H Blood Urea Nitrogen 45 #H Creatinine 8.88 H Glucose Level 271 H Calcium Level 10.2 Medications Medications Current Medications Aspirin (Aspirin) 81 mg DAILY PO Last administered on 06/25/17 08:44; Admin Dose 81 MG; Start 06/24/17 at 09:00 Atorvastatin Calcium (Lipitor) 80 mg QHS PO Last administered on 06/24/17 20: 13; Admin Dose 80 MG; Start 06/23/17 at 21:00 Carvedilol (Coreg) 25 mg BID PO Last administered on 06/24/17 20:15; Admin Dose 25 MG; Start 06/23/17 at 21:00 Clonidine (Catapres) 0.2 mg BID PO Last administered on 06/24/17 20:16; Admin Dose 0.2 MG; Start 06/23/17 at 21:00 Doxazosin Mesylate (Cardura) 1 mg HS PO Last administered on 06/24/17 20:15; Admin Dose 1 MG; Start 06/23/17 at 21:00 Hydralazine HCl (Apresoline) 50 mg BID PO Last administered on 06/24/17 20:14 ; Admin Dose 50 MG; Start 06/23/17 at 21:00 Multivit/Ca Carb/ B Cmplx/FA/Prenat (Kimmie-Tirso) 1 tab DAILY PO Last administered on 06/25/17 08:44; Admin Dose 1 TAB; Start 06/24/17 at 09:00 Nifedipine (Procardia Xl) 90 mg QHS PO Last administered on 06/24/17 20:14; Admin Dose 90 MG; Start 06/23/17 at 21:00 Pantoprazole (Protonix Tab) 40 mg DAILY PO Last administered on 06/25/17 08: 44; Admin Dose 40 MG; Start 06/24/17 at 09:00 Tramadol HCl (Ultram) 50 mg Q6 PRN PO PAIN Last administered on 06/23/17 18: 26; Admin Dose 50 MG; Start 06/23/17 at 14:00 Miscellaneous Information 12 unit QHS XX ; Start 06/23/17 at 21:00; Status UNV Ticagrelor (Brilinta) 90 mg BID PO Last administered on 06/25/17 08:46; Admin Dose 90 MG; Start 06/23/17 at 21:00 Nitroglycerin (Nitroglycerin (Sl Tab) 0.4 Mg) 1 tab Q5M PRN SL CHEST PAIN; Start 06/23/17 at 14:30 Acetaminophen (Tylenol Tab) 650 mg Q6H PRN PO PAIN LEVEL 1-3 OR FEVER; Start 06/23/17 at 14:30 Miscellaneous Information 1 ea NOTE XX ; Start 06/23/17 at 14:30 Glucose (Glutose) 15 gm Q15M PRN PO DECREASED GLUCOSE; Start 06/23/17 at 14:30 Glucose (Glutose) 22.5 gm Q15M PRN PO DECREASED GLUCOSE; Start 06/23/17 at 14: 30 Dextrose (D50w Syringe) 25 ml Q15M PRN IV DECREASED GLUCOSE; Start 06/23/17 at 14:30 Dextrose (D50w Syringe) 50 ml Q15M PRN IV DECREASED GLUCOSE; Start 06/23/17 at 14:30 Glucagon (Glucagen) 1 mg Q15M PRN IM DECREASED GLUCOSE; Start 06/23/17 at 14: 30 Glucose (Glutose) 15 gm Q15M PRN BUCCAL DECREASED GLUCOSE; Start 06/23/17 at 14:30 Levetiracetam (Keppra) 500 mg DAILY PO Last administered on 06/25/17t 08:44; Admin Dose 500 MG; Start 06/24/17 at 09:00 Miscellaneous Information (*Order Clarification Bulletin) MEDICATION REQUIRES CLARIFICATION: Q8H XX ; Start 06/24/17 at 09:00 Diagnostic Test (Pha) (Accu-Chek) 1 ea 02 XX ; Start 06/26/17 at 02:00 Insulin Glargine (Lantus) 10 unit 08 SC ; Start 06/26/17 at 08:00 Lisinopril (Zestril) 40 mg DAILY PO ; Start 06/26/17 at 09:00 LAWANDA KING MD Jun 25, 2017 13:41
--- NOTE | 2017-06-25 15:31 | RADRPT ---
Echocardiogram Report Patient Name: SHERINE LAU Gender: Male Date: 1950 Study Date: 24-Jun-2017 Hris Analyst: Aneta Kumar [facility] Location: 5549 Ref. Physician: ERICKSON GUY Quality: Good Procedures: Transthoracic echocardiogram examination. Indications: limited for LV function/EF. Findings Left Ventricle: Moderate global left ventricular systolic dysfunction. The left ventricular ejection fraction is visually estimated at 35 %. Right Ventricle: Normal right ventricular systolic function. Mitral Valve: Anterior mitral valve leaflet appear mildly thickened. Posterior mitral valve leaflet appear mildly thickened. Mild mitral annular calcification. Pericardium: Trivial effusion. Conclusions Limited Echocardiogram. Moderate global left ventricular systolic dysfunction. The left ventricular ejection fraction is visually estimated at 35 %. Overall LV function appears to be improved compared to echo from 06/08/2017. Electronically Signed By: Erickson Guy 25-Jun-2017 15:31:11 -0800 Patient Name: SHERINE LAU Study Date: 24-Jun-2017 [id number]
--- NOTE | 2017-06-25 16:49 | CONS ---
Date/Time of Note Date/Time of Note DATE: 06/25/17 TIME: 16:44 Assessment/Plan Assessment/Plan Chief Complaint/Hosp Course 1) abd pain/urgency- unclear etiology, negative ct scan for acute abnl post cath. pt does have bladder prostate thickening on ct. related to symptoms. - no e/o RP bleed or sig hematoma on imaging. do not suspect abd pain/urgency is related to cardiac condition. - workup/tx per primary/nephrology 2) NSTEMI- likely type IV post PCI. persistent elevation in setting of ESRD on iHD, slow decrease. no acute ekg changes. pt without symptoms. did have thrombotic lesion at time of cath. cont DAPT. echo with improved LVEF post PCI - cont asa/ticagelor - cont statin - cont bb 3) Hematoma- small r sided from impella, cont to limit heavy lifting for additional week - no pseudoaneurysm/rp bleed on imaging - unrelated to urinary symptoms. 4) ESRD on iHD - per nephro 5) Chronic systolic heart failure euvolemic on exam, cont bb. acei. no on aldosterone mark given ESRD. 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 avoid heparin products. Problems: Consultation Date/Type/Reason Admit Date/Time Jun 23, 2017 at 10:43 Initial Consult Date 06/23/2017 Type of Consultation: cardiology Referring Provider: KIMBERLI LOPEZ MD 24 HR Interval Summary Free Text/Dictation Acute events. Patient currently denies any chest pains are suppressed. Patient had laboratory without symptoms. Following by mouth's. No abdominal pain. Patient continues to have urinary urgency. States does not have urine output sometimes small amount of blood. Denies any pain at previous catheter site tele reviewed: no events Detailed Summary Eyes: no complaints ENT: no complaints, pain Respiratory: no complaints Cardiovascular: no complaints Gastrointestinal: no complaints, other (urgency) Exam/Review of Systems Vital Signs Vitals Vital Signs Date Time Temp Pulse Resp B/P Pulse Ox O2 Delivery O2 Flow Rate FiO2 06/25/17 16:32 98.0 60 17 112/54 97 06/23/17 12:56 Room Air Intake and Output 06/24/17 06/24/17 06/25/17 14:59 22:59 06:59 Intake Total 700 ml 650 ml Balance 700 ml 650 ml Exam Constitutional: alert, oriented Psych: nl mood/affect, no complaints Head: normocephalic Eyes: nl conjunctiva ENMT: other (poor denititon) Neck: non-tender, supple, No jvd Respiratory: clear to auscultation, normal air movement Cardiovascular: nl pulses, regular rate and rhythm, systolic murmur, No S3, No S4, No bruits, No diastolic murmur, No edema Gastrointestinal: non-tender, soft Musculoskeletal: nl extremities to inspection, nl gait and stance Extremities: normal pulses, other (R groin small hematoma, no bruit, no ttp) Neurological: MARKETING AGENT II-XII intact, nl mental status, nl speech Skin: nl turgor Results Result Diagram: 06/25/1790006/25/17900 Results 24 hrs Laboratory Tests Test 06/24/17 16:59 06/24/17 20:21 06/25/17 04:15 06/25/17 06:14 Bedside Glucose 104 138 446 *H 438 *H Test 06/25/17 08:13 06/25/17 09:01 06/25/17 11:37 Bedside Glucose 338 H 297 H White Blood Count 8.5 Red Blood Count 3.30 L Hemoglobin 10.1 L Hematocrit 31.3 L Mean Corpuscular Volume 94.8 Mean Corpuscular Hemoglobin 30.6 Mean Corpuscular Hemoglobin Concent 32.3 Red Cell Distribution Width 17.3 H Platelet Count 183 Mean Platelet Volume 11.3 H Neutrophils % 75.0 Lymphocytes % 8.3 L Monocytes % 7.6 Eosinophils % 8.3 H Basophils % 0.4 Nucleated Red Blood Cells % 0.0 Neutrophils # 6.4 Lymphocytes # 0.7 L Monocytes # 0.7 Eosinophils # 0.7 H Basophils # 0.0 Nucleated Red Blood Cells # 0.0 Sodium Level 135 Potassium Level 4.5 Chloride Level 94 L Carbon Dioxide Level 29 Anion Gap 17 H Blood Urea Nitrogen 45 #H Creatinine 8.88 H Glucose Level 271 H Calcium Level 10.2 Medications Medications Current Medications Aspirin (Aspirin) 81 mg DAILY PO Last administered on 06/25/17 08:44; Admin Dose 81 MG; Start 06/24/17 at 09:00 Atorvastatin Calcium (Lipitor) 80 mg QHS PO Last administered on 06/24/17 20: 13; Admin Dose 80 MG; Start 06/23/17 at 21:00 Carvedilol (Coreg) 25 mg BID PO Last administered on 06/24/17 20:15; Admin Dose 25 MG; Start 06/23/17 at 21:00 Clonidine (Catapres) 0.2 mg BID PO Last administered on 06/24/17 20:16; Admin Dose 0.2 MG; Start 06/23/17 at 21:00 Doxazosin Mesylate (Cardura) 1 mg HS PO Last administered on 06/24/17 20:15; Admin Dose 1 MG; Start 06/23/17 at 21:00 Hydralazine HCl (Apresoline) 50 mg BID PO Last administered on 06/24/17 20:14 ; Admin Dose 50 MG; Start 06/23/17 at 21:00 Multivit/Ca Carb/ B Cmplx/FA/Prenat (Kimmie-Tirso) 1 tab DAILY PO Last administered on 06/25/17 08:44; Admin Dose 1 TAB; Start 06/24/17 at 09:00 Nifedipine (Procardia Xl) 90 mg QHS PO Last administered on 06/24/17 20:14; Admin Dose 90 MG; Start 06/23/17 at 21:00 Pantoprazole (Protonix Tab) 40 mg DAILY PO Last administered on 06/25/17 08: 44; Admin Dose 40 MG; Start 06/24/17 at 09:00 Tramadol HCl (Ultram) 50 mg Q6 PRN PO PAIN Last administered on 06/23/17 18: 26; Admin Dose 50 MG; Start 06/23/17 at 14:00 Ticagrelor (Brilinta) 90 mg BID PO Last administered on 06/25/17 08:46; Admin Dose 90 MG; Start 06/23/17 at 21:00 Nitroglycerin (Nitroglycerin (Sl Tab) 0.4 Mg) 1 tab Q5M PRN SL CHEST PAIN; Start 06/23/17 at 14:30 Acetaminophen (Tylenol Tab) 650 mg Q6H PRN PO PAIN LEVEL 1-3 OR FEVER; Start 06/23/17 at 14:30 Miscellaneous Information 1 ea NOTE XX ; Start 06/23/17 at 14:30 Glucose (Glutose) 15 gm Q15M PRN PO DECREASED GLUCOSE; Start 06/23/17 at 14:30 Glucose (Glutose) 22.5 gm Q15M PRN PO DECREASED GLUCOSE; Start 06/23/17 at 14: 30 Dextrose (D50w Syringe) 25 ml Q15M PRN IV DECREASED GLUCOSE; Start 06/23/17 at 14:30 Dextrose (D50w Syringe) 50 ml Q15M PRN IV DECREASED GLUCOSE; Start 06/23/17 at 14:30 Glucagon (Glucagen) 1 mg Q15M PRN IM DECREASED GLUCOSE; Start 06/23/17 at 14: 30 Glucose (Glutose) 15 gm Q15M PRN BUCCAL DECREASED GLUCOSE; Start 06/23/17 at 14:30 Levetiracetam (Keppra) 500 mg DAILY PO Last administered on 06/25/17t 08:44; Admin Dose 500 MG; Start 06/24/17 at 09:00 Diagnostic Test (Pha) (Accu-Chek) 1 ea 02 XX ; Start 06/26/17 at 02:00 Lisinopril (Zestril) 40 mg DAILY PO ; Start 06/26/17 at 09:00 Insulin Glargine (Lantus) 10 unit QHS SC ; Start 06/26/17 at 21:00 Insulin Glargine (Lantus) 6 unit QHS ONCE SC ; Start 06/25/17 at 21:00; Stop 06/25/17 at 21:[address] report reviewed in emr JAMEY GUY Jun 25, 2017 16:48
--- NOTE | 2017-06-25 17:38 | PN ---
Date/Time of Note Date/Time of Note DATE: 06/25/17 TIME: 17:28 Assessment/Plan VTE Prophylaxis VTE Prophylaxis Intervention: other Lines/Catheters IV Catheter Type (from Nrs): Saline Lock Urinary Cath still in place: No Assessment/Plan Assessment/Plan A: pelvic/groin discomfort DM diarrhea resolved elevated troponin - post procedure, slowly decreasing due to esrd per cards esrd anemia P: transfer to [facility] dialysis per renal DM management per Dr. Cheung discussed with cards Subjective 24 Hr Interval Summary Free Text/Dictation Endocrine, renal and cardiology care appreciated. Pt with high bs, insulin adjusted by Dr. Cheung. Pt decline dialysis today, will get tomorrow. No further diarrhea. Still some sensation of need to void. Mild pelvic/groin discomfort. No cp, sob. Exam/Review of Systems Vital Signs Vitals Vital Signs Date Time Temp Pulse Resp B/P Pulse Ox O2 Delivery O2 Flow Rate FiO2 06/25/17 16:32 98.0 60 17 112/54 97 06/23/17 12:56 Room Air Intake and Output 06/24/17 06/24/17 06/25/17 15:00 23:00 07:00 Intake Total 700 ml 650 ml Balance 700 ml 650 ml Exam gen- nad, nontoxic lungs- CTA heart- RRR abd- +BS, soft, mild low abd discomfort. ext- edema unchanged. Results Result Diagram: 06/25/17 0906/25/17 09 Results 24 hrs Laboratory Tests Test 06/24/17 20:21 06/25/17 04:15 06/25/17 06:14 06/25/17 08:13 Bedside Glucose 138 446 *H 438 *H 338 H Test 06/25/17 09:01 06/25/17 11:37 White Blood Count 8.5 Red Blood Count 3.30 L Hemoglobin 10.1 L Hematocrit 31.3 L Mean Corpuscular Volume 94.8 Mean Corpuscular Hemoglobin 30.6 Mean Corpuscular Hemoglobin Concent 32.3 Red Cell Distribution Width 17.3 H Platelet Count 183 Mean Platelet Volume 11.3 H Neutrophils % 75.0 Lymphocytes % 8.3 L Monocytes % 7.6 Eosinophils % 8.3 H Basophils % 0.4 Nucleated Red Blood Cells % 0.0 Neutrophils # 6.4 Lymphocytes # 0.7 L Monocytes # 0.7 Eosinophils # 0.7 H Basophils # 0.0 Nucleated Red Blood Cells # 0.0 Sodium Level 135 Potassium Level 4.5 Chloride Level 94 L Carbon Dioxide Level 29 Anion Gap 17 H Blood Urea Nitrogen 45 #H Creatinine 8.88 H Glucose Level 271 H Calcium Level 10.2 Bedside Glucose 297 H Medications Medications Current Medications Aspirin (Aspirin) 81 mg DAILY PO Last administered on 06/25/17 08:44; Admin Dose 81 MG; Start 06/24/17 at 09:00 Atorvastatin Calcium (Lipitor) 80 mg QHS PO Last administered on 06/24/17 20: 13; Admin Dose 80 MG; Start 06/23/17 at 21:00 Carvedilol (Coreg) 25 mg BID PO Last administered on 06/24/17 20:15; Admin Dose 25 MG; Start 06/23/17 at 21:00 Clonidine (Catapres) 0.2 mg BID PO Last administered on 06/24/17 20:16; Admin Dose 0.2 MG; Start 06/23/17 at 21:00 Doxazosin Mesylate (Cardura) 1 mg HS PO Last administered on 06/24/17 20:15; Admin Dose 1 MG; Start 06/23/17 at 21:00 Hydralazine HCl (Apresoline) 50 mg BID PO Last administered on 06/24/17 20:14 ; Admin Dose 50 MG; Start 06/23/17 at 21:00 Multivit/Ca Carb/ B Cmplx/FA/Prenat (Kimmie-Tirso) 1 tab DAILY PO Last administered on 06/25/17 08:44; Admin Dose 1 TAB; Start 06/24/17 at 09:00 Nifedipine (Procardia Xl) 90 mg QHS PO Last administered on 06/24/17 20:14; Admin Dose 90 MG; Start 06/23/17 at 21:00 Pantoprazole (Protonix Tab) 40 mg DAILY PO Last administered on 06/25/17 08: 44; Admin Dose 40 MG; Start 06/24/17 at 09:00 Tramadol HCl (Ultram) 50 mg Q6 PRN PO PAIN Last administered on 06/23/17 18: 26; Admin Dose 50 MG; Start 06/23/17 at 14:00 Ticagrelor (Brilinta) 90 mg BID PO Last administered on 06/25/17 08:46; Admin Dose 90 MG; Start 06/23/17 at 21:00 Nitroglycerin (Nitroglycerin (Sl Tab) 0.4 Mg) 1 tab Q5M PRN SL CHEST PAIN; Start 06/23/17 at 14:30 Acetaminophen (Tylenol Tab) 650 mg Q6H PRN PO PAIN LEVEL 1-3 OR FEVER; Start 06/23/17 at 14:30 Miscellaneous Information 1 ea NOTE XX ; Start 06/23/17 at 14:30 Glucose (Glutose) 15 gm Q15M PRN PO DECREASED GLUCOSE; Start 06/23/17 at 14:30 Glucose (Glutose) 22.5 gm Q15M PRN PO DECREASED GLUCOSE; Start 06/23/17 at 14: 30 Dextrose (D50w Syringe) 25 ml Q15M PRN IV DECREASED GLUCOSE; Start 06/23/17 at 14:30 Dextrose (D50w Syringe) 50 ml Q15M PRN IV DECREASED GLUCOSE; Start 06/23/17 at 14:30 Glucagon (Glucagen) 1 mg Q15M PRN IM DECREASED GLUCOSE; Start 06/23/17 at 14: 30 Glucose (Glutose) 15 gm Q15M PRN BUCCAL DECREASED GLUCOSE; Start 06/23/17 at 14:30 Levetiracetam (Keppra) 500 mg DAILY PO Last administered on 06/25/17 08:44; Admin Dose 500 MG; Start 06/24/17 at 09:00 Diagnostic Test (Pha) (Accu-Chek) 1 ea 02 XX ; Start 06/26/17 at 02:00 Lisinopril (Zestril) 40 mg DAILY PO ; Start 06/26/17 at 09:00 Insulin Glargine (Lantus) 10 unit QHS SC ; Start 06/26/17 at 21:00 Insulin Glargine (Lantus) 6 unit QHS ONCE SC ; Start 06/25/17 at 21:00; Stop 06/25/17 at 21:01 KIMBERLI LOPEZ MD Jun 25, 2017 17:38
[2017-06-25 17:47] LABS: ADD UMIC YES; UR ASCORBIC ACID NEGATIVE (NEGATIVE); UR BACTERIA FEW /HPF (NONE SEEN); UR BILIRUBIN (Dip) NEGATIVE (NEGATIVE); UR BLOOD (Dip) 2+ mg/dL (NEGATIVE); UR CLARITY CLOUDY (CLEAR); UR COLOR AMBER (YELLOW); UR GLUCOSE (Dip) NEGATIVE (NEGATIVE); UR KETONES (Dip) NEGATIVE (NEGATIVE); UR LEUKOCYTE ESTERASE (Dip) TRACE Leu/ul (NEGATIVE); UR MUCUS FEW /HPF (NONE SEEN); UR NITRITE (Dip) NEGATIVE (NEGATIVE); UR RBC > 182 /HPF (0-5); UR TOTAL PROTEIN (Dip) 3+ mg/dl (NEGATIVE); UR UROBILINOGEN (Dip) NEGATIVE (NEGATIVE)
[2017-06-25] MEDS: DOXAZOSIN 1 MG TAB PO SCH (21:00)
[2017-06-25] MEDS: NIFEdipine (XL) 90 MG TAB PO SCH (21:00)
[2017-06-25] MEDS ORDERED: INSULIN GLARGINE [LANtus] 3 ML PEN SC ONE (21:00)
[2017-06-25] MEDS: ATORVASTATIN 80 MG TAB PO SCH (21:25)
[2017-06-25] MEDS: traMADol 50 MG TAB PO PRN (21:32)
[2017-06-26] VITALS (12 sets, daily range): BP systolic 118–158; BP diastolic 55–71; PULSE 60–65; RESP 18–64
[2017-06-26] MEDS: ACCU-CHEK XX SCH (02:00)
[2017-06-26] MEDS: LEVOTHYROXINE 125 MCG TAB PO SCH (06:25)
[2017-06-26] MEDS ORDERED: INSULIN GLARGINE [LANtus] 3 ML PEN SC SCH ×2 (08:00→21:00)
[2017-06-26] MEDS: INSULIN ASPART [NOVOLOG] 3 ML PEN SC SCH ×7 (08:33→21:00)
[2017-06-26] MEDS: MULTIVIT/CA CARB/B CMPLX/FA TAB PO SCH (08:38)
[2017-06-26] MEDS: ASPIRIN 81 MG TAB PO SCH (08:38)
[2017-06-26] MEDS: PANTOPRAZOLE (EC) 40 MG TAB PO SCH (08:38)
[2017-06-26] MEDS: LEVETIRACETAM 500 MG TAB PO SCH (08:38)
[2017-06-26] MEDS: LISINOPRIL 20 MG TAB PO SCH (09:00)
--- NOTE | 2017-06-26 09:42 | CONS ---
Date/Time of Note Date/Time of Note DATE: 06/26/17 TIME: 09:37 Assessment/Plan Assessment/Plan Chief Complaint/Hosp Course 1. End-stage renal disease on maintenance hemodialysis. Patient is regularly dialyzed Thursday and was due for dialysis yesterday; however, he refused dialysis yesterday. He is scheduled to have hemodialysis today. Next dialysis should be on Thursday to get him back to his regular schedule. 2 coronary artery disease. Status post recent coronary angiogram and stent placement at [facility] last week. 3. Type 2 diabetes mellitus . His blood sugars have been very erratic. 4. Hypertension , he has had episodes of low blood pressure therefore I have adjusted his blood pressure medicine. 5. History of gallstones now with elevated alkaline phosphatase 6. Anemia of chronic kidney disease. 7. Recent history of new onset seizure disorder. Now on antiseizure medication. 8 sensation of urinary urgency. Yesterday a straight urethral catheterization was done and 150 cc of bloody urine was obtained. Urine cultures are pending. It is possible that he has an underlying bladder infection. I am going to start him on Levaquin 250 mg every other day empirically until his urine cultures are available. Problems: Consultation Date/Type/Reason Admit Date/Time Jun 23, 2017 at 10:43 Type of Consultation: cardiology Referring Provider: KIMBERLI LOPEZ MD 24 HR Interval Summary Free Text/Dictation He is awake and alert. He continues to complain of some urinary urgency and pain. He had 150 cc drained yesterday on a straight cath. The urinalysis showed many white and red blood cells. Culture is pending. Exam/Review of Systems Vital Signs Vitals Vital Signs Date Time Temp Pulse Resp B/P Pulse Ox O2 Delivery O2 Flow Rate FiO2 06/26/17 07:25 98.1 66 18 158/70 95 06/25/17 19:55 Room Air Intake and Output 06/25/17 06/25/17 06/26/17 15:00 23:00 07:00 Intake Total 750 ml Output Total 100 ml Balance 650 ml Exam Constitutional: alert, frail, oriented Neck: non-tender, supple Respiratory: clear to auscultation, normal air movement Cardiovascular: regular rate and rhythm Gastrointestinal: soft Musculoskeletal: nl extremities to inspection Results Result Diagram: 06/25/17 0901 06/25/17 09 Results 24 hrs Laboratory Tests Test 06/25/17 11:37 06/25/17 14:57 06/25/17 17:09 06/25/17 21:24 Bedside Glucose 297 H 140 126 Urine Color WILNER Urine Clarity CLOUDY A Urine pH 7.0 Urine Specific [place] 1.030 Urine Ketones NEGATIVE Urine Nitrite NEGATIVE Urine Bilirubin NEGATIVE Urine Urobilinogen NEGATIVE Urine Leukocyte Esterase TRACE A Urine Microscopic RBC > 182 H Urine Microscopic WBC > 182 H Urine Bacteria FEW A Urine Mucus FEW A Urine Hemoglobin 2+ H Urine Glucose NEGATIVE Urine Total Protein 3+ H Test 06/26/17 02:41 06/26/17 08:22 Bedside Glucose 307 H 292 H Medications Medications Current Medications Aspirin (Aspirin) 81 mg DAILY PO Last administered on 06/26/17 08:38; Admin Dose 81 MG; Start 06/24/17 at 09:00 Atorvastatin Calcium (Lipitor) 80 mg QHS PO Last administered on 06/25/17 21: 25; Admin Dose 80 MG; Start 06/23/17 at 21:00 Carvedilol (Coreg) 25 mg BID PO Last administered on 06/24/17 20:15; Admin Dose 25 MG; Start 06/23/17 at 21:00 Clonidine (Catapres) 0.2 mg BID PO Last administered on 06/24/17 20:16; Admin Dose 0.2 MG; Start 06/23/17 at 21:00 Doxazosin Mesylate (Cardura) 1 mg HS PO Last administered on 06/24/17 20:15; Admin Dose 1 MG; Start 06/23/17 at 21:00 Hydralazine HCl (Apresoline) 50 mg BID PO Last administered on 06/24/17 20:14 ; Admin Dose 50 MG; Start 06/23/17 at 21:00 Multivit/Ca Carb/ B Cmplx/FA/Prenat (Kimmie-Tirso) 1 tab DAILY PO Last administered on 06/26/17 08:38; Admin Dose 1 TAB; Start 06/24/17 at 09:00 Nifedipine (Procardia Xl) 90 mg QHS PO Last administered on 06/24/17 20:14; Admin Dose 90 MG; Start 06/23/17 at 21:00 Pantoprazole (Protonix Tab) 40 mg DAILY PO Last administered on 06/26/17 08:38 ; Admin Dose 40 MG; Start 06/24/17 at 09:00 Tramadol HCl (Ultram) 50 mg Q6 PRN PO PAIN Last administered on 06/25/17 21: 32; Admin Dose 50 MG; Start 06/23/17 at 14:00 Ticagrelor (Brilinta) 90 mg BID PO Last administered on 06/25/17 21:26; Admin Dose 90 MG; Start 06/23/17 at 21:00 Nitroglycerin (Nitroglycerin (Sl Tab) 0.4 Mg) 1 tab Q5M PRN SL CHEST PAIN; Start 06/23/17 at 14:30 Acetaminophen (Tylenol Tab) 650 mg Q6H PRN PO PAIN LEVEL 1-3 OR FEVER; Start 06/23/17 at 14:30 Miscellaneous Information 1 ea NOTE XX ; Start 06/23/17 at 14:30 Glucose (Glutose) 15 gm Q15M PRN PO DECREASED GLUCOSE; Start 06/23/17 at 14:30 Glucose (Glutose) 22.5 gm Q15M PRN PO DECREASED GLUCOSE; Start 06/23/17 at 14: 30 Dextrose (D50w Syringe) 25 ml Q15M PRN IV DECREASED GLUCOSE; Start 06/23/17 at 14:30 Dextrose (D50w Syringe) 50 ml Q15M PRN IV DECREASED GLUCOSE; Start 06/23/17 at 14:30 Glucagon (Glucagen) 1 mg Q15M PRN IM DECREASED GLUCOSE; Start 06/23/17 at 14: 30 Glucose (Glutose) 15 gm Q15M PRN BUCCAL DECREASED GLUCOSE; Start 06/23/17 at 14:30 Levetiracetam (Keppra) 500 mg DAILY PO Last administered on 06/26/17 08:38; Admin Dose 500 MG; Start 06/24/17 at 09:00 Diagnostic Test (Pha) (Accu-Chek) 1 ea 02 XX ; Start 06/26/17 at 02:00 Lisinopril (Zestril) 40 mg DAILY PO ; Start 06/26/17 at 09:00 Insulin Glargine (Lantus) 10 unit QHS SC ; Start 06/26/17 at 21:00 PAULY VILA MD Jun 26, 2017 09:42
[2017-06-26] MEDS: LEVOFLOXACIN 250 MG TAB PO SCH (12:16)
[2017-06-26] MEDS: TICAGRELOR 90 MG TABLET PO SCH ×2 (12:17→22:15)
--- NOTE | 2017-06-26 13:32 | CONS ---
Date/Time of Note Date/Time of Note DATE: 06/26/17 TIME: 13:29 Assessment/Plan Assessment/Plan Chief Complaint/Hosp Course 66-year-old gentleman recently admitted at this hospital for cardiac issues. He was transferred to [facility] where he had angioplasty after an non-STEMI. He has been readmitted here for some GI tract illness. At the patient's family request I am consulted to assist with adjusting his insulin regimen for his sugars. 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 I am continuing to adjust his insulin regimen to get him under better control. Expect that things will smooth out by tomorrow. Please note in terms of management of his complications such as his dialysis I am deferring off to my nephrology colleagues. 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 I would advocate for decreasing the clonidine and increasing the doxazosin as blood deputy controller. He can maintain on the nifedipine XL and hydralazine. Qualifiers: Hypertension type: essential hypertension Qualified Code: I10 - Essential hypertension (3) BPH (benign prostatic hyperplasia) Status: Chronic Comment: Noted increase the doxazosin from 1-4 mg Qualifiers: Lower urinary tract symptom presence: symptoms present (4) End stage renal disease Status: Acute Comment: As per nephrology (5) Hyperlipidemia Status: Chronic Comment: Continue with statin therapy at full dose Qualifiers: Hyperlipidemia type: pure hypercholesterolemia Qualified Code: E78.00 - Pure hypercholesterolemia Consultation Date/Type/Reason Admit Date/Time Jun 23, 2017 at 10:43 Initial Consult Date 06/25/17 Type of Consultation: Endocrinology Reason for Consultation Diabetes mellitus type 1 with multiple complications Referring Provider: KIMBERLI LOPEZ MD 24 HR Interval Summary Free Text/Dictation Patient reports still with hematuria. Exam/Review of Systems Vital Signs Vitals Vital Signs Date Time Temp Pulse Resp B/P Pulse Ox O2 Delivery O2 Flow Rate FiO2 06/26/17 07:25 98.1 66 18 158/70 95 06/25/17 19:55 Room Air Intake and Output 06/25/17 06/25/17 06/26/17 15:00 23:00 07:00 Intake Total 750 ml Output Total 100 ml Balance 650 ml Exam Constitutional: alert, oriented Neck: non-tender, supple Respiratory: clear to auscultation, normal air movement Cardiovascular: nl pulses, regular rate and rhythm Results Result Diagram: 06/25/17 0906/25/17 09 Results 24 hrs Laboratory Tests Test 06/25/17 14:57 06/25/17 17:09 06/25/17 21:24 06/26/17 02:41 Urine Color WILNER Urine Clarity CLOUDY A Urine pH 7.0 Urine Specific [place] 1.030 Urine Ketones NEGATIVE Urine Nitrite NEGATIVE Urine Bilirubin NEGATIVE Urine Urobilinogen NEGATIVE Urine Leukocyte Esterase TRACE A Urine Microscopic RBC > 182 H Urine Microscopic WBC > 182 H Urine Bacteria FEW A Urine Mucus FEW A Urine Hemoglobin 2+ H Urine Glucose NEGATIVE Urine Total Protein 3+ H Bedside Glucose 140 126 307 H Test 06/26/17 08:22 06/26/17 12:02 Bedside Glucose 292 H 255 H Medications Medications Current Medications Aspirin (Aspirin) 81 mg DAILY PO Last administered on 06/26/17 08:38; Admin Dose 81 MG; Start 06/24/17 at 09:00 Atorvastatin Calcium (Lipitor) 80 mg QHS PO Last administered on 06/25/17 21: 25; Admin Dose 80 MG; Start 06/23/17 at 21:00 Carvedilol (Coreg) 25 mg BID PO Last administered on 06/24/17 20:15; Admin Dose 25 MG; Start 06/23/17 at 21:00 Clonidine (Catapres) 0.2 mg BID PO Last administered on 06/24/17 20:16; Admin Dose 0.2 MG; Start 06/23/17 at 21:00 Doxazosin Mesylate (Cardura) 1 mg HS PO Last administered on 06/24/17 20:15; Admin Dose 1 MG; Start 06/23/17 at 21:00 Hydralazine HCl (Apresoline) 50 mg BID PO Last administered on 06/24/17 20:14 ; Admin Dose 50 MG; Start 06/23/17 at 21:00 Multivit/Ca Carb/ B Cmplx/FA/Prenat (Kimmie-Tirso) 1 tab DAILY PO Last administered on 06/26/17 08:38; Admin Dose 1 TAB; Start 06/24/17 at 09:00 Nifedipine (Procardia Xl) 90 mg QHS PO Last administered on 06/24/17 20:14; Admin Dose 90 MG; Start 06/23/17 at 21:00 Pantoprazole (Protonix Tab) 40 mg DAILY PO Last administered on 06/26/17 08:38 ; Admin Dose 40 MG; Start 06/24/17 at 09:00 Tramadol HCl (Ultram) 50 mg Q6 PRN PO PAIN Last administered on 06/25/17 21: 32; Admin Dose 50 MG; Start 06/23/17 at 14:00 Ticagrelor (Brilinta) 90 mg BID PO Last administered on 06/26/17 12:17; Admin Dose 90 MG; Start 06/23/17 at 21:00 Nitroglycerin (Nitroglycerin (Sl Tab) 0.4 Mg) 1 tab Q5M PRN SL CHEST PAIN; Start 06/23/17 at 14:30 Acetaminophen (Tylenol Tab) 650 mg Q6H PRN PO PAIN LEVEL 1-3 OR FEVER; Start 06/23/17 at 14:30 Miscellaneous Information 1 ea NOTE XX ; Start 06/23/17 at 14:30 Glucose (Glutose) 15 gm Q15M PRN PO DECREASED GLUCOSE; Start 06/23/17 at 14:30 Glucose (Glutose) 22.5 gm Q15M PRN PO DECREASED GLUCOSE; Start 06/23/17 at 14: 30 Dextrose (D50w Syringe) 25 ml Q15M PRN IV DECREASED GLUCOSE; Start 06/23/17 at 14:30 Dextrose (D50w Syringe) 50 ml Q15M PRN IV DECREASED GLUCOSE; Start 06/23/17 at 14:30 Glucagon (Glucagen) 1 mg Q15M PRN IM DECREASED GLUCOSE; Start 06/23/17 at 14: 30 Glucose (Glutose) 15 gm Q15M PRN BUCCAL DECREASED GLUCOSE; Start 06/23/17 at 14:30 Levetiracetam (Keppra) 500 mg DAILY PO Last administered on 06/26/17 08:38; Admin Dose 500 MG; Start 06/24/17 at 09:00 Diagnostic Test (Pha) (Accu-Chek) 1 ea 02 XX ; Start 06/26/17 at 02:00 Lisinopril (Zestril) 40 mg DAILY PO ; Start 06/26/17 at 09:00 Insulin Glargine (Lantus) 10 unit QHS SC ; Start 06/26/17 at 21:00 Levofloxacin (Levaquin) 250 mg Q48H PO Last administered on 06/26/17t 12:16; Admin Dose 250 MG; Start 06/26/17 at 11:00 LAWANDA KING MD Jun 26, 2017 13:32
--- NOTE | 2017-06-26 16:34 | PN ---
Date/Time of Note Date/Time of Note DATE: 06/26/17 TIME: 16:29 Assessment/Plan VTE Prophylaxis VTE Prophylaxis Intervention: other Lines/Catheters IV Catheter Type (from Nrs): Saline Lock Urinary Cath still in place: No Assessment/Plan Assessment/Plan A: pelvic/groin discomfort with urinary urgency - started on levaquin, cx ngtd esrd DM elevated troponin diarrhea CAD HTN P: dialysis per renal DM management per endo cont abx pending cx cont other rx Subjective 24 Hr Interval Summary Free Text/Dictation Pt with persistent urge to urinate and pelvic/groin discomfort. Small soft BM when tries to urinate. Had straight cath yesterday, cx ngtd, started on levaquin. Awaiting dialysis today. No cp, sob. Exam/Review of Systems Vital Signs Vitals Vital Signs Date Time Temp Pulse Resp B/P Pulse Ox O2 Delivery O2 Flow Rate FiO2 06/26/17 14:33 98.3 65 64 141/71 97 06/25/17 19:55 Room Air Intake and Output 06/25/17 06/25/17 06/26/17 15:00 23:00 07:00 Intake Total 750 ml Output Total 100 ml Balance 650 ml Exam gen- nad, nontoxic lungs- CTA heart- RRR abd- +BS, soft, groin ecchymosis slowly improving ext- edema Results Result Diagram: 06/25/1790006/25/17 09 Results 24 hrs Laboratory Tests Test 06/25/17 17:09 06/25/17 21:24 06/26/17 02:41 06/26/17 08:22 Bedside Glucose 140 126 307 H 292 H Test 06/26/17 12:02 Bedside Glucose 255 H Medications Medications Current Medications Aspirin (Aspirin) 81 mg DAILY PO Last administered on 06/26/17 08:38; Admin Dose 81 MG; Start 06/24/17 at 09:00 Atorvastatin Calcium (Lipitor) 80 mg QHS PO Last administered on 06/25/17 21: 25; Admin Dose 80 MG; Start 06/23/17 at 21:00 Carvedilol (Coreg) 25 mg BID PO Last administered on 06/24/17 20:15; Admin Dose 25 MG; Start 06/23/17 at 21:00 Hydralazine HCl (Apresoline) 50 mg BID PO Last administered on 06/24/17 20:14 ; Admin Dose 50 MG; Start 06/23/17 at 21:00 Multivit/Ca Carb/ B Cmplx/FA/Prenat (Kimmie-Tirso) 1 tab DAILY PO Last administered on 06/26/17 08:38; Admin Dose 1 TAB; Start 06/24/17 at 09:00 Nifedipine (Procardia Xl) 90 mg QHS PO Last administered on 06/24/17 20:14; Admin Dose 90 MG; Start 06/23/17 at 21:00 Pantoprazole (Protonix Tab) 40 mg DAILY PO Last administered on 06/26/17 08:38 ; Admin Dose 40 MG; Start 06/24/17 at 09:00 Tramadol HCl (Ultram) 50 mg Q6 PRN PO PAIN Last administered on 06/25/17 21: 32; Admin Dose 50 MG; Start 06/23/17 at 14:00 Ticagrelor (Brilinta) 90 mg BID PO Last administered on 06/26/17 12:17; Admin Dose 90 MG; Start 06/23/17 at 21:00 Nitroglycerin (Nitroglycerin (Sl Tab) 0.4 Mg) 1 tab Q5M PRN SL CHEST PAIN; Start 06/23/17 at 14:30 Acetaminophen (Tylenol Tab) 650 mg Q6H PRN PO PAIN LEVEL 1-3 OR FEVER; Start 06/23/17 at 14:30 Miscellaneous Information 1 ea NOTE XX ; Start 06/23/17 at 14:30 Glucose (Glutose) 15 gm Q15M PRN PO DECREASED GLUCOSE; Start 06/23/17 at 14:30 Glucose (Glutose) 22.5 gm Q15M PRN PO DECREASED GLUCOSE; Start 06/23/17 at 14: 30 Dextrose (D50w Syringe) 25 ml Q15M PRN IV DECREASED GLUCOSE; Start 06/23/17 at 14:30 Dextrose (D50w Syringe) 50 ml Q15M PRN IV DECREASED GLUCOSE; Start 06/23/17 at 14:30 Glucagon (Glucagen) 1 mg Q15M PRN IM DECREASED GLUCOSE; Start 06/23/17 at 14: 30 Glucose (Glutose) 15 gm Q15M PRN BUCCAL DECREASED GLUCOSE; Start 06/23/17 at 14:30 Levetiracetam (Keppra) 500 mg DAILY PO Last administered on 06/26/17 08:38; Admin Dose 500 MG; Start 06/24/17 at 09:00 Diagnostic Test (Pha) (Accu-Chek) 1 ea 02 XX ; Start 06/26/17 at 02:00 Lisinopril (Zestril) 40 mg DAILY PO ; Start 06/26/17 at 09:00 Insulin Glargine (Lantus) 10 unit QHS SC ; Start 06/26/17 at 21:00 Levofloxacin (Levaquin) 250 mg Q48H PO Last administered on 06/26/17 12:16; Admin Dose 250 MG; Start 06/26/17 at 11:00 Clonidine (Catapres) 0.1 mg BID PO ; Start 06/26/17 at 21:00 Doxazosin Mesylate (Cardura) 4 mg HS PO ; Start 06/26/17 at 21:00 KIMBERLI LOPEZ MD Jun 26, 2017 16:34
[2017-06-26] MEDS: DOXAZOSIN 4 MG TAB PO SCH (21:00)
[2017-06-26] MEDS: ATORVASTATIN 80 MG TAB PO SCH (21:01)
[2017-06-26] MEDS: NIFEdipine (XL) 90 MG TAB PO SCH (22:16)
[2017-06-27] MEDS: ACCU-CHEK XX SCH (02:00)
[2017-06-27 02:29] VITALS: BP 122/60; RESP 16
[2017-06-27] MEDS: LEVOTHYROXINE 125 MCG TAB PO SCH (07:16)
[2017-06-27 07:23] VITALS: BP 113/55; RESP 16
[2017-06-27] MEDS: INSULIN ASPART [NOVOLOG] 3 ML PEN SC SCH ×7 (08:02→20:46)
[2017-06-27] MEDS: MULTIVIT/CA CARB/B CMPLX/FA TAB PO SCH (08:11)
[2017-06-27] MEDS: PANTOPRAZOLE (EC) 40 MG TAB PO SCH (08:12)
[2017-06-27] MEDS: ASPIRIN 81 MG TAB PO SCH (08:12)
[2017-06-27] MEDS: LEVETIRACETAM 500 MG TAB PO SCH (08:12)
[2017-06-27] MEDS: TICAGRELOR 90 MG TABLET PO SCH ×2 (08:16→21:10)
[2017-06-27] MEDS: LISINOPRIL 20 MG TAB PO SCH (08:22)
--- NOTE | 2017-06-27 10:34 | CONS ---
Date/Time of Note Date/Time of Note DATE: 06/27/17 TIME: 10:32 Assessment/Plan Assessment/Plan Additional Assessment/Plan 1. End-stage renal disease on maintenance hemodialysis. Patient is regularly dialyzed Thursday . he refused hd and had it yesterday so will order in am; 2 coronary artery disease. Status post recent coronary angiogram and stent placement at [facility] last week. 3. Type 2 diabetes mellitus . His blood sugars have been very erratic.followed by endo 4. Hypertension , stable 5. History of gallstones now with elevated alkaline phosphatase 6. Anemia of chronic kidney disease. 7. Recent history of new onset seizure disorder. Now on antiseizure medication. 8 sensation of urinary urgency. Yesterday a straight urethral catheterization was done and 150 cc of bloody urine was obtained. Urine cultures are pending. It is possible that he has an underlying bladder infection. on emperic levaqion. fu cultures. Consultation Date/Type/Reason Admit Date/Time Jun 23, 2017 at 10:43 Initial Consult Date 06/25/17 Type of Consultation: Endocrinology Referring Provider: KIMBERLI LOPEZ MD 24 HR Interval Summary Free Text/Dictation doing ok Exam/Review of Systems Vital Signs Vitals Vital Signs Date Time Temp Pulse Resp B/P Pulse Ox O2 Delivery O2 Flow Rate FiO2 06/27/17 07:23 99.0 62 16 113/55 94 06/25/17 19:55 Room Air Intake and Output 06/26/17 06/26/17 06/27/17 15:00 23:00 07:00 Intake Total 240 ml 840 ml 480 ml Output Total 3000 ml Balance 240 ml -2160 ml 480 ml Exam Constitutional: alert, oriented, well developed Head: normocephalic Neck: jvd, non-tender, supple Respiratory: diminished breath sounds Cardiovascular: edema, regular rate and rhythm Gastrointestinal: non-tender, soft Results Result Diagram: 06/25/17 0906/25/17 09 Results 24 hrs Laboratory Tests Test 06/26/17 12:02 06/26/17 18:58 06/26/17 21:08 06/27/17 07:54 Bedside Glucose 255 H 134 120 259 H Medications Medications Current Medications Aspirin (Aspirin) 81 mg DAILY PO Last administered on 06/27/17t 08:12; Admin Dose 81 MG; Start 06/24/17 at 09:00 Atorvastatin Calcium (Lipitor) 80 mg QHS PO Last administered on 06/26/17 21: 01; Admin Dose 80 MG; Start 06/23/17 at 21:00 Carvedilol (Coreg) 25 mg BID PO Last administered on 06/26/17 21:01; Admin Dose 25 MG; Start 06/23/17 at 21:00 Hydralazine HCl (Apresoline) 50 mg BID PO Last administered on 06/26/17 21:01 ; Admin Dose 50 MG; Start 06/23/17 at 21:00 Multivit/Ca Carb/ B Cmplx/FA/Prenat (Kimmie-Tirso) 1 tab DAILY PO Last administered on 06/27/17 08:11; Admin Dose 1 TAB; Start 06/24/17 at 09:00 Nifedipine (Procardia Xl) 90 mg QHS PO Last administered on 06/26/17 22:16; Admin Dose 90 MG; Start 06/23/17 at 21:00 Pantoprazole (Protonix Tab) 40 mg DAILY PO Last administered on 06/27/17 08:12 ; Admin Dose 40 MG; Start 06/24/17 at 09:00 Tramadol HCl (Ultram) 50 mg Q6 PRN PO PAIN Last administered on 06/25/17 21: 32; Admin Dose 50 MG; Start 06/23/17 at 14:00 Ticagrelor (Brilinta) 90 mg BID PO Last administered on 06/27/17 08:16; Admin Dose 90 MG; Start 06/23/17 at 21:00 Nitroglycerin (Nitroglycerin (Sl Tab) 0.4 Mg) 1 tab Q5M PRN SL CHEST PAIN; Start 06/23/17 at 14:30 Acetaminophen (Tylenol Tab) 650 mg Q6H PRN PO PAIN LEVEL 1-3 OR FEVER; Start 06/23/17 at 14:30 Miscellaneous Information 1 ea NOTE XX ; Start 06/23/17 at 14:30 Glucose (Glutose) 15 gm Q15M PRN PO DECREASED GLUCOSE; Start 06/23/17 at 14:30 Glucose (Glutose) 22.5 gm Q15M PRN PO DECREASED GLUCOSE; Start 06/23/17 at 14: 30 Dextrose (D50w Syringe) 25 ml Q15M PRN IV DECREASED GLUCOSE; Start 06/23/17 at 14:30 Dextrose (D50w Syringe) 50 ml Q15M PRN IV DECREASED GLUCOSE; Start 06/23/17 at 14:30 Glucagon (Glucagen) 1 mg Q15M PRN IM DECREASED GLUCOSE; Start 06/23/17 at 14: 30 Glucose (Glutose) 15 gm Q15M PRN BUCCAL DECREASED GLUCOSE; Start 06/23/17 at 14:30 Levetiracetam (Keppra) 500 mg DAILY PO Last administered on 06/27/17 08:12; Admin Dose 500 MG; Start 06/24/17 at 09:00 Diagnostic Test (Pha) (Accu-Chek) 1 ea 02 XX ; Start 06/26/17 at 02:00 Lisinopril (Zestril) 40 mg DAILY PO ; Start 06/26/17 at 09:00 Insulin Glargine (Lantus) 10 unit QHS SC Last administered on 06/26/17 21:10; Admin Dose 10 UNIT; Start 06/26/17 at 21:00 Levofloxacin (Levaquin) 250 mg Q48H PO Last administered on 06/26/17 12:16; Admin Dose 250 MG; Start 06/26/17 at 11:00 Clonidine (Catapres) 0.1 mg BID PO Last administered on 06/26/17 22:15; Admin Dose 0.1 MG; Start 06/26/17 at 21:00 Doxazosin Mesylate (Cardura) 4 mg HS PO Last administered on 06/26/17 21:00; Admin Dose 4 MG; Start 06/26/17 at 21:00 DOMENICO VILLA MD Jun 27, 2017 10:34
--- NOTE | 2017-06-27 10:46 | PN ---
Date/Time of Note Date/Time of Note DATE: 06/27/17 TIME: 10:41 Assessment/Plan VTE Prophylaxis VTE Prophylaxis Intervention: other Lines/Catheters IV Catheter Type (from Nrs): Saline Lock Urinary Cath still in place: No Assessment/Plan Assessment/Plan A: urinary urgency/pelvic discomfort- on levaquin, cx negative ESRD DM HTN CAD elevated troponin P: urology eval dialysis tomorrow per renal DM management per endo cont current rx Subjective 24 Hr Interval Summary Free Text/Dictation Pt with persistent sensation to urinate and pelvic discomfort. No cp, sob. Had dialysis yesterday. Exam/Review of Systems Vital Signs Vitals Vital Signs Date Time Temp Pulse Resp B/P Pulse Ox O2 Delivery O2 Flow Rate FiO2 06/27/17 07:23 99.0 62 16 113/55 94 06/25/17 19:55 Room Air Intake and Output 06/26/17 06/26/17 06/27/17 14:59 22:59 06:59 Intake Total 240 ml 840 ml 480 ml Output Total 3000 ml Balance 240 ml -2160 ml 480 ml Exam gen- nad, nontoxic lungs- CTA heart- RRR abd- +BS, soft ext- mild edema Results Result Diagram: 06/25/1790006/25/17 09 Results 24 hrs Laboratory Tests Test 06/26/17 12:02 06/26/17 18:58 06/26/17 21:08 06/27/17 07:54 Bedside Glucose 255 H 134 120 259 H Medications Medications Current Medications Aspirin (Aspirin) 81 mg DAILY PO Last administered on 06/27/17 08:12; Admin Dose 81 MG; Start 06/24/17 at 09:00 Atorvastatin Calcium (Lipitor) 80 mg QHS PO Last administered on 06/26/17 21: 01; Admin Dose 80 MG; Start 06/23/17 at 21:00 Carvedilol (Coreg) 25 mg BID PO Last administered on 06/26/17 21:01; Admin Dose 25 MG; Start 06/23/17 at 21:00 Hydralazine HCl (Apresoline) 50 mg BID PO Last administered on 06/26/17 21:01 ; Admin Dose 50 MG; Start 06/23/17 at 21:00 Multivit/Ca Carb/ B Cmplx/FA/Prenat (Kimmie-Tirso) 1 tab DAILY PO Last administered on 06/27/17 08:11; Admin Dose 1 TAB; Start 06/24/17 at 09:00 Nifedipine (Procardia Xl) 90 mg QHS PO Last administered on 06/26/17 22:16; Admin Dose 90 MG; Start 06/23/17 at 21:00 Pantoprazole (Protonix Tab) 40 mg DAILY PO Last administered on 06/27/17 08:12 ; Admin Dose 40 MG; Start 06/24/17 at 09:00 Tramadol HCl (Ultram) 50 mg Q6 PRN PO PAIN Last administered on 06/25/17 21: 32; Admin Dose 50 MG; Start 06/23/17 at 14:00 Ticagrelor (Brilinta) 90 mg BID PO Last administered on 06/27/17 08:16; Admin Dose 90 MG; Start 06/23/17 at 21:00 Nitroglycerin (Nitroglycerin (Sl Tab) 0.4 Mg) 1 tab Q5M PRN SL CHEST PAIN; Start 06/23/17 at 14:30 Acetaminophen (Tylenol Tab) 650 mg Q6H PRN PO PAIN LEVEL 1-3 OR FEVER; Start 06/23/17 at 14:30 Miscellaneous Information 1 ea NOTE XX ; Start 06/23/17 at 14:30 Glucose (Glutose) 15 gm Q15M PRN PO DECREASED GLUCOSE; Start 06/23/17 at 14:30 Glucose (Glutose) 22.5 gm Q15M PRN PO DECREASED GLUCOSE; Start 06/23/17 at 14: 30 Dextrose (D50w Syringe) 25 ml Q15M PRN IV DECREASED GLUCOSE; Start 06/23/17 at 14:30 Dextrose (D50w Syringe) 50 ml Q15M PRN IV DECREASED GLUCOSE; Start 06/23/17 at 14:30 Glucagon (Glucagen) 1 mg Q15M PRN IM DECREASED GLUCOSE; Start 06/23/17 at 14: 30 Glucose (Glutose) 15 gm Q15M PRN BUCCAL DECREASED GLUCOSE; Start 06/23/17 at 14:30 Levetiracetam (Keppra) 500 mg DAILY PO Last administered on 06/27/17 08:12; Admin Dose 500 MG; Start 06/24/17 at 09:00 Diagnostic Test (Pha) (Accu-Chek) 1 ea 02 XX ; Start 06/26/17 at 02:00 Lisinopril (Zestril) 40 mg DAILY PO ; Start 06/26/17 at 09:00 Insulin Glargine (Lantus) 10 unit QHS SC Last administered on 06/26/17 21:10; Admin Dose 10 UNIT; Start 06/26/17 at 21:00 Levofloxacin (Levaquin) 250 mg Q48H PO Last administered on 06/26/17 12:16; Admin Dose 250 MG; Start 06/26/17 at 11:00 Clonidine (Catapres) 0.1 mg BID PO Last administered on 06/26/17 22:15; Admin Dose 0.1 MG; Start 06/26/17 at 21:00 Doxazosin Mesylate (Cardura) 4 mg HS PO Last administered on 06/26/17 21:00; Admin Dose 4 MG; Start 06/26/17 at 21:00 KIMBERLI LOPEZ MD Jun 27, 2017 10:46
--- NOTE | 2017-06-27 10:59 | PN ---
Date/Time of Note Date/Time of Note DATE: 06/27/17 TIME: 10:54 Assessment/Plan VTE Prophylaxis VTE Prophylaxis Intervention: other Lines/Catheters IV Catheter Type (from Nrs): Saline Lock Urinary Cath still in place: No Assessment/Plan Assessment/Plan A: urinary urgency, pelvic/groin discomfort- on levaquin, cx negative ESRD on dialysis DM elevated troponin CAD HTN P: urology consult dialysis per renal DM management per endo cont current rx Subjective 24 Hr Interval Summary Free Text/Dictation Pt with persistent sensation of need to urinate, some pelvic and groin discomfort. States sees some blood in urine. On levaquin. No cp, sob. Had dialysis yesterday. Dialysis planned for tomorrow. Exam/Review of Systems Vital Signs Vitals Vital Signs Date Time Temp Pulse Resp B/P Pulse Ox O2 Delivery O2 Flow Rate FiO2 06/27/17 07:23 99.0 62 16 113/55 94 06/25/17 19:55 Room Air Intake and Output 06/26/17 06/26/17 06/27/17 14:59 22:59 06:59 Intake Total 240 ml 840 ml 480 ml Output Total 3000 ml Balance 240 ml -2160 ml 480 ml Exam gen- nad, nontoxic lungs- CTA heart- RRR abd- +BS, soft ext- mild edema Results Result Diagram: 06/25/1790006/25/17 09 Results 24 hrs Laboratory Tests Test 06/26/17 12:02 06/26/17 18:58 06/26/17 21:08 06/27/17 07:54 Bedside Glucose 255 H 134 120 259 H Medications Medications Current Medications Aspirin (Aspirin) 81 mg DAILY PO Last administered on 06/27/17 08:12; Admin Dose 81 MG; Start 06/24/17 at 09:00 Atorvastatin Calcium (Lipitor) 80 mg QHS PO Last administered on 06/26/17 21: 01; Admin Dose 80 MG; Start 06/23/17 at 21:00 Carvedilol (Coreg) 25 mg BID PO Last administered on 06/26/17 21:01; Admin Dose 25 MG; Start 06/23/17 at 21:00 Hydralazine HCl (Apresoline) 50 mg BID PO Last administered on 06/26/17 21:01 ; Admin Dose 50 MG; Start 06/23/17 at 21:00 Multivit/Ca Carb/ B Cmplx/FA/Prenat (Kimmie-Tirso) 1 tab DAILY PO Last administered on 06/27/17 08:11; Admin Dose 1 TAB; Start 06/24/17 at 09:00 Nifedipine (Procardia Xl) 90 mg QHS PO Last administered on 06/26/17 22:16; Admin Dose 90 MG; Start 06/23/17 at 21:00 Pantoprazole (Protonix Tab) 40 mg DAILY PO Last administered on 06/27/17 08:12 ; Admin Dose 40 MG; Start 06/24/17 at 09:00 Tramadol HCl (Ultram) 50 mg Q6 PRN PO PAIN Last administered on 06/25/17 21: 32; Admin Dose 50 MG; Start 06/23/17 at 14:00 Ticagrelor (Brilinta) 90 mg BID PO Last administered on 06/27/17 08:16; Admin Dose 90 MG; Start 06/23/17 at 21:00 Nitroglycerin (Nitroglycerin (Sl Tab) 0.4 Mg) 1 tab Q5M PRN SL CHEST PAIN; Start 06/23/17 at 14:30 Acetaminophen (Tylenol Tab) 650 mg Q6H PRN PO PAIN LEVEL 1-3 OR FEVER; Start 06/23/17 at 14:30 Miscellaneous Information 1 ea NOTE XX ; Start 06/23/17 at 14:30 Glucose (Glutose) 15 gm Q15M PRN PO DECREASED GLUCOSE; Start 06/23/17 at 14:30 Glucose (Glutose) 22.5 gm Q15M PRN PO DECREASED GLUCOSE; Start 06/23/17 at 14: 30 Dextrose (D50w Syringe) 25 ml Q15M PRN IV DECREASED GLUCOSE; Start 06/23/17 at 14:30 Dextrose (D50w Syringe) 50 ml Q15M PRN IV DECREASED GLUCOSE; Start 06/23/17 at 14:30 Glucagon (Glucagen) 1 mg Q15M PRN IM DECREASED GLUCOSE; Start 06/23/17 at 14: 30 Glucose (Glutose) 15 gm Q15M PRN BUCCAL DECREASED GLUCOSE; Start 06/23/17 at 14:30 Levetiracetam (Keppra) 500 mg DAILY PO Last administered on 12/2/17at 08:12; Admin Dose 500 MG; Start 06/24/17 at 09:00 Diagnostic Test (Pha) (Accu-Chek) 1 ea 02 XX ; Start 06/26/17 at 02:00 Lisinopril (Zestril) 40 mg DAILY PO ; Start 06/26/17 at 09:00 Insulin Glargine (Lantus) 10 unit QHS SC Last administered on 06/26/17 21:10; Admin Dose 10 UNIT; Start 06/26/17 at 21:00 Levofloxacin (Levaquin) 250 mg Q48H PO Last administered on 06/26/17 12:16; Admin Dose 250 MG; Start 06/26/17 at 11:00 Clonidine (Catapres) 0.1 mg BID PO Last administered on 06/26/17 22:15; Admin Dose 0.1 MG; Start 06/26/17 at 21:00 Doxazosin Mesylate (Cardura) 4 mg HS PO Last administered on 06/26/17 21:00; Admin Dose 4 MG; Start 06/26/17 at 21:00 KIMBERLI LOPEZ MD Jun 27, 2017 10:59
--- NOTE | 2017-06-27 11:21 | CONS ---
Date/Time of Note Date/Time of Note DATE: 06/27/17 TIME: 11:20 Assessment/Plan Assessment/Plan Chief Complaint/Hosp Course 66-year-old gentleman recently admitted at this hospital for cardiac issues. He was transferred to [facility] where he had angioplasty after an non-STEMI. He has been readmitted here for some GI tract illness. At the patient's family request I am consulted to assist with adjusting his insulin regimen for his sugars. 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 I will adjust his basal insulin dosing to help control the overnight sugar. Consultation Date/Type/Reason Admit Date/Time Jun 23, 2017 at 10:43 Initial Consult Date 06/25/17 Type of Consultation: Endocrinology Reason for Consultation Diabetes mellitus type 1 with complications Referring Provider: KIMBERLI LOPEZ MD 24 HR Interval Summary Free Text/Dictation Patient reports he is feeling better. No hyperglycemia and no hypoglycemia. Exam/Review of Systems Vital Signs Vitals Vital Signs Date Time Temp Pulse Resp B/P Pulse Ox O2 Delivery O2 Flow Rate FiO2 06/27/17 07:23 99.0 62 16 113/55 94 06/25/17 19:55 Room Air Intake and Output 06/26/17 06/26/17 06/27/17 14:59 22:59 06:59 Intake Total 240 ml 840 ml 480 ml Output Total 3000 ml Balance 240 ml -2160 ml 480 ml Results As per Dr. Lopez Result Diagram: 06/25/17 0906/25/17 09 Results 24 hrs Laboratory Tests Test 06/26/17 12:02 06/26/17 18:58 06/26/17 21:08 06/27/17 07:54 Bedside Glucose 255 H 134 120 259 H Medications Medications Current Medications Aspirin (Aspirin) 81 mg DAILY PO Last administered on 06/27/17 08:12; Admin Dose 81 MG; Start 06/24/17 at 09:00 Atorvastatin Calcium (Lipitor) 80 mg QHS PO Last administered on 06/26/17 21: 01; Admin Dose 80 MG; Start 06/23/17 at 21:00 Carvedilol (Coreg) 25 mg BID PO Last administered on 06/26/17 21:01; Admin Dose 25 MG; Start 06/23/17 at 21:00 Hydralazine HCl (Apresoline) 50 mg BID PO Last administered on 06/26/17 21:01 ; Admin Dose 50 MG; Start 06/23/17 at 21:00 Multivit/Ca Carb/ B Cmplx/FA/Prenat (Kimmie-Tirso) 1 tab DAILY PO Last administered on 06/27/17 08:11; Admin Dose 1 TAB; Start 06/24/17 at 09:00 Nifedipine (Procardia Xl) 90 mg QHS PO Last administered on 06/26/17 22:16; Admin Dose 90 MG; Start 06/23/17 at 21:00 Pantoprazole (Protonix Tab) 40 mg DAILY PO Last administered on 06/27/17 08:12 ; Admin Dose 40 MG; Start 06/24/17 at 09:00 Tramadol HCl (Ultram) 50 mg Q6 PRN PO PAIN Last administered on 06/25/17 21: 32; Admin Dose 50 MG; Start 06/23/17 at 14:00 Ticagrelor (Brilinta) 90 mg BID PO Last administered on 06/27/17 08:16; Admin Dose 90 MG; Start 06/23/17 at 21:00 Nitroglycerin (Nitroglycerin (Sl Tab) 0.4 Mg) 1 tab Q5M PRN SL CHEST PAIN; Start 06/23/17 at 14:30 Acetaminophen (Tylenol Tab) 650 mg Q6H PRN PO PAIN LEVEL 1-3 OR FEVER; Start 06/23/17 at 14:30 Miscellaneous Information 1 ea NOTE XX ; Start 06/23/17 at 14:30 Glucose (Glutose) 15 gm Q15M PRN PO DECREASED GLUCOSE; Start 06/23/17 at 14:30 Glucose (Glutose) 22.5 gm Q15M PRN PO DECREASED GLUCOSE; Start 06/23/17 at 14: 30 Dextrose (D50w Syringe) 25 ml Q15M PRN IV DECREASED GLUCOSE; Start 06/23/17 at 14:30 Dextrose (D50w Syringe) 50 ml Q15M PRN IV DECREASED GLUCOSE; Start 06/23/17 at 14:30 Glucagon (Glucagen) 1 mg Q15M PRN IM DECREASED GLUCOSE; Start 06/23/17 at 14: 30 Glucose (Glutose) 15 gm Q15M PRN BUCCAL DECREASED GLUCOSE; Start 06/23/17 at 14:30 Levetiracetam (Keppra) 500 mg DAILY PO Last administered on 06/27/17 08:12; Admin Dose 500 MG; Start 06/24/17 at 09:00 Diagnostic Test (Pha) (Accu-Chek) 1 ea 02 XX ; Start 06/26/17 at 02:00 Lisinopril (Zestril) 40 mg DAILY PO ; Start 06/26/17 at 09:00 Insulin Glargine (Lantus) 10 unit QHS SC Last administered on 06/26/17 21:10; Admin Dose 10 UNIT; Start 06/26/17 at 21:00 Levofloxacin (Levaquin) 250 mg Q48H PO Last administered on 06/26/17 12:16; Admin Dose 250 MG; Start 06/26/17 at 11:00 Clonidine (Catapres) 0.1 mg BID PO Last administered on 06/26/17 22:15; Admin Dose 0.1 MG; Start 06/26/17 at 21:00 Doxazosin Mesylate (Cardura) 4 mg HS PO Last administered on 06/26/17 21:00; Admin Dose 4 MG; Start 06/26/17 at 21:00 LAWANDA KING MD Jun 27, 2017 11:21
[2017-06-27 14:00] VITALS: BP 123/58; RESP 18
--- NOTE | 2017-06-27 18:10 | CONS ---
DATE OF ADMISSION: 06/23/2017 DATE OF CONSULTATION: 06/27/2017 TYPE OF CONSULTATION: Urology REQUESTING PHYSICIAN: Dear Dr. Lopez: Thank you for asking me to see this patient in urological consultation. HISTORY OF PRESENT ILLNESS: This is a 66-year-old male who is known to have a history of chronic ki dney disease on hemodialysis and who recently underwent angiogram and placement of a stent at [facility], and the patient was admitted after that to [facility] because of pa in in the left groin area and also he has been complaining of pain in the right groin as well, and a lso he has been complaining of constant urge to urinate and having pain with urination and now he al so states that the urine is bloody. The patient had a CT scan of the abdomen and pelvis and that di d show that the bladder is not empty, but did not show any mass inside the bladder. The patient sta melissa that he has been on hemodialysis for over 5 years and he sometimes does not urinate for many day s and sometimes he does urinate an ounce or two. It looks like the patient is still making some uri ne as 2 days ago, an in and out cath was done and about 150 mL drained, and right now I did also str aight cath on him. I obtained about 175 mL and on the bladder scan, it showed that he had about 144 mL. PAST MEDICAL HISTORY: The patient does have diabetes with neuropathy, retinopathy and nephropathy, hypertension, hypothyroidism, hyperlipidemia, cardiomyopathy, coronary artery disease, history of no n-STEMI, recent angioplasty with stent. History of seizure disorder, congestive heart failure and h istory of gallstones. PAST SURGICAL HISTORY: Includes coronary stent placement, AV shunt for the dialysis, ERCP and sphin cterotomy. HOME MEDICATIONS: 1. Flomax. 2. Atorvastatin. 3. Carvedilol. 4. Clonidine. 5. Doxazosin. 6. Hydralazine. 7. Lisinopril. 8. Nifedipine. 9. Aspirin. 10. Tramadol. 11. Renvela. 12. Zinc daily. 13. Reglan with meals and at bedtime. 14. Pantoprazole 40 mg daily. 15. Sensipar 60 mg daily. 16. Lantus insulin. 17. Lispro insulin 18. Synthroid. 19 Kimmie-Tirso. 20. Keppra. ALLERGIES: THE PATIENT DENIES ANY ALLERGIES. SOCIAL HISTORY: He does not smoke, does not drink any alcohol. He denies any history of drug abuse . He used to work moving furniture. ALLERGIES: HE IS ALLERGIC TO IODINE PHYSICAL EXAMINATION: GENERAL: Reveals an elderly male reveals an elderly male, who at the present is complaining of burn ing sensation in his penis. VITAL SIGNS: Show temperature of 98.9, pulse is 64, respiration 18, blood pressure 123/58. SKIN: The patient does have some bruising on his extremities and on his abdomen from the insulin. HEAD AND NECK: Otherwise are unremarkable. GENITOURINARY: The patient does complain of again, burning sensation in the penis. ABDOMEN: Is soft. There is no abdominal mass palpable. Any pressure on the suprapubic area gave h im the sensation that he has to urinate. RECTAL: Examination revealed a prostate that is not enlarged, and it felt soft. EXTREMITIES: He does have the shunts for the hemodialysis and there is no edema in his extremities. LABORATORY DATA: His CBC shows a white count of 8.5, hemoglobin 10.1, hematocrit 31.3. The BUN is 41 on admission and 45 two days ago. The creatinine 8.88 on admission and 2 days ago the same. Fro m the urine that was collected by straight catheterization 2 days ago, it shows no growth after 48 h ours. The urine culture was a clean catch. On the CT scan of the abdomen and pelvis, again there w as no evidence of retroperitoneal hematoma. Right femoral hematoma with mild anasarca and infiltrat ion of the soft tissue of the right groin, right greater than left bibasilar consolidation or atelec tasis and moderate right greater than left pleural effusions, moderate cardiomegaly, ____ and 6 mm p ericardial effusion with extensive atherosclerotic vascular disease, bilateral renal cortical cysts, incompletely evaluated on this noncontrast CT, punctate foci of air within the right and left hepat ic biliary tree and follow up as clinically indicated, as of uncertain clinical significance. Appea cordelia of acalculous cholecystitis and correlate with a HIDA scan, as previously recommended on prior ultrasound dated 06/09/2017. Marked diverticulosis without evidence of acute diverticulitis or tati endicitis, degenerative changes of the imaged spine as described above. IMPRESSION: Dysuria and history of pain with urination, rule out urinary tract infection. Patient does have renal failure for many years, but he is still making some urine and the urine that he recently has been having was bloody. Recommendation is I did a straight catheterization on him and collected the urine for again, repeat culture and urine cytology and if that shows any finding, then we will treat it appropriately. Otherwise, recommendation is to observe him. Dictated By: EMMA DELGADO MD BB/SEBASTIEN Conf#: [id number] DID#: [id number] CC: KIMBERLI LOPEZ MD;*End*
[2017-06-27 20:42] VITALS: BP 131/62; RESP 18
[2017-06-27] MEDS ORDERED: INSULIN GLARGINE [LANtus] 3 ML PEN SC SCH (21:00)
[2017-06-27] MEDS: ATORVASTATIN 80 MG TAB PO SCH (21:08)
[2017-06-27] MEDS: DOXAZOSIN 4 MG TAB PO SCH (21:09)
[2017-06-27] MEDS: traMADol 50 MG TAB PO PRN (21:15)
[2017-06-27 22:10] VITALS: BP 156/69; RESP 18
[2017-06-27] MEDS: NIFEdipine (XL) 90 MG TAB PO SCH (22:10)
[2017-06-28] VITALS (10 sets, daily range): BP systolic 117–149; BP diastolic 59–78; PULSE 60–67; RESP 16
[2017-06-28] MEDS: ACCU-CHEK XX SCH (02:05)
[2017-06-28 05:38] LABS: BASOPHILS % 0.4 % (0.0-2.0); EOSINOPHILS # 0.8 10^3/ul (0.0-0.5); EOSINOPHILS % 9.8 % (0.0-7.0); HEMATOCRIT 29.9 % (42.0-52.0); HEMOGLOBIN 9.8 g/dl (14.0-18.0); LYMPHOCYTES # 0.8 10^3/ul (0.8-2.9); LYMPHOCYTES % 9.6 % (15.0-51.0); MEAN CORPUSCULAR HEMOGLOBIN 30.4 pg (29.0-33.0); MEAN CORPUSCULAR HGB CONC 32.8 g/dl (32.0-37.0); MEAN CORPUSCULAR VOLUME 92.9 fl (82.0-101.0); MEAN PLATELET VOLUME 10.7 fl (7.4-10.4); MONOCYTE # 0.9 10^3/ul (0.3-0.9); MONOCYTES % 10.8 % (0.0-11.0); NEUTROPHIL # 5.6 10^3/ul (1.6-7.5); NEUTROPHILS % 69.2 % (39.0-77.0); PLATELET COUNT 179 10^3/UL (140-415); RED BLOOD COUNT 3.22 10^6/ul (4.70-6.10); RED CELL DISTRIBUTION WIDTH 17.5 % (11.5-14.5)
[2017-06-28 06:00] LABS: ALBUMIN/GLOBULIN RATIO 0.88; CALCIUM 10.2 mg/dl (8.4-10.2); CREATININE 9.95 mg/dl (0.61-1.24); PHOSPHORUS 6.4 mg/dl (2.5-4.9); POTASSIUM 5.1 mmol/L (3.5-5.1); TOTAL PROTEIN 6.4 g/dl (6.1-8.1)
[2017-06-28] MEDS: LEVOTHYROXINE 125 MCG TAB PO SCH (06:36)
[2017-06-28] MEDS: ASPIRIN 81 MG TAB PO SCH (08:20)
[2017-06-28] MEDS: LEVETIRACETAM 500 MG TAB PO SCH (08:21)
[2017-06-28] MEDS: MULTIVIT/CA CARB/B CMPLX/FA TAB PO SCH (08:21)
[2017-06-28] MEDS: PANTOPRAZOLE (EC) 40 MG TAB PO SCH (08:21)
[2017-06-28] MEDS: TICAGRELOR 90 MG TABLET PO SCH ×2 (08:23→21:05)
[2017-06-28] MEDS: LISINOPRIL 20 MG TAB PO SCH (08:25)
[2017-06-28] MEDS: INSULIN ASPART [NOVOLOG] 3 ML PEN SC SCH ×7 (08:31→21:00)
[2017-06-28] MEDS: ACETAMINOPHEN 325 MG TAB PO PRN (08:38)
--- NOTE | 2017-06-28 10:44 | PN ---
Date/Time of Note Date/Time of Note DATE: 06/28/17 TIME: 10:39 Assessment/Plan VTE Prophylaxis VTE Prophylaxis Intervention: other Lines/Catheters [facility] Type [facility] Saline Lock Urinary Cath still in place: No Assessment/Plan Assessment/Plan A: urinary sx/pelvic pain ESRD DM HTN CAD elev troponin P: await repeat urine cx results cont current rx PT eval Subjective 24 Hr Interval Summary Free Text/Dictation Urology consult, renal and endocrine care appreciated. Pt had straight cath yesterday with repeat cx by urology. Pt with persistent discomfort "as urine builds up", then improved if able to void. Small amt of soft stool when voiding urine. No cp, sob, n/v. Exam/Review of Systems Vital Signs Vitals Vital Signs Date Time Temp Pulse Resp B/P Pulse Ox O2 Delivery O2 Flow Rate FiO2 06/28/17 07:30 98.2 58 16 136/59 95 06/25/17 19:55 Room Air Intake and Output 06/27/17 06/27/17 06/28/17 15:00 23:00 07:00 Intake Total 1060 ml 920 ml Output Total 2400 ml Balance 1060 ml -1480 ml Exam gen- nad, nontoxic lungs- cta heart- rrr abd- +bs, soft, mild low abd tenderness. ext- trace edema Results Result Diagram: 06/28/17 0502 06/28/17 0502 Results 24 hrs Laboratory Tests Test 06/27/17 11:56 06/27/17 16:25 06/27/17 17:09 06/27/17 20:42 Bedside Glucose 309 H 222 H 236 H Prostate Specific Antigen 1.0 Test 06/28/17 02:05 06/28/17 05:02 06/28/17 08:19 Bedside Glucose 255 H 187 White Blood Count 8.0 Red Blood Count 3.22 L Hemoglobin 9.8 L Hematocrit 29.9 L Mean Corpuscular Volume 92.9 Mean Corpuscular Hemoglobin 30.4 Mean Corpuscular Hemoglobin Concent 32.8 Red Cell Distribution Width 17.5 H Platelet Count 179 Mean Platelet Volume 10.7 H Neutrophils % 69.2 Lymphocytes % 9.6 L Monocytes % 10.8 Eosinophils % 9.8 H Basophils % 0.4 Nucleated Red Blood Cells % 0.0 Neutrophils # 5.6 Lymphocytes # 0.8 Monocytes # 0.9 Eosinophils # 0.8 H Basophils # 0.0 Nucleated Red Blood Cells # 0.0 Sodium Level 134 L Potassium Level 5.1 Chloride Level 94 L Carbon Dioxide Level 27 Anion Gap 18 H Blood Urea Nitrogen 64 H Creatinine 9.95 H Glucose Level 226 H Calcium Level 10.2 Phosphorus Level 6.4 H Total Bilirubin 0.0 L Direct Bilirubin 0.00 Indirect Bilirubin 0.0 Aspartate Amino Transf (AST/SGOT) 33 Alanine Aminotransferase (ALT/SGPT) 39 Alkaline Phosphatase 341 H Total Protein 6.4 Albumin 3.0 L Globulin 3.40 H Albumin/Globulin Ratio 0.88 Medications Medications Current Medications Aspirin (Aspirin) 81 mg DAILY PO Last administered on 06/28/17 08:20; Admin Dose 81 MG; Start 06/24/17 at 09:00 Atorvastatin Calcium (Lipitor) 80 mg QHS PO Last administered on 06/27/17 21: 08; Admin Dose 80 MG; Start 06/23/17 at 21:00 Carvedilol (Coreg) 25 mg BID PO Last administered on 06/28/17 08:21; Admin Dose 25 MG; Start 06/23/17 at 21:00 Hydralazine HCl (Apresoline) 50 mg BID PO Last administered on 06/26/17 21:01 ; Admin Dose 50 MG; Start 06/23/17 at 21:00 Multivit/Ca Carb/ B Cmplx/FA/Prenat (Kimmie-Tirso) 1 tab DAILY PO Last administered on 06/28/17 08:21; Admin Dose 1 TAB; Start 06/24/17 at 09:00 Nifedipine (Procardia Xl) 90 mg QHS PO Last administered on 06/26/17 22:16; Admin Dose 90 MG; Start 06/23/17 at 21:00 Pantoprazole (Protonix Tab) 40 mg DAILY PO Last administered on 06/28/17 08:21 ; Admin Dose 40 MG; Start 06/24/17 at 09:00 Tramadol HCl (Ultram) 50 mg Q6 PRN PO PAIN Last administered on 06/27/17 21:15 ; Admin Dose 50 MG; Start 06/23/17 at 14:00 Ticagrelor (Brilinta) 90 mg BID PO Last administered on 06/28/17 08:23; Admin Dose 90 MG; Start 06/23/17 at 21:00 Nitroglycerin (Nitroglycerin (Sl Tab) 0.4 Mg) 1 tab Q5M PRN SL CHEST PAIN; Start 06/23/17 at 14:30 Acetaminophen (Tylenol Tab) 650 mg Q6H PRN PO PAIN LEVEL 1-3 OR FEVER Last administered on 06/28/17 08:38; Admin Dose 650 MG; Start 06/23/17 at 14:30 Miscellaneous Information 1 ea NOTE XX ; Start 06/23/17 at 14:30 Glucose (Glutose) 15 gm Q15M PRN PO DECREASED GLUCOSE; Start 06/23/17 at 14:30 Glucose (Glutose) 22.5 gm Q15M PRN PO DECREASED GLUCOSE; Start 06/23/17 at 14: 30 Dextrose (D50w Syringe) 25 ml Q15M PRN IV DECREASED GLUCOSE; Start 06/23/17 at 14:30 Dextrose (D50w Syringe) 50 ml Q15M PRN IV DECREASED GLUCOSE; Start 06/23/17 at 14:30 Glucagon (Glucagen) 1 mg Q15M PRN IM DECREASED GLUCOSE; Start 06/23/17 at 14: 30 Glucose (Glutose) 15 gm Q15M PRN BUCCAL DECREASED GLUCOSE; Start 06/23/17 at 14:30 Levetiracetam (Keppra) 500 mg DAILY PO Last administered on 06/28/17 08:21; Admin Dose 500 MG; Start 06/24/17 at 09:00 Diagnostic Test (Pha) (Accu-Chek) 1 ea 02 XX Last administered on 06/28/17 02: 05; Admin Dose 1 EA; Start 06/26/17 at 02:00 Lisinopril (Zestril) 40 mg DAILY PO ; Start 06/26/17 at 09:00 Levofloxacin (Levaquin) 250 mg Q48H PO Last administered on 06/26/17 12:16; Admin Dose 250 MG; Start 06/26/17 at 11:00 Clonidine (Catapres) 0.1 mg BID PO Last administered on 06/26/17 22:15; Admin Dose 0.1 MG; Start 06/26/17 at 21:00 Doxazosin Mesylate (Cardura) 4 mg HS PO Last administered on 06/27/17 21:09; Admin Dose 4 MG; Start 06/26/17 at 21:00 Insulin Glargine (Lantus) 12 unit QHS SC Last administered on 06/27/17t 20:45; Admin Dose 12 UNIT; Start 06/27/17 at 21:00 KIMBERLI LOPEZ MD Jun 28, 2017 10:44
[2017-06-28] MEDS: LEVOFLOXACIN 250 MG TAB PO SCH (11:10)
[2017-06-28] MEDS ORDERED: INSULIN GLARGINE [LANtus] 3 ML PEN SC ONE (12:30)
--- NOTE | 2017-06-28 12:30 | CONS ---
Date/Time of Note Date/Time of Note DATE: 06/28/17 TIME: 12:29 Assessment/Plan Assessment/Plan Chief Complaint/Hosp Course 66-year-old gentleman recently admitted at this hospital for cardiac issues. He was transferred to [facility] where he had angioplasty after an non-STEMI. He has been readmitted here for some GI tract illness. At the patient's family request I am consulted to assist with adjusting his insulin regimen for his sugars. 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 Please note he uses a different basal insulin at home specifically tresiba also known as Degludec. We will adjust upward slightly on the Lantus insulin to cover the basal needs. Fortunately no hypoglycemia (2) Hypertension Status: Chronic Comment: Adequate control Qualifiers: Hypertension type: essential hypertension Qualified Code: I10 - Essential hypertension (3) BPH (benign prostatic hyperplasia) Status: Chronic Comment: Noted Qualifiers: Lower urinary tract symptom presence: symptoms present Consultation Date/Type/Reason Admit Date/Time Jun 23, 2017 at 10:43 Initial Consult Date 06/25/17 Type of Consultation: Endocrinology Reason for Consultation Diabetes mellitus type 1 with end-stage renal disease retinopathy peripheral neuropathy Referring Provider: KIMBERLI LOPEZ MD 24 HR Interval Summary Free Text/Dictation No new complaints Exam/Review of Systems Vital Signs Vitals Vital Signs Date Time Temp Pulse Resp B/P Pulse Ox O2 Delivery O2 Flow Rate FiO2 06/28/17 08:20 67 142/69 06/28/17 07:30 98.2 16 95 06/25/17 19:55 Room Air Intake and Output 06/27/17 06/27/17 06/28/17 15:00 23:00 07:00 Intake Total 1060 ml 920 ml Output Total 2400 ml Balance 1060 ml -1480 ml Results Exam is unchanged Result Diagram: 06/28/17 0502 06/28/17 0502 Results 24 hrs Laboratory Tests Test 06/27/17 16:25 06/27/17 17:09 06/27/17 20:42 06/28/17 02:05 Prostate Specific Antigen 1.0 Bedside Glucose 222 H 236 H 255 H Test 06/28/17 05:02 06/28/17 08:19 06/28/17 12:10 White Blood Count 8.0 Red Blood Count 3.22 L Hemoglobin 9.8 L Hematocrit 29.9 L Mean Corpuscular Volume 92.9 Mean Corpuscular Hemoglobin 30.4 Mean Corpuscular Hemoglobin Concent 32.8 Red Cell Distribution Width 17.5 H Platelet Count 179 Mean Platelet Volume 10.7 H Neutrophils % 69.2 Lymphocytes % 9.6 L Monocytes % 10.8 Eosinophils % 9.8 H Basophils % 0.4 Nucleated Red Blood Cells % 0.0 Neutrophils # 5.6 Lymphocytes # 0.8 Monocytes # 0.9 Eosinophils # 0.8 H Basophils # 0.0 Nucleated Red Blood Cells # 0.0 Sodium Level 134 L Potassium Level 5.1 Chloride Level 94 L Carbon Dioxide Level 27 Anion Gap 18 H Blood Urea Nitrogen 64 H Creatinine 9.95 H Glucose Level 226 H Calcium Level 10.2 Phosphorus Level 6.4 H Total Bilirubin 0.0 L Direct Bilirubin 0.00 Indirect Bilirubin 0.0 Aspartate Amino Transf (AST/SGOT) 33 Alanine Aminotransferase (ALT/SGPT) 39 Alkaline Phosphatase 341 H Total Protein 6.4 Albumin 3.0 L Globulin 3.40 H Albumin/Globulin Ratio 0.88 Bedside Glucose 187 140 Medications Medications Current Medications Aspirin (Aspirin) 81 mg DAILY PO Last administered on 06/28/17 08:20; Admin Dose 81 MG; Start 06/24/17 at 09:00 Atorvastatin Calcium (Lipitor) 80 mg QHS PO Last administered on 06/27/17 21: 08; Admin Dose 80 MG; Start 06/23/17 at 21:00 Carvedilol (Coreg) 25 mg BID PO Last administered on 06/28/17 08:21; Admin Dose 25 MG; Start 06/23/17 at 21:00 Hydralazine HCl (Apresoline) 50 mg BID PO Last administered on 06/26/17 21:01 ; Admin Dose 50 MG; Start 06/23/17 at 21:00 Multivit/Ca Carb/ B Cmplx/FA/Prenat (Kimmie-Tirso) 1 tab DAILY PO Last administered on 06/28/17 08:21; Admin Dose 1 TAB; Start 06/24/17 at 09:00 Nifedipine (Procardia Xl) 90 mg QHS PO Last administered on 06/26/17 22:16; Admin Dose 90 MG; Start 06/23/17 at 21:00 Pantoprazole (Protonix Tab) 40 mg DAILY PO Last administered on 06/28/17 08:21 ; Admin Dose 40 MG; Start 06/24/17 at 09:00 Tramadol HCl (Ultram) 50 mg Q6 PRN PO PAIN Last administered on 06/27/17 21:15 ; Admin Dose 50 MG; Start 06/23/17 at 14:00 Ticagrelor (Brilinta) 90 mg BID PO Last administered on 06/28/17 08:23; Admin Dose 90 MG; Start 06/23/17 at 21:00 Nitroglycerin (Nitroglycerin (Sl Tab) 0.4 Mg) 1 tab Q5M PRN SL CHEST PAIN; Start 06/23/17 at 14:30 Acetaminophen (Tylenol Tab) 650 mg Q6H PRN PO PAIN LEVEL 1-3 OR FEVER Last administered on 06/28/17 08:38; Admin Dose 650 MG; Start 06/23/17 at 14:30 Miscellaneous Information 1 ea NOTE XX ; Start 06/23/17 at 14:30 Glucose (Glutose) 15 gm Q15M PRN PO DECREASED GLUCOSE; Start 06/23/17 at 14:30 Glucose (Glutose) 22.5 gm Q15M PRN PO DECREASED GLUCOSE; Start 06/23/17 at 14: 30 Dextrose (D50w Syringe) 25 ml Q15M PRN IV DECREASED GLUCOSE; Start 06/23/17 at 14:30 Dextrose (D50w Syringe) 50 ml Q15M PRN IV DECREASED GLUCOSE; Start 06/23/17 at 14:30 Glucagon (Glucagen) 1 mg Q15M PRN IM DECREASED GLUCOSE; Start 06/23/17 at 14: 30 Glucose (Glutose) 15 gm Q15M PRN BUCCAL DECREASED GLUCOSE; Start 06/23/17 at 14:30 Levetiracetam (Keppra) 500 mg DAILY PO Last administered on 06/28/17 08:21; Admin Dose 500 MG; Start 06/24/17 at 09:00 Diagnostic Test (Pha) (Accu-Chek) 1 ea 02 XX Last administered on 06/28/17 02: 05; Admin Dose 1 EA; Start 06/26/17 at 02:00 Lisinopril (Zestril) 40 mg DAILY PO ; Start 06/26/17 at 09:00 Levofloxacin (Levaquin) 250 mg Q48H PO Last administered on 06/28/17 11:10; Admin Dose 250 MG; Start 06/26/17 at 11:00 Clonidine (Catapres) 0.1 mg BID PO Last administered on 06/26/17 22:15; Admin Dose 0.1 MG; Start 06/26/17 at 21:00 Doxazosin Mesylate (Cardura) 4 mg HS PO Last administered on 06/27/17 21:09; Admin Dose 4 MG; Start 06/26/17 at 21:00 Insulin Glargine (Lantus) 12 unit QHS SC Last administered on 06/27/17 20:45; Admin Dose 12 UNIT; Start 06/27/17 at 21:00 LAWANDA KING MD Jun 28, 2017 12:30
--- NOTE | 2017-06-28 13:36 | CONS ---
Date/Time of Note Date/Time of Note DATE: 06/28/17 TIME: 13:33 Consult Date/Type/Reason Admit Date/Time Jun 23, 2017 at 10:43 Initial Consult Date 06/25/17 Type of Consultation: Urology Reason for Consultation Dysuria and hematuria Ordering Provider: KIMBERLI LOPEZ MD Subjective Patient states that he still feels dysuria and urge to urinate and urinates a little bit. Objective Vital Signs Date Time Temp Pulse Resp B/P Pulse Ox O2 Delivery O2 Flow Rate FiO2 06/28/17 08:20 67 142/69 06/28/17 07:30 98.2 16 95 06/25/17 19:55 Room Air Intake and Output 06/27/17 06/27/17 06/28/17 15:00 23:00 07:00 Intake Total 1060 ml 920 ml Output Total 2400 ml Balance 1060 ml -1480 ml Exam Abdomen is soft there is no abdominal mass palpable and no suprapubic tenderness he complains of pain in the penis itself Results/Medications Result Diagram: 06/28/17 0502 06/28/17 0502 Results 24 hrs Laboratory Tests Test 06/27/17 16:25 06/27/17 17:09 06/27/17 20:42 06/28/17 02:05 Prostate Specific Antigen 1.0 Bedside Glucose 222 H 236 H 255 H Test 06/28/17 05:02 06/28/17 08:19 06/28/17 12:10 White Blood Count 8.0 Red Blood Count 3.22 L Hemoglobin 9.8 L Hematocrit 29.9 L Mean Corpuscular Volume 92.9 Mean Corpuscular Hemoglobin 30.4 Mean Corpuscular Hemoglobin Concent 32.8 Red Cell Distribution Width 17.5 H Platelet Count 179 Mean Platelet Volume 10.7 H Neutrophils % 69.2 Lymphocytes % 9.6 L Monocytes % 10.8 Eosinophils % 9.8 H Basophils % 0.4 Nucleated Red Blood Cells % 0.0 Neutrophils # 5.6 Lymphocytes # 0.8 Monocytes # 0.9 Eosinophils # 0.8 H Basophils # 0.0 Nucleated Red Blood Cells # 0.0 Sodium Level 134 L Potassium Level 5.1 Chloride Level 94 L Carbon Dioxide Level 27 Anion Gap 18 H Blood Urea Nitrogen 64 H Creatinine 9.95 H Glucose Level 226 H Calcium Level 10.2 Phosphorus Level 6.4 H Total Bilirubin 0.0 L Direct Bilirubin 0.00 Indirect Bilirubin 0.0 Aspartate Amino Transf (AST/SGOT) 33 Alanine Aminotransferase (ALT/SGPT) 39 Alkaline Phosphatase 341 H Total Protein 6.4 Albumin 3.0 L Globulin 3.40 H Albumin/Globulin Ratio 0.88 Bedside Glucose 187 140 Medications Current Medications Aspirin (Aspirin) 81 mg DAILY PO Last administered on 06/28/17 08:20; Admin Dose 81 MG; Start 06/24/17 at 09:00 Atorvastatin Calcium (Lipitor) 80 mg QHS PO Last administered on 06/27/17 21: 08; Admin Dose 80 MG; Start 06/23/17 at 21:00 Carvedilol (Coreg) 25 mg BID PO Last administered on 06/28/17 08:21; Admin Dose 25 MG; Start 06/23/17 at 21:00 Hydralazine HCl (Apresoline) 50 mg BID PO Last administered on 06/26/17 21:01 ; Admin Dose 50 MG; Start 06/23/17 at 21:00 Multivit/Ca Carb/ B Cmplx/FA/Prenat (Kimmie-Tirso) 1 tab DAILY PO Last administered on 06/28/17 08:21; Admin Dose 1 TAB; Start 06/24/17 at 09:00 Nifedipine (Procardia Xl) 90 mg QHS PO Last administered on 06/26/17 22:16; Admin Dose 90 MG; Start 06/23/17 at 21:00 Pantoprazole (Protonix Tab) 40 mg DAILY PO Last administered on 06/28/17 08:21 ; Admin Dose 40 MG; Start 06/24/17 at 09:00 Tramadol HCl (Ultram) 50 mg Q6 PRN PO PAIN Last administered on 06/27/17 21:15 ; Admin Dose 50 MG; Start 06/23/17 at 14:00 Ticagrelor (Brilinta) 90 mg BID PO Last administered on 06/28/17 08:23; Admin Dose 90 MG; Start 06/23/17 at 21:00 Nitroglycerin (Nitroglycerin (Sl Tab) 0.4 Mg) 1 tab Q5M PRN SL CHEST PAIN; Start 06/23/17 at 14:30 Acetaminophen (Tylenol Tab) 650 mg Q6H PRN PO PAIN LEVEL 1-3 OR FEVER Last administered on 06/28/17 08:38; Admin Dose 650 MG; Start 06/23/17 at 14:30 Miscellaneous Information 1 ea NOTE XX ; Start 06/23/17 at 14:30 Glucose (Glutose) 15 gm Q15M PRN PO DECREASED GLUCOSE; Start 06/23/17 at 14:30 Glucose (Glutose) 22.5 gm Q15M PRN PO DECREASED GLUCOSE; Start 06/23/17 at 14: 30 Dextrose (D50w Syringe) 25 ml Q15M PRN IV DECREASED GLUCOSE; Start 06/23/17 at 14:30 Dextrose (D50w Syringe) 50 ml Q15M PRN IV DECREASED GLUCOSE; Start 06/23/17 at 14:30 Glucagon (Glucagen) 1 mg Q15M PRN IM DECREASED GLUCOSE; Start 06/23/17 at 14: 30 Glucose (Glutose) 15 gm Q15M PRN BUCCAL DECREASED GLUCOSE; Start 06/23/17 at 14:30 Levetiracetam (Keppra) 500 mg DAILY PO Last administered on 06/28/17 08:21; Admin Dose 500 MG; Start 06/24/17 at 09:00 Diagnostic Test (Pha) (Accu-Chek) 1 ea 02 XX Last administered on 06/28/17 02: 05; Admin Dose 1 EA; Start 06/26/17 at 02:00 Lisinopril (Zestril) 40 mg DAILY PO ; Start 06/26/17 at 09:00 Levofloxacin (Levaquin) 250 mg Q48H PO Last administered on 06/28/17 11:10; Admin Dose 250 MG; Start 06/26/17 at 11:00 Clonidine (Catapres) 0.1 mg BID PO Last administered on 06/26/17 22:15; Admin Dose 0.1 MG; Start 06/26/17 at 21:00 Doxazosin Mesylate (Cardura) 4 mg HS PO Last administered on 06/27/17 21:09; Admin Dose 4 MG; Start 06/26/17 at 21:00 Insulin Glargine (Lantus) 14 unit QHS SC ; Start 06/28/17 at 21:00 Assessment/Plan Chief Complaint/Hosp Course 66-year-old male with end-stage renal disease on hemodialysis has been having dysuria and hematuria. CT scan showed that the bladder is not empty and he had in and out catheterization to drain that urine that urine was sent for culture and sensitivity and so far the culture has been negative. Also yesterday I did send the urine for cytology and the result is pending. It appears the patient did have hematuria before . We will check the urine cytology and if it is negative may have to do a cystoscopy on him to make sure there is no bladder tumor We did a PSA on him today is 1.0 Problems: EMMA DELGADO MD Jun 28, 2017 13:36
--- NOTE | 2017-06-28 15:03 | CONS ---
Date/Time of Note Date/Time of Note DATE: 06/28/17 TIME: 15:00 Assessment/Plan Assessment/Plan Additional Assessment/Plan 1. End-stage renal disease on maintenance hemodialysis. Patient is regularly dialyzed Thursday . s/p hd this am and will be scheduled for 2 coronary artery disease. Status post recent coronary angiogram and stent placement at [facility] last week. 3. Type 2 diabetes mellitus . His blood sugars have been very erratic.followed by endo 4. Hypertension , stable 5. History of gallstones now with elevated alkaline phosphatase 6. Anemia of chronic kidney disease.cont epogen with hd and monitor iron sats 7. Recent history of new onset seizure disorder. Now on antiseizure medication. 8 hematuria: appreciate gu eval. culture negative on emperic abx. cystology pending and may need cysto Consultation Date/Type/Reason Admit Date/Time Jun 23, 2017 at 10:43 Initial Consult Date 06/25/17 Type of Consultation: Urology Referring Provider: KIMBERLI LOPEZ MD 24 HR Interval Summary Free Text/Dictation doing ok. had hd this am. no sob or cp. cont to have hematuria Exam/Review of Systems Vital Signs Vitals Vital Signs Date Time Temp Pulse Resp B/P Pulse Ox O2 Delivery O2 Flow Rate FiO2 06/28/17 14:37 98.5 60 16 143/65 92 06/25/17 19:55 Room Air Intake and Output 06/27/17 06/27/17 06/28/17 15:00 23:00 07:00 Intake Total 1060 ml 920 ml Output Total 2400 ml Balance 1060 ml -1480 ml Exam Constitutional: alert, oriented, well developed Head: atraumatic, normocephalic Neck: non-tender, supple Respiratory: clear to auscultation, diminished breath sounds Cardiovascular: regular rate and rhythm Gastrointestinal: non-tender, soft Results Result Diagram: 06/28/17 0502 06/28/17 0502 Results 24 hrs Laboratory Tests Test 06/27/17 16:25 06/27/17 17:09 06/27/17 20:42 06/28/17 02:05 Prostate Specific Antigen 1.0 Bedside Glucose 222 H 236 H 255 H Test 06/28/17 05:02 06/28/17 08:19 06/28/17 12:10 White Blood Count 8.0 Red Blood Count 3.22 L Hemoglobin 9.8 L Hematocrit 29.9 L Mean Corpuscular Volume 92.9 Mean Corpuscular Hemoglobin 30.4 Mean Corpuscular Hemoglobin Concent 32.8 Red Cell Distribution Width 17.5 H Platelet Count 179 Mean Platelet Volume 10.7 H Neutrophils % 69.2 Lymphocytes % 9.6 L Monocytes % 10.8 Eosinophils % 9.8 H Basophils % 0.4 Nucleated Red Blood Cells % 0.0 Neutrophils # 5.6 Lymphocytes # 0.8 Monocytes # 0.9 Eosinophils # 0.8 H Basophils # 0.0 Nucleated Red Blood Cells # 0.0 Sodium Level 134 L Potassium Level 5.1 Chloride Level 94 L Carbon Dioxide Level 27 Anion Gap 18 H Blood Urea Nitrogen 64 H Creatinine 9.95 H Glucose Level 226 H Calcium Level 10.2 Phosphorus Level 6.4 H Total Bilirubin 0.0 L Direct Bilirubin 0.00 Indirect Bilirubin 0.0 Aspartate Amino Transf (AST/SGOT) 33 Alanine Aminotransferase (ALT/SGPT) 39 Alkaline Phosphatase 341 H Total Protein 6.4 Albumin 3.0 L Globulin 3.40 H Albumin/Globulin Ratio 0.88 Bedside Glucose 187 140 Medications Medications Current Medications Aspirin (Aspirin) 81 mg DAILY PO Last administered on 06/28/17 08:20; Admin Dose 81 MG; Start 06/24/17 at 09:00 Atorvastatin Calcium (Lipitor) 80 mg QHS PO Last administered on 06/27/17 21: 08; Admin Dose 80 MG; Start 06/23/17 at 21:00 Carvedilol (Coreg) 25 mg BID PO Last administered on 06/28/17 08:21; Admin Dose 25 MG; Start 06/23/17 at 21:00 Hydralazine HCl (Apresoline) 50 mg BID PO Last administered on 06/26/17 21:01 ; Admin Dose 50 MG; Start 06/23/17 at 21:00 Multivit/Ca Carb/ B Cmplx/FA/Prenat (Kimmie-Tirso) 1 tab DAILY PO Last administered on 06/28/17 08:21; Admin Dose 1 TAB; Start 06/24/17 at 09:00 Nifedipine (Procardia Xl) 90 mg QHS PO Last administered on 06/26/17 22:16; Admin Dose 90 MG; Start 06/23/17 at 21:00 Pantoprazole (Protonix Tab) 40 mg DAILY PO Last administered on 06/28/17 08:21 ; Admin Dose 40 MG; Start 06/24/17 at 09:00 Tramadol HCl (Ultram) 50 mg Q6 PRN PO PAIN Last administered on 06/27/17 21:15 ; Admin Dose 50 MG; Start 06/23/17 at 14:00 Ticagrelor (Brilinta) 90 mg BID PO Last administered on 06/28/17 08:23; Admin Dose 90 MG; Start 06/23/17 at 21:00 Nitroglycerin (Nitroglycerin (Sl Tab) 0.4 Mg) 1 tab Q5M PRN SL CHEST PAIN; Start 06/23/17 at 14:30 Acetaminophen (Tylenol Tab) 650 mg Q6H PRN PO PAIN LEVEL 1-3 OR FEVER Last administered on 06/28/17 08:38; Admin Dose 650 MG; Start 06/23/17 at 14:30 Miscellaneous Information 1 ea NOTE XX ; Start 06/23/17 at 14:30 Glucose (Glutose) 15 gm Q15M PRN PO DECREASED GLUCOSE; Start 06/23/17 at 14:30 Glucose (Glutose) 22.5 gm Q15M PRN PO DECREASED GLUCOSE; Start 06/23/17 at 14: 30 Dextrose (D50w Syringe) 25 ml Q15M PRN IV DECREASED GLUCOSE; Start 06/23/17 at 14:30 Dextrose (D50w Syringe) 50 ml Q15M PRN IV DECREASED GLUCOSE; Start 06/23/17 at 14:30 Glucagon (Glucagen) 1 mg Q15M PRN IM DECREASED GLUCOSE; Start 06/23/17 at 14: 30 Glucose (Glutose) 15 gm Q15M PRN BUCCAL DECREASED GLUCOSE; Start 06/23/17 at 14:30 Levetiracetam (Keppra) 500 mg DAILY PO Last administered on 06/28/17 08:21; Admin Dose 500 MG; Start 06/24/17 at 09:00 Diagnostic Test (Pha) (Accu-Chek) 1 ea 02 XX Last administered on 06/28/17 02: 05; Admin Dose 1 EA; Start 06/26/17 at 02:00 Lisinopril (Zestril) 40 mg DAILY PO ; Start 06/26/17 at 09:00 Levofloxacin (Levaquin) 250 mg Q48H PO Last administered on 06/28/17 11:10; Admin Dose 250 MG; Start 06/26/17 at 11:00 Clonidine (Catapres) 0.1 mg BID PO Last administered on 06/26/17 22:15; Admin Dose 0.1 MG; Start 06/26/17 at 21:00 Doxazosin Mesylate (Cardura) 4 mg HS PO Last administered on 06/27/17 21:09; Admin Dose 4 MG; Start 06/26/17 at 21:00 Insulin Glargine (Lantus) 14 unit QHS SC ; Start 06/28/17 at 21:00 DOMENICO VILLA MD Jun 28, 2017 15:03
[2017-06-28] MEDS: NIFEdipine (XL) 90 MG TAB PO SCH (21:00)
[2017-06-28] MEDS: INSULIN GLARGINE [LANtus] 3 ML PEN SC SCH (21:01)
[2017-06-28] MEDS: ATORVASTATIN 80 MG TAB PO SCH (21:04)
[2017-06-28] MEDS: DOXAZOSIN 4 MG TAB PO SCH (21:04)
[2017-06-29] MEDS: ACCU-CHEK XX SCH (01:55)
[2017-06-29 02:30] VITALS: BP 144/65; RESP 17
[2017-06-29 05:28] LABS: BASOPHILS % 0.5 % (0.0-2.0); EOSINOPHILS # 0.7 10^3/ul (0.0-0.5); EOSINOPHILS % 9.5 % (0.0-7.0); HEMATOCRIT 30.5 % (42.0-52.0); HEMOGLOBIN 10.1 g/dl (14.0-18.0); LYMPHOCYTES # 0.7 10^3/ul (0.8-2.9); LYMPHOCYTES % 9.6 % (15.0-51.0); MEAN CORPUSCULAR HEMOGLOBIN 30.9 pg (29.0-33.0); MEAN CORPUSCULAR HGB CONC 33.1 g/dl (32.0-37.0); MEAN CORPUSCULAR VOLUME 93.3 fl (82.0-101.0); MEAN PLATELET VOLUME 10.7 fl (7.4-10.4); MONOCYTE # 0.8 10^3/ul (0.3-0.9); MONOCYTES % 10.3 % (0.0-11.0); NEUTROPHIL # 5.3 10^3/ul (1.6-7.5); NEUTROPHILS % 69.7 % (39.0-77.0); PLATELET COUNT 200 10^3/UL (140-415); RED BLOOD COUNT 3.27 10^6/ul (4.70-6.10); RED CELL DISTRIBUTION WIDTH 17.5 % (11.5-14.5); WHITE BLOOD COUNT 7.7 10^3/ul (4.8-10.8)
[2017-06-29 06:20] LABS: ALBUMIN 3.1 g/dl (3.3-4.9); ALBUMIN/GLOBULIN RATIO 0.79; BILIRUBIN,INDIRECT 0.2 mg/dl (0-1.1); BILIRUBIN,TOTAL 0.2 mg/dl (0.2-1.3); POTASSIUM 4.6 mmol/L (3.5-5.1)
[2017-06-29] MEDS: LEVOTHYROXINE 125 MCG TAB PO SCH (07:21)
[2017-06-29 07:52] VITALS: BP 170/77; RESP 16
[2017-06-29] MEDS: MULTIVIT/CA CARB/B CMPLX/FA TAB PO SCH (08:22)
[2017-06-29] MEDS: PANTOPRAZOLE (EC) 40 MG TAB PO SCH (08:23)
[2017-06-29] MEDS: ASPIRIN 81 MG TAB PO SCH (08:23)
[2017-06-29] MEDS: LEVETIRACETAM 500 MG TAB PO SCH (08:23)
[2017-06-29] MEDS: TICAGRELOR 90 MG TABLET PO SCH ×2 (08:42→20:10)
[2017-06-29] MEDS: INSULIN ASPART [NOVOLOG] 3 ML PEN SC SCH ×7 (08:43→20:23)
[2017-06-29] MEDS: LISINOPRIL 20 MG TAB PO SCH (08:45)
--- NOTE | 2017-06-29 14:01 | CONS ---
Date/Time of Note Date/Time of Note DATE: 06/29/17 TIME: 13:57 Assessment/Plan Assessment/Plan Chief Complaint/Hosp Course 1. End-stage renal disease on maintenance hemodialysis. Patient is regularly dialyzed Thursday and is due for hemodialysis tomorrow which I will order. 2 coronary artery disease. Status post recent coronary angiogram and stent placement at [facility] last week. 3. Type 2 diabetes mellitus . His blood sugars have been very erratic. 4. Hypertension , he has had episodes of low blood pressure therefore I have adjusted his blood pressure medicine. 5. History of gallstones now with elevated alkaline phosphatase 6. Anemia of chronic kidney disease. 7. Recent history of new onset seizure disorder. Now on antiseizure medication. 8 sensation of urinary urgency and dysuria with gross hematuria. He has had several urinary catheterizations done 1-150 cc and another of 1 75 cc. His urine culture is no growth. He is being seen by a urologist for workup of his problem. I will discuss whether to continue antibiotics with the urologist Problems: Consultation Date/Type/Reason Admit Date/Time Jun 23, 2017 at 10:43 Type of Consultation: Nephrology Referring Provider: KIMBERLI LOPEZ MD 24 HR Interval Summary Free Text/Dictation He continues to complain of urinary urgency with dysuria. He says that his urine is bloody at times. Exam/Review of Systems Vital Signs Vitals Vital Signs Date Time Temp Pulse Resp B/P Pulse Ox O2 Delivery O2 Flow Rate FiO2 06/29/17 07:52 98.9 68 16 170/77 98 06/25/17 19:55 Room Air Intake and Output 06/28/17 06/28/17 06/29/17 15:00 23:00 07:00 Intake Total 1040 ml 300 ml Balance 1040 ml 300 ml Exam Constitutional: alert, frail, oriented Respiratory: clear to auscultation, normal air movement Cardiovascular: nl pulses, regular rate and rhythm Gastrointestinal: non-tender, soft Musculoskeletal: nl extremities to inspection Results Result Diagram: 06/29/17 0453 06/29/17 0453 Results 24 hrs Laboratory Tests Test 06/28/17 17:19 06/28/17 20:59 06/29/17 04:53 06/29/17 08:08 Bedside Glucose 144 169 183 White Blood Count 7.7 Red Blood Count 3.27 L Hemoglobin 10.1 L Hematocrit 30.5 L Mean Corpuscular Volume 93.3 Mean Corpuscular Hemoglobin 30.9 Mean Corpuscular Hemoglobin Concent 33.1 Red Cell Distribution Width 17.5 H Platelet Count 200 Mean Platelet Volume 10.7 H Neutrophils % 69.7 Lymphocytes % 9.6 L Monocytes % 10.3 Eosinophils % 9.5 H Basophils % 0.5 Nucleated Red Blood Cells % 0.0 Neutrophils # 5.3 Lymphocytes # 0.7 L Monocytes # 0.8 Eosinophils # 0.7 H Basophils # 0.0 Nucleated Red Blood Cells # 0.0 Sodium Level 137 Potassium Level 4.6 Chloride Level 95 L Carbon Dioxide Level 28 Anion Gap 19 H Blood Urea Nitrogen 59 H Creatinine 8.00 H Glucose Level 204 Calcium Level 11.0 H Total Bilirubin 0.2 Direct Bilirubin 0.00 Indirect Bilirubin 0.2 Aspartate Amino Transf (AST/SGOT) 39 Alanine Aminotransferase (ALT/SGPT) 36 Alkaline Phosphatase 363 H Total Protein 7.0 Albumin 3.1 L Globulin 3.90 H Albumin/Globulin Ratio 0.79 Test 06/29/17 11:58 Bedside Glucose 294 H Medications Medications Current Medications Aspirin (Aspirin) 81 mg DAILY PO Last administered on 06/29/17 08:23; Admin Dose 81 MG; Start 06/24/17 at 09:00 Atorvastatin Calcium (Lipitor) 80 mg QHS PO Last administered on 06/28/17 21: 04; Admin Dose 80 MG; Start 06/23/17 at 21:00 Carvedilol (Coreg) 25 mg BID PO Last administered on 06/29/17 08:22; Admin Dose 25 MG; Start 06/23/17 at 21:00 Hydralazine HCl (Apresoline) 50 mg BID PO Last administered on 06/29/17 08:22 ; Admin Dose 50 MG; Start 06/23/17 at 21:00 Multivit/Ca Carb/ B Cmplx/FA/Prenat (Kimmie-Tirso) 1 tab DAILY PO Last administered on 06/29/17 08:22; Admin Dose 1 TAB; Start 06/24/17 at 09:00 Nifedipine (Procardia Xl) 90 mg QHS PO Last administered on 06/26/17 22:16; Admin Dose 90 MG; Start 06/23/17 at 21:00 Pantoprazole (Protonix Tab) 40 mg DAILY PO Last administered on 06/29/17 08:23 ; Admin Dose 40 MG; Start 06/24/17 at 09:00 Tramadol HCl (Ultram) 50 mg Q6 PRN PO PAIN Last administered on 06/27/17 21:15 ; Admin Dose 50 MG; Start 06/23/17 at 14:00 Ticagrelor (Brilinta) 90 mg BID PO Last administered on 06/29/17 08:42; Admin Dose 90 MG; Start 06/23/17 at 21:00 Nitroglycerin (Nitroglycerin (Sl Tab) 0.4 Mg) 1 tab Q5M PRN SL CHEST PAIN; Start 06/23/17 at 14:30 Acetaminophen (Tylenol Tab) 650 mg Q6H PRN PO PAIN LEVEL 1-3 OR FEVER Last administered on 06/28/17 08:38; Admin Dose 650 MG; Start 06/23/17 at 14:30 Miscellaneous Information 1 ea NOTE XX ; Start 06/23/17 at 14:30 Glucose (Glutose) 15 gm Q15M PRN PO DECREASED GLUCOSE; Start 06/23/17 at 14:30 Glucose (Glutose) 22.5 gm Q15M PRN PO DECREASED GLUCOSE; Start 06/23/17 at 14: 30 Dextrose (D50w Syringe) 25 ml Q15M PRN IV DECREASED GLUCOSE; Start 06/23/17 at 14:30 Dextrose (D50w Syringe) 50 ml Q15M PRN IV DECREASED GLUCOSE; Start 06/23/17 at 14:30 Glucagon (Glucagen) 1 mg Q15M PRN IM DECREASED GLUCOSE; Start 06/23/17 at 14: 30 Glucose (Glutose) 15 gm Q15M PRN BUCCAL DECREASED GLUCOSE; Start 06/23/17 at 14:30 Levetiracetam (Keppra) 500 mg DAILY PO Last administered on 06/29/17 08:23; Admin Dose 500 MG; Start 06/24/17 at 09:00 Diagnostic Test (Pha) (Accu-Chek) 1 ea 02 XX Last administered on 06/28/17 02: 05; Admin Dose 1 EA; Start 06/26/17 at 02:00 Lisinopril (Zestril) 40 mg DAILY PO ; Start 06/26/17 at 09:00 Levofloxacin (Levaquin) 250 mg Q48H PO Last administered on 06/28/17 11:10; Admin Dose 250 MG; Start 06/26/17 at 11:00 Clonidine (Catapres) 0.1 mg BID PO Last administered on 06/29/17 08:21; Admin Dose 0.1 MG; Start 06/26/17 at 21:00 Doxazosin Mesylate (Cardura) 4 mg HS PO Last administered on 06/28/17 21:04; Admin Dose 4 MG; Start 06/26/17 at 21:00 Insulin Glargine (Lantus) 14 unit QHS SC Last administered on 06/28/17 21:01; Admin Dose 14 UNIT; Start 06/28/17 at 21:00 PAULY VILA MD Jun 29, 2017 14:01
--- NOTE | 2017-06-29 14:05 | PN ---
Date/Time of Note Date/Time of Note DATE: 06/29/17 TIME: 13:57 Assessment/Plan VTE Prophylaxis VTE Prophylaxis Intervention: other Lines/Catheters IV Catheter Type (from Nrs): Saline Lock Urinary Cath still in place: No Assessment/Plan Assessment/Plan A: urinary sx/pelvic pain esrd dm htn cad elevated troponin P: ?cystoscopy per urology dialysis per renal diabetes management per endocrine cont current rx Subjective 24 Hr Interval Summary Free Text/Dictation Pt with persistent pelvic/groin/urinary discomfort. Episodic, about the same. Makes only small amt of urine but no blood with last void. No cp, sob. Exam/Review of Systems Vital Signs Vitals Vital Signs Date Time Temp Pulse Resp B/P Pulse Ox O2 Delivery O2 Flow Rate FiO2 06/29/17 07:52 98.9 68 16 170/77 98 06/25/17 19:55 Room Air Intake and Output 06/28/17 06/28/17 06/29/17 15:00 23:00 07:00 Intake Total 1040 ml 300 ml Balance 1040 ml 300 ml Exam gen- nad, nontoxic lungs- cta heart- rrr abd- soft, mild, mid low abd tenderness ext- tr edema Results Result Diagram: 06/29/17 0453 06/29/17 0453 Results 24 hrs Laboratory Tests Test 06/28/17 17:19 06/28/17 20:59 06/29/17 04:53 06/29/17 08:08 Bedside Glucose 144 169 183 White Blood Count 7.7 Red Blood Count 3.27 L Hemoglobin 10.1 L Hematocrit 30.5 L Mean Corpuscular Volume 93.3 Mean Corpuscular Hemoglobin 30.9 Mean Corpuscular Hemoglobin Concent 33.1 Red Cell Distribution Width 17.5 H Platelet Count 200 Mean Platelet Volume 10.7 H Neutrophils % 69.7 Lymphocytes % 9.6 L Monocytes % 10.3 Eosinophils % 9.5 H Basophils % 0.5 Nucleated Red Blood Cells % 0.0 Neutrophils # 5.3 Lymphocytes # 0.7 L Monocytes # 0.8 Eosinophils # 0.7 H Basophils # 0.0 Nucleated Red Blood Cells # 0.0 Sodium Level 137 Potassium Level 4.6 Chloride Level 95 L Carbon Dioxide Level 28 Anion Gap 19 H Blood Urea Nitrogen 59 H Creatinine 8.00 H Glucose Level 204 Calcium Level 11.0 H Total Bilirubin 0.2 Direct Bilirubin 0.00 Indirect Bilirubin 0.2 Aspartate Amino Transf (AST/SGOT) 39 Alanine Aminotransferase (ALT/SGPT) 36 Alkaline Phosphatase 363 H Total Protein 7.0 Albumin 3.1 L Globulin 3.90 H Albumin/Globulin Ratio 0.79 Test 06/29/17 11:58 Bedside Glucose 294 H Medications Medications Current Medications Aspirin (Aspirin) 81 mg DAILY PO Last administered on 06/29/17 08:23; Admin Dose 81 MG; Start 06/24/17 at 09:00 Atorvastatin Calcium (Lipitor) 80 mg QHS PO Last administered on 06/28/17 21: 04; Admin Dose 80 MG; Start 06/23/17 at 21:00 Carvedilol (Coreg) 25 mg BID PO Last administered on 06/29/17 08:22; Admin Dose 25 MG; Start 06/23/17 at 21:00 Hydralazine HCl (Apresoline) 50 mg BID PO Last administered on 06/29/17 08:22 ; Admin Dose 50 MG; Start 06/23/17 at 21:00 Multivit/Ca Carb/ B Cmplx/FA/Prenat (Kimmie-Tirso) 1 tab DAILY PO Last administered on 06/29/17 08:22; Admin Dose 1 TAB; Start 06/24/17 at 09:00 Nifedipine (Procardia Xl) 90 mg QHS PO Last administered on 06/26/17 22:16; Admin Dose 90 MG; Start 06/23/17 at 21:00 Pantoprazole (Protonix Tab) 40 mg DAILY PO Last administered on 06/29/17 08:23 ; Admin Dose 40 MG; Start 06/24/17 at 09:00 Tramadol HCl (Ultram) 50 mg Q6 PRN PO PAIN Last administered on 06/27/17 21:15 ; Admin Dose 50 MG; Start 06/23/17 at 14:00 Ticagrelor (Brilinta) 90 mg BID PO Last administered on 06/29/17 08:42; Admin Dose 90 MG; Start 06/23/17 at 21:00 Nitroglycerin (Nitroglycerin (Sl Tab) 0.4 Mg) 1 tab Q5M PRN SL CHEST PAIN; Start 06/23/17 at 14:30 Acetaminophen (Tylenol Tab) 650 mg Q6H PRN PO PAIN LEVEL 1-3 OR FEVER Last administered on 06/28/17 08:38; Admin Dose 650 MG; Start 06/23/17 at 14:30 Miscellaneous Information 1 ea NOTE XX ; Start 06/23/17 at 14:30 Glucose (Glutose) 15 gm Q15M PRN PO DECREASED GLUCOSE; Start 06/23/17 at 14:30 Glucose (Glutose) 22.5 gm Q15M PRN PO DECREASED GLUCOSE; Start 06/23/17 at 14: 30 Dextrose (D50w Syringe) 25 ml Q15M PRN IV DECREASED GLUCOSE; Start 06/23/17 at 14:30 Dextrose (D50w Syringe) 50 ml Q15M PRN IV DECREASED GLUCOSE; Start 06/23/17 at 14:30 Glucagon (Glucagen) 1 mg Q15M PRN IM DECREASED GLUCOSE; Start 06/23/17 at 14: 30 Glucose (Glutose) 15 gm Q15M PRN BUCCAL DECREASED GLUCOSE; Start 06/23/17 at 14:30 Levetiracetam (Keppra) 500 mg DAILY PO Last administered on 06/29/17 08:23; Admin Dose 500 MG; Start 06/24/17 at 09:00 Diagnostic Test (Pha) (Accu-Chek) 1 ea 02 XX Last administered on 06/28/17 02: 05; Admin Dose 1 EA; Start 06/26/17 at 02:00 Lisinopril (Zestril) 40 mg DAILY PO ; Start 06/26/17 at 09:00 Levofloxacin (Levaquin) 250 mg Q48H PO Last administered on 06/28/17 11:10; Admin Dose 250 MG; Start 06/26/17 at 11:00 Clonidine (Catapres) 0.1 mg BID PO Last administered on 06/29/17 08:21; Admin Dose 0.1 MG; Start 06/26/17 at 21:00 Doxazosin Mesylate (Cardura) 4 mg HS PO Last administered on 06/28/17 21:04; Admin Dose 4 MG; Start 06/26/17 at 21:00 Insulin Glargine (Lantus) 14 unit QHS SC Last administered on 06/28/17 21:01; Admin Dose 14 UNIT; Start 06/28/17 at 21:00 KIMBERLI LOPEZ MD Jun 29, 2017 14:05
[2017-06-29 14:29] VITALS: BP 154/71; RESP 16
[2017-06-29] MEDS: traMADol 50 MG TAB PO PRN (17:54)
--- NOTE | 2017-06-29 18:04 | CONS ---
Date/Time of Note Date/Time of Note DATE: 06/29/17 TIME: 18:03 Assessment/Plan Assessment/Plan Chief Complaint/Hosp Course 66-year-old gentleman recently admitted at this hospital for cardiac issues. He was transferred to [facility] where he had angioplasty after an non-STEMI. He has been readmitted here for some GI tract illness. At the patient's family request I am consulted to assist with adjusting his insulin regimen for his sugars. 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 The main issues working with him are his consistent complaints which showed being evaluated by the urology team. Consultation Date/Type/Reason Admit Date/Time Jun 23, 2017 at 10:43 Initial Consult Date 06/25/17 Type of Consultation: Endocrinology Reason for Consultation Diabetes mellitus type 1 with complications of end-stage renal disease; retinopathy; peripheral neuropathy Referring Provider: KIMBERLI LOPEZ MD 24 HR Interval Summary Constitutional: no complaints Detailed Summary Respiratory: no complaints Cardiovascular: no complaints Gastrointestinal: no complaints Genitourinary: dysuria, hematuria, other (Hesitancy) Exam/Review of Systems Vital Signs Vitals Vital Signs Date Time Temp Pulse Resp B/P Pulse Ox O2 Delivery O2 Flow Rate FiO2 06/29/17 14:29 97.8 65 16 154/71 97 06/25/17 19:55 Room Air Intake and Output 06/28/17 06/28/17 06/29/17 15:00 23:00 07:00 Intake Total 1040 ml 300 ml Balance 1040 ml 300 ml Results No changes Result Diagram: 06/29/17 0453 06/29/17 0453 Results 24 hrs Laboratory Tests Test 06/28/17 20:59 06/29/17 04:53 06/29/17 08:08 06/29/17 11:58 Bedside Glucose 169 183 294 H White Blood Count 7.7 Red Blood Count 3.27 L Hemoglobin 10.1 L Hematocrit 30.5 L Mean Corpuscular Volume 93.3 Mean Corpuscular Hemoglobin 30.9 Mean Corpuscular Hemoglobin Concent 33.1 Red Cell Distribution Width 17.5 H Platelet Count 200 Mean Platelet Volume 10.7 H Neutrophils % 69.7 Lymphocytes % 9.6 L Monocytes % 10.3 Eosinophils % 9.5 H Basophils % 0.5 Nucleated Red Blood Cells % 0.0 Neutrophils # 5.3 Lymphocytes # 0.7 L Monocytes # 0.8 Eosinophils # 0.7 H Basophils # 0.0 Nucleated Red Blood Cells # 0.0 Sodium Level 137 Potassium Level 4.6 Chloride Level 95 L Carbon Dioxide Level 28 Anion Gap 19 H Blood Urea Nitrogen 59 H Creatinine 8.00 H Glucose Level 204 Calcium Level 11.0 H Total Bilirubin 0.2 Direct Bilirubin 0.00 Indirect Bilirubin 0.2 Aspartate Amino Transf (AST/SGOT) 39 Alanine Aminotransferase (ALT/SGPT) 36 Alkaline Phosphatase 363 H Total Protein 7.0 Albumin 3.1 L Globulin 3.90 H Albumin/Globulin Ratio 0.79 Test 06/29/17 17:10 Bedside Glucose 175 Medications Medications Current Medications Aspirin (Aspirin) 81 mg DAILY PO Last administered on 06/29/17 08:23; Admin Dose 81 MG; Start 06/24/17 at 09:00 Atorvastatin Calcium (Lipitor) 80 mg QHS PO Last administered on 06/28/17 21: 04; Admin Dose 80 MG; Start 06/23/17 at 21:00 Carvedilol (Coreg) 25 mg BID PO Last administered on 06/29/17 08:22; Admin Dose 25 MG; Start 06/23/17 at 21:00 Hydralazine HCl (Apresoline) 50 mg BID PO Last administered on 06/29/17 08:22 ; Admin Dose 50 MG; Start 06/23/17 at 21:00 Multivit/Ca Carb/ B Cmplx/FA/Prenat (Kimmie-Tirso) 1 tab DAILY PO Last administered on 06/29/17 08:22; Admin Dose 1 TAB; Start 06/24/17 at 09:00 Nifedipine (Procardia Xl) 90 mg QHS PO Last administered on 06/26/17 22:16; Admin Dose 90 MG; Start 06/23/17 at 21:00 Pantoprazole (Protonix Tab) 40 mg DAILY PO Last administered on 06/29/17 08:23 ; Admin Dose 40 MG; Start 06/24/17 at 09:00 Tramadol HCl (Ultram) 50 mg Q6 PRN PO PAIN Last administered on 06/29/17 17:54 ; Admin Dose 50 MG; Start 06/23/17 at 14:00 Ticagrelor (Brilinta) 90 mg BID PO Last administered on 06/29/17 08:42; Admin Dose 90 MG; Start 06/23/17 at 21:00 Nitroglycerin (Nitroglycerin (Sl Tab) 0.4 Mg) 1 tab Q5M PRN SL CHEST PAIN; Start 06/23/17 at 14:30 Acetaminophen (Tylenol Tab) 650 mg Q6H PRN PO PAIN LEVEL 1-3 OR FEVER Last administered on 06/28/17 08:38; Admin Dose 650 MG; Start 06/23/17 at 14:30 Miscellaneous Information 1 ea NOTE XX ; Start 06/23/17 at 14:30 Glucose (Glutose) 15 gm Q15M PRN PO DECREASED GLUCOSE; Start 06/23/17 at 14:30 Glucose (Glutose) 22.5 gm Q15M PRN PO DECREASED GLUCOSE; Start 06/23/17 at 14: 30 Dextrose (D50w Syringe) 25 ml Q15M PRN IV DECREASED GLUCOSE; Start 06/23/17 at 14:30 Dextrose (D50w Syringe) 50 ml Q15M PRN IV DECREASED GLUCOSE; Start 06/23/17 at 14:30 Glucagon (Glucagen) 1 mg Q15M PRN IM DECREASED GLUCOSE; Start 06/23/17 at 14: 30 Glucose (Glutose) 15 gm Q15M PRN BUCCAL DECREASED GLUCOSE; Start 06/23/17 at 14:30 Levetiracetam (Keppra) 500 mg DAILY PO Last administered on 06/29/17 08:23; Admin Dose 500 MG; Start 06/24/17 at 09:00 Diagnostic Test (Pha) (Accu-Chek) 1 ea 02 XX Last administered on 06/28/17 02: 05; Admin Dose 1 EA; Start 06/26/17 at 02:00 Lisinopril (Zestril) 40 mg DAILY PO ; Start 06/26/17 at 09:00 Levofloxacin (Levaquin) 250 mg Q48H PO Last administered on 06/28/17 11:10; Admin Dose 250 MG; Start 06/26/17 at 11:00 Clonidine (Catapres) 0.1 mg BID PO Last administered on 06/29/17 08:21; Admin Dose 0.1 MG; Start 06/26/17 at 21:00 Doxazosin Mesylate (Cardura) 4 mg HS PO Last administered on 06/28/17 21:04; Admin Dose 4 MG; Start 06/26/17 at 21:00 Insulin Glargine (Lantus) 14 unit QHS SC Last administered on 06/28/17 21:01; Admin Dose 14 UNIT; Start 06/28/17 at 21:00 LAWANDA KING MD Jun 29, 2017 18:04
[2017-06-29 19:58] VITALS: BP 124/62; RESP 16
[2017-06-29] MEDS: DOXAZOSIN 4 MG TAB PO SCH (20:08)
[2017-06-29] MEDS: ATORVASTATIN 80 MG TAB PO SCH (20:08)
[2017-06-29] MEDS: INSULIN GLARGINE [LANtus] 3 ML PEN SC SCH (20:21)
[2017-06-29] MEDS: NIFEdipine (XL) 90 MG TAB PO SCH (21:00)
[2017-06-30] VITALS (13 sets, daily range): BP systolic 106–152; BP diastolic 52–70; PULSE 60–70; RESP 16–20
[2017-06-30] MEDS: ACCU-CHEK XX SCH (01:55)
--- NOTE | 2017-06-30 05:56 | PN ---
DATE: 06/29/2017 SUBJECTIVE: The patient continues to complain of dysuria and constant urge to urinate. OBJECTIVE: VITAL SIGNS: His temperature is 97.6, blood pressure 124/62, pulse is 65, respiration is 16. ABDOMEN: Soft. There is no tenderness. LABORATORY DATA: CBC shows a white count of 7.7, hemoglobin 10.1, hematocrit 30.5. His creatinine today is 8.0 and his BUN is 59. Sodium 137, potassium 4.6, chloride 95, CO2 28. His PSA was 1.0. Urine culture was done twice and by straight catheterization on both occasions, there was no growth. The patient had a cytology ordered and the report is pending. He did have cytology done on his ur ine bag in 07/2015 at that time because he did have also hematuria and that was negative as well. IMPRESSION: Urinary urgency, frequency and dysuria. The urine culture has been negative. PLAN: I did discuss with the patient he will need to undergo a cystoscopy to rule out any bladder t umor, most likely that is going to be negative, but we will have to check especially that he continu es to complain of symptoms even though there is no laboratory findings that will support his symptom s. Dictated By: EMMA DELGADO MD BB/SEBASTIEN Conf#: [id number] DID#: [id number] CC: KIMBERLI LOPEZ MD;*EndCC*
[2017-06-30 05:58] LABS: BASOPHILS % 0.4 % (0.0-2.0); EOSINOPHILS # 0.6 10^3/ul (0.0-0.5); EOSINOPHILS % 7.8 % (0.0-7.0); HEMATOCRIT 28.7 % (42.0-52.0); HEMOGLOBIN 9.6 g/dl (14.0-18.0); LYMPHOCYTES # 0.7 10^3/ul (0.8-2.9); LYMPHOCYTES % 8.8 % (15.0-51.0); MEAN CORPUSCULAR HEMOGLOBIN 30.7 pg (29.0-33.0); MEAN CORPUSCULAR HGB CONC 33.4 g/dl (32.0-37.0); MEAN CORPUSCULAR VOLUME 91.7 fl (82.0-101.0); MEAN PLATELET VOLUME 10.5 fl (7.4-10.4); MONOCYTE # 0.9 10^3/ul (0.3-0.9); MONOCYTES % 11.6 % (0.0-11.0); NEUTROPHIL # 5.4 10^3/ul (1.6-7.5); NEUTROPHILS % 71.1 % (39.0-77.0); PLATELET COUNT 197 10^3/UL (140-415); RED BLOOD COUNT 3.13 10^6/ul (4.70-6.10); RED CELL DISTRIBUTION WIDTH 17.3 % (11.5-14.5); WHITE BLOOD COUNT 7.6 10^3/ul (4.8-10.8)
[2017-06-30 06:37] LABS: ALBUMIN 2.6 g/dl (3.3-4.9); ALBUMIN/GLOBULIN RATIO 0.81; CALCIUM 10.3 mg/dl (8.4-10.2); CREATININE 9.62 mg/dl (0.61-1.24); TOTAL PROTEIN 5.8 g/dl (6.1-8.1)
[2017-06-30] MEDS: LEVOTHYROXINE 125 MCG TAB PO SCH (07:05)
--- NOTE | 2017-06-30 08:12 | CONS ---
Date/Time of Note Date/Time of Note DATE: 06/30/17 TIME: 08:08 Consult Date/Type/Reason Admit Date/Time Jun 23, 2017 at 10:43 Initial Consult Date 06/25/17 Type of Consultation: Urology Reason for Consultation Dysuria and hematuria Ordering Provider: KIMBERLI LOPEZ MD Subjective Patient continues to complain of dysuria and constant urge to urinate Objective Vital Signs Date Time Temp Pulse Resp B/P Pulse Ox O2 Delivery O2 Flow Rate FiO2 06/30/17 07:20 98.1 61 16 126/53 97 Intake and Output 06/29/17 06/29/17 06/30/17 15:00 23:00 07:00 Intake Total 700 ml 560 ml Balance 700 ml 560 ml Exam Abdomen is soft, no abdominal mass palpable no suprapubic tenderness Results/Medications Result Diagram: 06/30/17 0527 06/30/17 0527 Results 24 hrs Laboratory Tests Test 06/29/17 11:58 06/29/17 17:10 06/29/17 20:19 06/30/17 01:56 Bedside Glucose 294 H 175 102 173 Test 06/30/17 05:27 06/30/17 08:02 White Blood Count 7.6 Red Blood Count 3.13 L Hemoglobin 9.6 L Hematocrit 28.7 L Mean Corpuscular Volume 91.7 Mean Corpuscular Hemoglobin 30.7 Mean Corpuscular Hemoglobin Concent 33.4 Red Cell Distribution Width 17.3 H Platelet Count 197 Mean Platelet Volume 10.5 H Neutrophils % 71.1 Lymphocytes % 8.8 L Monocytes % 11.6 H Eosinophils % 7.8 H Basophils % 0.4 Nucleated Red Blood Cells % 0.0 Neutrophils # 5.4 Lymphocytes # 0.7 L Monocytes # 0.9 Eosinophils # 0.6 H Basophils # 0.0 Nucleated Red Blood Cells # 0.0 Sodium Level 134 L Potassium Level 5.0 Chloride Level 96 L Carbon Dioxide Level 25 Anion Gap 18 H Blood Urea Nitrogen 79 H Creatinine 9.62 H Glucose Level 180 Calcium Level 10.3 H Ionized Calcium (Measured) 1.5 H Total Bilirubin 0.0 L Direct Bilirubin 0.00 Indirect Bilirubin 0.0 Aspartate Amino Transf (AST/SGOT) 34 Alanine Aminotransferase (ALT/SGPT) 42 Alkaline Phosphatase 310 H Total Protein 5.8 #L Albumin 2.6 L Globulin 3.20 Albumin/Globulin Ratio 0.81 Bedside Glucose 192 Medications Current Medications Aspirin (Aspirin) 81 mg DAILY PO Last administered on 06/29/17 08:23; Admin Dose 81 MG; Start 06/24/17 at 09:00 Atorvastatin Calcium (Lipitor) 80 mg QHS PO Last administered on 06/29/17 20: 08; Admin Dose 80 MG; Start 06/23/17 at 21:00 Carvedilol (Coreg) 25 mg BID PO Last administered on 06/29/17 08:22; Admin Dose 25 MG; Start 06/23/17 at 21:00 Hydralazine HCl (Apresoline) 50 mg BID PO Last administered on 06/29/17 08:22 ; Admin Dose 50 MG; Start 06/23/17 at 21:00 Multivit/Ca Carb/ B Cmplx/FA/Prenat (Kimmie-Tirso) 1 tab DAILY PO Last administered on 06/29/17 08:22; Admin Dose 1 TAB; Start 06/24/17 at 09:00 Nifedipine (Procardia Xl) 90 mg QHS PO Last administered on 06/26/17 22:16; Admin Dose 90 MG; Start 06/23/17 at 21:00 Pantoprazole (Protonix Tab) 40 mg DAILY PO Last administered on 06/29/17 08:23 ; Admin Dose 40 MG; Start 06/24/17 at 09:00 Tramadol HCl (Ultram) 50 mg Q6 PRN PO PAIN Last administered on 06/29/17 17:54 ; Admin Dose 50 MG; Start 06/23/17 at 14:00 Ticagrelor (Brilinta) 90 mg BID PO Last administered on 06/29/17 20:10; Admin Dose 90 MG; Start 06/23/17 at 21:00 Nitroglycerin (Nitroglycerin (Sl Tab) 0.4 Mg) 1 tab Q5M PRN SL CHEST PAIN; Start 06/23/17 at 14:30 Acetaminophen (Tylenol Tab) 650 mg Q6H PRN PO PAIN LEVEL 1-3 OR FEVER Last administered on 06/28/17 08:38; Admin Dose 650 MG; Start 06/23/17 at 14:30 Miscellaneous Information 1 ea NOTE XX ; Start 06/23/17 at 14:30 Glucose (Glutose) 15 gm Q15M PRN PO DECREASED GLUCOSE; Start 06/23/17 at 14:30 Glucose (Glutose) 22.5 gm Q15M PRN PO DECREASED GLUCOSE; Start 06/23/17 at 14: 30 Dextrose (D50w Syringe) 25 ml Q15M PRN IV DECREASED GLUCOSE; Start 06/23/17 at 14:30 Dextrose (D50w Syringe) 50 ml Q15M PRN IV DECREASED GLUCOSE; Start 06/23/17 at 14:30 Glucagon (Glucagen) 1 mg Q15M PRN IM DECREASED GLUCOSE; Start 06/23/17 at 14: 30 Glucose (Glutose) 15 gm Q15M PRN BUCCAL DECREASED GLUCOSE; Start 06/23/17 at 14:30 Levetiracetam (Keppra) 500 mg DAILY PO Last administered on 06/29/17 08:23; Admin Dose 500 MG; Start 06/24/17 at 09:00 Diagnostic Test (Pha) (Accu-Chek) 1 ea 02 XX Last administered on 06/30/17 01: 55; Admin Dose 1 EA; Start 06/26/17 at 02:00 Lisinopril (Zestril) 40 mg DAILY PO ; Start 06/26/17 at 09:00 Levofloxacin (Levaquin) 250 mg Q48H PO Last administered on 06/28/17 11:10; Admin Dose 250 MG; Start 06/26/17 at 11:00 Clonidine (Catapres) 0.1 mg BID PO Last administered on 06/29/17 08:21; Admin Dose 0.1 MG; Start 06/26/17 at 21:00 Doxazosin Mesylate (Cardura) 4 mg HS PO Last administered on 06/29/17 20:08; Admin Dose 4 MG; Start 06/26/17 at 21:00 Insulin Glargine (Lantus) 14 unit QHS SC Last administered on 06/29/17 20:21; Admin Dose 14 UNIT; Start 06/28/17 at 21:00 Assessment/Plan Chief Complaint/Hosp Course 66-year-old male with end-stage renal disease on hemodialysis has been having dysuria and hematuria. Urine culture has been done twice by straight catheterization and has been negative. Urine cytology was sent but the pathology report is pending. Since he keeps complaining of the dysuria and because of the hematuria I will schedule him for tomorrow to do a cystoscopy and if there is any bladder lesion I will do biopsy and fulguration and if there is a tumor I will resect lt Problems: EMMA DELGADO MD Jun 30, 2017 08:11
[2017-06-30] MEDS: INSULIN ASPART [NOVOLOG] 3 ML PEN SC SCH ×7 (08:14→21:34)
[2017-06-30] MEDS: LISINOPRIL 20 MG TAB PO SCH (09:00)
[2017-06-30] MEDS: ASPIRIN 81 MG TAB PO SCH (09:00)
[2017-06-30] MEDS: MULTIVIT/CA CARB/B CMPLX/FA TAB PO SCH (09:06)
[2017-06-30] MEDS: LEVETIRACETAM 500 MG TAB PO SCH (09:06)
[2017-06-30] MEDS: TICAGRELOR 90 MG TABLET PO SCH ×2 (09:08→21:28)
[2017-06-30] MEDS: PANTOPRAZOLE (EC) 40 MG TAB PO SCH (09:08)
[2017-06-30] MEDS: LEVOFLOXACIN 250 MG TAB PO SCH (10:36)
--- NOTE | 2017-06-30 13:26 | PN ---
Date/Time of Note Date/Time of Note DATE: 06/30/17 TIME: 13:23 Assessment/Plan VTE Prophylaxis VTE Prophylaxis Intervention: other Lines/Catheters IV Catheter Type (from Nrsg): Saline Lock Urinary Cath still in place: No Assessment/Plan Assessment/Plan A; urinary sx/pelvic pain esrd DM HTN CAD elevated troponin P: cystoscopy per urology dialysis per renal diabetes management per endo cont current rx Subjective 24 Hr Interval Summary Free Text/Dictation Pt with persistent urinary discomfort and pelvic pain though somewhat better. Hematuria less. No cp, sob. Exam/Review of Systems Vital Signs Vitals Vital Signs Date Time Temp Pulse Resp B/P Pulse Ox O2 Delivery O2 Flow Rate FiO2 06/30/17 07:20 98.1 61 16 126/53 97 Intake and Output 06/29/17 06/29/17 06/30/17 14:59 22:59 06:59 Intake Total 700 ml 560 ml Balance 700 ml 560 ml Exam gen- nad, nontoxic lungs- CTA heart- RRR abd- +bs, soft, mild low abd tenderness ext- tr edema Results Result Diagram: 06/30/1727 06/30/1727 Results 24 hrs Laboratory Tests Test 06/29/17 17:10 06/29/17 20:19 06/30/17 01:56 06/30/17 05:27 Bedside Glucose 175 102 173 White Blood Count 7.6 Red Blood Count 3.13 L Hemoglobin 9.6 L Hematocrit 28.7 L Mean Corpuscular Volume 91.7 Mean Corpuscular Hemoglobin 30.7 Mean Corpuscular Hemoglobin Concent 33.4 Red Cell Distribution Width 17.3 H Platelet Count 197 Mean Platelet Volume 10.5 H Neutrophils % 71.1 Lymphocytes % 8.8 L Monocytes % 11.6 H Eosinophils % 7.8 H Basophils % 0.4 Nucleated Red Blood Cells % 0.0 Neutrophils # 5.4 Lymphocytes # 0.7 L Monocytes # 0.9 Eosinophils # 0.6 H Basophils # 0.0 Nucleated Red Blood Cells # 0.0 Sodium Level 134 L Potassium Level 5.0 Chloride Level 96 L Carbon Dioxide Level 25 Anion Gap 18 H Blood Urea Nitrogen 79 H Creatinine 9.62 H Glucose Level 180 Calcium Level 10.3 H Ionized Calcium (Measured) 1.5 H Total Bilirubin 0.0 L Direct Bilirubin 0.00 Indirect Bilirubin 0.0 Aspartate Amino Transf (AST/SGOT) 34 Alanine Aminotransferase (ALT/SGPT) 42 Alkaline Phosphatase 310 H Total Protein 5.8 #L Albumin 2.6 L Globulin 3.20 Albumin/Globulin Ratio 0.81 Test 06/30/17 08:02 06/30/17 12:16 Bedside Glucose 192 232 H Medications Medications Current Medications Aspirin (Aspirin) 81 mg DAILY PO Last administered on 06/29/17 08:23; Admin Dose 81 MG; Start 06/24/17 at 09:00 Atorvastatin Calcium (Lipitor) 80 mg QHS PO Last administered on 06/29/17 20: 08; Admin Dose 80 MG; Start 06/23/17 at 21:00 Carvedilol (Coreg) 25 mg BID PO Last administered on 06/29/17 08:22; Admin Dose 25 MG; Start 06/23/17 at 21:00 Hydralazine HCl (Apresoline) 50 mg BID PO Last administered on 06/29/17 08:22 ; Admin Dose 50 MG; Start 06/23/17 at 21:00 Multivit/Ca Carb/ B Cmplx/FA/Prenat (Kimmie-Tirso) 1 tab DAILY PO Last administered on 06/30/17 09:06; Admin Dose 1 TAB; Start 06/24/17 at 09:00 Nifedipine (Procardia Xl) 90 mg QHS PO Last administered on 06/26/17 22:16; Admin Dose 90 MG; Start 06/23/17 at 21:00 Pantoprazole (Protonix Tab) 40 mg DAILY PO Last administered on 06/30/17 09:08 ; Admin Dose 40 MG; Start 06/24/17 at 09:00 Tramadol HCl (Ultram) 50 mg Q6 PRN PO PAIN Last administered on 06/29/17 17:54 ; Admin Dose 50 MG; Start 06/23/17 at 14:00 Ticagrelor (Brilinta) 90 mg BID PO Last administered on 06/30/17 09:08; Admin Dose 90 MG; Start 06/23/17 at 21:00 Nitroglycerin (Nitroglycerin (Sl Tab) 0.4 Mg) 1 tab Q5M PRN SL CHEST PAIN; Start 06/23/17 at 14:30 Acetaminophen (Tylenol Tab) 650 mg Q6H PRN PO PAIN LEVEL 1-3 OR FEVER Last administered on 06/28/17 08:38; Admin Dose 650 MG; Start 06/23/17 at 14:30 Miscellaneous Information 1 ea NOTE XX ; Start 06/23/17 at 14:30 Glucose (Glutose) 15 gm Q15M PRN PO DECREASED GLUCOSE; Start 06/23/17 at 14:30 Glucose (Glutose) 22.5 gm Q15M PRN PO DECREASED GLUCOSE; Start 06/23/17 at 14: 30 Dextrose (D50w Syringe) 25 ml Q15M PRN IV DECREASED GLUCOSE; Start 06/23/17 at 14:30 Dextrose (D50w Syringe) 50 ml Q15M PRN IV DECREASED GLUCOSE; Start 06/23/17 at 14:30 Glucagon (Glucagen) 1 mg Q15M PRN IM DECREASED GLUCOSE; Start 06/23/17 at 14: 30 Glucose (Glutose) 15 gm Q15M PRN BUCCAL DECREASED GLUCOSE; Start 06/23/17 at 14:30 Levetiracetam (Keppra) 500 mg DAILY PO Last administered on 06/30/17 09:06; Admin Dose 500 MG; Start 06/24/17 at 09:00 Diagnostic Test (Pha) (Accu-Chek) 1 ea 02 XX Last administered on 06/30/17 01: 55; Admin Dose 1 EA; Start 06/26/17 at 02:00 Lisinopril (Zestril) 40 mg DAILY PO ; Start 06/26/17 at 09:00 Levofloxacin (Levaquin) 250 mg Q48H PO Last administered on 06/30/17 10:36; Admin Dose 250 MG; Start 06/26/17 at 11:00 Clonidine (Catapres) 0.1 mg BID PO Last administered on 06/29/17 08:21; Admin Dose 0.1 MG; Start 06/26/17 at 21:00 Doxazosin Mesylate (Cardura) 4 mg HS PO Last administered on 06/29/17 20:08; Admin Dose 4 MG; Start 06/26/17 at 21:00 Insulin Glargine (Lantus) 14 unit QHS SC Last administered on 06/29/17 20:21; Admin Dose 14 UNIT; Start 06/28/17 at 21:00 KIMBERLI LOPEZ MD Jun 30, 2017 13:26
--- NOTE | 2017-06-30 13:46 | CONS ---
Date/Time of Note Date/Time of Note DATE: 06/30/17 TIME: 13:44 Assessment/Plan Assessment/Plan Chief Complaint/Hosp Course 66-year-old gentleman recently admitted at this hospital for cardiac issues. He was transferred to [facility] where he had angioplasty after an non-STEMI. He has been readmitted here for some GI tract illness. At the patient's family request I am consulted to assist with adjusting his insulin regimen for his sugars. 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 Please note that attempting to tightly control his gentleman has risks of significant hypoglycemia so we will have a slightly looser touch on the controls here. (2) End stage renal disease Status: Acute Comment: As per nephrology. Please note the metabolic bone disorder (3) Tertiary hyperparathyroidism Status: Chronic Comment: Resume treatment with Sensipar at low-dose. Please note this medicine is best dose with greasy meals which minimizes the GI side effects (4) BPH (benign prostatic hyperplasia) Status: Chronic Comment: The patient is having significant urinary symptoms and is scheduled for cystoscopy tomorrow Qualifiers: Lower urinary tract symptom presence: symptoms present Consultation Date/Type/Reason Admit Date/Time Jun 23, 2017 at 10:43 Initial Consult Date 06/25/17 Type of Consultation: Endocrinology Reason for Consultation Diabetes mellitus type 1 complicated by end-stage renal disease; retinopathy; peripheral neuropathy. Please note also has tertiary hyperparathyroidism with hypercalcemia Referring Provider: KIMBERLI LOPEZ MD 24 HR Interval Summary Constitutional: no complaints Detailed Summary Genitourinary: bleeding, dysuria, other (Retention) Exam/Review of Systems Vital Signs Vitals Vital Signs Date Time Temp Pulse Resp B/P Pulse Ox O2 Delivery O2 Flow Rate FiO2 06/30/17 07:20 98.1 61 16 126/53 97 Intake and Output 06/29/17 06/29/17 06/30/17 15:00 23:00 07:00 Intake Total 700 ml 560 ml Balance 700 ml 560 ml Results No change in exam Result Diagram: 06/30/17 0527 06/30/17 0527 Results 24 hrs Laboratory Tests Test 06/29/17 17:10 06/29/17 20:19 06/30/17 01:56 06/30/17 05:27 Bedside Glucose 175 102 173 White Blood Count 7.6 Red Blood Count 3.13 L Hemoglobin 9.6 L Hematocrit 28.7 L Mean Corpuscular Volume 91.7 Mean Corpuscular Hemoglobin 30.7 Mean Corpuscular Hemoglobin Concent 33.4 Red Cell Distribution Width 17.3 H Platelet Count 197 Mean Platelet Volume 10.5 H Neutrophils % 71.1 Lymphocytes % 8.8 L Monocytes % 11.6 H Eosinophils % 7.8 H Basophils % 0.4 Nucleated Red Blood Cells % 0.0 Neutrophils # 5.4 Lymphocytes # 0.7 L Monocytes # 0.9 Eosinophils # 0.6 H Basophils # 0.0 Nucleated Red Blood Cells # 0.0 Sodium Level 134 L Potassium Level 5.0 Chloride Level 96 L Carbon Dioxide Level 25 Anion Gap 18 H Blood Urea Nitrogen 79 H Creatinine 9.62 H Glucose Level 180 Calcium Level 10.3 H Ionized Calcium (Measured) 1.5 H Total Bilirubin 0.0 L Direct Bilirubin 0.00 Indirect Bilirubin 0.0 Aspartate Amino Transf (AST/SGOT) 34 Alanine Aminotransferase (ALT/SGPT) 42 Alkaline Phosphatase 310 H Total Protein 5.8 #L Albumin 2.6 L Globulin 3.20 Albumin/Globulin Ratio 0.81 Test 06/30/17 08:02 06/30/17 12:16 Bedside Glucose 192 232 H Medications Medications Current Medications Aspirin (Aspirin) 81 mg DAILY PO Last administered on 06/29/17 08:23; Admin Dose 81 MG; Start 06/24/17 at 09:00 Atorvastatin Calcium (Lipitor) 80 mg QHS PO Last administered on 06/29/17 20: 08; Admin Dose 80 MG; Start 06/23/17 at 21:00 Carvedilol (Coreg) 25 mg BID PO Last administered on 06/29/17 08:22; Admin Dose 25 MG; Start 06/23/17 at 21:00 Hydralazine HCl (Apresoline) 50 mg BID PO Last administered on 06/29/17 08:22 ; Admin Dose 50 MG; Start 06/23/17 at 21:00 Multivit/Ca Carb/ B Cmplx/FA/Prenat (Kimmie-Tirso) 1 tab DAILY PO Last administered on 06/30/17 09:06; Admin Dose 1 TAB; Start 06/24/17 at 09:00 Nifedipine (Procardia Xl) 90 mg QHS PO Last administered on 06/26/17 22:16; Admin Dose 90 MG; Start 06/23/17 at 21:00 Pantoprazole (Protonix Tab) 40 mg DAILY PO Last administered on 06/30/17 09:08 ; Admin Dose 40 MG; Start 06/24/17 at 09:00 Tramadol HCl (Ultram) 50 mg Q6 PRN PO PAIN Last administered on 06/29/17 17:54 ; Admin Dose 50 MG; Start 06/23/17 at 14:00 Ticagrelor (Brilinta) 90 mg BID PO Last administered on 06/30/17 09:08; Admin Dose 90 MG; Start 06/23/17 at 21:00 Nitroglycerin (Nitroglycerin (Sl Tab) 0.4 Mg) 1 tab Q5M PRN SL CHEST PAIN; Start 06/23/17 at 14:30 Acetaminophen (Tylenol Tab) 650 mg Q6H PRN PO PAIN LEVEL 1-3 OR FEVER Last administered on 06/28/17 08:38; Admin Dose 650 MG; Start 06/23/17 at 14:30 Miscellaneous Information 1 ea NOTE XX ; Start 06/23/17 at 14:30 Glucose (Glutose) 15 gm Q15M PRN PO DECREASED GLUCOSE; Start 06/23/17 at 14:30 Glucose (Glutose) 22.5 gm Q15M PRN PO DECREASED GLUCOSE; Start 06/23/17 at 14: 30 Dextrose (D50w Syringe) 25 ml Q15M PRN IV DECREASED GLUCOSE; Start 06/23/17 at 14:30 Dextrose (D50w Syringe) 50 ml Q15M PRN IV DECREASED GLUCOSE; Start 06/23/17 at 14:30 Glucagon (Glucagen) 1 mg Q15M PRN IM DECREASED GLUCOSE; Start 06/23/17 at 14: 30 Glucose (Glutose) 15 gm Q15M PRN BUCCAL DECREASED GLUCOSE; Start 06/23/17 at 14:30 Levetiracetam (Keppra) 500 mg DAILY PO Last administered on 06/30/17 09:06; Admin Dose 500 MG; Start 06/24/17 at 09:00 Diagnostic Test (Pha) (Accu-Chek) 1 ea 02 XX Last administered on 06/30/17 01: 55; Admin Dose 1 EA; Start 06/26/17 at 02:00 Lisinopril (Zestril) 40 mg DAILY PO ; Start 06/26/17 at 09:00 Levofloxacin (Levaquin) 250 mg Q48H PO Last administered on 06/30/17 10:36; Admin Dose 250 MG; Start 06/26/17 at 11:00 Clonidine (Catapres) 0.1 mg BID PO Last administered on 06/29/17 08:21; Admin Dose 0.1 MG; Start 06/26/17 at 21:00 Doxazosin Mesylate (Cardura) 4 mg HS PO Last administered on 06/29/17 20:08; Admin Dose 4 MG; Start 06/26/17 at 21:00 Insulin Glargine (Lantus) 14 unit QHS SC Last administered on 06/29/17 20:21; Admin Dose 14 UNIT; Start 06/28/17 at 21:00 LAWANDA KING MD Jun 30, 2017 13:46
--- NOTE | 2017-06-30 13:56 | CONS ---
Date/Time of Note Date/Time of Note DATE: 06/30/17 TIME: 13:53 Assessment/Plan Assessment/Plan Chief Complaint/Hosp Course 1. End-stage renal disease on maintenance hemodialysis. Patient is regularly dialyzed Thursday and is due for hemodialysis today which I have ordered. 2 coronary artery disease. Status post recent coronary angiogram and stent placement at [facility] last week. 3. Type 2 diabetes mellitus . His blood sugars have been very erratic. 4. Hypertension , his blood pressure seems to be under better control. 5. History of gallstones now with elevated alkaline phosphatase 6. Anemia of chronic kidney disease. I am going to start him on Epogen. 7. Recent history of new onset seizure disorder. Now on antiseizure medication. 8 sensation of urinary urgency and dysuria with gross hematuria. He has had several urinary catheterizations done 1-150 cc and another of 1 75 cc. His urine culture is no growth. He is being seen by a urologist for workup of his problem. He is having less urinary frequency, urgency and dysuria. Problems: Consultation Date/Type/Reason Admit Date/Time Jun 23, 2017 at 10:43 Type of Consultation: Nephrology Referring Provider: KIMBERLI LOPEZ MD 24 HR Interval Summary Free Text/Dictation He is awake and alert today. He is feeling better. He says that the urgency and dysuria that he has had is less. Constitutional: improved Exam/Review of Systems Vital Signs Vitals Vital Signs Date Time Temp Pulse Resp B/P Pulse Ox O2 Delivery O2 Flow Rate FiO2 06/30/17 07:20 98.1 61 16 126/53 97 Intake and Output 06/29/17 06/29/17 06/30/17 15:00 23:00 07:00 Intake Total 700 ml 560 ml Balance 700 ml 560 ml Exam Constitutional: alert, oriented, well developed ENMT: nl external ears & nose, nl lips & teeth, nl nasal mucosa & septum Respiratory: clear to auscultation, normal air movement Cardiovascular: edema, regular rate and rhythm Gastrointestinal: nl liver, spleen, non-tender, soft Extremities: edema Results Result Diagram: 06/30/17 0527 06/30/17 0527 Results 24 hrs Laboratory Tests Test 06/29/17 17:10 06/29/17 20:19 06/30/17 01:56 06/30/17 05:27 Bedside Glucose 175 102 173 White Blood Count 7.6 Red Blood Count 3.13 L Hemoglobin 9.6 L Hematocrit 28.7 L Mean Corpuscular Volume 91.7 Mean Corpuscular Hemoglobin 30.7 Mean Corpuscular Hemoglobin Concent 33.4 Red Cell Distribution Width 17.3 H Platelet Count 197 Mean Platelet Volume 10.5 H Neutrophils % 71.1 Lymphocytes % 8.8 L Monocytes % 11.6 H Eosinophils % 7.8 H Basophils % 0.4 Nucleated Red Blood Cells % 0.0 Neutrophils # 5.4 Lymphocytes # 0.7 L Monocytes # 0.9 Eosinophils # 0.6 H Basophils # 0.0 Nucleated Red Blood Cells # 0.0 Sodium Level 134 L Potassium Level 5.0 Chloride Level 96 L Carbon Dioxide Level 25 Anion Gap 18 H Blood Urea Nitrogen 79 H Creatinine 9.62 H Glucose Level 180 Calcium Level 10.3 H Ionized Calcium (Measured) 1.5 H Total Bilirubin 0.0 L Direct Bilirubin 0.00 Indirect Bilirubin 0.0 Aspartate Amino Transf (AST/SGOT) 34 Alanine Aminotransferase (ALT/SGPT) 42 Alkaline Phosphatase 310 H Total Protein 5.8 #L Albumin 2.6 L Globulin 3.20 Albumin/Globulin Ratio 0.81 Test 06/30/17 08:02 06/30/17 12:16 Bedside Glucose 192 232 H Medications Medications Current Medications Aspirin (Aspirin) 81 mg DAILY PO Last administered on 06/29/17 08:23; Admin Dose 81 MG; Start 06/24/17 at 09:00 Atorvastatin Calcium (Lipitor) 80 mg QHS PO Last administered on 06/29/17 20: 08; Admin Dose 80 MG; Start 06/23/17 at 21:00 Carvedilol (Coreg) 25 mg BID PO Last administered on 06/29/17 08:22; Admin Dose 25 MG; Start 06/23/17 at 21:00 Hydralazine HCl (Apresoline) 50 mg BID PO Last administered on 06/29/17 08:22 ; Admin Dose 50 MG; Start 06/23/17 at 21:00 Multivit/Ca Carb/ B Cmplx/FA/Prenat (Kimmie-Tirso) 1 tab DAILY PO Last administered on 06/30/17 09:06; Admin Dose 1 TAB; Start 06/24/17 at 09:00 Nifedipine (Procardia Xl) 90 mg QHS PO Last administered on 06/26/17 22:16; Admin Dose 90 MG; Start 06/23/17 at 21:00 Pantoprazole (Protonix Tab) 40 mg DAILY PO Last administered on 06/30/17 09:08 ; Admin Dose 40 MG; Start 06/24/17 at 09:00 Tramadol HCl (Ultram) 50 mg Q6 PRN PO PAIN Last administered on 06/29/17 17:54 ; Admin Dose 50 MG; Start 06/23/17 at 14:00 Ticagrelor (Brilinta) 90 mg BID PO Last administered on 06/30/17 09:08; Admin Dose 90 MG; Start 06/23/17 at 21:00 Nitroglycerin (Nitroglycerin (Sl Tab) 0.4 Mg) 1 tab Q5M PRN SL CHEST PAIN; Start 06/23/17 at 14:30 Acetaminophen (Tylenol Tab) 650 mg Q6H PRN PO PAIN LEVEL 1-3 OR FEVER Last administered on 06/28/17 08:38; Admin Dose 650 MG; Start 06/23/17 at 14:30 Miscellaneous Information 1 ea NOTE XX ; Start 06/23/17 at 14:30 Glucose (Glutose) 15 gm Q15M PRN PO DECREASED GLUCOSE; Start 06/23/17 at 14:30 Glucose (Glutose) 22.5 gm Q15M PRN PO DECREASED GLUCOSE; Start 06/23/17 at 14: 30 Dextrose (D50w Syringe) 25 ml Q15M PRN IV DECREASED GLUCOSE; Start 06/23/17 at 14:30 Dextrose (D50w Syringe) 50 ml Q15M PRN IV DECREASED GLUCOSE; Start 06/23/17 at 14:30 Glucagon (Glucagen) 1 mg Q15M PRN IM DECREASED GLUCOSE; Start 06/23/17 at 14: 30 Glucose (Glutose) 15 gm Q15M PRN BUCCAL DECREASED GLUCOSE; Start 06/23/17 at 14:30 Levetiracetam (Keppra) 500 mg DAILY PO Last administered on 06/30/17 09:06; Admin Dose 500 MG; Start 06/24/17 at 09:00 Diagnostic Test (Pha) (Accu-Chek) 1 ea 02 XX Last administered on 06/30/17 01: 55; Admin Dose 1 EA; Start 06/26/17 at 02:00 Lisinopril (Zestril) 40 mg DAILY PO ; Start 06/26/17 at 09:00 Levofloxacin (Levaquin) 250 mg Q48H PO Last administered on 06/30/17 10:36; Admin Dose 250 MG; Start 06/26/17 at 11:00 Clonidine (Catapres) 0.1 mg BID PO Last administered on 06/29/17 08:21; Admin Dose 0.1 MG; Start 06/26/17 at 21:00 Doxazosin Mesylate (Cardura) 4 mg HS PO Last administered on 06/29/17 20:08; Admin Dose 4 MG; Start 06/26/17 at 21:00 Insulin Glargine (Lantus) 14 unit QHS SC Last administered on 06/29/17 20:21; Admin Dose 14 UNIT; Start 06/28/17 at 21:00 Epoetin Josué (Epogen (Esrd)) 10,000 units TuThSa@17 SC ; Start 06/30/17 at 17:00 ; Status UNPAULY VU MD Jun 30, 2017 13:56
[2017-06-30] MEDS ORDERED: CINACALCET 30 MG TAB PO SCH (14:00)
[2017-06-30] MEDS: EPOETIN 10000 UNITS/1 ML INJ (ESRD) SC SCH (17:37)
[2017-06-30] MEDS: NIFEdipine (XL) 90 MG TAB PO SCH (21:00)
[2017-06-30] MEDS: ATORVASTATIN 80 MG TAB PO SCH (21:26)
[2017-06-30] MEDS: INSULIN GLARGINE [LANtus] 3 ML PEN SC SCH (21:35)
[2017-06-30] MEDS: DOXAZOSIN 4 MG TAB PO SCH (21:40)
[2017-07-01] VITALS (20 sets, daily range): BP systolic 123–161; BP diastolic 48–73; PULSE 62–74; RESP 10–22
[2017-07-01] MEDS: ACCU-CHEK XX SCH (02:24)
[2017-07-01] MEDS: LEVOTHYROXINE 125 MCG TAB PO SCH (06:36)
[2017-07-01] MEDS: INSULIN ASPART [NOVOLOG] 3 ML PEN SC SCH ×7 (08:15→21:00)
[2017-07-01] MEDS: PANTOPRAZOLE (EC) 40 MG TAB PO SCH (08:40)
[2017-07-01] MEDS: ASPIRIN 81 MG TAB PO SCH (08:41)
[2017-07-01] MEDS: LEVETIRACETAM 500 MG TAB PO SCH (08:44)
[2017-07-01] MEDS: TICAGRELOR 90 MG TABLET PO SCH (08:54)
[2017-07-01] MEDS: LISINOPRIL 20 MG TAB PO SCH (08:54)
[2017-07-01] MEDS: MULTIVIT/CA CARB/B CMPLX/FA TAB PO SCH (08:54)
--- NOTE | 2017-07-01 12:10 | PN ---
DATE: 07/01/2017 PREVIOUS HISTORY/HISTORY OF PRESENT ILLNESS: Reviewed and patient was examined. SUBJECTIVE: The patient is complaining of urgency and dysuria, being followed by Dr. Matt. Naseem es any chest pain or shortness of breath. Status post coronary angioplasty with stenting at [facility] 2 weeks back. PHYSICAL EXAMINATION: GENERAL: Patient is awake, alert. VITAL SIGNS: Temperature 98.8, blood pressure 152/71, pulse oximetry 92%. HEENT: Head normocephalic. Mild pallor without cyanosis. CHEST: Clinically clear. HEART: S1, S2 with no definite gallops. EXTREMITIES: No edema. Blister 1 cm over the left knee with an area of cellulitis around. LABORATORY DATA: WBC count 7.6, hematocrit 28.7. Blood glucose levels [address] Hinton nephrology consultation, Dr. Cheung endocrine consultation, Dr. Matt's consultat ion greatly appreciated. IMPRESSION: 1. End-stage renal disease on maintenance hemodialysis. 2. Coronary artery disease, status post coronary angiogram, placement of stent at [facility] 2 weeks prior. 3. Diabetes mellitus type 1. 4. Hypertension. 5. Cholelithiasis. 6. Seizure disorder. 7. Dysuria with urgency or hematuria with no evidence of urinary tract infection. Urology recommen dation to be followed, Dr. Matt. 8. Blister the left knee with area of cellulitis. We will do local wound care and closely monitor for signs of sepsis. Continue genitourinary recomme ndations per Dr. Matt and diabetic management per Dr. Cheung. Dictated By: GERA NAVARRO MD SR/NTS Conf#: [id number] DID#: [id number]
[2017-07-01] MEDS ORDERED: CEPHALEXIN 500 MG CAP PO SCH (14:00)
--- NOTE | 2017-07-01 17:50 | CONS ---
Date/Time of Note Date/Time of Note DATE: 07/01/17 TIME: 17:46 Assessment/Plan Assessment/Plan Chief Complaint/Hosp Course 1. End-stage renal disease on maintenance hemodialysis. Patient is regularly dialyzed Thursday and is due for hemodialysis tomorrow which I have ordered. 2 coronary artery disease. Status post recent coronary angiogram and stent placement at [facility] last week. 3. Type 2 diabetes mellitus . 4. Hypertension , his blood pressure seems to be under better control. 5. History of gallstones now with elevated alkaline phosphatase 6. Anemia of chronic kidney disease. I am going to start him on Epogen. 7. Recent history of new onset seizure disorder. Now on antiseizure medication. 8 sensation of urinary urgency and dysuria with gross hematuria. He has had several urinary catheterizations done 1-150 cc and another of 1 75 cc. His urine culture is no growth. He is being seen by a urologist for workup of his problem. He continues to have urgency and dysuria. He is scheduled for a cystoscopy today . Problems: Consultation Date/Type/Reason Admit Date/Time Jun 23, 2017 at 10:43 Type of Consultation: Nephrology Referring Provider: KIMBERLI LOPEZ MD 24 HR Interval Summary Free Text/Dictation the patient says that today he has had a return of urinary urgency and dysuria . Exam/Review of Systems Vital Signs Vitals Vital Signs Date Time Temp Pulse Resp B/P Pulse Ox O2 Delivery O2 Flow Rate FiO2 07/01/17 14:24 98.3 76 16 161/71 99 Intake and Output 06/30/17 06/30/17 07/01/17 15:00 23:00 07:00 Intake Total 1640 ml 500 ml Output Total 3000 ml Balance -1360 ml 500 ml Exam Constitutional: alert, frail, oriented ENMT: nl external ears & nose, nl lips & teeth, nl nasal mucosa & septum Neck: non-tender, supple Respiratory: clear to auscultation, normal air movement Cardiovascular: edema, regular rate and rhythm Extremities: edema Results Result Diagram: 06/30/17 0527 06/30/17 0527 Results 24 hrs Laboratory Tests Test 06/30/17 21:30 07/01/17 02:23 07/01/17 08:02 07/01/17 12:00 Bedside Glucose 225 H 228 H 192 339 H Test 07/01/17 16:17 Bedside Glucose 295 H Medications Medications Current Medications Aspirin (Aspirin) 81 mg DAILY PO Last administered on 07/01/17 08:41; Admin Dose 81 MG; Start 06/24/17 at 09:00 Atorvastatin Calcium (Lipitor) 80 mg QHS PO Last administered on 06/30/17 21: 26; Admin Dose 80 MG; Start 06/23/17 at 21:00 Carvedilol (Coreg) 25 mg BID PO Last administered on 07/01/17 08:43; Admin Dose 25 MG; Start 06/23/17 at 21:00 Hydralazine HCl (Apresoline) 50 mg BID PO Last administered on 07/01/17 08:42 ; Admin Dose 50 MG; Start 06/23/17 at 21:00 Multivit/Ca Carb/ B Cmplx/FA/Prenat (Kimmie-Tirso) 1 tab DAILY PO Last administered on 07/01/17 08:54; Admin Dose 1 TAB; Start 06/24/17 at 09:00 Nifedipine (Procardia Xl) 90 mg QHS PO Last administered on 06/26/17 22:16; Admin Dose 90 MG; Start 06/23/17 at 21:00 Pantoprazole (Protonix Tab) 40 mg DAILY PO Last administered on 07/01/17 08:40 ; Admin Dose 40 MG; Start 06/24/17 at 09:00 Tramadol HCl (Ultram) 50 mg Q6 PRN PO PAIN Last administered on 06/29/17 17:54 ; Admin Dose 50 MG; Start 06/23/17 at 14:00 Ticagrelor (Brilinta) 90 mg BID PO Last administered on 06/30/17 21:28; Admin Dose 90 MG; Start 06/23/17 at 21:00 Nitroglycerin (Nitroglycerin (Sl Tab) 0.4 Mg) 1 tab Q5M PRN SL CHEST PAIN; Start 06/23/17 at 14:30 Acetaminophen (Tylenol Tab) 650 mg Q6H PRN PO PAIN LEVEL 1-3 OR FEVER Last administered on 06/28/17 08:38; Admin Dose 650 MG; Start 06/23/17 at 14:30 Miscellaneous Information 1 ea NOTE XX ; Start 06/23/17 at 14:30 Glucose (Glutose) 15 gm Q15M PRN PO DECREASED GLUCOSE; Start 06/23/17 at 14:30 Glucose (Glutose) 22.5 gm Q15M PRN PO DECREASED GLUCOSE; Start 06/23/17 at 14: 30 Dextrose (D50w Syringe) 25 ml Q15M PRN IV DECREASED GLUCOSE; Start 06/23/17 at 14:30 Dextrose (D50w Syringe) 50 ml Q15M PRN IV DECREASED GLUCOSE; Start 06/23/17 at 14:30 Glucagon (Glucagen) 1 mg Q15M PRN IM DECREASED GLUCOSE; Start 06/23/17 at 14: 30 Glucose (Glutose) 15 gm Q15M PRN BUCCAL DECREASED GLUCOSE; Start 06/23/17 at 14:30 Levetiracetam (Keppra) 500 mg DAILY PO Last administered on 07/01/17 08:44; Admin Dose 500 MG; Start 06/24/17 at 09:00 Diagnostic Test (Pha) (Accu-Chek) 1 ea 02 XX Last administered on 07/01/17 02: 24; Admin Dose 1 EA; Start 06/26/17 at 02:00 Lisinopril (Zestril) 40 mg DAILY PO ; Start 06/26/17 at 09:00 Levofloxacin (Levaquin) 250 mg Q48H PO Last administered on 06/30/17 10:36; Admin Dose 250 MG; Start 06/26/17 at 11:00 Clonidine (Catapres) 0.1 mg BID PO Last administered on 06/29/17 08:21; Admin Dose 0.1 MG; Start 06/26/17 at 21:00 Doxazosin Mesylate (Cardura) 4 mg HS PO Last administered on 06/30/17 21:40; Admin Dose 4 MG; Start 06/26/17 at 21:00 Insulin Glargine (Lantus) 14 unit QHS SC Last administered on 06/30/17 21:35; Admin Dose 14 UNIT; Start 06/28/17 at 21:00 Epoetin Josué (Epogen (Esrd)) 10,000 units TuThSa@17 SC Last administered on 17:37; Admin Dose 10,000 UNITS; Start 06/30/17 at 17:00 PAULY VILA MD Jul 01, 2017 17:50
[2017-07-01] MEDS ORDERED: IOHEXOL 300MG/ML 30 ML BTL ONE (18:27)
[2017-07-01] MEDS ORDERED: ONDANSETRON 4 MG INJ IV PRN (18:30)
[2017-07-01] MEDS ORDERED: hydrALAzine 20 MG INJ IV PRN (18:30)
[2017-07-01] MEDS ORDERED: FENTAnyl 50 MCG/ML VIAL IV PRN (18:30)
[2017-07-01] MEDS ORDERED: LABETALOL HCL 20MG INJ IV PRN (18:30)
[2017-07-01] MEDS ORDERED: LIDOCAINE 2% (SDV) 5 ML INJ ONE (18:33)
[2017-07-01] MEDS ORDERED: ETOMIDATE 20 MG INJ ONE (18:33)
[2017-07-01] MEDS ORDERED: MIDAZOLAM 1 MG/ML 2 ML INJ ONE (18:33)
[2017-07-01] MEDS ORDERED: CEFAZOLIN 1 GM INJ ONE (18:41)
[2017-07-01] MEDS ORDERED: FENTAnyl 50 MCG/ML VIAL ONE ×2 (18:42→18:55)
[2017-07-01] MEDS ORDERED: FAMOTIDINE 20 MG INJ ONE (19:01)
[2017-07-01] MEDS ORDERED: ONDANSETRON 4 MG INJ ONE (19:01)
[2017-07-01] MEDS ORDERED: MEPERIDINE 25 MG INJ ONE (20:14)
[2017-07-01] MEDS: HYDROmorphONE (0.2 MG/ML) 10ML SYG IV PRN ×2 (20:22→20:46)
--- NOTE | 2017-07-01 20:26 | OPR ---
Date/Time of Note Date/Time of Note DATE: 07/01/17 TIME: 20:21 Operative Report Procedure Date: Jul 01, 2017 Preoperative Diagnosis Gross hematuria Postoperative Diagnosis Gross hematuria Operation/Procedure Performed Cystoscopy and bladder biopsy and extensive bladder fulguration Surgeon see signature line Double Cut Sawyer None Anesthesia Type: general Anesthesiologist: AMANDA ONEIL MD Estimated Blood Loss: 10 - 50 ml's Transfusion none Specimen Bladder biopsies, base of the bladder and anterior bladder wall Grafts/Implants none Tubes/Drains 18 [place] three-way Bullock catheter Complications none Pt Condition Post Procedure: stable Disposition: PACU Indications Recurrent gross hematuria Procedure Description The patient was brought to the operating room. He was given general anesthesia. He was then positioned in the lithotomy position. He was given 1 g of Ancef IV at the start of the procedure. The genital area was prepped and draped in the usual sterile manner. #22 [place] cystoscope sheath was then introduced under direct vision through the penile urethra all the way to the bladder. The bladder was inspected and was found to have numerous polypoid lesions resembling grapes and many of them were red and few of them are bleeding. There was no papillary tumor. The patient was having the hematuria from all these surgical inflammatory polyps which were scattered all around the bladder at the base of the bladder anterior bladder wall right lateral wall and left lateral wall. I took one biopsy from the base of the bladder and another biopsy from the anterior bladder wall the areas of the biopsies were electrocoagulated and good hemostasis was obtained. I then electrocoagulated all the red showed no inflammatory polyps all over the bladder was the hope that will control the bleeding in the future. At the end of the procedure I inserted an 18 [place] Bullock catheter with the three-way and started continuous bladder irrigation in the operating room and the patient was transferred to the recovery room in a stable and satisfactory condition. EMMA DELGADO MD Jul 01, 2017 20:26
[2017-07-01] MEDS ORDERED: INSULIN ASPART [NOVOLOG] 3 ML PEN SC ONE (20:30)
[2017-07-01] MEDS ORDERED: MEPERIDINE 25 MG INJ IV PRN (20:30)
[2017-07-01] MEDS: ATORVASTATIN 80 MG TAB PO SCH (21:00)
[2017-07-01] MEDS: NIFEdipine (XL) 90 MG TAB PO SCH (21:00)
[2017-07-01] MEDS: DOXAZOSIN 4 MG TAB PO SCH (21:00)
[2017-07-01] MEDS: HYDROGEN PEROXIDE TOP SCH (21:00)
[2017-07-01] MEDS: INSULIN GLARGINE [LANtus] 3 ML PEN SC SCH (22:11)
[2017-07-01] MEDS: traMADol 50 MG TAB PO PRN (22:38)
[2017-07-02] VITALS (12 sets, daily range): BP systolic 126–147; BP diastolic 56–78; PULSE 17–72; RESP 16–20
[2017-07-02] MEDS: ACCU-CHEK XX SCH (02:23)
[2017-07-02] MEDS: ACETAMINOPHEN 325 MG TAB PO PRN ×2 (03:12→13:30)
[2017-07-02] MEDS: LEVOTHYROXINE 125 MCG TAB PO SCH (07:06)
[2017-07-02] MEDS: INSULIN ASPART [NOVOLOG] 3 ML PEN SC SCH ×7 (08:15→21:00)
[2017-07-02] MEDS: LISINOPRIL 20 MG TAB PO SCH (09:00)
[2017-07-02] MEDS ORDERED: ONDANSETRON 4 MG INJ IV PRN (10:30)
[2017-07-02] MEDS: LEVOFLOXACIN 250 MG TAB PO SCH ×2 (11:00→16:49)
[2017-07-02] MEDS: LEVETIRACETAM 500 MG TAB PO SCH (11:37)
[2017-07-02] MEDS: PANTOPRAZOLE (EC) 40 MG TAB PO SCH (11:37)
[2017-07-02] MEDS: MULTIVIT/CA CARB/B CMPLX/FA TAB PO SCH (11:37)
[2017-07-02] MEDS: HYDROGEN PEROXIDE TOP SCH (12:13)
--- NOTE | 2017-07-02 13:26 | CONS ---
Date/Time of Note Date/Time of Note DATE: 07/02/17 TIME: 13:15 Assessment/Plan Assessment/Plan Chief Complaint/Hosp Course 1. End-stage renal disease on maintenance hemodialysis. Patient is regularly dialyzed Thursday and is due for hemodialysis today which I have ordered. 2 coronary artery disease. Status post recent coronary angiogram and stent placement at [facility] last week. 3. Type 2 diabetes mellitus . 4. Hypertension , his blood pressure seems to be under better control. 5. History of gallstones now with elevated alkaline phosphatase 6. Anemia of chronic kidney disease. I am going to start him on Epogen. 7. Recent history of new onset seizure disorder. Now on antiseizure medication. 8 sensation of urinary urgency and dysuria with gross hematuria. He had a cystoscopy yesterday and was found to have some cystic / grape like lesions in the bladder that are thought to be the source of his bleeding . Problems: Consultation Date/Type/Reason Admit Date/Time Jun 23, 2017 at 10:43 Type of Consultation: Nephrology Referring Provider: KIMBERLI LOPEZ MD 24 HR Interval Summary Free Text/Dictation He is in bed . He had some nausea with vomiting earlier .He had a cystoscopy yesterday and has a Bullock catheter with some hematuria . Exam/Review of Systems Vital Signs Vitals Vital Signs Date Time Temp Pulse Resp B/P Pulse Ox O2 Delivery O2 Flow Rate FiO2 07/02/17 13:00 66 07/02/17 12:00 18 07/02/17 07:52 97.4 132/61 93 07/02/17 00:00 Nasal Cannula 07/01/17 23:00 2.0 Intake and Output 07/01/17 07/01/17 07/02/17 15:00 23:00 07:00 Intake Total 820 ml 500 ml Output Total 4850 ml 1185 ml Balance -4030 ml -685 ml Exam Constitutional: alert, frail, oriented ENMT: nl external ears & nose, nl lips & teeth, nl nasal mucosa & septum Neck: non-tender, supple Respiratory: clear to auscultation, normal air movement Cardiovascular: edema, regular rate and rhythm Extremities: edema Results Result Diagram: 06/30/17 0527 07/01/17 1709 Results 24 hrs Laboratory Tests Test 07/01/17 16:17 07/01/17 17:09 07/01/17 18:13 07/01/17 20:22 Bedside Glucose 295 H 331 H 243 H Potassium Level 4.4 Test 07/01/17 21:14 07/01/17 21:57 07/02/17 01:57 07/02/17 06:37 Bedside Glucose 218 193 117 70 Test 07/02/17 07:40 07/02/17 08:01 07/02/17 08:20 07/02/17 08:36 Bedside Glucose 67 L 58 L 72 73 Test 07/02/17 09:07 07/02/17 12:04 Bedside Glucose 74 92 Medications Medications Current Medications Atorvastatin Calcium (Lipitor) 80 mg QHS PO Last administered on 06/30/17 21: 26; Admin Dose 80 MG; Start 06/23/17 at 21:00 Carvedilol (Coreg) 25 mg BID PO Last administered on 07/01/17 08:43; Admin Dose 25 MG; Start 06/23/17 at 21:00 Hydralazine HCl (Apresoline) 50 mg BID PO Last administered on 07/01/17 08:42 ; Admin Dose 50 MG; Start 06/23/17 at 21:00 Multivit/Ca Carb/ B Cmplx/FA/Prenat (Kimmie-Tirso) 1 tab DAILY PO Last administered on 07/02/17 11:37; Admin Dose 1 TAB; Start 06/24/17 at 09:00 Nifedipine (Procardia Xl) 90 mg QHS PO Last administered on 06/26/17 22:16; Admin Dose 90 MG; Start 06/23/17 at 21:00 Pantoprazole (Protonix Tab) 40 mg DAILY PO Last administered on 07/02/17 11:37 ; Admin Dose 40 MG; Start 06/24/17 at 09:00 Tramadol HCl (Ultram) 50 mg Q6 PRN PO PAIN Last administered on 07/01/17 22:38 ; Admin Dose 50 MG; Start 06/23/17 at 14:00 Nitroglycerin (Nitroglycerin (Sl Tab) 0.4 Mg) 1 tab Q5M PRN SL CHEST PAIN; Start 06/23/17 at 14:30 Acetaminophen (Tylenol Tab) 650 mg Q6H PRN PO PAIN LEVEL 1-3 OR FEVER Last administered on 07/02/17 03:12; Admin Dose 650 MG; Start 06/23/17 at 14:30 Miscellaneous Information 1 ea NOTE XX ; Start 06/23/17 at 14:30 Glucose (Glutose) 15 gm Q15M PRN PO DECREASED GLUCOSE; Start 06/23/17 at 14:30 Glucose (Glutose) 22.5 gm Q15M PRN PO DECREASED GLUCOSE; Start 06/23/17 at 14: 30 Dextrose (D50w Syringe) 25 ml Q15M PRN IV DECREASED GLUCOSE; Start 06/23/17 at 14:30 Dextrose (D50w Syringe) 50 ml Q15M PRN IV DECREASED GLUCOSE; Start 06/23/17 at 14:30 Glucagon (Glucagen) 1 mg Q15M PRN IM DECREASED GLUCOSE; Start 06/23/17 at 14: 30 Glucose (Glutose) 15 gm Q15M PRN BUCCAL DECREASED GLUCOSE; Start 06/23/17 at 14:30 Levetiracetam (Keppra) 500 mg DAILY PO Last administered on 07/02/17 11:37; Admin Dose 500 MG; Start 06/24/17 at 09:00 Diagnostic Test (Pha) (Accu-Chek) 1 ea 02 XX Last administered on 07/02/17 02: 23; Admin Dose 1 EA; Start 06/26/17 at 02:00 Lisinopril (Zestril) 40 mg DAILY PO ; Start 06/26/17 at 09:00 Levofloxacin (Levaquin) 250 mg Q48H PO Last administered on 06/30/17 10:36; Admin Dose 250 MG; Start 06/26/17 at 11:00 Clonidine (Catapres) 0.1 mg BID PO Last administered on 06/29/17 08:21; Admin Dose 0.1 MG; Start 06/26/17 at 21:00 Doxazosin Mesylate (Cardura) 4 mg HS PO Last administered on 06/30/17 21:40; Admin Dose 4 MG; Start 06/26/17 at 21:00 Insulin Glargine (Lantus) 14 unit QHS SC Last administered on 07/01/17 22:11; Admin Dose 14 UNIT; Start 06/28/17 at 21:00 Epoetin Josué (Epogen (Esrd)) 10,000 units TuThSa@17 SC Last administered on 17:37; Admin Dose 10,000 UNITS; Start 06/30/17 at 17:00 Hydrogen Peroxide (Hydrogen Peroxide) 1 applic DAILY TOP Last administered on 07/02/17 12:13; Admin Dose 1 APPLIC; Start 07/01/17 at 21:00 Ondansetron HCl (Zofran Inj) 4 mg Q4H PRN IV NAUSEA AND/OR VOMITING Last administered on 07/02/17 10:16; Admin Dose 4 MG; Start 07/02/17 at 10:30 PAULY VILA MD Jul 02, 2017 13:26
--- NOTE | 2017-07-02 13:30 | CONS ---
Date/Time of Note Date/Time of Note DATE: 07/02/17 TIME: 13:29 Assessment/Plan Assessment/Plan Chief Complaint/Hosp Course 66-year-old gentleman recently admitted at this hospital for cardiac issues. He was transferred to [facility] where he had angioplasty after an non-STEMI. He has been readmitted here for some GI tract illness. At the patient's family request I am consulted to assist with adjusting his insulin regimen for his sugars. 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 Pathology is pending. For now we will adjust his insulin to avoid hypoglycemia. (2) End stage renal disease Status: Acute Comment: As per nephrology. Consultation Date/Type/Reason Admit Date/Time Jun 23, 2017 at 10:43 Initial Consult Date 06/25/17 Type of Consultation: Endocrinology Reason for Consultation Diabetes mellitus type 1 with end-stage renal disease; retinopathy; peripheral neuropathy Referring Provider: KIMBERLI LOPEZ MD 24 HR Interval Summary Free Text/Dictation Patient reports he still has urinary symptoms. Exam/Review of Systems Vital Signs Vitals Vital Signs Date Time Temp Pulse Resp B/P Pulse Ox O2 Delivery O2 Flow Rate FiO2 07/02/17 13:00 66 07/02/17 12:00 18 07/02/17 07:52 97.4 132/61 93 07/02/17 00:00 Nasal Cannula 07/01/17 23:00 2.0 Intake and Output 07/01/17 07/01/17 07/02/17 15:00 23:00 07:00 Intake Total 820 ml 500 ml Output Total 4850 ml 1185 ml Balance -4030 ml -685 ml Results Exam is without change although he has a three-way Bullock catheter and now Result Diagram: 06/30/17 0527 07/01/17 1709 Results 24 hrs Laboratory Tests Test 07/01/17 16:17 07/01/17 17:09 07/01/17 18:13 07/01/17 20:22 Bedside Glucose 295 H 331 H 243 H Potassium Level 4.4 Test 07/01/17 21:14 07/01/17 21:57 07/02/17 01:57 07/02/17 06:37 Bedside Glucose 218 193 117 70 Test 07/02/17 07:40 07/02/17 08:01 07/02/17 08:20 07/02/17 08:36 Bedside Glucose 67 L 58 L 72 73 Test 07/02/17 09:07 07/02/17 12:04 Bedside Glucose 74 92 Medications Medications Current Medications Atorvastatin Calcium (Lipitor) 80 mg QHS PO Last administered on 06/30/17 21: 26; Admin Dose 80 MG; Start 06/23/17 at 21:00 Carvedilol (Coreg) 25 mg BID PO Last administered on 07/01/17 08:43; Admin Dose 25 MG; Start 06/23/17 at 21:00 Hydralazine HCl (Apresoline) 50 mg BID PO Last administered on 07/01/17 08:42 ; Admin Dose 50 MG; Start 06/23/17 at 21:00 Multivit/Ca Carb/ B Cmplx/FA/Prenat (Kimmie-Tirso) 1 tab DAILY PO Last administered on 07/02/17 11:37; Admin Dose 1 TAB; Start 06/24/17 at 09:00 Nifedipine (Procardia Xl) 90 mg QHS PO Last administered on 06/26/17 22:16; Admin Dose 90 MG; Start 06/23/17 at 21:00 Pantoprazole (Protonix Tab) 40 mg DAILY PO Last administered on 07/02/17 11:37 ; Admin Dose 40 MG; Start 06/24/17 at 09:00 Tramadol HCl (Ultram) 50 mg Q6 PRN PO PAIN Last administered on 07/01/17 22:38 ; Admin Dose 50 MG; Start 06/23/17 at 14:00 Nitroglycerin (Nitroglycerin (Sl Tab) 0.4 Mg) 1 tab Q5M PRN SL CHEST PAIN; Start 06/23/17 at 14:30 Acetaminophen (Tylenol Tab) 650 mg Q6H PRN PO PAIN LEVEL 1-3 OR FEVER Last administered on 07/02/17 03:12; Admin Dose 650 MG; Start 06/23/17 at 14:30 Miscellaneous Information 1 ea NOTE XX ; Start 06/23/17 at 14:30 Glucose (Glutose) 15 gm Q15M PRN PO DECREASED GLUCOSE; Start 06/23/17 at 14:30 Glucose (Glutose) 22.5 gm Q15M PRN PO DECREASED GLUCOSE; Start 06/23/17 at 14: 30 Dextrose (D50w Syringe) 25 ml Q15M PRN IV DECREASED GLUCOSE; Start 06/23/17 at 14:30 Dextrose (D50w Syringe) 50 ml Q15M PRN IV DECREASED GLUCOSE; Start 06/23/17 at 14:30 Glucagon (Glucagen) 1 mg Q15M PRN IM DECREASED GLUCOSE; Start 06/23/17 at 14: 30 Glucose (Glutose) 15 gm Q15M PRN BUCCAL DECREASED GLUCOSE; Start 06/23/17 at 14:30 Levetiracetam (Keppra) 500 mg DAILY PO Last administered on 07/02/17 11:37; Admin Dose 500 MG; Start 06/24/17 at 09:00 Diagnostic Test (Pha) (Accu-Chek) 1 ea 02 XX Last administered on 07/02/17 02: 23; Admin Dose 1 EA; Start 06/26/17 at 02:00 Lisinopril (Zestril) 40 mg DAILY PO ; Start 06/26/17 at 09:00 Levofloxacin (Levaquin) 250 mg Q48H PO Last administered on 06/30/17 10:36; Admin Dose 250 MG; Start 06/26/17 at 11:00 Clonidine (Catapres) 0.1 mg BID PO Last administered on 06/29/17 08:21; Admin Dose 0.1 MG; Start 06/26/17 at 21:00 Doxazosin Mesylate (Cardura) 4 mg HS PO Last administered on 06/30/17 21:40; Admin Dose 4 MG; Start 06/26/17 at 21:00 Epoetin Josué (Epogen (Esrd)) 10,000 units TuThSa@17 SC Last administered on 17:37; Admin Dose 10,000 UNITS; Start 06/30/17 at 17:00 Hydrogen Peroxide (Hydrogen Peroxide) 1 applic DAILY TOP Last administered on 07/02/17 12:13; Admin Dose 1 APPLIC; Start 07/01/17 at 21:00 Ondansetron HCl (Zofran Inj) 4 mg Q4H PRN IV NAUSEA AND/OR VOMITING Last administered on 07/02/17 10:16; Admin Dose 4 MG; Start 07/02/17 at 10:30 Insulin Glargine (Lantus) 13 unit QHS SC ; Start 07/02/17 at 21:00; Status LAWANDA CRAIG MD Jul 02, 2017 13:30
[2017-07-02] MEDS: EPOETIN 10000 UNITS/1 ML INJ (ESRD) SC SCH (16:05)
--- NOTE | 2017-07-02 19:31 | CONS ---
Date/Time of Note Date/Time of Note DATE: 07/02/17 TIME: 19:29 Consult Date/Type/Reason Admit Date/Time Jun 23, 2017 at 10:43 Initial Consult Date 06/25/17 Type of Consultation: Urology Reason for Consultation Hematuria Ordering Provider: KIMBERLI LOPEZ MD Subjective At the time I saw the patient he was being dialyzed. He denies having any pain and the Bullock catheter was continuous bladder irrigation is draining blood- tinged urine Objective Vital Signs Date Time Temp Pulse Resp B/P Pulse Ox O2 Delivery O2 Flow Rate FiO2 07/02/17 15:30 72 07/02/17 15:30 18 07/02/17 07:52 97.4 132/61 93 07/02/17 00:00 Nasal Cannula 07/01/17 23:00 2.0 Intake and Output 07/01/17 07/01/17 07/02/17 14:59 22:59 06:59 Intake Total 820 ml 500 ml Output Total 4850 ml 1185 ml Balance -4030 ml -685 ml Exam The patient is awake and alert, abdomen is soft there is no abdominal mass palpable or tenderness. The Ubllock catheter is draining blood-tinged urine. We will continue the bladder irrigation and once the urine is completely clear stop the irrigation and remove the Bullock catheter. Results/Medications Result Diagram: 06/30/17 0527 07/01/17 1709 Results 24 hrs Laboratory Tests Test 07/01/17 20:22 07/01/17 21:14 07/01/17 21:57 07/02/17 01:57 Bedside Glucose 243 H 218 193 117 Test 07/02/17 06:37 07/02/17 07:40 07/02/17 08:01 07/02/17 08:20 Bedside Glucose 70 67 L 58 L 72 Test 07/02/17 08:36 07/02/17 09:07 07/02/17 12:04 07/02/17 15:41 Bedside Glucose 73 74 92 237 H Test 07/02/17 17:22 Bedside Glucose 266 H Medications Current Medications Atorvastatin Calcium (Lipitor) 80 mg QHS PO Last administered on 06/30/17 21: 26; Admin Dose 80 MG; Start 06/23/17 at 21:00 Carvedilol (Coreg) 25 mg BID PO Last administered on 07/01/17 08:43; Admin Dose 25 MG; Start 06/23/17 at 21:00 Hydralazine HCl (Apresoline) 50 mg BID PO Last administered on 07/01/17 08:42 ; Admin Dose 50 MG; Start 06/23/17 at 21:00 Multivit/Ca Carb/ B Cmplx/FA/Prenat (Kimmie-Tirso) 1 tab DAILY PO Last administered on 07/02/17 11:37; Admin Dose 1 TAB; Start 06/24/17 at 09:00 Nifedipine (Procardia Xl) 90 mg QHS PO Last administered on 06/26/17 22:16; Admin Dose 90 MG; Start 06/23/17 at 21:00 Pantoprazole (Protonix Tab) 40 mg DAILY PO Last administered on 07/02/17 11:37 ; Admin Dose 40 MG; Start 06/24/17 at 09:00 Tramadol HCl (Ultram) 50 mg Q6 PRN PO PAIN Last administered on 07/01/17 22:38 ; Admin Dose 50 MG; Start 06/23/17 at 14:00 Nitroglycerin (Nitroglycerin (Sl Tab) 0.4 Mg) 1 tab Q5M PRN SL CHEST PAIN; Start 06/23/17 at 14:30 Acetaminophen (Tylenol Tab) 650 mg Q6H PRN PO PAIN LEVEL 1-3 OR FEVER Last administered on 07/02/17 13:30; Admin Dose 650 MG; Start 06/23/17 at 14:30 Miscellaneous Information 1 ea NOTE XX ; Start 06/23/17 at 14:30 Glucose (Glutose) 15 gm Q15M PRN PO DECREASED GLUCOSE; Start 06/23/17 at 14:30 Glucose (Glutose) 22.5 gm Q15M PRN PO DECREASED GLUCOSE; Start 06/23/17 at 14: 30 Dextrose (D50w Syringe) 25 ml Q15M PRN IV DECREASED GLUCOSE; Start 06/23/17 at 14:30 Dextrose (D50w Syringe) 50 ml Q15M PRN IV DECREASED GLUCOSE; Start 06/23/17 at 14:30 Glucagon (Glucagen) 1 mg Q15M PRN IM DECREASED GLUCOSE; Start 06/23/17 at 14: 30 Glucose (Glutose) 15 gm Q15M PRN BUCCAL DECREASED GLUCOSE; Start 06/23/17 at 14:30 Levetiracetam (Keppra) 500 mg DAILY PO Last administered on 07/02/17 11:37; Admin Dose 500 MG; Start 06/24/17 at 09:00 Diagnostic Test (Pha) (Accu-Chek) 1 ea 02 XX Last administered on 07/02/17 02: 23; Admin Dose 1 EA; Start 06/26/17 at 02:00 Lisinopril (Zestril) 40 mg DAILY PO ; Start 06/26/17 at 09:00 Levofloxacin (Levaquin) 250 mg Q48H PO Last administered on 07/02/17 16:49; Admin Dose 250 MG; Start 06/26/17 at 11:00 Clonidine (Catapres) 0.1 mg BID PO Last administered on 06/29/17 08:21; Admin Dose 0.1 MG; Start 06/26/17 at 21:00 Doxazosin Mesylate (Cardura) 4 mg HS PO Last administered on 06/30/17 21:40; Admin Dose 4 MG; Start 06/26/17 at 21:00 Epoetin Josué (Epogen (Esrd)) 10,000 units TuThSa@17 SC Last administered on 16:05; Admin Dose 10,000 UNITS; Start 06/30/17 at 17:00 Hydrogen Peroxide (Hydrogen Peroxide) 1 applic DAILY TOP Last administered on 07/02/17 12:13; Admin Dose 1 APPLIC; Start 07/01/17 at 21:00 Ondansetron HCl (Zofran Inj) 4 mg Q4H PRN IV NAUSEA AND/OR VOMITING Last administered on 07/02/17 10:16; Admin Dose 4 MG; Start 07/02/17 at 10:30 Insulin Glargine (Lantus) 13 unit QHS SC ; Start 07/02/17 at 21:00 Assessment/Plan Chief Complaint/Hosp Course 66-year-old male with end-stage renal disease on hemodialysis has been having dysuria and hematuria. Urine culture has been done twice by straight catheterization and has been negative. Urine cytology was sent but the pathology report is pending. Since he keeps complaining of the dysuria and because of the hematuria I will schedule him for tomorrow to do a cystoscopy and if there is any bladder lesion I will do biopsy and fulguration and if there is a tumor I will resect lt Problems: EMMA DELGADO MD Jul 02, 2017 19:31
[2017-07-02] MEDS: DOXAZOSIN 4 MG TAB PO SCH (21:00)
[2017-07-02] MEDS: NIFEdipine (XL) 90 MG TAB PO SCH (21:00)
[2017-07-02] MEDS: ATORVASTATIN 80 MG TAB PO SCH (21:05)
[2017-07-02] MEDS: INSULIN GLARGINE [LANtus] 3 ML PEN SC SCH (21:09)
[2017-07-03 02:00] VITALS: BP 143/64; RESP 20
[2017-07-03] MEDS: ACCU-CHEK XX SCH (02:00)
[2017-07-03] MEDS: LEVOTHYROXINE 125 MCG TAB PO SCH (05:33)
[2017-07-03 06:24] LABS: BASOPHIL # 0.1 10^3/ul (0.0-0.1); BASOPHILS % 0.6 % (0.0-2.0); EOSINOPHILS # 0.7 10^3/ul (0.0-0.5); EOSINOPHILS % 8.9 % (0.0-7.0); HEMATOCRIT 28.6 % (42.0-52.0); HEMOGLOBIN 9.4 g/dl (14.0-18.0); LYMPHOCYTES # 0.7 10^3/ul (0.8-2.9); MEAN CORPUSCULAR HEMOGLOBIN 31.2 pg (29.0-33.0); MEAN CORPUSCULAR HGB CONC 32.9 g/dl (32.0-37.0); MEAN PLATELET VOLUME 10.4 fl (7.4-10.4); MONOCYTE # 0.8 10^3/ul (0.3-0.9); MONOCYTES % 10.3 % (0.0-11.0); NEUTROPHIL # 5.6 10^3/ul (1.6-7.5); NEUTROPHILS % 70.9 % (39.0-77.0); PLATELET COUNT 172 10^3/UL (140-415); RED BLOOD COUNT 3.01 10^6/ul (4.70-6.10); RED CELL DISTRIBUTION WIDTH 17.9 % (11.5-14.5); WHITE BLOOD COUNT 7.9 10^3/ul (4.8-10.8)
[2017-07-03] MEDS: traMADol 50 MG TAB PO PRN ×3 (06:25→20:50)
--- NOTE | 2017-07-03 07:01 | PN ---
DATE: 07/02/2017 SUBJECTIVE: Patient has been eating poorly. He was very nauseous this morning. He vomited x2. PHYSICAL EXAMINATION: GENERAL: Patient awake, alert, presently. VITAL SIGNS: Temperature 97.4, blood pressure 132/61, O2 sats 93%. HEENT: Head normocephalic. Mild pallor with cyanosis. LUNGS: Clinically clear. GENITOURINARY: Status post cystoscopy biopsy yesterday, CBI. LABORATORY DATA: Blood glucose levels early this morning were 58, 72, 73, 74 and 92. IMPRESSION: 1. Status post cystoscopy and bladder biopsy for hematuria, status post extensive bladder fulgurati on of polypoid lesions, biopsy pending. 2. End-stage renal disease on maintenance hemodialysis. 3. Coronary artery disease, status post recent coronary angiogram with the placement of stent. 4. Diabetes mellitus type 1, blood, glucose levels are being managed. 5. Hypertension. 6. Cholelithiasis. 7. Seizure disorder. PLAN: Will continue present management. Closely monitor intake and output. Continue to monitor he moglobin and hematocrit and follow recommendations of Dr. Matt. Dictated By: GERA NAVARRO MD SR/NTS Conf#: [id number] DID#: [id number] CC: KIMBERLI LOPEZ MD;*EndCC*
[2017-07-03 07:15] LABS: CALCIUM 10.3 mg/dl (8.4-10.2); CREATININE 6.93 mg/dl (0.61-1.24); POTASSIUM 4.5 mmol/L (3.5-5.1)
[2017-07-03] MEDS: INSULIN ASPART [NOVOLOG] 3 ML PEN SC SCH ×7 (08:15→21:08)
[2017-07-03 08:26] VITALS: BP 160/69; RESP 16
[2017-07-03] MEDS: LISINOPRIL 20 MG TAB PO SCH (08:32)
[2017-07-03] MEDS: PANTOPRAZOLE (EC) 40 MG TAB PO SCH (08:32)
[2017-07-03] MEDS: MULTIVIT/CA CARB/B CMPLX/FA TAB PO SCH (08:32)
[2017-07-03] MEDS: LEVETIRACETAM 500 MG TAB PO SCH (08:33)
[2017-07-03] MEDS: HYDROGEN PEROXIDE TOP SCH (08:39)
--- NOTE | 2017-07-03 10:05 | CONS ---
Date/Time of Note Date/Time of Note DATE: 07/03/17 TIME: 10:03 Assessment/Plan Assessment/Plan Chief Complaint/Hosp Course 1. End-stage renal disease on maintenance hemodialysis. Patient is regularly dialyzed Thursday and is due for hemodialysis tomorrow which I will order. 2 coronary artery disease. Status post recent coronary angiogram and stent placement at [facility] last week. 3. Type 2 diabetes mellitus . 4. Hypertension , his blood pressure seems to be under better control. 5. History of gallstones now with elevated alkaline phosphatase 6. Anemia of chronic kidney disease. I am going to start him on Epogen. 7. Recent history of new onset seizure disorder. Now on antiseizure medication. 8 sensation of urinary urgency and dysuria with gross hematuria. He had a cystoscopy and was found to have some cystic / grape like lesions in the bladder that are thought to be the source of his bleeding . He has a Bullock catheter in place with irrigation and is draining some blood-tinged urine. Problems: Consultation Date/Type/Reason Admit Date/Time Jun 23, 2017 at 10:43 Type of Consultation: Urology Referring Provider: KIMBERLI LOPEZ MD 24 HR Interval Summary Free Text/Dictation He is complaining of pain from the Bullock catheter. He is still draining some blood-tinged urine. Exam/Review of Systems Vital Signs Vitals Vital Signs Date Time Temp Pulse Resp B/P Pulse Ox O2 Delivery O2 Flow Rate FiO2 07/03/17 08:26 98.4 83 16 160/69 92 07/02/17 00:00 Nasal Cannula 07/01/17 23:00 2.0 Intake and Output 07/02/17 07/02/17 07/03/17 15:00 23:00 07:00 Intake Total 1000 ml 780 ml Output Total 3350 ml 1300 ml Balance -2350 ml -520 ml Exam Constitutional: alert, oriented, well developed Respiratory: clear to auscultation, normal air movement Cardiovascular: regular rate and rhythm Gastrointestinal: non-tender, soft Musculoskeletal: nl extremities to inspection Results Result Diagram: 07/03/17 0540 07/03/17 0540 Results 24 hrs Laboratory Tests Test 07/02/17 12:04 07/02/17 15:41 07/02/17 17:22 07/02/17 20:54 Bedside Glucose 92 237 H 266 H 173 Test 07/03/17 05:32 07/03/17 05:40 07/03/17 08:10 Bedside Glucose 319 H 360 H White Blood Count 7.9 Red Blood Count 3.01 L Hemoglobin 9.4 L Hematocrit 28.6 L Mean Corpuscular Volume 95.0 Mean Corpuscular Hemoglobin 31.2 Mean Corpuscular Hemoglobin Concent 32.9 Red Cell Distribution Width 17.9 H Platelet Count 172 Mean Platelet Volume 10.4 Neutrophils % 70.9 Lymphocytes % 9.0 L Monocytes % 10.3 Eosinophils % 8.9 H Basophils % 0.6 Nucleated Red Blood Cells % 0.0 Neutrophils # 5.6 Lymphocytes # 0.7 L Monocytes # 0.8 Eosinophils # 0.7 H Basophils # 0.1 Nucleated Red Blood Cells # 0.0 Sodium Level 138 Potassium Level 4.5 Chloride Level 96 L Carbon Dioxide Level 30 Anion Gap 17 H Blood Urea Nitrogen 39 H Creatinine 6.93 H Glucose Level 326 H Calcium Level 10.3 H Medications Medications Current Medications Atorvastatin Calcium (Lipitor) 80 mg QHS PO Last administered on 07/02/17 21: 05; Admin Dose 80 MG; Start 06/23/17 at 21:00 Carvedilol (Coreg) 25 mg BID PO Last administered on 07/03/17 08:33; Admin Dose 25 MG; Start 06/23/17 at 21:00 Hydralazine HCl (Apresoline) 50 mg BID PO Last administered on 07/03/17 09:23 ; Admin Dose 50 MG; Start 06/23/17 at 21:00 Multivit/Ca Carb/ B Cmplx/FA/Prenat (Kimmie-Tirso) 1 tab DAILY PO Last administered on 07/03/17 08:32; Admin Dose 1 TAB; Start 06/24/17 at 09:00 Nifedipine (Procardia Xl) 90 mg QHS PO Last administered on 06/26/17 22:16; Admin Dose 90 MG; Start 06/23/17 at 21:00 Pantoprazole (Protonix Tab) 40 mg DAILY PO Last administered on 07/03/17 08:32 ; Admin Dose 40 MG; Start 06/24/17 at 09:00 Tramadol HCl (Ultram) 50 mg Q6 PRN PO PAIN Last administered on 07/03/17 06:25 ; Admin Dose 50 MG; Start 06/23/17 at 14:00 Nitroglycerin (Nitroglycerin (Sl Tab) 0.4 Mg) 1 tab Q5M PRN SL CHEST PAIN; Start 06/23/17 at 14:30 Acetaminophen (Tylenol Tab) 650 mg Q6H PRN PO PAIN LEVEL 1-3 OR FEVER Last administered on 07/02/17 13:30; Admin Dose 650 MG; Start 06/23/17 at 14:30 Miscellaneous Information 1 ea NOTE XX ; Start 06/23/17 at 14:30 Glucose (Glutose) 15 gm Q15M PRN PO DECREASED GLUCOSE; Start 06/23/17 at 14:30 Glucose (Glutose) 22.5 gm Q15M PRN PO DECREASED GLUCOSE; Start 06/23/17 at 14: 30 Dextrose (D50w Syringe) 25 ml Q15M PRN IV DECREASED GLUCOSE; Start 06/23/17 at 14:30 Dextrose (D50w Syringe) 50 ml Q15M PRN IV DECREASED GLUCOSE; Start 06/23/17 at 14:30 Glucagon (Glucagen) 1 mg Q15M PRN IM DECREASED GLUCOSE; Start 06/23/17 at 14: 30 Glucose (Glutose) 15 gm Q15M PRN BUCCAL DECREASED GLUCOSE; Start 06/23/17 at 14:30 Levetiracetam (Keppra) 500 mg DAILY PO Last administered on 07/03/17 08:33; Admin Dose 500 MG; Start 06/24/17 at 09:00 Diagnostic Test (Pha) (Accu-Chek) 1 ea 02 XX Last administered on 07/02/17 02: 23; Admin Dose 1 EA; Start 06/26/17 at 02:00 Lisinopril (Zestril) 40 mg DAILY PO Last administered on 07/03/17 08:32; Admin Dose 40 MG; Start 06/26/17 at 09:00 Levofloxacin (Levaquin) 250 mg Q48H PO Last administered on 07/02/17 16:49; Admin Dose 250 MG; Start 06/26/17 at 11:00 Clonidine (Catapres) 0.1 mg BID PO Last administered on 06/29/17 08:21; Admin Dose 0.1 MG; Start 06/26/17 at 21:00 Doxazosin Mesylate (Cardura) 4 mg HS PO Last administered on 06/30/17 21:40; Admin Dose 4 MG; Start 06/26/17 at 21:00 Epoetin Josué (Epogen (Esrd)) 10,000 units TuThSa@17 SC Last administered on 16:05; Admin Dose 10,000 UNITS; Start 06/30/17 at 17:00 Hydrogen Peroxide (Hydrogen Peroxide) 1 applic DAILY TOP Last administered on 07/03/17 08:39; Admin Dose 1 APPLIC; Start 07/01/17 at 21:00 Ondansetron HCl (Zofran Inj) 4 mg Q4H PRN IV NAUSEA AND/OR VOMITING Last administered on 07/02/17 10:16; Admin Dose 4 MG; Start 07/02/17 at 10:30 Insulin Glargine (Lantus) 13 unit QHS SC Last administered on 07/02/17 21:09; Admin Dose 13 UNIT; Start 07/02/17 at 21:00 PAULY VILA MD Jul 03, 2017 10:05
[2017-07-03 14:30] VITALS: BP 148/76; PULSE 66; RESP 18
--- NOTE | 2017-07-03 15:09 | CONS ---
Date/Time of Note Date/Time of Note DATE: 07/03/17 TIME: 15:08 Assessment/Plan Assessment/Plan Chief Complaint/Hosp Course 66-year-old gentleman recently admitted at this hospital for cardiac issues. He was transferred to [facility] where he had angioplasty after an non-STEMI. He has been readmitted here for some GI tract illness. At the patient's family request I am consulted to assist with adjusting his insulin regimen for his sugars. 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 This is now settling down. Rather making aggressive pursuit of this I am going to let him settle gently Consultation Date/Type/Reason Admit Date/Time Jun 23, 2017 at 10:43 Initial Consult Date 06/25/17 Type of Consultation: Endocrinology Reason for Consultation Diabetes mellitus type 1 with multiple complications including end-stage renal disease Referring Provider: KIMBERLI LOPEZ MD 24 HR Interval Summary Free Text/Dictation Patient reports still with some urologic symptoms but no hypoglycemia Exam/Review of Systems Vital Signs Vitals Vital Signs Date Time Temp Pulse Resp B/P Pulse Ox O2 Delivery O2 Flow Rate FiO2 07/03/17 08:26 98.4 83 16 160/69 92 07/02/17 00:00 Nasal Cannula 07/01/17 23:00 2.0 Intake and Output 07/02/17 07/02/17 07/03/17 15:00 23:00 07:00 Intake Total 1000 ml 780 ml Output Total 3350 ml 1300 ml Balance -2350 ml -520 ml Exam Constitutional: alert, oriented Neck: non-tender, supple Respiratory: clear to auscultation, normal air movement Results Result Diagram: 07/03/17 0540 07/03/17 0540 Results 24 hrs Laboratory Tests Test 07/02/17 15:41 07/02/17 17:22 07/02/17 20:54 07/03/17 05:32 Bedside Glucose 237 H 266 H 173 319 H Test 07/03/17 05:40 07/03/17 08:10 07/03/17 12:17 White Blood Count 7.9 Red Blood Count 3.01 L Hemoglobin 9.4 L Hematocrit 28.6 L Mean Corpuscular Volume 95.0 Mean Corpuscular Hemoglobin 31.2 Mean Corpuscular Hemoglobin Concent 32.9 Red Cell Distribution Width 17.9 H Platelet Count 172 Mean Platelet Volume 10.4 Neutrophils % 70.9 Lymphocytes % 9.0 L Monocytes % 10.3 Eosinophils % 8.9 H Basophils % 0.6 Nucleated Red Blood Cells % 0.0 Neutrophils # 5.6 Lymphocytes # 0.7 L Monocytes # 0.8 Eosinophils # 0.7 H Basophils # 0.1 Nucleated Red Blood Cells # 0.0 Sodium Level 138 Potassium Level 4.5 Chloride Level 96 L Carbon Dioxide Level 30 Anion Gap 17 H Blood Urea Nitrogen 39 H Creatinine 6.93 H Glucose Level 326 H Calcium Level 10.3 H Bedside Glucose 360 H 211 Medications Medications Current Medications Atorvastatin Calcium (Lipitor) 80 mg QHS PO Last administered on 07/02/17 21: 05; Admin Dose 80 MG; Start 06/23/17 at 21:00 Carvedilol (Coreg) 25 mg BID PO Last administered on 07/03/17 08:33; Admin Dose 25 MG; Start 06/23/17 at 21:00 Hydralazine HCl (Apresoline) 50 mg BID PO Last administered on 07/03/17 09:23 ; Admin Dose 50 MG; Start 06/23/17 at 21:00 Multivit/Ca Carb/ B Cmplx/FA/Prenat (Kimmie-Tirso) 1 tab DAILY PO Last administered on 07/03/17 08:32; Admin Dose 1 TAB; Start 06/24/17 at 09:00 Nifedipine (Procardia Xl) 90 mg QHS PO Last administered on 06/26/17 22:16; Admin Dose 90 MG; Start 06/23/17 at 21:00 Pantoprazole (Protonix Tab) 40 mg DAILY PO Last administered on 07/03/17 08:32 ; Admin Dose 40 MG; Start 06/24/17 at 09:00 Tramadol HCl (Ultram) 50 mg Q6 PRN PO PAIN Last administered on 07/03/17 13:12 ; Admin Dose 50 MG; Start 06/23/17 at 14:00 Nitroglycerin (Nitroglycerin (Sl Tab) 0.4 Mg) 1 tab Q5M PRN SL CHEST PAIN; Start 06/23/17 at 14:30 Acetaminophen (Tylenol Tab) 650 mg Q6H PRN PO PAIN LEVEL 1-3 OR FEVER Last administered on 07/02/17 13:30; Admin Dose 650 MG; Start 06/23/17 at 14:30 Miscellaneous Information 1 ea NOTE XX ; Start 06/23/17 at 14:30 Glucose (Glutose) 15 gm Q15M PRN PO DECREASED GLUCOSE; Start 06/23/17 at 14:30 Glucose (Glutose) 22.5 gm Q15M PRN PO DECREASED GLUCOSE; Start 06/23/17 at 14: 30 Dextrose (D50w Syringe) 25 ml Q15M PRN IV DECREASED GLUCOSE; Start 06/23/17 at 14:30 Dextrose (D50w Syringe) 50 ml Q15M PRN IV DECREASED GLUCOSE; Start 06/23/17 at 14:30 Glucagon (Glucagen) 1 mg Q15M PRN IM DECREASED GLUCOSE; Start 06/23/17 at 14: 30 Glucose (Glutose) 15 gm Q15M PRN BUCCAL DECREASED GLUCOSE; Start 06/23/17 at 14:30 Levetiracetam (Keppra) 500 mg DAILY PO Last administered on 07/03/17 08:33; Admin Dose 500 MG; Start 06/24/17 at 09:00 Diagnostic Test (Pha) (Accu-Chek) 1 ea 02 XX Last administered on 07/02/17 02: 23; Admin Dose 1 EA; Start 06/26/17 at 02:00 Lisinopril (Zestril) 40 mg DAILY PO Last administered on 07/03/17 08:32; Admin Dose 40 MG; Start 06/26/17 at 09:00 Levofloxacin (Levaquin) 250 mg Q48H PO Last administered on 07/02/17 16:49; Admin Dose 250 MG; Start 06/26/17 at 11:00 Clonidine (Catapres) 0.1 mg BID PO Last administered on 06/29/17 08:21; Admin Dose 0.1 MG; Start 06/26/17 at 21:00 Doxazosin Mesylate (Cardura) 4 mg HS PO Last administered on 06/30/17 21:40; Admin Dose 4 MG; Start 06/26/17 at 21:00 Epoetin Josué (Epogen (Esrd)) 10,000 units TuThSa@17 SC Last administered on 16:05; Admin Dose 10,000 UNITS; Start 06/30/17 at 17:00 Hydrogen Peroxide (Hydrogen Peroxide) 1 applic DAILY TOP Last administered on 07/03/17 08:39; Admin Dose 1 APPLIC; Start 07/01/17 at 21:00 Ondansetron HCl (Zofran Inj) 4 mg Q4H PRN IV NAUSEA AND/OR VOMITING Last administered on 07/02/17 10:16; Admin Dose 4 MG; Start 07/02/17 at 10:30 Insulin Glargine (Lantus) 13 unit QHS SC Last administered on 07/02/17 21:09; Admin Dose 13 UNIT; Start 07/02/17 at 21:00 LAWANDA KING MD Jul 03, 2017 15:09
--- NOTE | 2017-07-03 18:59 | CONS ---
Date/Time of Note Date/Time of Note DATE: 07/03/17 TIME: 18:55 Consult Date/Type/Reason Admit Date/Time Jun 23, 2017 at 10:43 Initial Consult Date 06/25/17 Type of Consultation: Urology Reason for Consultation Gross hematuria Ordering Provider: KIMBERLI LOPEZ MD Subjective Patient is anxious asking to get out of here. He still have the Bullock catheter and the continuous bladder irrigation and the return is pinkish Objective Vital Signs Date Time Temp Pulse Resp B/P Pulse Ox O2 Delivery O2 Flow Rate FiO2 07/03/17 08:26 98.4 83 16 160/69 92 07/02/17 00:00 Nasal Cannula 07/01/17 23:00 2.0 Intake and Output 07/02/17 07/02/17 07/03/17 15:00 23:00 07:00 Intake Total 1000 ml 780 ml Output Total 3350 ml 1300 ml Balance -2350 ml -520 ml Exam Alert awake, the Bullock catheter is draining blood-tinged urine with the irrigation. Results/Medications Result Diagram: 07/03/17 0540 07/03/17 0540 Results 24 hrs Laboratory Tests Test 07/02/17 20:54 07/03/17 05:32 07/03/17 05:40 07/03/17 08:10 Bedside Glucose 173 319 H 360 H White Blood Count 7.9 Red Blood Count 3.01 L Hemoglobin 9.4 L Hematocrit 28.6 L Mean Corpuscular Volume 95.0 Mean Corpuscular Hemoglobin 31.2 Mean Corpuscular Hemoglobin Concent 32.9 Red Cell Distribution Width 17.9 H Platelet Count 172 Mean Platelet Volume 10.4 Neutrophils % 70.9 Lymphocytes % 9.0 L Monocytes % 10.3 Eosinophils % 8.9 H Basophils % 0.6 Nucleated Red Blood Cells % 0.0 Neutrophils # 5.6 Lymphocytes # 0.7 L Monocytes # 0.8 Eosinophils # 0.7 H Basophils # 0.1 Nucleated Red Blood Cells # 0.0 Sodium Level 138 Potassium Level 4.5 Chloride Level 96 L Carbon Dioxide Level 30 Anion Gap 17 H Blood Urea Nitrogen 39 H Creatinine 6.93 H Glucose Level 326 H Calcium Level 10.3 H Test 07/03/17 12:17 07/03/17 17:28 Bedside Glucose 211 197 Medications Current Medications Atorvastatin Calcium (Lipitor) 80 mg QHS PO Last administered on 07/02/17 21: 05; Admin Dose 80 MG; Start 06/23/17 at 21:00 Carvedilol (Coreg) 25 mg BID PO Last administered on 07/03/17 08:33; Admin Dose 25 MG; Start 06/23/17 at 21:00 Hydralazine HCl (Apresoline) 50 mg BID PO Last administered on 07/03/17 09:23 ; Admin Dose 50 MG; Start 06/23/17 at 21:00 Multivit/Ca Carb/ B Cmplx/FA/Prenat (Kimmie-Tirso) 1 tab DAILY PO Last administered on 07/03/17 08:32; Admin Dose 1 TAB; Start 06/24/17 at 09:00 Nifedipine (Procardia Xl) 90 mg QHS PO Last administered on 06/26/17 22:16; Admin Dose 90 MG; Start 06/23/17 at 21:00 Pantoprazole (Protonix Tab) 40 mg DAILY PO Last administered on 07/03/17 08:32 ; Admin Dose 40 MG; Start 06/24/17 at 09:00 Tramadol HCl (Ultram) 50 mg Q6 PRN PO PAIN Last administered on 07/03/17 13:12 ; Admin Dose 50 MG; Start 06/23/17 at 14:00 Nitroglycerin (Nitroglycerin (Sl Tab) 0.4 Mg) 1 tab Q5M PRN SL CHEST PAIN; Start 06/23/17 at 14:30 Acetaminophen (Tylenol Tab) 650 mg Q6H PRN PO PAIN LEVEL 1-3 OR FEVER Last administered on 07/02/17 13:30; Admin Dose 650 MG; Start 06/23/17 at 14:30 Miscellaneous Information 1 ea NOTE XX ; Start 06/23/17 at 14:30 Glucose (Glutose) 15 gm Q15M PRN PO DECREASED GLUCOSE; Start 06/23/17 at 14:30 Glucose (Glutose) 22.5 gm Q15M PRN PO DECREASED GLUCOSE; Start 06/23/17 at 14: 30 Dextrose (D50w Syringe) 25 ml Q15M PRN IV DECREASED GLUCOSE; Start 06/23/17 at 14:30 Dextrose (D50w Syringe) 50 ml Q15M PRN IV DECREASED GLUCOSE; Start 06/23/17 at 14:30 Glucagon (Glucagen) 1 mg Q15M PRN IM DECREASED GLUCOSE; Start 06/23/17 at 14: 30 Glucose (Glutose) 15 gm Q15M PRN BUCCAL DECREASED GLUCOSE; Start 06/23/17 at 14:30 Levetiracetam (Keppra) 500 mg DAILY PO Last administered on 07/03/17 08:33; Admin Dose 500 MG; Start 06/24/17 at 09:00 Diagnostic Test (Pha) (Accu-Chek) 1 ea 02 XX Last administered on 07/02/17 02: 23; Admin Dose 1 EA; Start 06/26/17 at 02:00 Lisinopril (Zestril) 40 mg DAILY PO Last administered on 07/03/17 08:32; Admin Dose 40 MG; Start 06/26/17 at 09:00 Levofloxacin (Levaquin) 250 mg Q48H PO Last administered on 07/02/17 16:49; Admin Dose 250 MG; Start 06/26/17 at 11:00 Clonidine (Catapres) 0.1 mg BID PO Last administered on 06/29/17 08:21; Admin Dose 0.1 MG; Start 06/26/17 at 21:00 Doxazosin Mesylate (Cardura) 4 mg HS PO Last administered on 06/30/17 21:40; Admin Dose 4 MG; Start 06/26/17 at 21:00 Epoetin Josué (Epogen (Esrd)) 10,000 units TuThSa@17 SC Last administered on 16:05; Admin Dose 10,000 UNITS; Start 06/30/17 at 17:00 Hydrogen Peroxide (Hydrogen Peroxide) 1 applic DAILY TOP Last administered on 07/03/17 08:39; Admin Dose 1 APPLIC; Start 07/01/17 at 21:00 Ondansetron HCl (Zofran Inj) 4 mg Q4H PRN IV NAUSEA AND/OR VOMITING Last administered on 07/02/17 10:16; Admin Dose 4 MG; Start 07/02/17 at 10:30 Insulin Glargine (Lantus) 13 unit QHS SC Last administered on 07/02/17 21:09; Admin Dose 13 UNIT; Start 07/02/17 at 21:00 Assessment/Plan Chief Complaint/Hosp Course 66-year-old male with end-stage renal disease on hemodialysis has been having dysuria and hematuria. Urine culture has been done twice by straight catheterization and has been negative. Urine cytology is negative. He underwent a cystoscopy bladder biopsy and fulguration of the bladder. Since he does not make urine I had to put him on continuous bladder irrigation to keep flushing any bleeding out of the bladder. 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 No malignancy. Plan to continue the bladder irrigation until there is no more bleeding then we could discontinue the Bullock catheter Problems: EMMA DELGADO MD Jul 03, 2017 18:59
[2017-07-03 19:35] VITALS: BP 132/62; RESP 16
[2017-07-03] MEDS: NIFEdipine (XL) 90 MG TAB PO SCH (20:50)
[2017-07-03] MEDS: ATORVASTATIN 80 MG TAB PO SCH (20:53)
[2017-07-03] MEDS: DOXAZOSIN 4 MG TAB PO SCH (20:53)
[2017-07-03] MEDS: INSULIN GLARGINE [LANtus] 3 ML PEN SC SCH (21:08)
[2017-07-04] VITALS (12 sets, daily range): BP systolic 101–138; BP diastolic 47–69; PULSE 58–63; RESP 16–18
[2017-07-04] MEDS: ACCU-CHEK XX SCH (01:58)
[2017-07-04 06:16] LABS: BASOPHILS % 0.3 % (0.0-2.0); EOSINOPHILS # 0.9 10^3/ul (0.0-0.5); EOSINOPHILS % 9.8 % (0.0-7.0); HEMATOCRIT 27.4 % (42.0-52.0); HEMOGLOBIN 8.9 g/dl (14.0-18.0); LYMPHOCYTES # 0.8 10^3/ul (0.8-2.9); LYMPHOCYTES % 9.4 % (15.0-51.0); MEAN CORPUSCULAR HEMOGLOBIN 30.8 pg (29.0-33.0); MEAN CORPUSCULAR HGB CONC 32.5 g/dl (32.0-37.0); MEAN CORPUSCULAR VOLUME 94.8 fl (82.0-101.0); MONOCYTE # 0.8 10^3/ul (0.3-0.9); MONOCYTES % 9.3 % (0.0-11.0); NEUTROPHIL # 6.2 10^3/ul (1.6-7.5); NEUTROPHILS % 70.9 % (39.0-77.0); PLATELET COUNT 175 10^3/UL (140-415); RED BLOOD COUNT 2.89 10^6/ul (4.70-6.10); WHITE BLOOD COUNT 8.8 10^3/ul (4.8-10.8)
[2017-07-04 06:47] LABS: CALCIUM 10.7 mg/dl (8.4-10.2); CREATININE 8.74 mg/dl (0.61-1.24); POTASSIUM 4.5 mmol/L (3.5-5.1)
[2017-07-04] MEDS: LEVOTHYROXINE 125 MCG TAB PO SCH (06:50)
[2017-07-04] MEDS: traMADol 50 MG TAB PO PRN ×2 (06:50→23:26)
[2017-07-04] MEDS: INSULIN ASPART [NOVOLOG] 3 ML PEN SC SCH ×7 (08:15→20:59)
[2017-07-04] MEDS: LISINOPRIL 20 MG TAB PO SCH (09:00)
[2017-07-04] MEDS: MULTIVIT/CA CARB/B CMPLX/FA TAB PO SCH ×2 (09:00→12:24)
[2017-07-04] MEDS: HYDROGEN PEROXIDE TOP SCH ×2 (09:00→12:25)
[2017-07-04] MEDS: LEVETIRACETAM 500 MG TAB PO SCH ×2 (09:00→12:24)
[2017-07-04] MEDS: PANTOPRAZOLE (EC) 40 MG TAB PO SCH ×2 (09:00→12:24)
--- NOTE | 2017-07-04 09:03 | PN ---
DATE: 07/03/2017 SUBJECTIVE: The patient presently is in no acute distress, requesting to have the Bullock catheter re moved, has very poor appetite. States he has been eating sweets to keep the blood sugar high. PHYSICAL EXAMINATION: VITAL SIGNS: Temperature 98.4, blood pressure 160/69, pulse oximetry is 92%. CHEST: Clinically clear. HEART: S1, S2 heard with no definite gallop. ABDOMEN: Soft, nontender, no hepatosplenomegaly. EXTREMITIES: No edema, Homans negative. Bullock catheter draining blood-tinged urine, clear. LABORATORY DATA: WBC count 7.9, hematocrit 28.6, platelet count 172,000. Sodium 138, potassium 4.5 , BUN , creatinine 6.93, glucose this morning 319, 326, 360 and 211 today. Urine culture from the cystoscopy negative after 48 hours. IMPRESSION: 1. Status post cystoscopy and bladder biopsy. Biopsy results pending. So far no evidence of urina ry tract infection. 2. End-stage renal disease on maintenance hemodialysis. 3. Coronary artery disease, status post recent placement of stent. 4. Diabetes mellitus type 1 5. Hypoglycemia. 6. Hypertension. 7. Cholelithiasis. 8. Seizure disorder. PLAN: We will continue diabetic management per Dr. Cheung. Genitourinary recommendations per Dr. Pablo hancock. Will consider removing the Bullock after urine clears. Dictated By: GERA NAVARRO MD SR/NTS Conf#: [id number] DID#: [id number] CC: EMMA DELGADO MD; KIMBERLI LOPEZ MD;*EndCC*
[2017-07-04] MEDS: LEVOFLOXACIN 250 MG TAB PO SCH ×2 (11:00→12:24)
--- NOTE | 2017-07-04 11:22 | CONS ---
Date/Time of Note Date/Time of Note DATE: 07/04/17 TIME: 11:20 Consult Date/Type/Reason Admit Date/Time Jun 23, 2017 at 10:43 Initial Consult Date 06/25/17 Type of Consultation: Urology Reason for Consultation Hematuria Ordering Provider: KIMBERLI LOPEZ MD Subjective Patient is being dialyzed. He is anxious to go home. Objective Vital Signs Date Time Temp Pulse Resp B/P Pulse Ox O2 Delivery O2 Flow Rate FiO2 07/04/17 10:40 58 18 07/04/17 07:51 98.2 101/61 96 07/03/17 14:30 Room Air 07/01/17 23:00 2.0 Intake and Output 07/03/17 07/03/17 07/04/17 15:00 23:00 07:00 Intake Total 2400 ml 740 ml Output Total 2040 ml Balance 360 ml 740 ml Exam Abdomen is soft Bullock catheter is draining clear irrigating fluid. I did slow the rate of the irrigation with the hope that the return remains clear so we could take the Bullock catheter out and we could discharge him Results/Medications Result Diagram: 07/04/17 0532 07/04/17 0532 Results 24 hrs Laboratory Tests Test 07/03/17 12:17 07/03/17 17:28 07/03/17 20:46 07/04/17 01:50 Bedside Glucose 211 197 286 H 224 H Test 07/04/17 05:32 07/04/17 05:56 07/04/17 08:25 White Blood Count 8.8 Red Blood Count 2.89 L Hemoglobin 8.9 L Hematocrit 27.4 L Mean Corpuscular Volume 94.8 Mean Corpuscular Hemoglobin 30.8 Mean Corpuscular Hemoglobin Concent 32.5 Red Cell Distribution Width 18.0 H Platelet Count 175 Mean Platelet Volume 11.0 H Neutrophils % 70.9 Lymphocytes % 9.4 L Monocytes % 9.3 Eosinophils % 9.8 H Basophils % 0.3 Nucleated Red Blood Cells % 0.0 Neutrophils # 6.2 Lymphocytes # 0.8 Monocytes # 0.8 Eosinophils # 0.9 H Basophils # 0.0 Nucleated Red Blood Cells # 0.0 Sodium Level 137 Potassium Level 4.5 Chloride Level 95 L Carbon Dioxide Level 31 Anion Gap 16 Blood Urea Nitrogen 52 H Creatinine 8.74 H Glucose Level 117 # Calcium Level 10.7 H Bedside Glucose 114 120 Medications Current Medications Atorvastatin Calcium (Lipitor) 80 mg QHS PO Last administered on 07/03/17 20: 53; Admin Dose 80 MG; Start 06/23/17 at 21:00 Carvedilol (Coreg) 25 mg BID PO Last administered on 07/03/17 20:53; Admin Dose 25 MG; Start 06/23/17 at 21:00 Hydralazine HCl (Apresoline) 50 mg BID PO Last administered on 07/03/17 20:50 ; Admin Dose 50 MG; Start 06/23/17 at 21:00 Multivit/Ca Carb/ B Cmplx/FA/Prenat (Kimmie-Tirso) 1 tab DAILY PO Last administered on 07/03/17 08:32; Admin Dose 1 TAB; Start 06/24/17 at 09:00 Nifedipine (Procardia Xl) 90 mg QHS PO Last administered on 07/03/17 20:50; Admin Dose 90 MG; Start 06/23/17 at 21:00 Pantoprazole (Protonix Tab) 40 mg DAILY PO Last administered on 07/03/17 08:32 ; Admin Dose 40 MG; Start 06/24/17 at 09:00 Tramadol HCl (Ultram) 50 mg Q6 PRN PO PAIN Last administered on 07/04/17 06:50 ; Admin Dose 50 MG; Start 06/23/17 at 14:00 Nitroglycerin (Nitroglycerin (Sl Tab) 0.4 Mg) 1 tab Q5M PRN SL CHEST PAIN; Start 06/23/17 at 14:30 Acetaminophen (Tylenol Tab) 650 mg Q6H PRN PO PAIN LEVEL 1-3 OR FEVER Last administered on 07/02/17 13:30; Admin Dose 650 MG; Start 06/23/17 at 14:30 Miscellaneous Information 1 ea NOTE XX ; Start 06/23/17 at 14:30 Glucose (Glutose) 15 gm Q15M PRN PO DECREASED GLUCOSE; Start 06/23/17 at 14:30 Glucose (Glutose) 22.5 gm Q15M PRN PO DECREASED GLUCOSE; Start 06/23/17 at 14: 30 Dextrose (D50w Syringe) 25 ml Q15M PRN IV DECREASED GLUCOSE; Start 06/23/17 at 14:30 Dextrose (D50w Syringe) 50 ml Q15M PRN IV DECREASED GLUCOSE; Start 06/23/17 at 14:30 Glucagon (Glucagen) 1 mg Q15M PRN IM DECREASED GLUCOSE; Start 06/23/17 at 14: 30 Glucose (Glutose) 15 gm Q15M PRN BUCCAL DECREASED GLUCOSE; Start 06/23/17 at 14:30 Levetiracetam (Keppra) 500 mg DAILY PO Last administered on 07/03/17 08:33; Admin Dose 500 MG; Start 06/24/17 at 09:00 Diagnostic Test (Pha) (Accu-Chek) 1 ea 02 XX Last administered on 07/02/17 02: 23; Admin Dose 1 EA; Start 06/26/17 at 02:00 Lisinopril (Zestril) 40 mg DAILY PO Last administered on 07/03/17 08:32; Admin Dose 40 MG; Start 06/26/17 at 09:00 Levofloxacin (Levaquin) 250 mg Q48H PO Last administered on 07/02/17 16:49; Admin Dose 250 MG; Start 06/26/17 at 11:00 Clonidine (Catapres) 0.1 mg BID PO Last administered on 06/29/17 08:21; Admin Dose 0.1 MG; Start 06/26/17 at 21:00 Doxazosin Mesylate (Cardura) 4 mg HS PO Last administered on 07/03/17 20:53; Admin Dose 4 MG; Start 06/26/17 at 21:00 Epoetin Josué (Epogen (Esrd)) 10,000 units TuThSa@17 SC Last administered on 16:05; Admin Dose 10,000 UNITS; Start 06/30/17 at 17:00 Hydrogen Peroxide (Hydrogen Peroxide) 1 applic DAILY TOP Last administered on 07/03/17 08:39; Admin Dose 1 APPLIC; Start 07/01/17 at 21:00 Ondansetron HCl (Zofran Inj) 4 mg Q4H PRN IV NAUSEA AND/OR VOMITING Last administered on 07/02/17 10:16; Admin Dose 4 MG; Start 07/02/17 at 10:30 Insulin Glargine (Lantus) 16 unit QHS SC ; Start 07/04/17 at 21:00 Assessment/Plan Chief Complaint/Hosp Course 66-year-old male with end-stage renal disease on hemodialysis has been having dysuria and hematuria. Urine culture has been done twice by straight catheterization and has been negative. Urine cytology is negative. He underwent a cystoscopy bladder biopsy and fulguration of the bladder. Since he does not make urine I had to put him on continuous bladder irrigation to keep flushing any bleeding out of the bladder. 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 No malignancy. Plan to continue the bladder irrigation at a slower rate until there is no more bleeding then we could discontinue the Bullock catheter Problems: EMMA DELGADO MD Jul 04, 2017 11:22
[2017-07-04 14:52] LABS: INR 1.07; PT RATIO 1.1
--- NOTE | 2017-07-04 16:36 | CONS ---
Date/Time of Note Date/Time of Note DATE: 07/04/17 TIME: 16:32 Assessment/Plan Assessment/Plan Chief Complaint/Hosp Course 1. End-stage renal disease on maintenance hemodialysis. Patient is regularly dialyzed Thursday and he had a hemodialysis treatment today. 2 coronary artery disease. Status post recent coronary angiogram and stent placement at [facility] last week. He denies chest pain. 3. Type 2 diabetes mellitus . 4. Hypertension , his blood pressure seems to be under better control. 5. History of gallstones now with elevated alkaline phosphatase 6. Anemia of chronic kidney disease. He is on Epogen. 7. Recent history of new onset seizure disorder. Now on antiseizure medication. 8 sensation of urinary urgency and dysuria with gross hematuria. He had a cystoscopy and was found to have some cystic / grape like lesions in the bladder that are thought to be the source of his bleeding . 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 He has a Bullock catheter in place with irrigation and is is draining fluid that is blood-tinged but less bloody than yesterday. Problems: Consultation Date/Type/Reason Admit Date/Time Jun 23, 2017 at 10:43 Type of Consultation: renal Referring Provider: KIMBERLI LOPEZ MD 24 HR Interval Summary Free Text/Dictation Patient is lying in bed. He is awake and alert. He has no complaints. Constitutional: no complaints Exam/Review of Systems Vital Signs Vitals Vital Signs Date Time Temp Pulse Resp B/P Pulse Ox O2 Delivery O2 Flow Rate FiO2 07/04/17 13:59 97.5 62 18 127/60 90 07/03/17 14:30 Room Air 07/01/17 23:00 2.0 Intake and Output 07/03/17 07/03/17 07/04/17 15:00 23:00 07:00 Intake Total 2400 ml 740 ml Output Total 2040 ml Balance 360 ml 740 ml Exam Constitutional: alert, oriented, well developed ENMT: nl external ears & nose, nl lips & teeth, nl nasal mucosa & septum Neck: non-tender, supple Respiratory: clear to auscultation, normal air movement Cardiovascular: regular rate and rhythm Gastrointestinal: non-tender, soft Musculoskeletal: nl extremities to inspection Results Result Diagram: 07/04/17 0532 07/04/17 0532 Results 24 hrs Laboratory Tests Test 07/03/17 17:28 07/03/17 20:46 07/04/17 01:50 07/04/17 05:32 Bedside Glucose 197 286 H 224 H White Blood Count 8.8 Red Blood Count 2.89 L Hemoglobin 8.9 L Hematocrit 27.4 L Mean Corpuscular Volume 94.8 Mean Corpuscular Hemoglobin 30.8 Mean Corpuscular Hemoglobin Concent 32.5 Red Cell Distribution Width 18.0 H Platelet Count 175 Mean Platelet Volume 11.0 H Neutrophils % 70.9 Lymphocytes % 9.4 L Monocytes % 9.3 Eosinophils % 9.8 H Basophils % 0.3 Nucleated Red Blood Cells % 0.0 Neutrophils # 6.2 Lymphocytes # 0.8 Monocytes # 0.8 Eosinophils # 0.9 H Basophils # 0.0 Nucleated Red Blood Cells # 0.0 Sodium Level 137 Potassium Level 4.5 Chloride Level 95 L Carbon Dioxide Level 31 Anion Gap 16 Blood Urea Nitrogen 52 H Creatinine 8.74 H Glucose Level 117 # Calcium Level 10.7 H Test 07/04/17 05:56 07/04/17 08:25 07/04/17 12:13 07/04/17 14:16 Bedside Glucose 114 120 244 H Prothrombin Time 14.0 Prothrombin Time Ratio 1.1 INR International Normalized Ratio 1.07 Activated Partial Thromboplast Time 53.0 H Medications Medications Current Medications Atorvastatin Calcium (Lipitor) 80 mg QHS PO Last administered on 07/03/17 20: 53; Admin Dose 80 MG; Start 06/23/17 at 21:00 Carvedilol (Coreg) 25 mg BID PO Last administered on 07/03/17 20:53; Admin Dose 25 MG; Start 06/23/17 at 21:00 Hydralazine HCl (Apresoline) 50 mg BID PO Last administered on 07/03/17 20:50 ; Admin Dose 50 MG; Start 06/23/17 at 21:00 Multivit/Ca Carb/ B Cmplx/FA/Prenat (Kimmie-Tirso) 1 tab DAILY PO Last administered on 07/04/17 12:24; Admin Dose 1 TAB; Start 06/24/17 at 09:00 Nifedipine (Procardia Xl) 90 mg QHS PO Last administered on 07/03/17 20:50; Admin Dose 90 MG; Start 06/23/17 at 21:00 Pantoprazole (Protonix Tab) 40 mg DAILY PO Last administered on 07/04/17 12:24 ; Admin Dose 40 MG; Start 06/24/17 at 09:00 Tramadol HCl (Ultram) 50 mg Q6 PRN PO PAIN Last administered on 07/04/17 06:50 ; Admin Dose 50 MG; Start 06/23/17 at 14:00 Nitroglycerin (Nitroglycerin (Sl Tab) 0.4 Mg) 1 tab Q5M PRN SL CHEST PAIN; Start 06/23/17 at 14:30 Acetaminophen (Tylenol Tab) 650 mg Q6H PRN PO PAIN LEVEL 1-3 OR FEVER Last administered on 07/02/17 13:30; Admin Dose 650 MG; Start 06/23/17 at 14:30 Miscellaneous Information 1 ea NOTE XX ; Start 06/23/17 at 14:30 Glucose (Glutose) 15 gm Q15M PRN PO DECREASED GLUCOSE; Start 06/23/17 at 14:30 Glucose (Glutose) 22.5 gm Q15M PRN PO DECREASED GLUCOSE; Start 06/23/17 at 14: 30 Dextrose (D50w Syringe) 25 ml Q15M PRN IV DECREASED GLUCOSE; Start 06/23/17 at 14:30 Dextrose (D50w Syringe) 50 ml Q15M PRN IV DECREASED GLUCOSE; Start 06/23/17 at 14:30 Glucagon (Glucagen) 1 mg Q15M PRN IM DECREASED GLUCOSE; Start 06/23/17 at 14: 30 Glucose (Glutose) 15 gm Q15M PRN BUCCAL DECREASED GLUCOSE; Start 06/23/17 at 14:30 Levetiracetam (Keppra) 500 mg DAILY PO Last administered on 07/04/17 12:24; Admin Dose 500 MG; Start 06/24/17 at 09:00 Diagnostic Test (Pha) (Accu-Chek) 1 ea 02 XX Last administered on 07/02/17 02: 23; Admin Dose 1 EA; Start 06/26/17 at 02:00 Lisinopril (Zestril) 40 mg DAILY PO Last administered on 07/03/17 08:32; Admin Dose 40 MG; Start 06/26/17 at 09:00 Levofloxacin (Levaquin) 250 mg Q48H PO Last administered on 07/04/17 12:24; Admin Dose 250 MG; Start 06/26/17 at 11:00 Clonidine (Catapres) 0.1 mg BID PO Last administered on 06/29/17 08:21; Admin Dose 0.1 MG; Start 06/26/17 at 21:00 Doxazosin Mesylate (Cardura) 4 mg HS PO Last administered on 07/03/17 20:53; Admin Dose 4 MG; Start 06/26/17 at 21:00 Epoetin Josué (Epogen (Esrd)) 10,000 units TuThSa@17 SC Last administered on 16:05; Admin Dose 10,000 UNITS; Start 06/30/17 at 17:00 Hydrogen Peroxide (Hydrogen Peroxide) 1 applic DAILY TOP Last administered on 07/04/17 12:25; Admin Dose 1 APPLIC; Start 07/01/17 at 21:00 Ondansetron HCl (Zofran Inj) 4 mg Q4H PRN IV NAUSEA AND/OR VOMITING Last administered on 07/02/17 10:16; Admin Dose 4 MG; Start 07/02/17 at 10:30 Insulin Glargine (Lantus) 16 unit QHS SC ; Start 07/04/17 at 21:00 PAULY VILA MD Jul 04, 2017 16:36
[2017-07-04] MEDS: EPOETIN 10000 UNITS/1 ML INJ (ESRD) SC SCH (17:44)
[2017-07-04] MEDS: INSULIN GLARGINE [LANtus] 3 ML PEN SC SCH (20:58)
[2017-07-04] MEDS: ATORVASTATIN 80 MG TAB PO SCH (20:59)
[2017-07-04] MEDS: NIFEdipine (XL) 90 MG TAB PO SCH (21:00)
[2017-07-04] MEDS: DOXAZOSIN 4 MG TAB PO SCH (21:00)
--- NOTE | 2017-07-05 00:52 | CONS ---
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 Consultation Date/Type/Reason Admit Date/Time Jun 23, 2017 at 10:43 Initial Consult Date 06/25/17 Type of Consultation: Endocrine Referring Provider: KIMBERLI LOPEZ MD 24 HR Interval Summary Free Text/Dictation Per patient not feeling well. Exam/Review of Systems Vital Signs Vitals Vital Signs Date Time Temp Pulse Resp B/P Pulse Ox O2 Delivery O2 Flow Rate FiO2 07/04/17 22:06 98.8 74 18 138/63 94 07/03/17 14:30 Room Air 07/01/17 23:00 2.0 Intake and Output 07/04/17 07/04/17 07/05/17 14:59 22:59 06:59 Intake Total 500 ml 1000 ml Output Total 3000 ml 400 ml Balance -2500 ml 600 ml Exam Constitutional: alert Neck: supple Respiratory: clear to auscultation Cardiovascular: regular rate and rhythm Gastrointestinal: soft Musculoskeletal: nl extremities to inspection Results POC glucose reviewed Result Diagram: 07/04/17 0532 07/04/17 0532 Results 24 hrs Laboratory Tests Test 07/04/17 01:50 07/04/17 05:32 07/04/17 05:56 07/04/17 08:25 Bedside Glucose 224 H 114 120 White Blood Count 8.8 Red Blood Count 2.89 L Hemoglobin 8.9 L Hematocrit 27.4 L Mean Corpuscular Volume 94.8 Mean Corpuscular Hemoglobin 30.8 Mean Corpuscular Hemoglobin Concent 32.5 Red Cell Distribution Width 18.0 H Platelet Count 175 Mean Platelet Volume 11.0 H Neutrophils % 70.9 Lymphocytes % 9.4 L Monocytes % 9.3 Eosinophils % 9.8 H Basophils % 0.3 Nucleated Red Blood Cells % 0.0 Neutrophils # 6.2 Lymphocytes # 0.8 Monocytes # 0.8 Eosinophils # 0.9 H Basophils # 0.0 Nucleated Red Blood Cells # 0.0 Sodium Level 137 Potassium Level 4.5 Chloride Level 95 L Carbon Dioxide Level 31 Anion Gap 16 Blood Urea Nitrogen 52 H Creatinine 8.74 H Glucose Level 117 # Calcium Level 10.7 H Test 07/04/17 12:13 12/9/17 14:16 07/04/17 17:41 07/04/17 20:55 Bedside Glucose 244 H 166 247 H Prothrombin Time 14.0 Prothrombin Time Ratio 1.1 INR International Normalized Ratio 1.07 Activated Partial Thromboplast Time 53.0 H Medications Medications Current Medications Atorvastatin Calcium (Lipitor) 80 mg QHS PO Last administered on 07/04/17 20: 59; Admin Dose 80 MG; Start 06/23/17 at 21:00 Carvedilol (Coreg) 25 mg BID PO Last administered on 07/03/17 20:53; Admin Dose 25 MG; Start 06/23/17 at 21:00 Hydralazine HCl (Apresoline) 50 mg BID PO Last administered on 07/03/17 20:50 ; Admin Dose 50 MG; Start 06/23/17 at 21:00 Multivit/Ca Carb/ B Cmplx/FA/Prenat (Kimmie-Tirso) 1 tab DAILY PO Last administered on 07/04/17 12:24; Admin Dose 1 TAB; Start 06/24/17 at 09:00 Nifedipine (Procardia Xl) 90 mg QHS PO Last administered on 07/03/17 20:50; Admin Dose 90 MG; Start 06/23/17 at 21:00 Pantoprazole (Protonix Tab) 40 mg DAILY PO Last administered on 07/04/17 12:24 ; Admin Dose 40 MG; Start 06/24/17 at 09:00 Tramadol HCl (Ultram) 50 mg Q6 PRN PO PAIN Last administered on 07/04/17 23:26 ; Admin Dose 50 MG; Start 06/23/17 at 14:00 Nitroglycerin (Nitroglycerin (Sl Tab) 0.4 Mg) 1 tab Q5M PRN SL CHEST PAIN; Start 06/23/17 at 14:30 Acetaminophen (Tylenol Tab) 650 mg Q6H PRN PO PAIN LEVEL 1-3 OR FEVER Last administered on 07/02/17 13:30; Admin Dose 650 MG; Start 06/23/17 at 14:30 Miscellaneous Information 1 ea NOTE XX ; Start 06/23/17 at 14:30 Glucose (Glutose) 15 gm Q15M PRN PO DECREASED GLUCOSE; Start 06/23/17 at 14:30 Glucose (Glutose) 22.5 gm Q15M PRN PO DECREASED GLUCOSE; Start 06/23/17 at 14: 30 Dextrose (D50w Syringe) 25 ml Q15M PRN IV DECREASED GLUCOSE; Start 06/23/17 at 14:30 Dextrose (D50w Syringe) 50 ml Q15M PRN IV DECREASED GLUCOSE; Start 06/23/17 at 14:30 Glucagon (Glucagen) 1 mg Q15M PRN IM DECREASED GLUCOSE; Start 06/23/17 at 14: 30 Glucose (Glutose) 15 gm Q15M PRN BUCCAL DECREASED GLUCOSE; Start 06/23/17 at 14:30 Levetiracetam (Keppra) 500 mg DAILY PO Last administered on 07/04/17 12:24; Admin Dose 500 MG; Start 06/24/17 at 09:00 Diagnostic Test (Pha) (Accu-Chek) 1 ea 02 XX Last administered on 07/02/17 02: 23; Admin Dose 1 EA; Start 06/26/17 at 02:00 Lisinopril (Zestril) 40 mg DAILY PO Last administered on 07/03/17 08:32; Admin Dose 40 MG; Start 06/26/17 at 09:00 Levofloxacin (Levaquin) 250 mg Q48H PO Last administered on 07/04/17 12:24; Admin Dose 250 MG; Start 06/26/17 at 11:00 Clonidine (Catapres) 0.1 mg BID PO Last administered on 06/29/17 08:21; Admin Dose 0.1 MG; Start 06/26/17 at 21:00 Doxazosin Mesylate (Cardura) 4 mg HS PO Last administered on 07/03/17 20:53; Admin Dose 4 MG; Start 06/26/17 at 21:00 Epoetin Josué (Epogen (Esrd)) 10,000 units TuThSa@17 SC Last administered on 17:44; Admin Dose 10,000 UNITS; Start 06/30/17 at 17:00 Hydrogen Peroxide (Hydrogen Peroxide) 1 applic DAILY TOP Last administered on 07/04/17 12:25; Admin Dose 1 APPLIC; Start 07/01/17 at 21:00 Ondansetron HCl (Zofran Inj) 4 mg Q4H PRN IV NAUSEA AND/OR VOMITING Last administered on 07/02/17 10:16; Admin Dose 4 MG; Start 07/02/17 at 10:30 Insulin Glargine (Lantus) 16 unit QHS SC Last administered on 07/04/17 20:58; Admin Dose 16 UNIT; Start 07/04/17 at 21:00 SOFIA KOEHLER MD Jul 05, 2017 00:52
[2017-07-05] MEDS: ACCU-CHEK XX SCH (01:38)
[2017-07-05 03:46] VITALS: BP 139/63; RESP 18
[2017-07-05] MEDS: traMADol 50 MG TAB PO PRN (04:41)
[2017-07-05] MEDS: ACETAMINOPHEN 325 MG TAB PO PRN (04:41)
[2017-07-05] MEDS: LEVOTHYROXINE 125 MCG TAB PO SCH (06:05)
[2017-07-05] MEDS: HYDROmorphONE 1 MG/ML SYG IV PRN ×2 (06:05→18:52)
[2017-07-05 07:35] VITALS: BP 126/65; RESP 20
[2017-07-05] MEDS: INSULIN ASPART [NOVOLOG] 3 ML PEN SC SCH ×7 (08:15→21:00)
[2017-07-05] MEDS: LISINOPRIL 20 MG TAB PO SCH (09:00)
[2017-07-05] MEDS: LEVETIRACETAM 500 MG TAB PO SCH (09:12)
[2017-07-05] MEDS: MULTIVIT/CA CARB/B CMPLX/FA TAB PO SCH (09:12)
[2017-07-05] MEDS: PANTOPRAZOLE (EC) 40 MG TAB PO SCH (09:12)
[2017-07-05 09:13] VITALS: BP 138/63; PULSE 63
[2017-07-05] MEDS: HYDROGEN PEROXIDE TOP SCH (09:14)
[2017-07-05] MEDS ORDERED: ZOLPIDEM 5 MG TAB PO PRN (13:30)
[2017-07-05 13:50] VITALS: BP 153/66; RESP 18
--- NOTE | 2017-07-05 14:18 | CONS ---
Date/Time of Note Date/Time of Note DATE: 07/05/17 TIME: 14:14 Assessment/Plan Assessment/Plan Chief Complaint/Hosp Course 1. End-stage renal disease on maintenance hemodialysis. Patient is regularly dialyzed Thursday and he had a hemodialysis treatment yesterday. His next dialysis tentatively would be Thursday. He could be discharged from my standpoint if all else is under control. 2 coronary artery disease. Status post recent coronary angiogram and stent placement at [facility] last week. He denies chest pain. 3. Type 2 diabetes mellitus . 4. Hypertension , his blood pressure seems to be under better control. 5. History of gallstones now with elevated alkaline phosphatase 6. Anemia of chronic kidney disease. He is on Epogen. 7. Recent history of new onset seizure disorder. Now on antiseizure medication. 8 sensation of urinary urgency and dysuria with gross hematuria. He had a cystoscopy and was found to have some cystic / grape like lesions in the bladder that are thought to be the source of his bleeding . 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 He has a Bullock catheter in place with irrigation and is is draining fluid that is blood-tinged but less bloody than yesterday . 9. Chest pain, he is having troponins done. Problems: Consultation Date/Type/Reason Admit Date/Time Jun 23, 2017 at 10:43 Type of Consultation: nephrology Referring Provider: KIMBERLI LOPEZ MD 24 HR Interval Summary Free Text/Dictation The patient is awake and alert. He apparently complained of some chest pain early this morning. He does not have any chest pain now. He does have some urinary catheter pain. Exam/Review of Systems Vital Signs Vitals Vital Signs Date Time Temp Pulse Resp B/P Pulse Ox O2 Delivery O2 Flow Rate FiO2 07/05/17 13:50 98.8 66 18 153/66 97 07/03/17 14:30 Room Air 07/01/17 23:00 2.0 Intake and Output 07/04/17 07/04/17 07/05/17 15:00 23:00 07:00 Intake Total 500 ml 1000 ml 680 ml Output Total 3000 ml 400 ml 250 ml Balance -2500 ml 600 ml 430 ml Exam Constitutional: alert, oriented, well developed Respiratory: clear to auscultation, normal air movement Cardiovascular: regular rate and rhythm Gastrointestinal: soft Musculoskeletal: nl extremities to inspection Results Result Diagram: 07/04/17 0532 07/04/17 0532 Results 24 hrs Laboratory Tests Test 07/04/17 14:16 07/04/17 17:41 07/04/17 20:55 07/05/17 01:42 Prothrombin Time 14.0 Prothrombin Time Ratio 1.1 INR International Normalized Ratio 1.07 Activated Partial Thromboplast Time 53.0 H Bedside Glucose 166 247 H 194 Test 07/05/17 06:23 07/05/17 08:45 07/05/17 09:05 07/05/17 09:21 Troponin I 0.086 Bedside Glucose 60 L 60 L 68 L Test 07/05/17 09:45 07/05/17 10:09 07/05/17 12:07 Bedside Glucose 91 103 137 Medications Medications Current Medications Atorvastatin Calcium (Lipitor) 80 mg QHS PO Last administered on 07/04/17 20: 59; Admin Dose 80 MG; Start 06/23/17 at 21:00 Carvedilol (Coreg) 25 mg BID PO Last administered on 07/03/17 20:53; Admin Dose 25 MG; Start 06/23/17 at 21:00 Hydralazine HCl (Apresoline) 50 mg BID PO Last administered on 07/03/17 20:50 ; Admin Dose 50 MG; Start 06/23/17 at 21:00 Multivit/Ca Carb/ B Cmplx/FA/Prenat (Kimmie-Itrso) 1 tab DAILY PO Last administered on 07/05/17 09:12; Admin Dose 1 TAB; Start 06/24/17 at 09:00 Nifedipine (Procardia Xl) 90 mg QHS PO Last administered on 07/03/17 20:50; Admin Dose 90 MG; Start 06/23/17 at 21:00 Pantoprazole (Protonix Tab) 40 mg DAILY PO Last administered on 07/05/17 09: 12; Admin Dose 40 MG; Start 06/24/17 at 09:00 Tramadol HCl (Ultram) 50 mg Q6 PRN PO PAIN Last administered on 07/05/17 04: 41; Admin Dose 50 MG; Start 06/23/17 at 14:00 Nitroglycerin (Nitroglycerin (Sl Tab) 0.4 Mg) 1 tab Q5M PRN SL CHEST PAIN Last administered on 07/05/17 03:59; Admin Dose 1 TAB; Start 06/23/17 at 14:30 Acetaminophen (Tylenol Tab) 650 mg Q6H PRN PO PAIN LEVEL 1-3 OR FEVER Last administered on 07/05/17 04:41; Admin Dose 650 MG; Start 06/23/17 at 14:30 Miscellaneous Information 1 ea NOTE XX ; Start 06/23/17 at 14:30 Glucose (Glutose) 15 gm Q15M PRN PO DECREASED GLUCOSE; Start 06/23/17 at 14:30 Glucose (Glutose) 22.5 gm Q15M PRN PO DECREASED GLUCOSE; Start 06/23/17 at 14: 30 Dextrose (D50w Syringe) 25 ml Q15M PRN IV DECREASED GLUCOSE; Start 06/23/17 at 14:30 Dextrose (D50w Syringe) 50 ml Q15M PRN IV DECREASED GLUCOSE; Start 06/23/17 at 14:30 Glucagon (Glucagen) 1 mg Q15M PRN IM DECREASED GLUCOSE; Start 06/23/17 at 14: 30 Glucose (Glutose) 15 gm Q15M PRN BUCCAL DECREASED GLUCOSE; Start 06/23/17 at 14:30 Levetiracetam (Keppra) 500 mg DAILY PO Last administered on 07/05/17 09:12; Admin Dose 500 MG; Start 06/24/17 at 09:00 Diagnostic Test (Pha) (Accu-Chek) 1 ea 02 XX Last administered on 07/02/17 02: 23; Admin Dose 1 EA; Start 06/26/17 at 02:00 Lisinopril (Zestril) 40 mg DAILY PO Last administered on 07/03/17 08:32; Admin Dose 40 MG; Start 06/26/17 at 09:00 Levofloxacin (Levaquin) 250 mg Q48H PO Last administered on 07/04/17 12:24; Admin Dose 250 MG; Start 06/26/17 at 11:00 Clonidine (Catapres) 0.1 mg BID PO Last administered on 06/29/17 08:21; Admin Dose 0.1 MG; Start 06/26/17 at 21:00 Doxazosin Mesylate (Cardura) 4 mg HS PO Last administered on 07/03/17 20:53; Admin Dose 4 MG; Start 06/26/17 at 21:00 Epoetin Josué (Epogen (Esrd)) 10,000 units TuThSa@17 SC Last administered on 17:44; Admin Dose 10,000 UNITS; Start 06/30/17 at 17:00 Hydrogen Peroxide (Hydrogen Peroxide) 1 applic DAILY TOP Last administered on 07/05/17 09:14; Admin Dose 1 APPLIC; Start 07/01/17 at 21:00 Ondansetron HCl (Zofran Inj) 4 mg Q4H PRN IV NAUSEA AND/OR VOMITING Last administered on 07/02/17 10:16; Admin Dose 4 MG; Start 07/02/17 at 10:30 Insulin Glargine (Lantus) 16 unit QHS SC Last administered on 07/04/17 20:58; Admin Dose 16 UNIT; Start 07/04/17 at 21:00 Hydromorphone HCl (Dilaudid) 1 mg Q4H PRN IV SEVERE PAIN LEVEL 7-10 Last administered on 07/05/17 06:05; Admin Dose 1 MG; Start 07/05/17 at 06:00 Zolpidem Tartrate (Ambien) 5 mg HS PRN PO INSOMNIA; Start 07/05/17 at 13:30 Ticagrelor (Brilinta) 90 mg BID PO ; Start 07/05/17 at 14:00 Aspirin (Aspirin) 81 mg DAILY PO ; Start 07/05/17 at 14:00 PAULY VILA MD Jul 05, 2017 14:17
[2017-07-05] MEDS: ASPIRIN 81 MG TAB PO SCH (15:07)
--- NOTE | 2017-07-05 15:07 | CONS ---
Date/Time of Note Date/Time of Note DATE: 07/05/17 TIME: 15:04 Consult Date/Type/Reason Admit Date/Time Jun 23, 2017 at 10:43 Initial Consult Date 06/25/17 Type of Consultation: Urology Reason for Consultation Hematuria Ordering Provider: KIMBERLI LOPEZ MD Subjective Patient complaining of pain from his catheter and once it to be removed Objective Vital Signs Date Time Temp Pulse Resp B/P Pulse Ox O2 Delivery O2 Flow Rate FiO2 07/05/17 13:50 98.8 66 18 153/66 97 07/03/17 14:30 Room Air 07/01/17 23:00 2.0 Intake and Output 07/04/17 07/04/17 07/05/17 15:00 23:00 07:00 Intake Total 500 ml 1000 ml 680 ml Output Total 3000 ml 400 ml 250 ml Balance -2500 ml 600 ml 430 ml Exam Abdomen is soft the Bullock catheter is draining clear to clear pink fluid from the bladder irrigation. Results/Medications Result Diagram: 07/04/17 0532 07/04/17 0532 Results 24 hrs Laboratory Tests Test 07/04/17 17:41 07/04/17 20:55 07/05/17 01:42 07/05/17 06:23 Bedside Glucose 166 247 H 194 Troponin I 0.086 Test 07/05/17 08:45 07/05/17 09:05 07/05/17 09:21 07/05/17 09:45 Bedside Glucose 60 L 60 L 68 L 91 Test 07/05/17 10:09 07/05/17 12:07 07/05/17 14:12 Bedside Glucose 103 137 Troponin I 0.070 Medications Current Medications Atorvastatin Calcium (Lipitor) 80 mg QHS PO Last administered on 07/04/17 20: 59; Admin Dose 80 MG; Start 06/23/17 at 21:00 Carvedilol (Coreg) 25 mg BID PO Last administered on 07/03/17 20:53; Admin Dose 25 MG; Start 06/23/17 at 21:00 Hydralazine HCl (Apresoline) 50 mg BID PO Last administered on 07/03/17 20:50 ; Admin Dose 50 MG; Start 06/23/17 at 21:00 Multivit/Ca Carb/ B Cmplx/FA/Prenat (Kimmie-Tirso) 1 tab DAILY PO Last administered on 07/05/17 09:12; Admin Dose 1 TAB; Start 06/24/17 at 09:00 Nifedipine (Procardia Xl) 90 mg QHS PO Last administered on 07/03/17 20:50; Admin Dose 90 MG; Start 06/23/17 at 21:00 Pantoprazole (Protonix Tab) 40 mg DAILY PO Last administered on 07/05/17 09: 12; Admin Dose 40 MG; Start 06/24/17 at 09:00 Tramadol HCl (Ultram) 50 mg Q6 PRN PO PAIN Last administered on 07/05/17 04: 41; Admin Dose 50 MG; Start 06/23/17 at 14:00 Nitroglycerin (Nitroglycerin (Sl Tab) 0.4 Mg) 1 tab Q5M PRN SL CHEST PAIN Last administered on 07/05/17 03:59; Admin Dose 1 TAB; Start 06/23/17 at 14:30 Acetaminophen (Tylenol Tab) 650 mg Q6H PRN PO PAIN LEVEL 1-3 OR FEVER Last administered on 07/05/17 04:41; Admin Dose 650 MG; Start 06/23/17 at 14:30 Miscellaneous Information 1 ea NOTE XX ; Start 06/23/17 at 14:30 Glucose (Glutose) 15 gm Q15M PRN PO DECREASED GLUCOSE; Start 06/23/17 at 14:30 Glucose (Glutose) 22.5 gm Q15M PRN PO DECREASED GLUCOSE; Start 06/23/17 at 14: 30 Dextrose (D50w Syringe) 25 ml Q15M PRN IV DECREASED GLUCOSE; Start 06/23/17 at 14:30 Dextrose (D50w Syringe) 50 ml Q15M PRN IV DECREASED GLUCOSE; Start 06/23/17 at 14:30 Glucagon (Glucagen) 1 mg Q15M PRN IM DECREASED GLUCOSE; Start 06/23/17 at 14: 30 Glucose (Glutose) 15 gm Q15M PRN BUCCAL DECREASED GLUCOSE; Start 06/23/17 at 14:30 Levetiracetam (Keppra) 500 mg DAILY PO Last administered on 07/05/17 09:12; Admin Dose 500 MG; Start 06/24/17 at 09:00 Diagnostic Test (Pha) (Accu-Chek) 1 ea 02 XX Last administered on 07/02/17 02: 23; Admin Dose 1 EA; Start 06/26/17 at 02:00 Lisinopril (Zestril) 40 mg DAILY PO Last administered on 07/03/17 08:32; Admin Dose 40 MG; Start 06/26/17 at 09:00 Levofloxacin (Levaquin) 250 mg Q48H PO Last administered on 07/04/17 12:24; Admin Dose 250 MG; Start 06/26/17 at 11:00 Clonidine (Catapres) 0.1 mg BID PO Last administered on 06/29/17 08:21; Admin Dose 0.1 MG; Start 06/26/17 at 21:00 Doxazosin Mesylate (Cardura) 4 mg HS PO Last administered on 07/03/17 20:53; Admin Dose 4 MG; Start 06/26/17 at 21:00 Epoetin Josué (Epogen (Esrd)) 10,000 units TuThSa@17 SC Last administered on 17:44; Admin Dose 10,000 UNITS; Start 06/30/17 at 17:00 Hydrogen Peroxide (Hydrogen Peroxide) 1 applic DAILY TOP Last administered on 07/05/17 09:14; Admin Dose 1 APPLIC; Start 07/01/17 at 21:00 Ondansetron HCl (Zofran Inj) 4 mg Q4H PRN IV NAUSEA AND/OR VOMITING Last administered on 07/02/17 10:16; Admin Dose 4 MG; Start 07/02/17 at 10:30 Insulin Glargine (Lantus) 16 unit QHS SC Last administered on 07/04/17 20:58; Admin Dose 16 UNIT; Start 07/04/17 at 21:00 Hydromorphone HCl (Dilaudid) 1 mg Q4H PRN IV SEVERE PAIN LEVEL 7-10 Last administered on 07/05/17 06:05; Admin Dose 1 MG; Start 07/05/17 at 06:00 Zolpidem Tartrate (Ambien) 5 mg HS PRN PO INSOMNIA; Start 07/05/17 at 13:30 Ticagrelor (Brilinta) 90 mg BID PO ; Start 07/05/17 at 14:00 Aspirin (Aspirin) 81 mg DAILY PO ; Start 07/05/17 at 14:00 Assessment/Plan Chief Complaint/Hosp Course 66-year-old male with end-stage renal disease on hemodialysis has been having dysuria and hematuria. Urine culture has been done twice by straight catheterization and has been negative. Urine cytology is negative. He underwent a cystoscopy, bladder biopsy and fulguration of the bladder. Since he does not make urine I had to put him on continuous bladder irrigation to keep flushing any bleeding out of the bladder. 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 No malignancy. Plan to stop the bladder irrigation and discontinue the Bullock catheter, watch him this afternoon and discharged him in the morning if everything is stable. I informed him and his he may have some bleeding and he may urinate still some blood. He does not make any urine so any bleeding in the bladder is going to accumulate and may cause him burning sensation when he urinates. Problems: EMMA DELGADO MD Jul 05, 2017 15:07
[2017-07-05] MEDS: TICAGRELOR 90 MG TABLET PO SCH (15:08)
--- NOTE | 2017-07-05 16:30 | CONS ---
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 Comment: Decent glycemic control with increase in Basal insulin dose Consultation Date/Type/Reason Admit Date/Time Jun 23, 2017 at 10:43 Initial Consult Date 06/25/17 Type of Consultation: Endocrine Referring Provider: KIMBERLI LOPEZ MD 24 HR Interval Summary Free Text/Dictation No new issues Exam/Review of Systems Vital Signs Vitals Vital Signs Date Time Temp Pulse Resp B/P Pulse Ox O2 Delivery O2 Flow Rate FiO2 07/05/17 13:50 98.8 66 18 153/66 97 07/03/17 14:30 Room Air 07/01/17 23:00 2.0 Intake and Output 07/04/17 07/04/17 07/05/17 15:00 23:00 07:00 Intake Total 500 ml 1000 ml 680 ml Output Total 3000 ml 400 ml 250 ml Balance -2500 ml 600 ml 430 ml Exam Constitutional: alert, oriented, well developed Results POC glucose reviewed Result Diagram: 07/04/17 0532 07/04/17 0532 Results 24 hrs Laboratory Tests Test 07/04/17 17:41 07/04/17 20:55 07/05/17 01:42 07/05/17 06:23 Bedside Glucose 166 247 H 194 Troponin I 0.086 Test 07/05/17 08:45 07/05/17 09:05 07/05/17 09:21 07/05/17 09:45 Bedside Glucose 60 L 60 L 68 L 91 Test 07/05/17 10:09 07/05/17 12:07 07/05/17 14:12 Bedside Glucose 103 137 Troponin I 0.070 Medications Medications Current Medications Atorvastatin Calcium (Lipitor) 80 mg QHS PO Last administered on 07/04/17 20: 59; Admin Dose 80 MG; Start 06/23/17 at 21:00 Carvedilol (Coreg) 25 mg BID PO Last administered on 07/03/17 20:53; Admin Dose 25 MG; Start 06/23/17 at 21:00 Hydralazine HCl (Apresoline) 50 mg BID PO Last administered on 07/03/17 20:50 ; Admin Dose 50 MG; Start 06/23/17 at 21:00 Multivit/Ca Carb/ B Cmplx/FA/Prenat (Kimmie-Tirso) 1 tab DAILY PO Last administered on 07/05/17 09:12; Admin Dose 1 TAB; Start 06/24/17 at 09:00 Nifedipine (Procardia Xl) 90 mg QHS PO Last administered on 07/03/17 20:50; Admin Dose 90 MG; Start 06/23/17 at 21:00 Pantoprazole (Protonix Tab) 40 mg DAILY PO Last administered on 07/05/17 09: 12; Admin Dose 40 MG; Start 06/24/17 at 09:00 Tramadol HCl (Ultram) 50 mg Q6 PRN PO PAIN Last administered on 07/05/17 04: 41; Admin Dose 50 MG; Start 06/23/17 at 14:00 Nitroglycerin (Nitroglycerin (Sl Tab) 0.4 Mg) 1 tab Q5M PRN SL CHEST PAIN Last administered on 07/05/17 03:59; Admin Dose 1 TAB; Start 06/23/17 at 14:30 Acetaminophen (Tylenol Tab) 650 mg Q6H PRN PO PAIN LEVEL 1-3 OR FEVER Last administered on 07/05/17 04:41; Admin Dose 650 MG; Start 06/23/17 at 14:30 Miscellaneous Information 1 ea NOTE XX ; Start 06/23/17 at 14:30 Glucose (Glutose) 15 gm Q15M PRN PO DECREASED GLUCOSE; Start 06/23/17 at 14:30 Glucose (Glutose) 22.5 gm Q15M PRN PO DECREASED GLUCOSE; Start 06/23/17 at 14: 30 Dextrose (D50w Syringe) 25 ml Q15M PRN IV DECREASED GLUCOSE; Start 06/23/17 at 14:30 Dextrose (D50w Syringe) 50 ml Q15M PRN IV DECREASED GLUCOSE; Start 06/23/17 at 14:30 Glucagon (Glucagen) 1 mg Q15M PRN IM DECREASED GLUCOSE; Start 06/23/17 at 14: 30 Glucose (Glutose) 15 gm Q15M PRN BUCCAL DECREASED GLUCOSE; Start 06/23/17 at 14:30 Levetiracetam (Keppra) 500 mg DAILY PO Last administered on 07/05/17 09:12; Admin Dose 500 MG; Start 06/24/17 at 09:00 Diagnostic Test (Pha) (Accu-Chek) 1 ea 02 XX Last administered on 07/02/17 02: 23; Admin Dose 1 EA; Start 06/26/17 at 02:00 Lisinopril (Zestril) 40 mg DAILY PO Last administered on 07/03/17 08:32; Admin Dose 40 MG; Start 06/26/17 at 09:00 Levofloxacin (Levaquin) 250 mg Q48H PO Last administered on 07/04/17 12:24; Admin Dose 250 MG; Start 06/26/17 at 11:00 Clonidine (Catapres) 0.1 mg BID PO Last administered on 06/29/17 08:21; Admin Dose 0.1 MG; Start 06/26/17 at 21:00 Doxazosin Mesylate (Cardura) 4 mg HS PO Last administered on 07/03/17 20:53; Admin Dose 4 MG; Start 06/26/17 at 21:00 Epoetin Josué (Epogen (Esrd)) 10,000 units TuThSa@17 SC Last administered on 17:44; Admin Dose 10,000 UNITS; Start 06/30/17 at 17:00 Hydrogen Peroxide (Hydrogen Peroxide) 1 applic DAILY TOP Last administered on 07/05/17 09:14; Admin Dose 1 APPLIC; Start 07/01/17 at 21:00 Ondansetron HCl (Zofran Inj) 4 mg Q4H PRN IV NAUSEA AND/OR VOMITING Last administered on 07/02/17 10:16; Admin Dose 4 MG; Start 07/02/17 at 10:30 Insulin Glargine (Lantus) 16 unit QHS SC Last administered on 07/04/17 20:58; Admin Dose 16 UNIT; Start 07/04/17 at 21:00 Hydromorphone HCl (Dilaudid) 1 mg Q4H PRN IV SEVERE PAIN LEVEL 7-10 Last administered on 07/05/17 06:05; Admin Dose 1 MG; Start 07/05/17 at 06:00 Zolpidem Tartrate (Ambien) 5 mg HS PRN PO INSOMNIA; Start 07/05/17 at 13:30 Ticagrelor (Brilinta) 90 mg BID PO Last administered on 07/05/17 15:08; Admin Dose 90 MG; Start 07/05/17 at 14:00 Aspirin (Aspirin) 81 mg DAILY PO Last administered on 07/05/17 15:07; Admin Dose 81 MG; Start 07/05/17 at 14:00 SOFIA KOEHLER MD Jul 05, 2017 16:30
[2017-07-05 19:54] VITALS: BP 142/63; RESP 18
[2017-07-05] MEDS: NIFEdipine (XL) 90 MG TAB PO SCH (21:00)
[2017-07-05] MEDS: INSULIN GLARGINE [LANtus] 3 ML PEN SC SCH (21:00)
[2017-07-05] MEDS: DOXAZOSIN 4 MG TAB PO SCH (21:00)
[2017-07-05] MEDS: ATORVASTATIN 80 MG TAB PO SCH (21:07)
[2017-07-05] MEDS ORDERED: INSULIN GLARGINE [LANtus] 3 ML PEN SC ONE (22:00)
[2017-07-06] MEDS: TICAGRELOR 90 MG TABLET PO SCH ×2 (00:03→09:15)
[2017-07-06 02:25] VITALS: BP 158/70; RESP 18
[2017-07-06] MEDS: ACCU-CHEK XX SCH (02:28)
[2017-07-06 05:54] LABS: BASOPHILS % 0.7 % (0.0-2.0); EOSINOPHILS % 15.9 % (0.0-7.0); HEMOGLOBIN 9.1 g/dl (14.0-18.0); LYMPHOCYTES # 0.8 10^3/ul (0.8-2.9); LYMPHOCYTES % 13.1 % (15.0-51.0); MEAN CORPUSCULAR HEMOGLOBIN 31.1 pg (29.0-33.0); MEAN CORPUSCULAR HGB CONC 32.5 g/dl (32.0-37.0); MEAN CORPUSCULAR VOLUME 95.6 fl (82.0-101.0); MEAN PLATELET VOLUME 10.7 fl (7.4-10.4); MONOCYTE # 0.5 10^3/ul (0.3-0.9); MONOCYTES % 7.5 % (0.0-11.0); NEUTROPHIL # 3.8 10^3/ul (1.6-7.5); NEUTROPHILS % 62.5 % (39.0-77.0); PLATELET COUNT 204 10^3/UL (140-415); RED BLOOD COUNT 2.93 10^6/ul (4.70-6.10); RED CELL DISTRIBUTION WIDTH 18.1 % (11.5-14.5); WHITE BLOOD COUNT 6.1 10^3/ul (4.8-10.8)
[2017-07-06 06:07] VITALS: BP 150/68; PULSE 68
[2017-07-06 06:22] LABS: CALCIUM 10.4 mg/dl (8.4-10.2); CREATININE 9.08 mg/dl (0.61-1.24); POTASSIUM 4.9 mmol/L (3.5-5.1)
--- NOTE | 2017-07-06 06:27 | PN ---
DATE: 07/05/2017 SUBJECTIVE: Patient has had 1 episode of chest pain this morning, states that he was straining. Re solved with 1 dose of nitroglycerin and patient denies any chest at this time and chose to be discha rged, presently in no acute distress. He states that he did not sleep last night. VITAL SIGNS: Temperature 98.6, blood pressure 126/65, O2 sats 100%. CHEST: Clinically clear. HEART: S1, S2 with no definite gallops. ABDOMEN: Soft, nontender, no hepatosplenomegaly. EXTREMITIES: No edema. Bullock catheter draining slightly blood-tinged urine. Blood glucose levels today 68, 91, 103 and 137 . Troponin 0.086. EKG shows nonspecific ST-T changes, one in aVL. IMPRESSION: 1. Status post cystoscopy and bladder biopsy for hematuria, improving. 2. End-stage renal disease on maintenance hemodialysis. 3. Coronary artery disease, status post recent placement of stent. Chest pain this morning. No ev idence of an acute infarct. 4. Diabetes mellitus type 1. 5. Hypertension 6. Cholelithiasis. 7. Seizure disorder. PLAN: Will continue genitourinary management per Dr. Matt. Will be restarted back on aspirin an d Brilinta, repeat an EKG in a.m. We will also repeat troponin this p.m. and if it is increased we will request cardiology consultation, Dr. Huntley. Dictated By: GERA NAVARRO MD SR/NTS Conf#: [id number] DID#: [id number] CC: KIMBERLI LOPEZ MD;*EndCC*
--- NOTE | 2017-07-06 06:29 | PN ---
DATE: 07/04/2017 SUBJECTIVE: The patient overall feels well. Appetite is fair. Denies any nausea, denies any chest pain. PHYSICAL EXAMINATION: GENERAL: He is in no acute distress. HEENT: Mild pallor without cyanosis. CHEST: Clinically clear. HEART: S1, S2 with no definite gallops. ABDOMEN: Soft, nontender, no hepatosplenomegaly. EXTREMITIES: No edema. Blister over the left knee healing well. No drainage noted. LABORATORY DATA: WBC count 8.8, hematocrit 27.4, platelet count is 175,000. Sodium 137, potassium 4.5, BUN 52, creatinine 8.74, glucose 117, 114, and 120, and 244 today. Calcium 10.7. I discussed case with Dr. Matt in person, who recommended that we slow the irrigation rate and ho pefully the catheter will be taken out tomorrow before discharge. IMPRESSION: 1. Status post cystoscopy and bladder biopsy. Biopsy results pending, so far no evidence of infect ion. Urine is getting clearer. 2. End-stage renal disease on maintenance hemodialysis. 3. Coronary artery disease, status post recent placement of stent. 4. Diabetes mellitus type 1. 5. Hypertension. 6. Cholelithiasis. 7. Seizure disorder. We will get a PT evaluation for mobility and get PT/INR, PTT, increase activity gradually. Follow r ecommendations per Dr. Cheung, Dr. Hinton, Dr. Matt. Dictated By: GERA NAVARRO MD SR/NTS Conf#: [id number] DID#: [id number] CC: KIMBERLI LOPEZ MD;*EndCC*
[2017-07-06] MEDS: LEVOTHYROXINE 125 MCG TAB PO SCH (06:46)
[2017-07-06 07:34] VITALS: BP 156/70; RESP 18
[2017-07-06] MEDS: INSULIN ASPART [NOVOLOG] 3 ML PEN SC SCH ×5 (08:12→17:26)
[2017-07-06] MEDS: LISINOPRIL 20 MG TAB PO SCH ×2 (09:00→11:22)
[2017-07-06] MEDS: MULTIVIT/CA CARB/B CMPLX/FA TAB PO SCH (09:12)
[2017-07-06] MEDS: PANTOPRAZOLE (EC) 40 MG TAB PO SCH (09:12)
[2017-07-06] MEDS: LEVETIRACETAM 500 MG TAB PO SCH (09:13)
[2017-07-06] MEDS: ASPIRIN 81 MG TAB PO SCH (09:13)
[2017-07-06 09:16] VITALS: BP 147/65; PULSE 66
--- NOTE | 2017-07-06 09:41 | CONS ---
Date/Time of Note Date/Time of Note DATE: 07/06/17 TIME: 09:39 Assessment/Plan Assessment/Plan Chief Complaint/Hosp Course 1. End-stage renal disease on maintenance hemodialysis. Patient is regularly dialyzed Thursday . His next dialysis tentatively would be tomorrow. He could be discharged from my standpoint if all else is under control. 2 coronary artery disease. Status post recent coronary angiogram and stent placement at [facility] last week. He denies chest pain. 3. Type 2 diabetes mellitus . 4. Hypertension , his blood pressure seems to be under better control. 5. History of gallstones now with elevated alkaline phosphatase 6. Anemia of chronic kidney disease. He is on Epogen. 7. Recent history of new onset seizure disorder. Now on antiseizure medication. 8 sensation of urinary urgency and dysuria with gross hematuria. He had a cystoscopy and was found to have some cystic / grape like lesions in the bladder that are thought to be the source of his bleeding . 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 He has a Bullock catheter in place with irrigation and is is draining fluid that is blood-tinged but less bloody than yesterday . 9. Chest pain, he is having troponins done. Cardiology to see the patient. Problems: Consultation Date/Type/Reason Admit Date/Time Jun 23, 2017 at 10:43 Type of Consultation: Nephrology Referring Provider: KIMBERLI LOPEZ MD 24 HR Interval Summary Free Text/Dictation He is sitting up in a chair in his room. He denies chest pain. He had one episode early yesterday morning. He is urinating. He does have some gross hematuria with some pain but less than previous. Constitutional: improved Exam/Review of Systems Vital Signs Vitals Vital Signs Date Time Temp Pulse Resp B/P Pulse Ox O2 Delivery O2 Flow Rate FiO2 07/06/17 09:16 66 147/65 07/06/17 07:34 98.6 18 94 07/03/17 14:30 Room Air Intake and Output 07/05/17 07/05/17 07/06/17 15:00 23:00 07:00 Intake Total 840 ml 240 ml Balance 840 ml 240 ml Exam Constitutional: alert, oriented, well developed Neck: non-tender, supple Respiratory: clear to auscultation, normal air movement Cardiovascular: regular rate and rhythm Gastrointestinal: soft Musculoskeletal: nl extremities to inspection Results Result Diagram: 07/06/17 0451 07/06/17 0451 Results 24 hrs Laboratory Tests Test 07/05/17 09:45 07/05/17 10:09 07/05/17 12:07 07/05/17 14:12 Bedside Glucose 91 103 137 Troponin I 0.070 Test 07/05/17 17:24 07/05/17 21:05 07/05/17 21:57 07/06/17 02:26 Bedside Glucose 275 H 153 154 247 H Test 07/06/17 04:51 07/06/17 05:39 07/06/17 07:57 White Blood Count 6.1 # Red Blood Count 2.93 L Hemoglobin 9.1 L Hematocrit 28.0 L Mean Corpuscular Volume 95.6 Mean Corpuscular Hemoglobin 31.1 Mean Corpuscular Hemoglobin Concent 32.5 Red Cell Distribution Width 18.1 H Platelet Count 204 Mean Platelet Volume 10.7 H Neutrophils % 62.5 Lymphocytes % 13.1 L Monocytes % 7.5 Eosinophils % 15.9 H Basophils % 0.7 Nucleated Red Blood Cells % 0.0 Neutrophils # 3.8 Lymphocytes # 0.8 Monocytes # 0.5 Eosinophils # 1.0 H Basophils # 0.0 Nucleated Red Blood Cells # 0.0 Sodium Level 135 Potassium Level 4.9 Chloride Level 96 L Carbon Dioxide Level 28 Anion Gap 16 Blood Urea Nitrogen 56 H Creatinine 9.08 H Glucose Level 223 #H Calcium Level 10.4 H Troponin I 0.082 Bedside Glucose 234 H 199 Medications Medications Current Medications Atorvastatin Calcium (Lipitor) 80 mg QHS PO Last administered on 07/05/17 21: 07; Admin Dose 80 MG; Start 06/23/17 at 21:00 Carvedilol (Coreg) 25 mg BID PO Last administered on 07/03/17 20:53; Admin Dose 25 MG; Start 06/23/17 at 21:00 Hydralazine HCl (Apresoline) 50 mg BID PO Last administered on 07/03/17 20:50 ; Admin Dose 50 MG; Start 06/23/17 at 21:00 Multivit/Ca Carb/ B Cmplx/FA/Prenat (Kimmie-Tirso) 1 tab DAILY PO Last administered on 07/06/17 09:12; Admin Dose 1 TAB; Start 06/24/17 at 09:00 Nifedipine (Procardia Xl) 90 mg QHS PO Last administered on 07/03/17 20:50; Admin Dose 90 MG; Start 06/23/17 at 21:00 Pantoprazole (Protonix Tab) 40 mg DAILY PO Last administered on 07/06/17 09: 12; Admin Dose 40 MG; Start 06/24/17 at 09:00 Tramadol HCl (Ultram) 50 mg Q6 PRN PO PAIN Last administered on 07/05/17 04: 41; Admin Dose 50 MG; Start 06/23/17 at 14:00 Nitroglycerin (Nitroglycerin (Sl Tab) 0.4 Mg) 1 tab Q5M PRN SL CHEST PAIN Last administered on 07/05/17 03:59; Admin Dose 1 TAB; Start 06/23/17 at 14:30 Acetaminophen (Tylenol Tab) 650 mg Q6H PRN PO PAIN LEVEL 1-3 OR FEVER Last administered on 07/05/17 04:41; Admin Dose 650 MG; Start 06/23/17 at 14:30 Miscellaneous Information 1 ea NOTE XX ; Start 06/23/17 at 14:30 Glucose (Glutose) 15 gm Q15M PRN PO DECREASED GLUCOSE; Start 06/23/17 at 14:30 Glucose (Glutose) 22.5 gm Q15M PRN PO DECREASED GLUCOSE; Start 06/23/17 at 14: 30 Dextrose (D50w Syringe) 25 ml Q15M PRN IV DECREASED GLUCOSE; Start 06/23/17 at 14:30 Dextrose (D50w Syringe) 50 ml Q15M PRN IV DECREASED GLUCOSE; Start 06/23/17 at 14:30 Glucagon (Glucagen) 1 mg Q15M PRN IM DECREASED GLUCOSE; Start 06/23/17 at 14: 30 Glucose (Glutose) 15 gm Q15M PRN BUCCAL DECREASED GLUCOSE; Start 06/23/17 at 14:30 Levetiracetam (Keppra) 500 mg DAILY PO Last administered on 07/06/17 09:13; Admin Dose 500 MG; Start 06/24/17 at 09:00 Diagnostic Test (Pha) (Accu-Chek) 1 ea 02 XX Last administered on 07/06/17 02 :28; Admin Dose 1 EA; Start 06/26/17 at 02:00 Lisinopril (Zestril) 40 mg DAILY PO Last administered on 07/03/17 08:32; Admin Dose 40 MG; Start 06/26/17 at 09:00 Levofloxacin (Levaquin) 250 mg Q48H PO Last administered on 07/04/17 12:24; Admin Dose 250 MG; Start 06/26/17 at 11:00 Clonidine (Catapres) 0.1 mg BID PO Last administered on 07/05/17 21:09; Admin Dose 0.1 MG; Start 06/26/17 at 21:00 Doxazosin Mesylate (Cardura) 4 mg HS PO Last administered on 07/03/17 20:53; Admin Dose 4 MG; Start 06/26/17 at 21:00 Epoetin Josué (Epogen (Esrd)) 10,000 units TuThSa@17 SC Last administered on 17:44; Admin Dose 10,000 UNITS; Start 06/30/17 at 17:00 Hydrogen Peroxide (Hydrogen Peroxide) 1 applic DAILY TOP Last administered on 07/05/17 09:14; Admin Dose 1 APPLIC; Start 07/01/17 at 21:00 Ondansetron HCl (Zofran Inj) 4 mg Q4H PRN IV NAUSEA AND/OR VOMITING Last administered on 07/02/17 10:16; Admin Dose 4 MG; Start 07/02/17 at 10:30 Insulin Glargine (Lantus) 16 unit QHS SC Last administered on 07/04/17 20:58; Admin Dose 16 UNIT; Start 07/04/17 at 21:00 Hydromorphone HCl (Dilaudid) 1 mg Q4H PRN IV SEVERE PAIN LEVEL 7-10 Last administered on 07/05/17 18:52; Admin Dose 1 MG; Start 07/05/17 at 06:00 Zolpidem Tartrate (Ambien) 5 mg HS PRN PO INSOMNIA; Start 07/05/17 at 13:30 Ticagrelor (Brilinta) 90 mg BID PO Last administered on 07/06/17 09:15; Admin Dose 90 MG; Start 07/05/17 at 14:00 Aspirin (Aspirin) 81 mg DAILY PO Last administered on 12/11/17at 09:13; Admin Dose 81 MG; Start 07/05/17 at 14:00 PAULY VILA MD Jul 06, 2017 09:41
[2017-07-06] MEDS: HYDROGEN PEROXIDE TOP SCH (10:02)
[2017-07-06] MEDS: LEVOFLOXACIN 250 MG TAB PO SCH (11:20)
[2017-07-06 11:26] VITALS: BP 156/70; PULSE 62
--- NOTE | 2017-07-06 12:05 | PN ---
DATE: 07/06/2017 SUBJECTIVE: The patient has been feeling well. Denies any chest pain or shortness of breath, no co ugh, p.o. intake has improved. PHYSICAL EXAMINATION GENERAL: The patient is awake, alert. VITAL SIGNS: Temperature 98.6, blood pressure 156/70, respiration 20 per minute, O2 sats 94%. HEENT: Head normocephalic. CHEST: Clinically clear. HEART: S1, S2 heard with no definite gallops. EXTREMITIES: No edema. Homans sign is negative. NEUROLOGIC: No localizing or lateralizing signs. LABORATORY DATA: WBC count 6.1, hematocrit 28, platelet count 204. Troponin 0.08, glucose 234 199. EKG shows nonspecific ST-T wave changes. IMPRESSION: 1. Status post cystoscopy and bladder biopsy, so far no evidence of urinary tract infection. 2. End-stage renal disease on intermittent hemodialysis. 3. Coronary artery disease, status post recent stent, had chest pain yesterday, so far no evidence of acute myocardial infarction. 4. Diabetes mellitus type 1. 5. Hypertension. 6. Cholelithiasis. 7. Seizure disorder. PLAN: Will initiate discharge planning. We will also request Dr. Huntley for a followup cardiolog y evaluation, and if stable, consider discharge soon. Dictated By: GERA NAVARRO MD, SR/SEBASTIEN Conf#: [id number] DID#: [id number]
[2017-07-06 14:02] VITALS: BP 143/66; RESP 16
[2017-07-06] MEDS ORDERED: TICA90TA PO (14:09)
[2017-07-06] MEDS ORDERED: GLUCOSE GEL 15 GRAM TUBE BUCCAL PRN (17:30)
[2017-07-06] MEDS ORDERED: GLUCAGON 1 MG INJ IM PRN (17:30)
[2017-07-06] MEDS ORDERED: GLUCOSE GEL 15 GRAM TUBE PO PRN ×2 (17:30)
[2017-07-06] MEDS ORDERED: DEXTROSE 50% 50 ML SYRINGE IV PRN ×2 (17:30)
--- NOTE | 2017-07-06 17:41 | CONS ---
Date/Time of Note Date/Time of Note DATE: 07/06/17 TIME: 17:40 Assessment/Plan Assessment/Plan Chief Complaint/Hosp Course 66-year-old gentleman recently admitted at this hospital for cardiac issues. He was transferred to [facility] where he had angioplasty after an non-STEMI. He has been readmitted here for some GI tract illness. At the patient's family request I am consulted to assist with adjusting his insulin regimen for his sugars. 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 Tightening this however is led to him having hypoglycemic reactions. Given his age is fragility and multiple medical issues were using a somewhat head screen worker touch control and him to avoid the risk of significant hypoglycemia Consultation Date/Type/Reason Admit Date/Time Jun 23, 2017 at 10:43 Initial Consult Date 06/25/17 Type of Consultation: Endocrinology Reason for Consultation Diabetes mellitus type 1 with complications of end-stage renal disease; retinopathy Referring Provider: KIMBERLI LOPEZ MD 24 HR Interval Summary Free Text/Dictation No hypoglycemic reactions Constitutional: no complaints Exam/Review of Systems Vital Signs Vitals Vital Signs Date Time Temp Pulse Resp B/P Pulse Ox O2 Delivery O2 Flow Rate FiO2 07/06/17 14:02 97.6 55 16 143/66 98 07/03/17 14:30 Room Air Intake and Output 07/05/17 07/05/17 07/06/17 15:00 23:00 07:00 Intake Total 840 ml 240 ml Balance 840 ml 240 ml Results No changes Result Diagram: 07/06/17 0451 07/06/17 0451 Results 24 hrs Laboratory Tests Test 07/05/17 21:05 07/05/17 21:57 07/06/17 02:26 07/06/17 04:51 Bedside Glucose 153 154 247 H White Blood Count 6.1 # Red Blood Count 2.93 L Hemoglobin 9.1 L Hematocrit 28.0 L Mean Corpuscular Volume 95.6 Mean Corpuscular Hemoglobin 31.1 Mean Corpuscular Hemoglobin Concent 32.5 Red Cell Distribution Width 18.1 H Platelet Count 204 Mean Platelet Volume 10.7 H Neutrophils % 62.5 Lymphocytes % 13.1 L Monocytes % 7.5 Eosinophils % 15.9 H Basophils % 0.7 Nucleated Red Blood Cells % 0.0 Neutrophils # 3.8 Lymphocytes # 0.8 Monocytes # 0.5 Eosinophils # 1.0 H Basophils # 0.0 Nucleated Red Blood Cells # 0.0 Sodium Level 135 Potassium Level 4.9 Chloride Level 96 L Carbon Dioxide Level 28 Anion Gap 16 Blood Urea Nitrogen 56 H Creatinine 9.08 H Glucose Level 223 #H Calcium Level 10.4 H Troponin I 0.082 Test 07/06/17 05:39 07/06/17 07:57 07/06/17 11:58 07/06/17 17:24 Bedside Glucose 234 H 199 185 129 Medications Medications Current Medications Atorvastatin Calcium (Lipitor) 80 mg QHS PO Last administered on 07/05/17 21: 07; Admin Dose 80 MG; Start 06/23/17 at 21:00 Carvedilol (Coreg) 25 mg BID PO Last administered on 07/06/17 10:01; Admin Dose 25 MG; Start 06/23/17 at 21:00 Hydralazine HCl (Apresoline) 50 mg BID PO Last administered on 07/06/17 10:01 ; Admin Dose 50 MG; Start 06/23/17 at 21:00 Multivit/Ca Carb/ B Cmplx/FA/Prenat (Kimmie-Tirso) 1 tab DAILY PO Last administered on 07/06/17 09:12; Admin Dose 1 TAB; Start 06/24/17 at 09:00 Nifedipine (Procardia Xl) 90 mg QHS PO Last administered on 07/03/17 20:50; Admin Dose 90 MG; Start 06/23/17 at 21:00 Pantoprazole (Protonix Tab) 40 mg DAILY PO Last administered on 07/06/17 09: 12; Admin Dose 40 MG; Start 06/24/17 at 09:00 Miscellaneous Information 1 ea NOTE XX ; Start 06/23/17 at 14:30 Levetiracetam (Keppra) 500 mg DAILY PO Last administered on 07/06/17 09:13; Admin Dose 500 MG; Start 06/24/17 at 09:00 Lisinopril (Zestril) 40 mg DAILY PO Last administered on 07/06/17 11:22; Admin Dose 40 MG; Start 06/26/17 at 09:00 Clonidine (Catapres) 0.1 mg BID PO Last administered on 07/06/17 11:21; Admin Dose 0.1 MG; Start 06/26/17 at 21:00 Doxazosin Mesylate (Cardura) 4 mg HS PO Last administered on 07/03/17 20:53; Admin Dose 4 MG; Start 06/26/17 at 21:00 Insulin Glargine (Lantus) 16 unit QHS SC Last administered on 07/04/17 20:58; Admin Dose 16 UNIT; Start 07/04/17 at 21:00 Ticagrelor (Brilinta) 90 mg BID PO Last administered on 07/06/17 09:15; Admin Dose 90 MG; Start 07/05/17 at 14:00 Aspirin (Aspirin) 81 mg DAILY PO Last administered on 07/06/17 09:13; Admin Dose 81 MG; Start 07/05/17 at 14:00 Miscellaneous Information 1 ea NOTE XX ; Start 07/06/17 at 17:30 Glucose (Glutose) 15 gm Q15M PRN PO DECREASED GLUCOSE; Start 07/06/17 at 17:30 Glucose (Glutose) 22.5 gm Q15M PRN PO DECREASED GLUCOSE; Start 07/06/17 at 17: 30 Dextrose (D50w Syringe) 25 ml Q15M PRN IV DECREASED GLUCOSE; Start 07/06/17 at 17:30 Dextrose (D50w Syringe) 50 ml Q15M PRN IV DECREASED GLUCOSE; Start 07/06/17 at 17:30 Glucagon (Glucagen) 1 mg Q15M PRN IM DECREASED GLUCOSE; Start 07/06/17 at 17: 30 Glucose (Glutose) 15 gm Q15M PRN BUCCAL DECREASED GLUCOSE; Start 07/06/17 at 17:30 LAWANDA KING MD Jul 06, 2017 17:41
--- NOTE | 2017-07-06 20:32 | RADRPT ---
Vent Rate: 66 bpm RR Interval: 0 msec OR Interval: 200 msec QRS Duration: 114 msec QT Interval: 442 msec QTC Interval: 463 msec P-R-T [place]: 54 - 15 - 104 degrees Normal sinus rhythm Incomplete left bundle branch block Nonspecific ST and T wave abnormality Prolonged QT Abnormal ECG Electronically Signed By: Jace Jimenes [id number]
--- NOTE | 2017-07-06 23:51 | CONS ---
Date/Time of Note Date/Time of Note DATE: 07/06/17 TIME: 23:46 Assessment/Plan Assessment/Plan Chief Complaint/Hosp Course 2) NSTEMI- likely type IV post PCI. persistent elevation in setting of ESRD on iHD, slow decrease. no acute ekg changes. pt without symptoms. did have thrombotic lesion at time of cath. cont DAPT. echo with improved LVEF post PCI atypical cp pt denies current pain mn trop welevation likeluy from esrd - cont asa/ticagelor - cont statin - cont bb 3) Hematoma- small r sided from impella, cont to limit heavy lifting for additional week - no pseudoaneurysm/rp bleed on imaging - unrelated to urinary symptoms. 4) ESRD on iHD - per nephro 5) Chronic systolic heart failure euvolemic on exam, cont bb. acei. no on aldosterone mark given ESRD. 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 avoid heparin products. Problems: Consultation Date/Type/Reason Admit Date/Time Jun 23, 2017 at 10:43 Initial Consult Date 06/23/2017 Type of Consultation: cardio Referring Provider: KIMBERLI LOPEZ MD Exam/Review of Systems Vital Signs Vitals Vital Signs Date Time Temp Pulse Resp B/P Pulse Ox O2 Delivery O2 Flow Rate FiO2 07/06/17 14:02 97.6 55 16 143/66 98 07/03/17 14:30 Room Air Intake and Output 07/05/17 07/05/17 07/06/17 15:00 23:00 07:00 Intake Total 840 ml 240 ml Balance 840 ml 240 ml Results Result Diagram: 07/06/17 0451 07/06/17 0451 Results 24 hrs Laboratory Tests Test 07/06/17 02:26 07/06/17 04:51 07/06/17 05:39 07/06/17 07:57 Bedside Glucose 247 H 234 H 199 White Blood Count 6.1 # Red Blood Count 2.93 L Hemoglobin 9.1 L Hematocrit 28.0 L Mean Corpuscular Volume 95.6 Mean Corpuscular Hemoglobin 31.1 Mean Corpuscular Hemoglobin Concent 32.5 Red Cell Distribution Width 18.1 H Platelet Count 204 Mean Platelet Volume 10.7 H Neutrophils % 62.5 Lymphocytes % 13.1 L Monocytes % 7.5 Eosinophils % 15.9 H Basophils % 0.7 Nucleated Red Blood Cells % 0.0 Neutrophils # 3.8 Lymphocytes # 0.8 Monocytes # 0.5 Eosinophils # 1.0 H Basophils # 0.0 Nucleated Red Blood Cells # 0.0 Sodium Level 135 Potassium Level 4.9 Chloride Level 96 L Carbon Dioxide Level 28 Anion Gap 16 Blood Urea Nitrogen 56 H Creatinine 9.08 H Glucose Level 223 #H Calcium Level 10.4 H Troponin I 0.082 Test 07/06/17 11:58 07/06/17 17:24 Bedside Glucose 185 129 JAMEY GUY Jul 06, 2017 23:50
--- NOTE | 2017-07-07 14:26 | RADRPT ---
Vent Rate: 64 bpm RR Interval: 0 msec SD Interval: 194 msec QRS Duration: 122 msec QT Interval: 468 msec QTC Interval: 482 msec P-R-T [place]: 46 - -20 - 148 degrees Normal sinus rhythm Possible Left atrial enlargement Nonspecific intraventricular conduction delay ST amp; T wave abnormality, consider lateral ischemia Abnormal ECG Electronically Signed By: Erickson Huntley [id number]
== END 2017-07-06 17:50 | disposition home or self-care (01) | DRG 987 ==
LOC: E/R 08:12 → MS4 10:43 → MS2 06-25 20:40
PROVIDERS: ADMIT Internal Medicine; ATTEND Internal Medicine
PROC: 5A1D70Z Performance of Urinary Filtration, Intermittent, Less than 6 Hours Per Day (ICD-10-PCS; 2017-06-23)
PROC: 0TBB8ZX Excision of Bladder, Via Natural or Artificial Opening Endoscopic, Diagnostic (ICD-10-PCS; 2017-07-01)
PROC: 0T9B8ZZ Drainage of Bladder, Via Natural or Artificial Opening Endoscopic (ICD-10-PCS; 2017-07-01)
PROC: 0T5B8ZZ Destruction of Bladder, Via Natural or Artificial Opening Endoscopic (ICD-10-PCS; principal; 2017-07-01 17:30)
DX: I21.4 Non-ST elevation (NSTEMI) myocardial infarction (principal); N18.6 End stage renal disease; I13.2 Hypertensive heart and chronic kidney disease with heart failure and with stage 5 chronic kidney disease, or end stage renal disease; I42.0 Dilated cardiomyopathy; E10.21 Type 1 diabetes mellitus with diabetic nephropathy; E10.22 Type 1 diabetes mellitus with diabetic chronic kidney disease; D75.82 Heparin induced thrombocytopenia (HIT); L03.116 Cellulitis of left lower limb; L76.32 Postprocedural hematoma of skin and subcutaneous tissue following other procedure; I50.22 Chronic systolic (congestive) heart failure; I25.10 Atherosclerotic heart disease of native coronary artery without angina pectoris; E03.9 Hypothyroidism, unspecified; E78.5 Hyperlipidemia, unspecified; D63.1 Anemia in chronic kidney disease; R19.7 Diarrhea, unspecified; E10.40 Type 1 diabetes mellitus with diabetic neuropathy, unspecified; E10.51 Type 1 diabetes mellitus with diabetic peripheral angiopathy without gangrene; E10.319 Type 1 diabetes mellitus with unspecified diabetic retinopathy without macular edema; G40.909 Epilepsy, unspecified, not intractable, without status epilepticus; N40.1 Benign prostatic hyperplasia with lower urinary tract symptoms; R33.8 Other retention of urine; E21.2 Other hyperparathyroidism; N30.81 Other cystitis with hematuria; R07.9 Chest pain, unspecified; Z79.82 Long term (current) use of aspirin; Z79.4 Long term (current) use of insulin; Z99.2 Dependence on renal dialysis; Z95.5 Presence of coronary angioplasty implant and graft; Y84.0 Cardiac catheterization as the cause of abnormal reaction of the patient, or of later complication, without mention of misadventure at the time of the procedure
CPT/HCPCS: 36415; 71010; 74176; 80048; 80053; 81001; 82330; 82550; 82553; 82962; 84100; 84132; 84153; 84154; 84484; 85025; 85610; 85730; 87040; 87070; 87086; 88104; 88305; 90935; 93005; 93308; 93926; 97161; 97164; A4310; J0690; J1170; J1815; J2175; J2250; J2405; J3010; Q4081; Q9967

== ENCOUNTER 2017-09-23 11:10 | Inpatient (IN) | END 2017-09-27 15:47 | disposition home or self-care (01) | DRG 391 ==

== ENCOUNTER → 2017-09-23 | Outpatient (CLI) | END | disposition home or self-care (01) ==

== ENCOUNTER 2017-10-13 12:17 | Inpatient (IN) | END 2017-10-15 15:55 | disposition short-term general hospital (02) | DRG 280 ==